=== PATIENT | male | born 1930 | race Caucasian/White ===

== ENCOUNTER 2017-06-14 08:51 | Inpatient (IN) | payer OTHER, BC ==
[2017-06-14 09:12] VITALS: BMI 18.8
[2017-06-14 09:22] LABS: BASOPHIL 0.6 % (0-2.0); EOSINOPHIL 0.7 % (0-4.5); MCH 30.9 pg (25.7-33.7); MCHC 32.8 g/dl (32.0-35.9); MEAN CELL VOLUME 94.3 fl (80-96); MEAN PLT VOLUME 9.7 fl (7.5-11.1); NEUTROPHILS 54.9 % (42.8-82.8); PLATELET COUNT 187 K/MM3 (134-434)
--- NOTE | 2017-06-14 09:32 | PDOC ---
History of Present Illness - General Chief Complaint: Shortness of Breath Stated Complaint: DIFFICULTY BREATHING Time Seen by Provider: 06/14/17 09:11 History Source: Patient, Family Exam Limitations: No Limitations - History of Present Illness Initial Comments: 06/14/17 09:36 Patient is an 87-year-old male with past medical history of CHF, atrial fibrillation, hypertension, HLD, CABG, who presents to the emergency department today for increasing shortness of breath. Patient states that he has had difficulty breathing for the past 2-3 days including increasing cough. He cannot tolerate lying down at night, and needs to sit to get any rest. Admits to lethargy, dyspnea and dyspnea on exertion. Currently unable to ambulate and speaking in short sentences. He was last seen by his grid maker approximately 2 weeks ago and had no complaints at that time. Denies fevers, chills, weakness , chest pain, palpitations,, nausea, vomiting, diarrhea, rhinorrhea, sore throat , ear pain, urinary symptoms. Sr. Payroll Processor: Dr. Fisher PCP: Dr. Clifford Healthcare proxy is the patient's daughter. Patient does want resuscitation and intubation if necessary which is different from the [facility]. 06/14/17 09:38 Triage vitals are notable for: Pulse ox: 86% Respiration rate: 26 Past History - Travel Traveled outside of the country in the last 30 days: No Close contact w/someone who was outside of country & ill: No - Past Medical History Allergies/Adverse Reactions: Allergies Allergy/AdvReac Type Severity Reaction Status Date / Time diltiazem HCl [From Cardizem] Allergy Verified 06/14/17 09:11 meperidine HCl [From Demerol] Allergy DECREASED Verified 06/14/17 09:11 BP AND LETHARGY Home Medications: Ambulatory Orders Lactobacillus Acidophilus [Acidophilus] 1 each PO BID 05/08/16 Metoprolol Succinate [Toprol XL -] 25 mg PO DAILY 05/08/16 Multivitamin with Minerals [Icaps Plus] 1 each PO DAILY 05/08/16 Acetaminophen [Tylenol .Regular Strength -] 650 mg PO Q4H PRN #0 tablet Apixaban [Eliquis -] 2.5 mg PO BID #60 tablet 06/25/16 Furosemide [Lasix -] 40 mg PO DAILY #30 tablet 06/25/16 Cancer: Yes (SKIN) Cardiac Disorders: Yes (CABG, CHF, AF) HTN: Yes Hypercholesterolemia: Yes - Surgical History Cardiac Surgery: Yes - Immunization History Immunization Up to Date: No - Suicide/Smoking/Psychosocial Hx Smoking Status: No Smoking History: Never smoked Have you smoked in the past 12 months: No Number of Cigarettes Smoked Daily: 0 Information on smoking cessation initiated: No Hx Alcohol Use: No Drug/Substance Use Hx: No Substance Use Type: None Hx Substance Use Treatment: No Review of Systems - Review of Systems Able to Perform ROS?: Yes Comments:: 06/14/17 09:39 CONSTITUTIONAL: Absent: fever, chills, diaphoresis, generalized weakness, malaise, loss of appetite HEENT: Absent: rhinorrhea, nasal congestion, throat pain, throat swelling, difficulty swallowing, mouth swelling, ear pain, eye pain, visual Changes CARDIOVASCULAR: Absent: chest pain, loss of consciousness, palpitations, irregular heart rate, peripheral edema RESPIRATORY: Absent: cough, shortness of breath, dyspnea with exertion, orthopnea, wheezing, stridor, hemoptysis GASTROINTESTINAL: Absent: abdominal pain, abdominal distension, nausea, vomiting, diarrhea, constipation, melena, hematochezia GENITOURINARY: Absent: dysuria, frequency, urgency, hesitancy, hematuria, flank pain, genital pain MUSCULOSKELETAL: Absent: myalgia, arthralgia, joint swelling SKIN: Absent: rash, itching, pallor HEMATOLOGIC/IMMUNOLOGIC: Absent: easy bleeding, easy bruising, lymphadenopathy, frequent infections ENDOCRINE: Absent: unexplained weight gain, unexplained weight loss, heat intolerance, cold intolerance NEUROLOGIC: Absent: headache, focal weakness or paresthesias, dizziness, unsteady gait, seizure, mental status changes, bladder or bowel incontinence PSYCHIATRIC: Absent: anxiety, depression, suicidal or homicidal ideation, hallucinations. Is the patient limited Setswana proficient: No *Physical Exam - Vital Signs Last Vital Signs Temp Pulse Resp BP Pulse Ox 98 F 60 26 H 136/78 97 06/14/17 09:08 06/14/17 09:20 06/14/17 09:08 06/14/17 09:08 06/14/17 09:20 - Physical Exam Comments: 06/14/17 09:39 GENERAL: Well developed, well nourished. Awake and alert. No acute distress. HEENT: Normocephalic, atraumatic. PERRLA, EOMI. No conjunctival pallor. Sclera are non- icteric. Moist mucous membranes. Oropharynx is clear. NECK: Supple. Full ROM. No JVD. Carotid pulses 2+ and symmetric, without bruits. No thyromegaly. No lymphadenopathy. CARDIOVASCULAR: Paced rhythm. Regular rate and rhythm. No murmurs, rubs, or gallops. Distal pulses are 2+ and symmetric. PULMONARY: Using accessory muscles to breathe rate of 26-30. Lungs with course rhonchi b/l worse on L than R. Fair aeration to bases. ABDOMINAL: Soft. Non-tender. Non-distended. No rebound or guarding. No organomegaly. Normoactive bowel sounds. MUSCULOSKELETAL Normal range of motion at all joints. No bony deformities or tenderness. No CVA tenderness. EXTREMITIES: No cyanosis. No clubbing. No edema. No calf tenderness. SKIN: Warm and dry. Normal capillary refill. No rashes. No jaundice. NEUROLOGICAL: Alert, awake, appropriate. Cranial nerves 2-12 intact. No deficits to light touch and temperature in face, upper extremities and lower extremities. No motor deficits in the in face, upper extremities and lower extremities. Normoreflexic in the upper and lower extremities. Normal speech. Toes are down- going bilaterally. Gait is normal without ataxia. PSYCHIATRIC: Cooperative. Good eye contact. Appropriate mood and affect. ED Treatment Course - LABORATORY CBC & Chemistry Diagram: 06/14/17 09:15 06/14/17 09:15 - ADDITIONAL ORDERS Additional order review: 06/14/17 09:15 RBC 4.63 D MCV 94.3 MCHC 32.8 RDW 16.0 H MPV 9.7 D Neutrophils % 54.9 D Lymphocytes % 36.2 D Monocytes % 7.6 Eosinophils % 0.7 Basophils % 0.6 Medical Decision Making - Medical Decision Making 06/14/17 09:41 Patient is an 87-year-old male with past medical history of CHF, HTN, HLD, CABG , A. fib with pacemaker, who presents to the emergency department today for increasing shortness of breath and cough. Differential diagnosis included to not limited to acute CHF exacerbation, pneumonia, sepsis. Given physical exam rhonchi or worse on the right than the left. Patient does have retractions. 1.CBC, CMP, lactic acid, troponin, BNP, UA, UC, blood cultures 2.nasal cannula 2 L 3.chest x-ray, EKG 4.reevaluate *DC/Admit/Observation/Transfer Diagnosis at time of Disposition: Shortness of breath CHF (congestive heart failure) Qualifiers: Congestive heart failure type: unspecified congestive heart failure type Congestive heart failure chronicity: chronic Qualified Code(s): I50.9 - Heart failure, unspecified; I50.9 - Heart failure, unspecified; I50.9 - Heart failure , unspecified; I50.9 - Heart failure, unspecified Sepsis Qualifiers: Sepsis type: sepsis due to unspecified organism Qualified Code(s): A41.9 - Sepsis, unspecified organism; A41.9 - Sepsis, unspecified organism; A41.9 - Sepsis, unspecified organism - Discharge Dispostion Condition at time of disposition: Guarded Admit: Yes
[2017-06-14 09:41] LABS: ALBUMIN 3.1 g/dl (3.4-5.0); ANION GAP 6 (8-16); CALCIUM 8.6 mg/dL (8.5-10.1); CO2 29 mmol/L (21-32); GLUCOSE,RANDOM 226 mg/dL (74-106)
[2017-06-14 09:44] LABS: ALK PHOS 169 U/L (45-117); BILIRUBIN,TOTAL 0.8 mg/dL (0.2-1.0); SGPT/ALT 38 U/L (12-78); TOT PROT 7.8 g/dl (6.4-8.2)
[2017-06-14 09:48] LABS: SGOT/AST 66 U/L (15-37)
[2017-06-14 09:56] LABS: INR 1.84 (0.82-1.09); PROTHROMBIN TIME (PATIENT) 20.5 SEC (9.98-11.88)
[2017-06-14 09:59] LABS: ACTIVATED PTT 36.8 SECONDS (26.9-34.4)
[2017-06-14 10:10] LABS: VENOUS BLOOD GAS HCO3 27.1 meq/L (19-25); VENOUS PH 7.22 (7.32-7.42)
[2017-06-14] MEDS ORDERED: PIPERACILLIN/TAZOB 3.375 GM 3.375 GM in DEXTROSE 5%-WATER - 50 ML IVPB ONE (10:43)
[2017-06-14] MEDS ORDERED: VANCOMYCIN 1,000 MG in DEXTROSE 5%-WATER - 250 ML IVPB ONE (10:43)
[2017-06-14] MEDS ORDERED: SODIUM CHLORIDE 500 ML IV STA (10:44)
[2017-06-14] MEDS ORDERED: VANCOMYCIN 1 GRAM (PRE-DOCKED) 250 ML IVPB ONE (10:51)
[2017-06-14] MEDS ORDERED: PIPERACILLIN/TAZOB 3.375 GM 50 ML IVPB ONE (10:52)
[2017-06-14 11:05] LABS: PHOSPHOROUS 4.9 mg/dL (2.5-4.9); TROPONIN I 0.08 ng/ml (0.00-0.05)
[2017-06-14 11:06] LABS: CPK 82 IU/L (39-308)
[2017-06-14] MEDS ORDERED: BACITRACIN 0.9 GM PACKET ONE (11:42)
[2017-06-14] MEDS ORDERED: BACITRACIN 15 GM TUBE TOPICAL OINTMENT ONE (11:44)
[2017-06-14] MEDS ORDERED: ACETAMINOPHEN 325 MG TABLET (FP) PO PRN (12:05)
--- NOTE | 2017-06-14 12:18 | HP ---
Admitting History and Physical - Primary Care Physician PCP: Juan Clifford - Admission Chief Complaint: I passed out History of Present Illness: Mr Covarrubias is a very pleasant 87 year old male who comes in with complaints of passing out this morning. He says that he began to have problems Wednesday. He says overnight he was having difficulty sleeping secondary to becoming short of breath. He has chronic orthopnea but it was worsening. He needed more pillows to sleep. During the day he was having episodes of shortness of breath that would come and go, and he also had coughing associated with this too. He says his cough was non-productive. Wednesday the dyspnea became worse and overnight last night he had even worsening shortness of breath. This morning he stood up and thinks he passed out. Because of that he is here. He denies fevers, chills, vertigo, chest pain or pressure, abdominal pain, nausea, vomiting, diarrhea, constipation, pain or difficulty urinating, or swelling. 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 Diff) Renal/: Yes: Renal Inusuff (mild), UTI Infectious Disease: Yes: C-Diff Musculoskeletal: Yes: Osteoarthritis (knees), Other (LE weakness) Rheumatology: Yes: Other (severe degenerative arthritis of knees necessitating walker) - Past Surgical History Past Surgical History: Yes: CABG, Permanent Pacemaker (09/07/14), Stent, Valve Replacement - Smoking History Smoking history: Never smoked Have you smoked in the past 12 months: No Aproximately how many cigarettes per day: 0 - Alcohol/Substance Use Hx Alcohol Use: No History of Substance Use: reports: None - Social History Usual Living Arrangement: Yes: With Child ADL: Support Services History of Recent Travel: No Home Medications - Allergies Allergies/Adverse Reactions: Allergies Allergy/AdvReac Type Severity Reaction Status Date / Time diltiazem HCl [From Cardizem] Allergy Verified 06/14/17 09:11 meperidine HCl [From Demerol] Allergy DECREASED Verified 06/14/17 09:11 BP AND LETHARGY - Home Medications Home Medications: Ambulatory Orders Lactobacillus Acidophilus [Acidophilus] 1 each PO BID 05/08/16 Metoprolol Succinate [Toprol XL -] 25 mg PO DAILY 05/08/16 Multivitamin with Minerals [Icaps Plus] 1 each PO DAILY 05/08/16 Acetaminophen [Tylenol .Regular Strength -] 650 mg PO Q4H PRN #0 tablet Apixaban [Eliquis -] 2.5 mg PO BID #60 tablet 06/25/16 Furosemide [Lasix -] 40 mg PO DAILY #30 tablet 06/25/16 Family Disease History - Family Disease History Family Disease History: Heart Disease: Brother ( of an DE), CA: Grandparent (colon cancer), Father (colon cancer), Other: Mother (old age) Review of Systems Findings/Remarks: Full review of systems obtained, as per HPI and otherwise negative Physical Examination Vital Signs: Vital Signs Temperature 36.6 C 06/14/17 09:08 Pulse Rate 60 06/14/17 10:07 Respiratory Rate 18 06/14/17 10:07 Blood Pressure 100/6 06/14/17 10:07 O2 Sat by Pulse Oximetry (%) 100 06/14/17 10:07 Constitutional: Yes: No Distress, Calm, Thin, Other Eyes: Yes: Conjunctiva Clear, PERRL Cardiovascular: Yes: Regular Rate and Rhythm. No: Gallop, Murmur, Rub Respiratory: Yes: Regular, On Nasal O2, Rhonchi (slight, bibasilar). No: CTA Bilaterally, Rales, Wheezes Gastrointestinal: Yes: Normal Bowel Sounds, Soft. No: Distention, Tenderness Extremities: Yes: WNL Edema: No Labs: Laboratory Results - last 24 hr 06/14/17 06/14/17 06/14/17 09:15 09:15 09:20 WBC 10.0 RBC 4.63 D Hgb 14.3 D Hct 43.7 D MCV 94.3 MCH 30.9 MCHC 32.8 RDW 16.0 H Plt Count 187 D MPV 9.7 D Neutrophils % 54.9 D Lymphocytes % 36.2 D Monocytes % 7.6 Eosinophils % 0.7 Basophils % 0.6 PT with INR 20.50 H INR 1.84 H PTT (Actin FS) 36.8 H VBG pH POC VBG pCO2 POC VBG pO2 Mixed VBG HCO3 Sodium 139 Potassium 4.6 Chloride 104 Carbon Dioxide 29 Anion Gap 6 L BUN 25 H Creatinine 1.0 D Creat Clearance w eGFR > 60 Random Glucose 226 H D Lactic Acid Calcium 8.6 Phosphorus 4.9 D Magnesium 2.0 Total Bilirubin 0.8 D AST 66 H D ALT 38 D Alkaline Phosphatase 169 H Creatine Kinase 82 Creatine Kinase Index CK-MB (CK-2) Troponin I 0.08 H B-Natriuretic Peptide 9589.19 H Total Protein 7.8 Albumin 3.1 L D Blood Type Antibody Screen Spec Expiration Date 06/14/17 06/14/17 06/14/17 09:20 09:20 09:20 WBC RBC Hgb Hct MCV MCH MCHC RDW Plt Count MPV Neutrophils % Lymphocytes % Monocytes % Eosinophils % Basophils % PT with INR INR PTT (Actin FS) VBG pH POC VBG pCO2 POC VBG pO2 Mixed VBG HCO3 Sodium Potassium Chloride Carbon Dioxide Anion Gap BUN Creatinine Creat Clearance w eGFR Random Glucose Lactic Acid 3.6 H* Calcium Phosphorus Magnesium Total Bilirubin AST ALT Alkaline Phosphatase Creatine Kinase Cancelled Creatine Kinase Index Cancelled CK-MB (CK-2) Cancelled Troponin I Cancelled B-Natriuretic Peptide Total Protein Albumin Blood Type Cancelled Antibody Screen Cancelled Spec Expiration Date Cancelled 06/14/17 06/14/17 09:50 11:50 WBC RBC Hgb Hct MCV MCH MCHC RDW Plt Count MPV Neutrophils % Lymphocytes % Monocytes % Eosinophils % Basophils % PT with INR INR PTT (Actin FS) VBG pH 7.22 L* POC VBG pCO2 68.5 H* POC VBG pO2 65.6 H Mixed VBG HCO3 27.1 H Sodium Potassium Chloride Carbon Dioxide Anion Gap BUN Creatinine Creat Clearance w eGFR Random Glucose Lactic Acid 2.2 H* Calcium Phosphorus Magnesium Total Bilirubin AST ALT Alkaline Phosphatase Creatine Kinase Creatine Kinase Index CK-MB (CK-2) Troponin I B-Natriuretic Peptide Total Protein Albumin Blood Type Antibody Screen Spec Expiration Date Imaging - Results Chest X-ray: Report Reviewed, Image Reviewed EKG: Image Reviewed Problem List - Problems (1) Acute on chronic diastolic (congestive) heart failure Assessment/Plan: -patient's symptoms most consistent with fluid overload secondary to CHF exacerbation -admit to telemetry -given IVF in the ED secondary to concern for sepsis -however does not appear septic -will stop IVF and give trial of lasix -case d/w cardiology Code(s): I50.33 - ACUTE ON CHRONIC DIASTOLIC (CONGESTIVE) HEART FAILURE (2) Lactic acid acidosis Assessment/Plan: -patient with lactic acidosis -unclear source, ? secondary to hypoxia -trending down currently -will consult ID for possibility of infectious agent Code(s): E87.2 - ACIDOSIS (3) Respiratory acidosis Assessment/Plan: -VBG showing acidosis, with elevated carbon dioxide -ABG ordered -if accurate, would be consistent with CHF exacerbation -will hold on bipap until ABG returns, plus patient is protecting his airway and not somnolent or with AMS -monitor while diuresing Code(s): E87.2 - ACIDOSIS (4) Atrial fibrillation Assessment/Plan: -paced -continue toprol xl and eliquis Code(s): I48.91 - UNSPECIFIED ATRIAL FIBRILLATION Qualifiers: Atrial fibrillation type: chronic Qualified Code(s): I48.2 - Chronic atrial fibrillation; I48.2 - Chronic atrial fibrillation; I48.2 - Chronic atrial fibrillation; I48.2 - Chronic atrial fibrillation (5) Hypertension Assessment/Plan: -continue toprol xl Code(s): I10 - ESSENTIAL (PRIMARY) HYPERTENSION (6) History of aortic valve replacement with bioprosthetic valve Assessment/Plan: -stable Code(s): Z95.4 - PRESENCE OF OTHER HEART-VALVE REPLACEMENT (7) Hypoxia Assessment/Plan: -patient wears oxygen at night -VBG shows elevated oxygen, however per ER provider patient came in with sats around the 70s -continue oxygen -diurese for CHF -consult pulmonary -ABG Code(s): R09.02 - HYPOXEMIA
--- NOTE | 2017-06-14 14:16 | CON.CARD ---
Consult Consult Specialty:: Cardiology - History of Present Illness History of Present Illness: Patient is an 87-year-old male with past medical history of CHF, atrial fibrillation, hypertension, HLD, CABG, who presents to the emergency department today for increasing shortness of breath. Patient states that he has had difficulty breathing for the past 2-3 days including increasing cough. He cannot tolerate lying down at night, and needs to sit to get any rest. Admits to lethargy, dyspnea and dyspnea on exertion. Currently unable to ambulate and speaking in short sentences. He was last seen by his wood type finisher approximately 2 weeks ago and had no complaints at that time. Denies fevers, chills, weakness , chest pain, palpitations,, nausea, vomiting, diarrhea, rhinorrhea, sore throat , ear pain, urinary symptoms. PMH Surgical history: CABG (SANCHEZ to LAD; SVG to PDA) and pericardial aortic valve 12/23 at [facility] (Dr. Yaya Green) Left upper arm surgery for "malignant melanoma" VVIR [employer] PPM (implanted 09/07/2014) Medical History: AF anxiety/depression CAD (denies hx GA) and aortic stenosis--> 2 vessel CABG and AoVR on 12/23 DM HTN severe "arthritis" of both knees skin cancer on top of (bald) head diastolic CHF ECHO 04/2016: normal LVEF; moderate LVH; mild-moderate MS; mild MR and WA; trace TR. 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 History of Recent Travel: No Home Medications - Allergies Allergies/Adverse Reactions: Allergies Allergy/AdvReac Type Severity Reaction Status Date / Time diltiazem HCl [From Cardizem] Allergy Verified 06/14/17 09:11 meperidine HCl [From Demerol] Allergy DECREASED Verified 06/14/17 09:11 BP AND LETHARGY - Home Medications Home Medications: Ambulatory Orders Lactobacillus Acidophilus [Acidophilus] 1 each PO BID 05/08/16 Metoprolol Succinate [Toprol XL -] 25 mg PO DAILY 05/08/16 Multivitamin with Minerals [Icaps Plus] 1 each PO DAILY 05/08/16 Acetaminophen [Tylenol .Regular Strength -] 650 mg PO Q4H PRN #0 tablet Apixaban [Eliquis -] 2.5 mg PO BID #60 tablet 06/25/16 Furosemide [Lasix -] 40 mg PO DAILY #30 tablet 06/25/16 Family Disease History - Family Disease History Family Disease History: Heart Disease: Brother ( of an GA), CA: Grandparent (colon cancer), Father (colon cancer), Other: Mother (old age) Review of Systems - Review of Systems Constitutional: reports: No Symptoms Eyes: reports: No Symptoms HENT: reports: No Symptoms Neck: reports: No Symptoms Cardiovascular: reports: No Symptoms Respiratory: reports: SOB, SOB on Exertion Gastrointestinal: reports: No Symptoms Genitourinary: reports: No Symptoms Breasts: reports: No Symptoms Reported Musculoskeletal: reports: No Symptoms Integumentary: reports: No Symptoms Neurological: reports: No Symptoms Endocrine: reports: No Symptoms Hematology/Lymphatic: reports: No Symptoms Psychiatric: reports: No Symptoms Vital Signs: Vital Signs Temperature 98 F 06/14/17 09:08 Pulse Rate 60 06/14/17 12:20 Respiratory Rate 18 06/14/17 12:20 Blood Pressure 108/79 06/14/17 12:20 O2 Sat by Pulse Oximetry (%) 98 06/14/17 12:20 Constitutional: Yes: Well Nourished, No Distress, Calm Eyes: Yes: WNL, Conjunctiva Clear, EOM Intact HENT: Yes: WNL, Atraumatic, Normocephalic Neck: Yes: WNL, Supple, Trachea Midline Respiratory: Yes: WNL, Regular, CTA Bilaterally Gastrointestinal: Yes: WNL, Normal Bowel Sounds Renal/: Yes: WNL Cardiovascular: Yes: WNL, Regular Rate and Rhythm Musculoskeletal: Yes: WNL Extremities: Yes: WNL Integumentary: Yes: WNL Neurological: Yes: WNL, Alert, Oriented ...Motor Strength: WNL Psychiatric: Yes: WNL, Alert, Oriented - Other Data Labs, Other Data: INR, PTT INR 1.84 (0.82-1.09) H 06/14/17 09:20 Laboratory Tests 06/14/17 06/14/17 06/14/17 09:15 09:15 09:20 WBC 10.0 RBC 4.63 D Hgb 14.3 D Hct 43.7 D MCV 94.3 MCH 30.9 MCHC 32.8 RDW 16.0 H Plt Count 187 D MPV 9.7 D Neutrophils % 54.9 D Lymphocytes % 36.2 D Monocytes % 7.6 Eosinophils % 0.7 Basophils % 0.6 PT with INR 20.50 H INR 1.84 H PTT (Actin FS) 36.8 H VBG pH POC VBG pCO2 POC VBG pO2 Mixed VBG HCO3 Sodium 139 Potassium 4.6 Chloride 104 Carbon Dioxide 29 Anion Gap 6 L BUN 25 H Creatinine 1.0 D Creat Clearance w eGFR > 60 Random Glucose 226 H D Lactic Acid Calcium 8.6 Phosphorus 4.9 D Magnesium 2.0 Total Bilirubin 0.8 D AST 66 H D ALT 38 D Alkaline Phosphatase 169 H Creatine Kinase 82 Creatine Kinase Index CK-MB (CK-2) Troponin I 0.08 H B-Natriuretic Peptide 9589.19 H Total Protein 7.8 Albumin 3.1 L D Blood Type Antibody Screen Spec Expiration Date 06/14/17 06/14/17 06/14/17 09:20 09:20 09:20 WBC RBC Hgb Hct MCV MCH MCHC RDW Plt Count MPV Neutrophils % Lymphocytes % Monocytes % Eosinophils % Basophils % PT with INR INR PTT (Actin FS) VBG pH POC VBG pCO2 POC VBG pO2 Mixed VBG HCO3 Sodium Potassium Chloride Carbon Dioxide Anion Gap BUN Creatinine Creat Clearance w eGFR Random Glucose Lactic Acid 3.6 H* Calcium Phosphorus Magnesium Total Bilirubin AST ALT Alkaline Phosphatase Creatine Kinase Cancelled Creatine Kinase Index Cancelled CK-MB (CK-2) Cancelled Troponin I Cancelled B-Natriuretic Peptide Total Protein Albumin Blood Type Cancelled Antibody Screen Cancelled Spec Expiration Date Cancelled 06/14/17 06/14/17 09:50 11:50 WBC RBC Hgb Hct MCV MCH MCHC RDW Plt Count MPV Neutrophils % Lymphocytes % Monocytes % Eosinophils % Basophils % PT with INR INR PTT (Actin FS) VBG pH 7.22 L* POC VBG pCO2 68.5 H* POC VBG pO2 65.6 H Mixed VBG HCO3 27.1 H Sodium Potassium Chloride Carbon Dioxide Anion Gap BUN Creatinine Creat Clearance w eGFR Random Glucose Lactic Acid 2.2 H* Calcium Phosphorus Magnesium Total Bilirubin AST ALT Alkaline Phosphatase Creatine Kinase Creatine Kinase Index CK-MB (CK-2) Troponin I B-Natriuretic Peptide Total Protein Albumin Blood Type Antibody Screen Spec Expiration Date Imaging - Results Chest X-ray: Image Reviewed EKG: Image Reviewed (af v paced) Problem List - Problems (1) Atrial fibrillation Code(s): I48.91 - UNSPECIFIED ATRIAL FIBRILLATION Qualifiers: Qualified Code(s): I48.2 - Chronic atrial fibrillation; I48.2 - Chronic atrial fibrillation; I48.2 - Chronic atrial fibrillation; I48.2 - Chronic atrial fibrillation (2) CHF (congestive heart failure) Code(s): I50.9 - HEART FAILURE, UNSPECIFIED Qualifiers: Qualified Code(s): I50.9 - Heart failure, unspecified; I50.9 - Heart failure, unspecified; I50.9 - Heart failure, unspecified; I50.9 - Heart failure , unspecified (3) Hypertension Code(s): I10 - ESSENTIAL (PRIMARY) HYPERTENSION (4) Sepsis Code(s): A41.9 - SEPSIS, UNSPECIFIED ORGANISM Qualifiers: Qualified Code(s): A41.9 - Sepsis, unspecified organism; A41.9 - Sepsis, unspecified organism; A41.9 - Sepsis, unspecified organism (5) Shortness of breath Code(s): R06.02 - SHORTNESS OF BREATH (6) Acute bronchitis Code(s): J20.9 - ACUTE BRONCHITIS, UNSPECIFIED Qualifiers: Qualified Code(s): J20.6 - Acute bronchitis due to rhinovirus; J20.6 - Acute bronchitis due to rhinovirus (7) Acute on chronic diastolic (congestive) heart failure Code(s): I50.33 - ACUTE ON CHRONIC DIASTOLIC (CONGESTIVE) HEART FAILURE (8) Arthritis Code(s): M19.90 - UNSPECIFIED OSTEOARTHRITIS, UNSPECIFIED SITE (9) Bradycardia Code(s): R00.1 - BRADYCARDIA, UNSPECIFIED (10) C. difficile diarrhea Code(s): A04.7 - ENTEROCOLITIS DUE TO CLOSTRIDIUM DIFFICILE * DO NOT USE * (11) Cellulitis Code(s): L03.90 - CELLULITIS, UNSPECIFIED Qualifiers: Qualified Code(s): L03.115 - Cellulitis of right lower limb; L03.115 - Cellulitis of right lower limb (12) Diarrhea Code(s): R19.7 - DIARRHEA, UNSPECIFIED Qualifiers: Qualified Code(s): R19.7 - Diarrhea, unspecified; R19.7 - Diarrhea, unspecified (13) Diastolic CHF Code(s): I50.30 - UNSPECIFIED DIASTOLIC (CONGESTIVE) HEART FAILURE (14) Elevated INR Code(s): R79.1 - ABNORMAL COAGULATION PROFILE (15) Gout Code(s): M10.9 - GOUT, UNSPECIFIED (16) H/O aortic valve replacement Code(s): Z95.2 - PRESENCE OF PROSTHETIC HEART VALVE (17) Hematuria Code(s): R31.9 - HEMATURIA, UNSPECIFIED (18) History of aortic valve replacement with bioprosthetic valve Code(s): Z95.4 - PRESENCE OF OTHER HEART-VALVE REPLACEMENT (19) Hyperkalemia Code(s): E87.5 - HYPERKALEMIA (20) Hypomagnesemia Code(s): E83.42 - HYPOMAGNESEMIA (21) Leg swelling Code(s): M79.89 - OTHER SPECIFIED SOFT TISSUE DISORDERS (22) Lower extremity ulceration Code(s): L97.909 - NON-PRS CHRONIC ULC UNSP PRT OF UNSP LOW LEG W UNSP SEVERITY (23) Melanoma of upper arm Code(s): C43.60 - MALIGNANT MELANOMA OF UNSP UPPER LIMB, INCLUDING SHOULDER (24) Nausea & vomiting Code(s): R11.2 - NAUSEA WITH VOMITING, UNSPECIFIED (25) Osteoarthritis of both knees Code(s): M17.0 - BILATERAL PRIMARY OSTEOARTHRITIS OF KNEE (26) Pacemaker Code(s): Z95.0 - PRESENCE OF CARDIAC PACEMAKER (27) Phlebitis after infusion Code(s): T80.1XXA - VASCULAR COMP FOL INFUSN, TRANFS AND THERAPUTC INJECT, INIT (28) Rectal bleeding Code(s): K62.5 - HEMORRHAGE OF ANUS AND RECTUM (29) Supratherapeutic INR Code(s): R79.1 - ABNORMAL COAGULATION PROFILE (30) Systolic CHF Code(s): I50.20 - UNSPECIFIED SYSTOLIC (CONGESTIVE) HEART FAILURE Assessment/Plan chf diastolic acute decompensated sepsis ashds/p cabg s/p AVR s/p PPM htn dm hlp plan; d/c ivf lasix po abx' echo ac will f/u
[2017-06-14] MEDS: FUROSEMIDE 40 MG/4 ML INJECTABLE VIAL IVPUSH SCH (14:37)
--- NOTE | 2017-06-14 14:58 | CONSULT ---
Consultation: PULMONARY CONSULT CONSULT REQUEST: We have been asked to medically evaluate this patient for ( HYPOXIA) HISTORY OF PRESENT ILLNESS: Mr. Covarrubias is a 87yo M with PMHx of Diastolic CHF, Afib, on chronic 2L NC at night, who presented with one episode of syncope this AM. Endorsed gradual onset SOB and worsening orthopnea for the past 3 days. This AM he was getting up from bed and doesn't remember what happened after that. Precision Grinder Santy was present in the room, states that he noticed the patient was panting, taking deep breaths, and not responding to questions as he normally would. He states that patient lost consciousness for about 5 minutes. Prior to the syncopal episode he denied CP, palpitations, aura, migraines. Precision Grinder didn't note seizure activity, and patient had no focal neurological symptoms after return to consciousness. He endorses a dry cough. Denies fevers, chills, vertigo. In the ER he was speaking in short sentences, noted to be hypoxic (86) on RA with respiratory rate of 26. He had lactic acid of 3.6, afebrile, no WBC count. Patient had elevated BNP and signs of congestion (cardiomegaly, pleural effusion , increased lung markings) on CXR. VBG in the ER was consistent with respiratory acidosis (pH 7.22, CO2 68.5), prior ABG shows CO2 50.6. Patient was given 500mL NS + Vanc/Zosyn. Since then, fluids were stopped, and patient was started on IV Lasix 40mg QD. Patient feels much better than yesterday. States he is less SOB, cough is decreasing. Denies CP, headache, further syncopal episodes. OTHER PMHX: Diastolic CHF (on Lasix 40mg QD), CAD, Aortic Stenosis (s/p AVR), Pulmonary HTN, Afib (on Eliquis) SOCIAL HX: Denies smoking history. 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 REVIEW OF SYSTEMS: CONSTITUTIONAL: Absent: fever, chills, diaphoresis, generalized weakness, malaise, loss of appetite, weight change HEENT: Absent: rhinorrhea, nasal congestion, throat pain, throat swelling, difficulty swallowing, mouth swelling, ear pain, eye pain, visual changes CARDIOVASCULAR: Absent: chest pain, syncope, palpitations, irregular heart rate, lightheadedness , peripheral edema RESPIRATORY: Absent: wheezing, stridor, hemoptysis Present: cough, shortness of breath, dyspnea with exertion, orthopnea GASTROINTESTINAL: Absent: abdominal pain, abdominal distension, nausea, vomiting, diarrhea, constipation, melena, hematochezia GENITOURINARY: Absent: dysuria, frequency, urgency, hesitancy, hematuria, flank pain, genital pain MUSCULOSKELETAL: Absent: myalgia, arthralgia, joint swelling, back pain, neck pain SKIN: Absent: rash, itching, pallor HEMATOLOGIC/IMMUNOLOGIC: Absent: easy bleeding, easy bruising, lymphadenopathy, frequent infections ENDOCRINE: Absent: unexplained weight gain, unexplained weight loss, heat intolerance, cold intolerance NEUROLOGIC: Absent: headache, focal weakness or paresthesias, dizziness, unsteady gait, seizure, mental status changes, bladder or bowel incontinence PSYCHIATRIC: Absent: anxiety, depression, suicidal or homicidal ideation, hallucinations. PHYSICAL EXAMINATION Vital Signs Temperature 97.6 F 06/14/17 14:10 Pulse Rate 61 06/14/17 14:10 Respiratory Rate 18 06/14/17 14:10 Blood Pressure 110/62 06/14/17 14:10 O2 Sat by Pulse Oximetry (%) 98 06/14/17 12:20 GEN: AAOx3, NAD, Lying in bed comfortably, not in respiratory distress HEENT: PERRLA, EOMi CV: S1, S2, irregularly irregular rhythm LUNG: Mild bibasilar crackles, R worse than L ABD: Soft, NT, ND, normoactive BS MSK: No edema, thin skin, erythema NEURO: CN 2-12 intact, no MSK or sensation deficits. Laboratory Last Values WBC 10.0 K/mm3 (4.0-10.0) 06/14/17 09:15 RBC 4.63 M/mm3 (4.00-5.60) D 06/14/17 09:15 Hgb 14.3 GM/dL (11.7-16.9) D 06/14/17 09:15 Hct 43.7 % (35.4-49) D 06/14/17 09:15 MCV 94.3 fl (80-96) 06/14/17 09:15 MCH 30.9 pg (25.7-33.7) 06/14/17 09:15 MCHC 32.8 g/dl (32.0-35.9) 06/14/17 09:15 RDW 16.0 % (11.9-15.9) H 06/14/17 09:15 Plt Count 187 K/MM3 (134-434) D 06/14/17 09:15 MPV 9.7 fl (7.5-11.1) D 06/14/17 09:15 Neutrophils % 54.9 % (42.8-82.8) D 06/14/17 09:15 Lymphocytes % 36.2 % (8-40) D 06/14/17 09:15 Monocytes % 7.6 % (3.8-10.2) 06/14/17 09:15 Eosinophils % 0.7 % (0-4.5) 06/14/17 09:15 Basophils % 0.6 % (0-2.0) 06/14/17 09:15 PT with INR 20.50 SEC (9.98-11.88) H 06/14/17 09:20 INR 1.84 (0.82-1.09) H 06/14/17 09:20 PTT (Actin FS) 36.8 SECONDS (26.9-34.4) H 06/14/17 09:20 VBG pH 7.22 (7.32-7.42) L* 06/14/17 09:50 POC VBG pCO2 68.5 mmHg (38-52) H* 06/14/17 09:50 POC VBG pO2 65.6 mmHg (28-48) H 06/14/17 09:50 Mixed VBG HCO3 27.1 meq/L (19-25) H 06/14/17 09:50 Sodium 139 mmol/L (136-145) 06/14/17 09:15 Potassium 4.6 mmol/L (3.5-5.1) 06/14/17 09:15 Chloride 104 mmol/L (98-107) 06/14/17 09:15 Carbon Dioxide 29 mmol/L (21-32) 06/14/17 09:15 Anion Gap 6 (8-16) L 06/14/17 09:15 BUN 25 mg/dL (7-18) H 06/14/17 09:15 Creatinine 1.0 mg/dL (0.7-1.3) D 06/14/17 09:15 Creat Clearance w eGFR > 60 (>60) 06/14/17 09:15 Random Glucose 226 mg/dL (74-106) H D 06/14/17 09:15 Lactic Acid 2.2 mmol/L (0.4-2.0) H* 06/14/17 11:50 Calcium 8.6 mg/dL (8.5-10.1) 06/14/17 09:15 Phosphorus 4.9 mg/dL (2.5-4.9) D 06/14/17 09:15 Magnesium 2.0 mg/dL (1.8-2.4) 06/14/17 09:15 Total Bilirubin 0.8 mg/dL (0.2-1.0) D 06/14/17 09:15 AST 66 U/L (15-37) H D 06/14/17 09:15 ALT 38 U/L (12-78) D 06/14/17 09:15 Alkaline Phosphatase 169 U/L (45-117) H 06/14/17 09:15 Creatine Kinase 82 IU/L (39-308) 06/14/17 09:15 Creatine Kinase Index Cancelled 06/14/17 09:20 CK-MB (CK-2) Cancelled 06/14/17 09:20 Troponin I 0.08 ng/ml (0.00-0.05) H 06/14/17 09:15 B-Natriuretic Peptide 9589.19 pg/ml (5-450) H 06/14/17 09:15 Total Protein 7.8 g/dl (6.4-8.2) 06/14/17 09:15 Albumin 3.1 g/dl (3.4-5.0) L D 06/14/17 09:15 Blood Type Cancelled 06/14/17 09:20 Antibody Screen Cancelled 06/14/17 09:20 Spec Expiration Date Cancelled 06/14/17 09:20 Active Medications Generic Name Dose Route Start Last Admin Trade Name Freq PRN Reason Stop Dose Admin Acetaminophen 650 mg 06/14/17 12:05 Tylenol - PO Q4H PRN FEVER OR PAIN Apixaban 2.5 mg 06/14/17 22:00 Eliquis - PO BID HOLLEY Furosemide 40 mg 06/14/17 14:30 06/14/17 14:37 Lasix Injection - IVPUSH 40 mg DAILY HOLLEY Administration Lactobacillus Acidophilus 1 tab 06/14/17 22:00 Bacid - PO BID HOLLEY Metoprolol Succinate 25 mg 06/15/17 10:00 Toprol Xl - PO DAILY HOLLEY Multivitamins/Minerals 1 each 06/15/17 10:00 Theragran-M PO DAILY HOLLEY ASSESSMENT/PLAN: Pt is a 87yo F with diastolic CHF, HTN, CAD who presented with 1 day of syncope , admitted for likely diastolic CHF exacerbation. # Acute on Chronic Hypercapnic RF - likely secondary to CHF exac - Now improved to 97 on 3L - F/u new ABG - Continue O2 as needed #Diastolic CHF Exacerbation - prior Echo in 2016 shows normal LVEF, moderate LVH - Continue diuresis with IV Lasix 40mg QD - New echocardiogram - Strict I&Os, Daily weights, Elevate HOB # Syncope - Carotid ultrasound shows multiple plaques in RCA and LCA, no hemodynamic stenosis, at least >50% narrowing - Could be 2/2 Hypercapnea vs CHF exacerbation + carotid stenoses --> cerebral hypoperfusion - Monitor on tele for arrhythmias # Lactic Acid - 3.6 --> 2.2 - Likely secondary to hypoxia - Unlikely related to infectious etiology - CT Chest to evaluate for consolidation, if + can restart abx - Continue O2 as needed Rest as per Primary. Discussed w/ Dr Molina. We will continue to follow the patient. Trevor Quiroga MD - PGY1 Visit type - Emergency Visit Emergency Visit: No - New Patient This patient is new to me today: Yes Date on this admission: 06/14/17 - Critical Care Critical Care patient: No
--- NOTE | 2017-06-14 16:10 | PN ---
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
--- NOTE | 2017-06-14 16:32 | PN ---
Teaching Attending Note Name of Resident: Trevor Quiroga ATTENDING PHYSICIAN STATEMENT I saw and evaluated the patient. I reviewed the resident's note and discussed the case with the resident. I agree with the resident's findings and plan as documented. PULMONARY IMP ACUTE ON CHRONIC HYPOXEMIC/HYPERCAPNEIC RESPIRATORY FAILURE SYNCOPE CHF ? COPD S/P AVR HTN AFIB ELEVATED LACTATE LEVEL PLAN LASIX O2 DAILY WTS ECHO STRICT I+Os TREND LACTATE CHEST CT ABG MONITOR ÁNGELA CHATMAN Problem List - Problems (1) Atrial fibrillation Code(s): I48.91 - UNSPECIFIED ATRIAL FIBRILLATION Qualifiers: Atrial fibrillation type: chronic Qualified Code(s): I48.2 - Chronic atrial fibrillation; I48.2 - Chronic atrial fibrillation; I48.2 - Chronic atrial fibrillation; I48.2 - Chronic atrial fibrillation (2) CHF (congestive heart failure) Code(s): I50.9 - HEART FAILURE, UNSPECIFIED Qualifiers: Congestive heart failure type: unspecified congestive heart failure type Congestive heart failure chronicity: chronic Qualified Code(s): I50.9 - Heart failure, unspecified; I50.9 - Heart failure, unspecified; I50.9 - Heart failure, unspecified; I50.9 - Heart failure, unspecified (3) Hypertension Code(s): I10 - ESSENTIAL (PRIMARY) HYPERTENSION (4) Hypoxia Code(s): R09.02 - HYPOXEMIA (5) Lactic acid acidosis Code(s): E87.2 - ACIDOSIS (6) Shortness of breath Code(s): R06.02 - SHORTNESS OF BREATH (7) Acute on chronic diastolic (congestive) heart failure Code(s): I50.33 - ACUTE ON CHRONIC DIASTOLIC (CONGESTIVE) HEART FAILURE (8) H/O aortic valve replacement Code(s): Z95.2 - PRESENCE OF PROSTHETIC HEART VALVE (9) History of aortic valve replacement with bioprosthetic valve Code(s): Z95.4 - PRESENCE OF OTHER HEART-VALVE REPLACEMENT (10) Pacemaker Code(s): Z95.0 - PRESENCE OF CARDIAC PACEMAKER (11) Acute on chronic respiratory failure with hypoxia and hypercapnia Code(s): J96.21 - ACUTE AND CHRONIC RESPIRATORY FAILURE WITH HYPOXIA J96.22 - ACUTE AND CHRONIC RESPIRATORY FAILURE WITH HYPERCAPNIA
[2017-06-14 17:34] LABS: TROPONIN I 0.13 ng/ml (0.00-0.05)
[2017-06-14 18:59] LABS: URINE APPEARANCE CLEAR; URINE BILIRUBIN NEGATIVE (NEGATIVE); URINE BLOOD 2+ (NEGATIVE); URINE COLOR LTYELLOW; URINE GLUCOSE (UA) NEGATIVE (NEGATIVE); URINE KETONE NEGATIVE (NEGATIVE); URINE LEUK ESTERASE NEGATIVE (NEGATIVE); URINE NITRITE NEGATIVE (NEGATIVE); URINE UROBILINOGEN NEGATIVE mg/dL (0.2-1.0)
[2017-06-14 19:21] LABS: URINE PROTEIN 1+ (NEGATIVE)
[2017-06-14 19:24] LABS: URINE MUCUS RARE; URINE RBC 93 /hpf (0-3); URINE WBC 13 /hpf (3-5)
[2017-06-14] MEDS: VANCOMYCIN 250 MG/5 ML ORAL SOLUTION PO SCH (21:21)
[2017-06-14] MEDS: LACTOBACILLUS ACIDOPHILUS 1 EACH TAB (FP) PO SCH (21:22)
[2017-06-14] MEDS: APIXABAN 2.5 MG TABLET PO SCH (21:22)
[2017-06-15 06:46] LABS: ANION GAP 5 (8-16); CALCIUM 8.8 mg/dL (8.5-10.1); CO2 33 mmol/L (21-32); GLUCOSE,RANDOM 96 mg/dL (74-106); MAGNESIUM 1.8 mg/dL (1.8-2.4); PHOSPHOROUS 2.9 mg/dL (2.5-4.9)
[2017-06-15 06:52] LABS: BASOPHIL 0.5 % (0-2.0); EOSINOPHIL 0.6 % (0-4.5); MCH 30.4 pg (25.7-33.7); MCHC 32.9 g/dl (32.0-35.9); MEAN CELL VOLUME 92.3 fl (80-96); MEAN PLT VOLUME 9.3 fl (7.5-11.1); NEUTROPHILS 72.9 % (42.8-82.8); PLATELET COUNT 133 K/MM3 (134-434); RDW 15.8 % (11.9-15.9); WHITE BLOOD COUNT 6.8 K/mm3 (4.0-10.0)
[2017-06-15 07:01] LABS: TROPONIN I 0.14 ng/ml (0.00-0.05)
--- NOTE | 2017-06-15 08:42 | CONS ---
INFECTIOUS DISEASE CONSULTATION DATE OF CONSULTATION: 06/14/2017 REQUESTING PHYSICIAN: Hans Rollins MD HISTORY OF PRESENT ILLNESS: This is an 87-year-old man I met last year after he had an admission at another hospital and developed C. difficile. He had 2 subsequent admissions for C. difficile, and family reports he has been maintained on oral vancomycin daily for his C. difficile which has never completely subsided. He has been living at home for the last year. He is nonambulatory. He has a mobile home servicer who is devoted to him, and he has been doing quite well. He saw his utility worker driver apparently 2 weeks ago and was well. He presented early this morning with an episode of syncope. He had had some progressive shortness of breath over the last 2-3 days, could not tolerate lying down at night, and had a syncopal episode that was witnessed by his aide. There was no history of any fevers or chills. He has no chest pain or abdominal pain. There has been no nausea, vomiting, or diarrhea. He has no sore throat or ear pain. He has no difficulty swallowing. He has no difficulty urinating. He does report that he has an occasional cough, and the sputum color has not changed and is liang which is what it always is. In the emergency room, he was afebrile but hypoxic with a pulse oximetry of 86%. ALLERGIES: He is allergic to DILTIAZEM and MEPERIDINE. MEDICATIONS AT HOME: Include acidophilus, Toprol-XL, multivitamins, Tylenol, Eliquis, furosemide, and daily vancomycin. The daughter does not know the mg dosage. PAST MEDICAL HISTORY: Notable for skin cancer, CABG, congestive heart failure, atrial fibrillation, hypertension, hypercholesterolemia. He has a history of recurrent C. difficile. He has a history of a bioprosthetic aortic valve as well. He has a history of pulmonary hypertension and hyperlipidemia, renal insufficiency, and a permanent pacemaker. FAMILY HISTORY: Notable for heart disease in a brother and colon cancer. SOCIAL HISTORY: He resides at home with a home health aide. There is no history of any cigarette or substance use. REVIEW OF SYSTEMS: As per HPI. He reports he is still short of breath but is feeling much improved. PHYSICAL EXAMINATION: General: He is awake and alert. His breathing is non-labored. Vital Signs: Temperature is 97.6, pulse is 61, blood pressure is 110/62, respiratory rate is 18. HEENT: He is normocephalic. His eyes are anicteric. He has no thrush. Neck: Supple. Lungs: He has crackles at both bases, right greater than left. Heart: Regular rate and rhythm. Abdomen: Soft, nontender. Extremities: Without edema. Skin: He has no skin breakdown. DIAGNOSTIC DATA: His white count is 10, hemoglobin 14.3, platelets are 187. His BUN is 25 and creatinine 1. AST of 66, alkaline phosphatase of 169. His BNP was 9589. Blood cultures are pending. Chest x-ray is unchanged and, in fact, is slightly improved from films from 1 year ago. In summary, this is an 87-year-old man with presentation of syncope in the setting, I suspect, of heart failure. Would get a chest CT. This was discussed with Pulmonary. Blood cultures have been sent. He received vancomycin and Zosyn today in the emergency room. Would observe him off antibiotics at this time and resume his oral vancomycin. Further recommendations to follow based on his clinical course. ELMER KIMBORUGH M.D. [id number]
--- NOTE | 2017-06-15 09:44 | EKG ---
Test Reason : Blood Pressure : / mmHG Vent. Rate : 060 BPM Atrial Rate : 166 BPM P-R Int : 000 ms QRS Dur : 186 ms QT Int : 490 ms P-R-T Axes : 000 -82 096 degrees QTc Int : 490 ms Ventricular-paced rhythm UNDERLYING ATRIAL FIBRILLATION ABNORMAL ECG WHEN COMPARED WITH ECG OF 20-JUN-2016 09:37, NO SIGNIFICANT CHANGE WAS FOUND Confirmed by GREYSON CARLSON MD ([id number]) on 06/15/2017 9:44:11 AM Referred By: Confirmed By:GREYSON CARLSON MD
[2017-06-15] MEDS: LACTOBACILLUS ACIDOPHILUS 1 EACH TAB (FP) PO SCH ×2 (09:46→21:44)
[2017-06-15] MEDS: VANCOMYCIN 250 MG/5 ML ORAL SOLUTION PO SCH (09:47)
[2017-06-15] MEDS: MULTIVITAMINS THER W-MINERALS COMBO TABLET (FP) PO SCH (09:47)
[2017-06-15] MEDS: METOPROLOL SUCCINATE 25 MG TAB.SR.24H (FP) PO SCH (09:47)
[2017-06-15] MEDS: APIXABAN 2.5 MG TABLET PO SCH ×2 (09:47→21:44)
--- NOTE | 2017-06-15 09:50 | PN ---
Physical Exam: PULMONARY CONSULT SUBJECTIVE: Patient seen and examined. States his SOB is still not at baseline but is stable from yesterday, has been voiding. Denies CP, fevers, chills. OBJECTIVE: Vital Signs Period Temp Pulse Resp BP Sys/Oates Pulse Ox Last 24 Hr 97.6 F-98.7 F 60-64 18-18 92-111/41-80 97-98 GEN: AAOx3, NAD, Lying in bed comfortably, not in respiratory distress HEENT: PERRLA, EOMi CV: S1, S2, irregularly irregular rhythm LUNG: Mild bibasilar crackles, R worse than L ABD: Soft, NT, ND, normoactive BS MSK: No edema, thin skin, erythema NEURO: CN 2-12 intact, no MSK or sensation deficits. Laboratory Last Values WBC 6.8 K/mm3 (4.0-10.0) D 06/15/17 06:00 RBC 4.01 M/mm3 (4.00-5.60) 06/15/17 06:00 Hgb 12.2 GM/dL (11.7-16.9) D 06/15/17 06:00 Hct 37.1 % (35.4-49) D 06/15/17 06:00 MCV 92.3 fl (80-96) 06/15/17 06:00 MCH 30.4 pg (25.7-33.7) 06/15/17 06:00 MCHC 32.9 g/dl (32.0-35.9) 06/15/17 06:00 RDW 15.8 % (11.9-15.9) 06/15/17 06:00 Plt Count 133 K/MM3 (134-434) L D 06/15/17 06:00 MPV 9.3 fl (7.5-11.1) 06/15/17 06:00 Neutrophils % 72.9 % (42.8-82.8) D 06/15/17 06:00 Lymphocytes % 19.4 % (8-40) D 06/15/17 06:00 Monocytes % 6.6 % (3.8-10.2) 06/15/17 06:00 Eosinophils % 0.6 % (0-4.5) 06/15/17 06:00 Basophils % 0.5 % (0-2.0) 06/15/17 06:00 PT with INR 20.50 SEC (9.98-11.88) H 06/14/17 09:20 INR 1.84 (0.82-1.09) H 06/14/17 09:20 PTT (Actin FS) 36.8 SECONDS (26.9-34.4) H 06/14/17 09:20 VBG pH 7.22 (7.32-7.42) L* 06/14/17 09:50 POC VBG pCO2 68.5 mmHg (38-52) H* 06/14/17 09:50 POC VBG pO2 65.6 mmHg (28-48) H 06/14/17 09:50 Mixed VBG HCO3 27.1 meq/L (19-25) H 06/14/17 09:50 Sodium 142 mmol/L (136-145) 06/15/17 06:00 Potassium 3.7 mmol/L (3.5-5.1) 06/15/17 06:00 Chloride 104 mmol/L (98-107) 06/15/17 06:00 Carbon Dioxide 33 mmol/L (21-32) H 06/15/17 06:00 Anion Gap 5 (8-16) L 06/15/17 06:00 BUN 23 mg/dL (7-18) H 06/15/17 06:00 Creatinine 1.0 mg/dL (0.7-1.3) 06/15/17 06:00 Creat Clearance w eGFR > 60 (>60) 06/14/17 09:15 Random Glucose 96 mg/dL (74-106) D 06/15/17 06:00 Lactic Acid 2.2 mmol/L (0.4-2.0) H* 06/14/17 11:50 Calcium 8.8 mg/dL (8.5-10.1) 06/15/17 06:00 Phosphorus 2.9 mg/dL (2.5-4.9) D 06/15/17 06:00 Magnesium 1.8 mg/dL (1.8-2.4) 06/15/17 06:00 Total Bilirubin 0.8 mg/dL (0.2-1.0) D 06/14/17 09:15 AST 66 U/L (15-37) H D 06/14/17 09:15 ALT 38 U/L (12-78) D 06/14/17 09:15 Alkaline Phosphatase 169 U/L (45-117) H 06/14/17 09:15 Creatine Kinase 44 IU/L (39-308) 06/15/17 06:00 Creatine Kinase Index Cancelled 06/14/17 09:20 CK-MB (CK-2) Cancelled 06/14/17 09:20 Troponin I 0.14 ng/ml (0.00-0.05) H 06/15/17 06:00 B-Natriuretic Peptide 9589.19 pg/ml (5-450) H 06/14/17 09:15 Total Protein 7.8 g/dl (6.4-8.2) 06/14/17 09:15 Albumin 3.1 g/dl (3.4-5.0) L D 06/14/17 09:15 Urine Color Ltyellow 06/14/17 18:15 Urine Appearance Clear 06/14/17 18:15 Urine pH 5.0 (5.0-8.0) 06/14/17 18:15 Ur Specific [place] 1.010 (1.005-1.025) 06/14/17 18:15 Urine Protein 1+ (NEGATIVE) H 06/14/17 18:15 Urine Glucose (UA) Negative (NEGATIVE) 06/14/17 18:15 Urine Ketones Negative (NEGATIVE) 06/14/17 18:15 Urine Blood 2+ (NEGATIVE) H 06/14/17 18:15 Urine Nitrite Negative (NEGATIVE) 06/14/17 18:15 Urine Bilirubin Negative (NEGATIVE) 06/14/17 18:15 Urine Urobilinogen Negative mg/dL (0.2-1.0) 06/14/17 18:15 Urine RBC 93 /hpf (0-3) 06/14/17 18:15 Urine WBC 13 /hpf (3-5) 06/14/17 18:15 Ur Epithelial Cells Rare /hpf (FEW) 06/14/17 18:15 Urine Mucus Rare 06/14/17 18:15 Blood Type Cancelled 06/14/17 09:20 Antibody Screen Cancelled 06/14/17 09:20 Spec Expiration Date Cancelled 06/14/17 09:20 Active Medications Generic Name Dose Route Start Last Admin Trade Name Freq PRN Reason Stop Dose Admin Acetaminophen 650 mg 06/14/17 12:05 Tylenol - PO Q4H PRN FEVER OR PAIN Apixaban 2.5 mg 06/14/17 22:00 06/14/17 21:22 Eliquis - PO 2.5 mg BID [facility] Administration Furosemide 40 mg 06/14/17 14:30 06/14/17 14:37 Lasix Injection - IVPUSH 40 mg DAILY [facility] Administration Lactobacillus Acidophilus 1 tab 06/14/17 22:00 06/14/17 21:22 Bacid - PO 1 tab BID [facility] Administration Metoprolol Succinate 25 mg 06/15/17 10:00 Toprol Xl - PO DAILY [facility] Multivitamins/Minerals 1 each 06/15/17 10:00 Theragran-M PO DAILY [facility] Vancomycin HCl 125 mg 06/14/17 16:45 06/14/17 21:21 Vancomycin Oral Solution PO 125 mg DAILY [facility] Administration CT Chest (read by me, official report pending) - No obvious new infiltrate, but increased pleural effusions, shows chronic RLL atelectasis ASSESSMENT/PLAN: Pt is a 87yo F with diastolic CHF, HTN, CAD who presented with 1 day of syncope , admitted for likely diastolic CHF exacerbation. # Diastolic CHF Exacerbation - new Echo EF 65.5%, LV normal size/function, no wall motion abn - Likely primary cause of SOB and hypoxia - Continue diuresis - Strict I&Os, Daily weights, Elevate HOB # Severe Pulmonary HTN - RVSP is 50-60mmHg - Likely contributes to SOB and hypoxia - Echo noes MV thickening + severe calcification, with significant MR and functional MS - Could be 2/2 mitral valve abnormality --> moderate left atrial enlargement (noted on Echo) --> pulm HTN - Wells score 1.5 (low risk for PE), so Hx of COPD or smoking # Acute on Chronic Hypercapnic RF - likely secondary to CHF exac - Now improved, continue O2 as needed - F/u new ABG # Lactic Acid - likely 2/2 hypoxia - New CT Chest shows CHF picture, less likely infectious, agree with holding abx for PNA - Continue O2 as needed - Continue to trend on O2 Rest as per primary. Discussed w/ Dr Molina. Continue to follow. Trevor Quiroga MD - PGY1 Visit type - Emergency Visit Emergency Visit: No - New Patient This patient is new to me today: No - Critical Care Critical Care patient: No - Discharge Referral Referred to [facility] Med P.C.: No
[2017-06-15] MEDS: FUROSEMIDE 40 MG/4 ML INJECTABLE VIAL IVPUSH SCH (09:54)
--- NOTE | 2017-06-15 10:05 | PN ---
Problem List - Problems (1) CHF (congestive heart failure) Code(s): I50.9 - HEART FAILURE, UNSPECIFIED Qualifiers: Congestive heart failure type: unspecified congestive heart failure type Congestive heart failure chronicity: chronic Qualified Code(s): I50.9 - Heart failure, unspecified; I50.9 - Heart failure, unspecified; I50.9 - Heart failure, unspecified; I50.9 - Heart failure, unspecified
--- NOTE | 2017-06-15 10:50 | PN ---
Teaching Attending Note Name of Resident: Trevor Quiroga ATTENDING PHYSICIAN STATEMENT I saw and evaluated the patient. I reviewed the resident's note and discussed the case with the resident. I agree with the resident's findings and plan as documented. PULMONARY ALERT,FEELING BETTER,LESS DYSPNEIC,-CP. IMP ACUTE ON CHRONIC HYPOXEMIC/HYPERCAPNEIC RESPIRATORY FAILURE SYNCOPE CHF ? COPD S/P AVR PULMONARY HTN SEVERE HTN AFIB ELEVATED LACTATE LEVEL PLAN LASIX O2 DAILY WTS STRICT I+Os TREND LACTATE MONITOR ÁNGELA CHATMAN Problem List - Problems (1) Atrial fibrillation Code(s): I48.91 - UNSPECIFIED ATRIAL FIBRILLATION Qualifiers: Atrial fibrillation type: chronic Qualified Code(s): I48.2 - Chronic atrial fibrillation; I48.2 - Chronic atrial fibrillation; I48.2 - Chronic atrial fibrillation; I48.2 - Chronic atrial fibrillation (2) CHF (congestive heart failure) Code(s): I50.9 - HEART FAILURE, UNSPECIFIED Qualifiers: Congestive heart failure type: unspecified congestive heart failure type Congestive heart failure chronicity: chronic Qualified Code(s): I50.9 - Heart failure, unspecified; I50.9 - Heart failure, unspecified; I50.9 - Heart failure, unspecified; I50.9 - Heart failure, unspecified (3) Hypertension Code(s): I10 - ESSENTIAL (PRIMARY) HYPERTENSION (4) Hypoxia Code(s): R09.02 - HYPOXEMIA (5) Lactic acid acidosis Code(s): E87.2 - ACIDOSIS (6) Shortness of breath Code(s): R06.02 - SHORTNESS OF BREATH (7) Acute on chronic diastolic (congestive) heart failure Code(s): I50.33 - ACUTE ON CHRONIC DIASTOLIC (CONGESTIVE) HEART FAILURE (8) H/O aortic valve replacement Code(s): Z95.2 - PRESENCE OF PROSTHETIC HEART VALVE (9) History of aortic valve replacement with bioprosthetic valve Code(s): Z95.4 - PRESENCE OF OTHER HEART-VALVE REPLACEMENT (10) Pacemaker Code(s): Z95.0 - PRESENCE OF CARDIAC PACEMAKER (11) Acute on chronic respiratory failure with hypoxia and hypercapnia Code(s): J96.21 - ACUTE AND CHRONIC RESPIRATORY FAILURE WITH HYPOXIA J96.22 - ACUTE AND CHRONIC RESPIRATORY FAILURE WITH HYPERCAPNIA Problem List - Problems (1) Atrial fibrillation Code(s): I48.91 - UNSPECIFIED ATRIAL FIBRILLATION Qualifiers: Atrial fibrillation type: chronic Qualified Code(s): I48.2 - Chronic atrial fibrillation; I48.2 - Chronic atrial fibrillation; I48.2 - Chronic atrial fibrillation; I48.2 - Chronic atrial fibrillation (2) CHF (congestive heart failure) Code(s): I50.9 - HEART FAILURE, UNSPECIFIED Qualifiers: Congestive heart failure type: unspecified congestive heart failure type Congestive heart failure chronicity: chronic Qualified Code(s): I50.9 - Heart failure, unspecified; I50.9 - Heart failure, unspecified; I50.9 - Heart failure, unspecified; I50.9 - Heart failure, unspecified (3) Hypertension Code(s): I10 - ESSENTIAL (PRIMARY) HYPERTENSION (4) Hypoxia Code(s): R09.02 - HYPOXEMIA (5) Lactic acid acidosis Code(s): E87.2 - ACIDOSIS (6) Shortness of breath Code(s): R06.02 - SHORTNESS OF BREATH (7) Acute on chronic diastolic (congestive) heart failure Code(s): I50.33 - ACUTE ON CHRONIC DIASTOLIC (CONGESTIVE) HEART FAILURE (8) H/O aortic valve replacement Code(s): Z95.2 - PRESENCE OF PROSTHETIC HEART VALVE (9) History of aortic valve replacement with bioprosthetic valve Code(s): Z95.4 - PRESENCE OF OTHER HEART-VALVE REPLACEMENT (10) Pacemaker Code(s): Z95.0 - PRESENCE OF CARDIAC PACEMAKER (11) Acute on chronic respiratory failure with hypoxia and hypercapnia Code(s): J96.21 - ACUTE AND CHRONIC RESPIRATORY FAILURE WITH HYPOXIA J96.22 - ACUTE AND CHRONIC RESPIRATORY FAILURE WITH HYPERCAPNIA
--- NOTE | 2017-06-15 11:01 | PN ---
Progress Note, Physician Chief Complaint: Pt lying in bed; alert; c/o feeling weak; no chest pain or dyspnea. History of Present Illness: Patient is an 87-year-old white male with past medical history of diastolic CHF , s/p bioprosthetic AoVR and CABG (2011), atrial fibrillation, hypertension, HLD , who presents to the emergency department today for increasing shortness of breath. Patient states that he has had difficulty breathing for the past 2-3 days including increasing cough. He cannot tolerate lying down at night, and needs to sit to get any rest. Admits to lethargy, dyspnea and dyspnea on exertion. Currently unable to ambulate and speaking in short sentences. He was last seen by his universal grinder operator approximately 4 weeks ago and had no complaints at that time. Denies fevers, chills, weakness, chest pain, palpitations,, nausea , vomiting, diarrhea, rhinorrhea, sore throat, ear pain, urinary symptoms. Vacation Planner: Dr. Fisher PCP: Dr. Clifford [facility] proxy is the patient's daughter. Patient does want resuscitation and intubation if necessary which is different from the [facility]. Surgical history: CABG (SANCHEZ to LAD; SVG to PDA) and pericardial aortic valve 12/23 at [facility] (Dr. Yaya Green) Left upper arm surgery for "malignant melanoma" VVIR [employer] PPM (implanted 09/07/2014) Medical History: AF anxiety/depression CAD (denies hx OK) and aortic stenosis--> 2 vessel CABG and AoVR on 12/23 DM HTN severe "arthritis" of both knees skin cancer on top of (bald) head diastolic CHF ECHO 04/2016: normal LVEF; moderate LVH; mild-moderate MS; mild MR and OK; trace TR. Social History: 2 beers on some nights; never was a heavy drinker reduced ability to walk due to increasingly severe pain in knees (07/2012) - Current Medication List Current Medications: Active Medications Acetaminophen (Tylenol -) 650 mg PO Q4H PRN PRN Reason: FEVER OR PAIN Apixaban (Eliquis -) 2.5 mg PO BID [facility] Last Admin: 06/15/17 09:47 Dose: 2.5 mg Furosemide (Lasix Injection -) 40 mg IVPUSH DAILY [facility] Last Admin: 06/15/17 09:54 Dose: 40 mg Lactobacillus Acidophilus (Bacid -) 1 tab PO BID [facility] Last Admin: 06/15/17 09:46 Dose: 1 tab Metoprolol Succinate (Toprol Xl -) 25 mg PO DAILY [facility] Last Admin: 06/15/17 09:47 Dose: 25 mg Multivitamins/Minerals (Theragran-M) 1 each PO DAILY [facility] Last Admin: 06/15/17 09:47 Dose: 1 each Vancomycin HCl (Vancomycin Oral Solution) 125 mg PO DAILY [facility] Last Admin: 06/15/17 09:47 Dose: 125 mg - Objective Vital Signs: Vital Signs Temperature 97.6 F 06/15/17 09:36 Pulse Rate 64 06/15/17 09:36 Respiratory Rate 18 06/15/17 09:36 Blood Pressure 100/60 06/15/17 09:36 O2 Sat by Pulse Oximetry (%) 100 06/15/17 09:00 Constitutional: Yes: Anxious Eyes: Yes: WNL HENT: Yes: WNL Neck: Yes: WNL Cardiovascular: Yes: Pulse Irregular, S1 (varies in intensity) Respiratory: Yes: Regular Gastrointestinal: Yes: Soft ...Rectal Exam: Yes: Deferred Genitourinary: Yes: Anuria Musculoskeletal: Yes: Joint Stiffness, Muscle Weakness Extremities: Yes: Cool Edema: No Peripheral Pulses WNL: Yes Integumentary: Yes: WNL Wound/Incision: Yes: Excoriated Neurological: Yes: Alert, Weakness Psychiatric: Yes: Alert, Oriented Labs: CBC, BMP 06/15/17 06:00 06/15/17 06:00 INR, PTT INR 1.84 (0.82-1.09) H 06/14/17 09:20 Abnormal Lab Results 06/15/17 06/15/17 06/15/17 06:00 06:00 06:00 Plt Count 133 L D Carbon Dioxide 33 H Anion Gap 5 L BUN 23 H Troponin I 0.14 H - ....Imaging Cat Scan: Image Reviewed (bilateral pleural effusions.) Problem List - Problems (1) Acute on chronic respiratory failure with hypoxia and hypercapnia Code(s): J96.21 - ACUTE AND CHRONIC RESPIRATORY FAILURE WITH HYPOXIA J96.22 - ACUTE AND CHRONIC RESPIRATORY FAILURE WITH HYPERCAPNIA (2) Atrial fibrillation Assessment/Plan: On metoprolol ER for HR control. On apixaban for anticoagulation. Code(s): I48.91 - UNSPECIFIED ATRIAL FIBRILLATION Qualifiers: Atrial fibrillation type: chronic Qualified Code(s): I48.2 - Chronic atrial fibrillation; I48.2 - Chronic atrial fibrillation; I48.2 - Chronic atrial fibrillation; I48.2 - Chronic atrial fibrillation (3) Hypertension Code(s): I10 - ESSENTIAL (PRIMARY) HYPERTENSION (4) Hypoxia Code(s): R09.02 - HYPOXEMIA (5) Sepsis Code(s): A41.9 - SEPSIS, UNSPECIFIED ORGANISM Qualifiers: Sepsis type: sepsis due to unspecified organism Qualified Code(s): A41.9 - Sepsis, unspecified organism; A41.9 - Sepsis, unspecified organism; A41.9 - Sepsis, unspecified organism (6) Acute on chronic diastolic (congestive) heart failure Assessment/Plan: on metoprolol and furosemide. F/u BUN/Cr, electrolytes, Is and Os, daily weight. Code(s): I50.33 - ACUTE ON CHRONIC DIASTOLIC (CONGESTIVE) HEART FAILURE (7) Gout Code(s): M10.9 - GOUT, UNSPECIFIED (8) History of aortic valve replacement with bioprosthetic valve Code(s): Z95.4 - PRESENCE OF OTHER HEART-VALVE REPLACEMENT (9) Pacemaker Code(s): Z95.0 - PRESENCE OF CARDIAC PACEMAKER (10) Liver cirrhosis Assessment/Plan: Possibility noted on CT. F/u GI w/u. Code(s): K74.60 - UNSPECIFIED CIRRHOSIS OF LIVER
--- NOTE | 2017-06-15 11:02 | PN ---
Progress Note (short form) - Note Progress Note: feels a bit better today less SOB Vital Signs Period Temp Pulse Resp BP Sys/Oates Pulse Ox Last 24 Hr 97.6 F-98.7 F 60-64 18-18 92-111/41-80 97-100 cor-rrr lungs crackles both bases right greater then left abd soft,nt ext no edema CBC, BMP 06/15/17 06:00 06/15/17 06:00 Microbiology 06/14/17 09:33 Blood - Peripheral Venous Blood Culture - Preliminary NO GROWTH OBTAINED AFTER 24 HOURS, INCUBATION TO CONTINUE FOR 4 DAYS. 06/14/17 09:33 Blood - Peripheral Venous Blood Culture - Preliminary NO GROWTH OBTAINED AFTER 24 HOURS, INCUBATION TO CONTINUE FOR 4 DAYS. Current Medications Acetaminophen (Tylenol -) 650 mg PO Q4H PRN PRN Reason: FEVER OR PAIN Apixaban (Eliquis -) 2.5 mg PO BID [facility] Last Admin: 06/15/17 09:47 Dose: 2.5 mg Furosemide (Lasix Injection -) 40 mg IVPUSH DAILY [facility] Last Admin: 06/15/17 09:54 Dose: 40 mg Lactobacillus Acidophilus (Bacid -) 1 tab PO BID [facility] Last Admin: 06/15/17 09:46 Dose: 1 tab Metoprolol Succinate (Toprol Xl -) 25 mg PO DAILY [facility] Last Admin: 06/15/17 09:47 Dose: 25 mg Multivitamins/Minerals (Theragran-M) 1 each PO DAILY [facility] Last Admin: 06/15/17 09:47 Dose: 1 each Vancomycin HCl (Vancomycin Oral Solution) 125 mg PO DAILY [facility] Last Admin: 06/15/17 09:47 Dose: [address]- prelim- reviewed with radiology chronic pleural effusion with atelectasis a/p 87 year old man with CHF/ bioprosthetic AVR /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
--- NOTE | 2017-06-15 15:28 | PN ---
Progress Note, Physician Chief Complaint: less SOB today; occ cough. History of Present Illness: Patient with AVR and CABG and A. Fib comes to hospital with increasing SOB. Appears to be improved after IV lasix but CT Chest shows CHF with possible RUL infiltrate. On IV Antibiotics and will follow. Patient is wheelchair dependent at home and was unable to have a stable INR on Coumadin; On Eliquis. Has 24Hr aide at home. - Current Medication List Current Medications: Active Medications Acetaminophen (Tylenol -) 650 mg PO Q4H PRN PRN Reason: FEVER OR PAIN Apixaban (Eliquis -) 2.5 mg PO BID [facility] Last Admin: 06/15/17 09:47 Dose: 2.5 mg Furosemide (Lasix Injection -) 40 mg IVPUSH DAILY [facility] Last Admin: 06/15/17 09:54 Dose: 40 mg Lactobacillus Acidophilus (Bacid -) 1 tab PO BID [facility] Last Admin: 06/15/17 09:46 Dose: 1 tab Metoprolol Succinate (Toprol Xl -) 25 mg PO DAILY [facility] Last Admin: 06/15/17 09:47 Dose: 25 mg Multivitamins/Minerals (Theragran-M) 1 each PO DAILY [facility] Last Admin: 06/15/17 09:47 Dose: 1 each Vancomycin HCl (Vancomycin Oral Solution) 125 mg PO DAILY [facility] Last Admin: 06/15/17 09:47 Dose: 125 mg - Objective Vital Signs: Vital Signs Temperature 97.6 F 06/15/17 09:36 Pulse Rate 64 06/15/17 09:36 Respiratory Rate 18 06/15/17 09:36 Blood Pressure 100/60 06/15/17 09:36 O2 Sat by Pulse Oximetry (%) 100 06/15/17 09:00 Constitutional: Yes: Calm Cardiovascular: Yes: Tachycardia, Pulse Irregular Respiratory: Yes: Diminished, Rales, Rhonchi (both bases) Gastrointestinal: Yes: Soft. No: Tenderness Genitourinary: Yes: Other (condom catheter in place) Edema: LLE: Trace, RLE: Trace Neurological: Yes: Alert, Oriented Labs: CBC, BMP 06/15/17 06:00 06/15/17 06:00 INR, PTT INR 1.84 (0.82-1.09) H 06/14/17 09:20 - ....Imaging Cat Scan: Report Reviewed EKG: Report Reviewed Problem List - Problems (1) Acute on chronic respiratory failure with hypoxia and hypercapnia Assessment/Plan: Feels less SOB now after Lasix IV X2. Seen by Cardiology. Code(s): J96.21 - ACUTE AND CHRONIC RESPIRATORY FAILURE WITH HYPOXIA J96.22 - ACUTE AND CHRONIC RESPIRATORY FAILURE WITH HYPERCAPNIA (2) Atrial fibrillation Assessment/Plan: On Eliquis Code(s): I48.91 - UNSPECIFIED ATRIAL FIBRILLATION Qualifiers: Atrial fibrillation type: chronic Qualified Code(s): I48.2 - Chronic atrial fibrillation; I48.2 - Chronic atrial fibrillation; I48.2 - Chronic atrial fibrillation; I48.2 - Chronic atrial fibrillation (3) CHF (congestive heart failure) Assessment/Plan: ON IV Lasix and seen by Dr. Sebastian Code(s): I50.9 - HEART FAILURE, UNSPECIFIED Qualifiers: Congestive heart failure type: unspecified congestive heart failure type Congestive heart failure chronicity: chronic Qualified Code(s): I50.9 - Heart failure, unspecified; I50.9 - Heart failure, unspecified; I50.9 - Heart failure, unspecified; I50.9 - Heart failure, unspecified (4) Arthritis Assessment/Plan: severe DJD of knees. Confined to wheelchair at home. Code(s): M19.90 - UNSPECIFIED OSTEOARTHRITIS, UNSPECIFIED SITE (5) C. difficile diarrhea Assessment/Plan: Recurrent in past; no diarrhea here Code(s): A04.7 - ENTEROCOLITIS DUE TO CLOSTRIDIUM DIFFICILE * DO NOT USE * (6) H/O aortic valve replacement Assessment/Plan: Could not be managed on Coumadin; On Eliquis Code(s): Z95.2 - PRESENCE OF PROSTHETIC HEART VALVE (7) Phlebitis after infusion Code(s): T80.1XXA - VASCULAR COMP FOL INFUSN, TRANFS AND THERAPUTC INJECT, INIT
[2017-06-16 07:48] LABS: ANION GAP 7 (8-16); CALCIUM 9.1 mg/dL (8.5-10.1); CO2 35 mmol/L (21-32); CREATININE 0.8 mg/dL (0.7-1.3); GLUCOSE,RANDOM 104 mg/dL (74-106)
--- NOTE | 2017-06-16 08:30 | PN ---
Progress Note (short form) - Note Progress Note: Patient didn't sleep well due to disturbances from roommate. Les SOB and only using 1 pillow Appetite improved Gardner in place On Exam: Vital Signs Temp 98.0 F 06/16/17 07:40 Pulse 61 06/16/17 07:40 Resp 20 06/16/17 08:11 BP 107/55 06/16/17 07:40 Pulse Ox 95 06/16/17 08:11 Intake & Output 06/15/17 06/15/17 06/16/17 11:59 23:59 11:59 Intake Total 600 Output Total 350 Balance 600 -350 Weight 129 lb 6.4 oz Intake: Oral 600 Output: Urine 350 Void 350 Other: Voiding Method External Catheter External Catheter External Catheter Bowel Movement No Weight Measurement Method Patient Lift Scale Sleepy Chest: Rhonchi at bases Cor: Irreg Abd; Soft Ext: No edema Abnormal Lab Results 06/16/17 05:10 Carbon Dioxide 35 H Anion Gap 7 L BUN 27 H IMP: Acute CHF ?RUL Pneumonia Atrial Fib DJD knees AVR CABG Plan: OOB in chair ? different antibiotic for RUL Pulmonary infiltrate F/U lab F/U ID and Pulmonary and Cardiology MD's Problem List - Problems (1) Acute on chronic respiratory failure with hypoxia and hypercapnia Code(s): J96.21 - ACUTE AND CHRONIC RESPIRATORY FAILURE WITH HYPOXIA J96.22 - ACUTE AND CHRONIC RESPIRATORY FAILURE WITH HYPERCAPNIA (2) Atrial fibrillation Code(s): I48.91 - UNSPECIFIED ATRIAL FIBRILLATION Qualifiers: Atrial fibrillation type: chronic Qualified Code(s): I48.2 - Chronic atrial fibrillation; I48.2 - Chronic atrial fibrillation; I48.2 - Chronic atrial fibrillation; I48.2 - Chronic atrial fibrillation (3) CHF (congestive heart failure) Code(s): I50.9 - HEART FAILURE, UNSPECIFIED Qualifiers: Congestive heart failure type: unspecified congestive heart failure type Congestive heart failure chronicity: chronic Qualified Code(s): I50.9 - Heart failure, unspecified; I50.9 - Heart failure, unspecified; I50.9 - Heart failure, unspecified; I50.9 - Heart failure, unspecified (4) Arthritis Code(s): M19.90 - UNSPECIFIED OSTEOARTHRITIS, UNSPECIFIED SITE (5) C. difficile diarrhea Code(s): A04.7 - ENTEROCOLITIS DUE TO CLOSTRIDIUM DIFFICILE * DO NOT USE * (6) H/O aortic valve replacement Code(s): Z95.2 - PRESENCE OF PROSTHETIC HEART VALVE (7) Phlebitis after infusion Code(s): T80.1XXA - VASCULAR COMP FOL INFUSN, TRANFS AND THERAPUTC INJECT, INIT
[2017-06-16] MEDS ORDERED: PT OWN MED DRAWER 7, Y5N ONE (09:07)
[2017-06-16] MEDS: VANCOMYCIN 250 MG/5 ML ORAL SOLUTION PO SCH (09:30)
[2017-06-16] MEDS: LACTOBACILLUS ACIDOPHILUS 1 EACH TAB (FP) PO SCH ×2 (09:31→22:41)
[2017-06-16] MEDS: APIXABAN 2.5 MG TABLET PO SCH ×2 (09:31→22:41)
[2017-06-16] MEDS: METOPROLOL SUCCINATE 25 MG TAB.SR.24H (FP) PO SCH (09:31)
[2017-06-16] MEDS: FUROSEMIDE 40 MG/4 ML INJECTABLE VIAL IVPUSH SCH (09:31)
[2017-06-16] MEDS: MULTIVITAMINS THER W-MINERALS COMBO TABLET (FP) PO SCH (09:31)
[2017-06-16 10:03] LABS: MCH 30.6 pg (25.7-33.7); MCHC 32.8 g/dl (32.0-35.9); MEAN CELL VOLUME 93.4 fl (80-96); MEAN PLT VOLUME 9.3 fl (7.5-11.1); PLATELET COUNT 144 K/MM3 (134-434); WHITE BLOOD COUNT 6.8 K/mm3 (4.0-10.0)
--- NOTE | 2017-06-16 11:09 | PN ---
Teaching Attending Note Name of Resident: Trevor Quiroga ATTENDING PHYSICIAN STATEMENT I saw and evaluated the patient. I reviewed the resident's note and discussed the case with the resident. I agree with the resident's findings and plan as documented PULMONARY ALERT,FEELING BETTER,LESS CONGESTED,+ DRY COUGH,-CP IMP ACUTE ON CHRONIC HYPOXEMIC/HYPERCAPNEIC RESPIRATORY FAILURE IMPROVING SYNCOPE CHF ? COPD S/P AVR HTN AFIB ELEVATED LACTATE LEVEL IMPROVED PULMONARY HTN PLAN LASIX O2 DAILY WTS STRICT I+Os ABG MONITOR ÁNGELA CHATMAN Problem List - Problems (1) Atrial fibrillation Code(s): I48.91 - UNSPECIFIED ATRIAL FIBRILLATION Qualifiers: Atrial fibrillation type: chronic Qualified Code(s): I48.2 - Chronic atrial fibrillation; I48.2 - Chronic atrial fibrillation; I48.2 - Chronic atrial fibrillation; I48.2 - Chronic atrial fibrillation (2) CHF (congestive heart failure) Code(s): I50.9 - HEART FAILURE, UNSPECIFIED Qualifiers: Congestive heart failure type: unspecified congestive heart failure type Congestive heart failure chronicity: chronic Qualified Code(s): I50.9 - Heart failure, unspecified; I50.9 - Heart failure, unspecified; I50.9 - Heart failure, unspecified; I50.9 - Heart failure, unspecified (3) Hypertension Code(s): I10 - ESSENTIAL (PRIMARY) HYPERTENSION (4) Hypoxia Code(s): R09.02 - HYPOXEMIA (5) Lactic acid acidosis Code(s): E87.2 - ACIDOSIS (6) Shortness of breath Code(s): R06.02 - SHORTNESS OF BREATH (7) Acute on chronic diastolic (congestive) heart failure Code(s): I50.33 - ACUTE ON CHRONIC DIASTOLIC (CONGESTIVE) HEART FAILURE (8) H/O aortic valve replacement Code(s): Z95.2 - PRESENCE OF PROSTHETIC HEART VALVE (9) History of aortic valve replacement with bioprosthetic valve Code(s): Z95.4 - PRESENCE OF OTHER HEART-VALVE REPLACEMENT (10) Pacemaker Code(s): Z95.0 - PRESENCE OF CARDIAC PACEMAKER (11) Acute on chronic respiratory failure with hypoxia and hypercapnia Code(s): J96.21 - ACUTE AND CHRONIC RESPIRATORY FAILURE WITH HYPOXIA J96.22 - ACUTE AND CHRONIC RESPIRATORY FAILURE WITH HYPERCAPNIA Problem List - Problems (1) Atrial fibrillation Code(s): I48.91 - UNSPECIFIED ATRIAL FIBRILLATION Qualifiers: Atrial fibrillation type: chronic Qualified Code(s): I48.2 - Chronic atrial fibrillation; I48.2 - Chronic atrial fibrillation; I48.2 - Chronic atrial fibrillation; I48.2 - Chronic atrial fibrillation (2) CHF (congestive heart failure) Code(s): I50.9 - HEART FAILURE, UNSPECIFIED Qualifiers: Congestive heart failure type: unspecified congestive heart failure type Congestive heart failure chronicity: chronic Qualified Code(s): I50.9 - Heart failure, unspecified; I50.9 - Heart failure, unspecified; I50.9 - Heart failure, unspecified; I50.9 - Heart failure, unspecified (3) Hypertension Code(s): I10 - ESSENTIAL (PRIMARY) HYPERTENSION (4) Hypoxia Code(s): R09.02 - HYPOXEMIA (5) Lactic acid acidosis Code(s): E87.2 - ACIDOSIS (6) Shortness of breath Code(s): R06.02 - SHORTNESS OF BREATH (7) Acute on chronic diastolic (congestive) heart failure Code(s): I50.33 - ACUTE ON CHRONIC DIASTOLIC (CONGESTIVE) HEART FAILURE (8) H/O aortic valve replacement Code(s): Z95.2 - PRESENCE OF PROSTHETIC HEART VALVE (9) History of aortic valve replacement with bioprosthetic valve Code(s): Z95.4 - PRESENCE OF OTHER HEART-VALVE REPLACEMENT (10) Pacemaker Code(s): Z95.0 - PRESENCE OF CARDIAC PACEMAKER (11) Acute on chronic respiratory failure with hypoxia and hypercapnia Code(s): J96.21 - ACUTE AND CHRONIC RESPIRATORY FAILURE WITH HYPOXIA J96.22 - ACUTE AND CHRONIC RESPIRATORY FAILURE WITH HYPERCAPNIA
--- NOTE | 2017-06-16 11:28 | PN ---
Physical Exam: PULMONARY CONSULT SUBJECTIVE: Patient seen and examined. Doing much better this AM. Decreased CP and SOB. OBJECTIVE: Vital Signs Period Temp Pulse Resp BP Sys/Oates Pulse Ox Last 24 Hr 97.5 F-98.0 F 60-66 18-20 88-111/51-63 95-95 GEN: AAOx3, NAD, Lying in bed comfortably, not in respiratory distress HEENT: PERRLA, EOMi CV: S1, S2, irregularly irregular rhythm LUNG: Mild bibasilar crackles, R worse than L ABD: Soft, NT, ND, normoactive BS MSK: No edema, thin skin, wrapped heels bilaterally NEURO: CN 2-12 intact, no MSK or sensation deficits. Laboratory Results - last 24 hr 06/15/17 06/16/17 06/16/17 11:00 05:10 10:00 WBC 6.8 RBC 4.18 Hgb 12.8 Hct 39.0 MCV 93.4 MCH 30.6 MCHC 32.8 RDW 16.0 H Plt Count 144 MPV 9.3 Sodium 143 Potassium 4.2 Chloride 101 Carbon Dioxide 35 H Anion Gap 7 L BUN 27 H Creatinine 0.8 Random Glucose 104 Lactic Acid 1.2 Calcium 9.1 Active Medications Generic Name Dose Route Start Last Admin Trade Name Freq PRN Reason Stop Dose Admin Acetaminophen 650 mg 06/14/17 12:05 Tylenol - PO Q4H PRN FEVER OR PAIN Apixaban 2.5 mg 06/14/17 22:00 06/16/17 09:31 Eliquis - PO 2.5 mg BID [facility] Administration Furosemide 40 mg 06/14/17 14:30 06/16/17 09:31 Lasix Injection - IVPUSH 40 mg DAILY [facility] Administration Lactobacillus Acidophilus 1 tab 06/14/17 22:00 06/16/17 09:31 Bacid - PO 1 tab BID [facility] Administration Metoprolol Succinate 25 mg 06/15/17 10:00 06/16/17 09:31 Toprol Xl - PO 25 mg DAILY [facility] Administration Multivitamins/Minerals 1 each 06/15/17 10:00 06/16/17 09:31 Theragran-M PO 1 each DAILY [facility] Administration Vancomycin HCl 125 mg 06/14/17 16:45 06/16/17 09:30 Vancomycin Oral Solution PO 5 ml DAILY [facility] Administration ASSESSMENT/PLAN: Pt is a 87yo F with diastolic CHF, HTN, CAD who presented with 1 day of syncope , admitted for likely diastolic CHF exacerbation. # Diastolic CHF Exacerbation - new Echo EF 65.5%, LV normal size/function, no wall motion abn - +500 fluid balance, continue diuresis - Strict I&Os - Daily weights - Elevate HOB - Can d/c plan if patient continues to improve # Severe Pulmonary HTN - likely secondary to mitral valvular disease - Continue O2 as needed Rest as per primary. Discussed w/ Dr Molina. Continue to follow. Trevor Quiroga MD - PGY1 Visit type - Emergency Visit Emergency Visit: No - New Patient This patient is new to me today: No - Critical Care Critical Care patient: No - Discharge Referral Referred to [facility] Med [facility] No
--- NOTE | 2017-06-16 11:40 | PN ---
Progress Note, Physician History of Present Illness: Patient is an 87-year-old male with past medical history of CHF, atrial fibrillation, hypertension, HLD, CABG, who presents to the emergency department today for increasing shortness of breath. Patient states that he has had difficulty breathing for the past 2-3 days including increasing cough. He cannot tolerate lying down at night, and needs to sit to get any rest. Admits to lethargy, dyspnea and dyspnea on exertion. Currently unable to ambulate and speaking in short sentences. He was last seen by his digital printer approximately 2 weeks ago and had no complaints at that time. Denies fevers, chills, weakness , chest pain, palpitations,, nausea, vomiting, diarrhea, rhinorrhea, sore throat , ear pain, urinary symptoms. PMH Surgical history: CABG (SANCHEZ to LAD; SVG to PDA) and pericardial aortic valve 12/23 at [facility] (Dr. Yaya Green) Left upper arm surgery for "malignant melanoma" VVIR Fanattac PPM (implanted 09/07/2014) Medical History: AF anxiety/depression CAD (denies hx [place]) and aortic stenosis--> 2 vessel CABG and AoVR on 12/23 DM HTN severe "arthritis" of both knees skin cancer on top of (bald) head diastolic CHF ECHO 04/2016: normal LVEF; moderate LVH; mild-moderate MS; mild MR and [place]; trace TR. Social History: 2 beers on some nights; never was a heavy drinker reduced ability to walk due to increasingly severe pain in knees (07/2012) Risk Factors: anxiety/depression cad diabetes hyperlipidemia hypertension male sedentary diastolic CHF - Current Medication List Current Medications: Active Medications Acetaminophen (Tylenol -) 650 mg PO Q4H PRN PRN Reason: FEVER OR PAIN Apixaban (Eliquis -) 2.5 mg PO BID [facility] Last Admin: 06/16/17 09:31 Dose: 2.5 mg Furosemide (Lasix Injection -) 40 mg IVPUSH DAILY [facility] Last Admin: 06/16/17 09:31 Dose: 40 mg Lactobacillus Acidophilus (Bacid -) 1 tab PO BID [facility] Last Admin: 06/16/17 09:31 Dose: 1 tab Metoprolol Succinate (Toprol Xl -) 25 mg PO DAILY [facility] Last Admin: 06/16/17 09:31 Dose: 25 mg Multivitamins/Minerals (Theragran-M) 1 each PO DAILY [facility] Last Admin: 06/16/17 09:31 Dose: 1 each Vancomycin HCl (Vancomycin Oral Solution) 125 mg PO DAILY [facility] Last Admin: 06/16/17 09:30 Dose: 5 ml - Objective Vital Signs: Vital Signs Temperature 98.0 F 06/16/17 07:40 Pulse Rate 61 06/16/17 07:40 Respiratory Rate 20 06/16/17 08:11 Blood Pressure 107/55 06/16/17 07:40 O2 Sat by Pulse Oximetry (%) 95 06/16/17 08:11 Eyes: Yes: WNL, Conjunctiva Clear, EOM Intact HENT: Yes: WNL, Atraumatic, Normocephalic Neck: Yes: WNL, Supple, Trachea Midline Cardiovascular: Yes: WNL, Regular Rate and Rhythm Respiratory: Yes: WNL, Regular, CTA Bilaterally Gastrointestinal: Yes: WNL, Normal Bowel Sounds Genitourinary: Yes: WNL Musculoskeletal: Yes: WNL Extremities: Yes: WNL Edema: No Integumentary: Yes: WNL Neurological: Yes: WNL, Alert, Oriented ...Motor Strength: WNL Psychiatric: Yes: WNL Labs: CBC, BMP 06/16/17 10:00 06/16/17 05:10 INR, PTT INR 1.84 (0.82-1.09) H 06/14/17 09:20 Problem List - Problems (1) Atrial fibrillation Code(s): I48.91 - UNSPECIFIED ATRIAL FIBRILLATION Qualifiers: Atrial fibrillation type: chronic Qualified Code(s): I48.2 - Chronic atrial fibrillation; I48.2 - Chronic atrial fibrillation; I48.2 - Chronic atrial fibrillation; I48.2 - Chronic atrial fibrillation (2) CHF (congestive heart failure) Code(s): I50.9 - HEART FAILURE, UNSPECIFIED Qualifiers: Congestive heart failure type: unspecified congestive heart failure type Congestive heart failure chronicity: chronic Qualified Code(s): I50.9 - Heart failure, unspecified; I50.9 - Heart failure, unspecified; I50.9 - Heart failure, unspecified; I50.9 - Heart failure, unspecified (3) Hypertension Code(s): I10 - ESSENTIAL (PRIMARY) HYPERTENSION (4) Sepsis Code(s): A41.9 - SEPSIS, UNSPECIFIED ORGANISM Qualifiers: Sepsis type: sepsis due to unspecified organism Qualified Code(s): A41.9 - Sepsis, unspecified organism; A41.9 - Sepsis, unspecified organism; A41.9 - Sepsis, unspecified organism (5) Shortness of breath Code(s): R06.02 - SHORTNESS OF BREATH (6) Acute bronchitis Code(s): J20.9 - ACUTE BRONCHITIS, UNSPECIFIED Qualifiers: Bronchitis organism: rhinovirus Qualified Code(s): J20.6 - Acute bronchitis due to rhinovirus; J20.6 - Acute bronchitis due to rhinovirus (7) Acute on chronic diastolic (congestive) heart failure Code(s): I50.33 - ACUTE ON CHRONIC DIASTOLIC (CONGESTIVE) HEART FAILURE (8) Arthritis Code(s): M19.90 - UNSPECIFIED OSTEOARTHRITIS, UNSPECIFIED SITE (9) Bradycardia Code(s): R00.1 - BRADYCARDIA, UNSPECIFIED (10) C. difficile diarrhea Code(s): A04.7 - ENTEROCOLITIS DUE TO CLOSTRIDIUM DIFFICILE * DO NOT USE * (11) Cellulitis Code(s): L03.90 - CELLULITIS, UNSPECIFIED Qualifiers: Site of cellulitis of extremity: lower extremity Laterality: right (12) Diarrhea Code(s): R19.7 - DIARRHEA, UNSPECIFIED Qualifiers: Diarrhea type: unspecified type Qualified Code(s): R19.7 - Diarrhea, unspecified; R19.7 - Diarrhea, unspecified (13) Diastolic CHF Code(s): I50.30 - UNSPECIFIED DIASTOLIC (CONGESTIVE) HEART FAILURE (14) Elevated INR Code(s): R79.1 - ABNORMAL COAGULATION PROFILE (15) Gout Code(s): M10.9 - GOUT, UNSPECIFIED (16) H/O aortic valve replacement Code(s): Z95.2 - PRESENCE OF PROSTHETIC HEART VALVE (17) Hematuria Code(s): R31.9 - HEMATURIA, UNSPECIFIED (18) History of aortic valve replacement with bioprosthetic valve Code(s): Z95.4 - PRESENCE OF OTHER HEART-VALVE REPLACEMENT (19) Hyperkalemia Code(s): E87.5 - HYPERKALEMIA (20) Hypomagnesemia Code(s): E83.42 - HYPOMAGNESEMIA (21) Leg swelling Code(s): M79.89 - OTHER SPECIFIED SOFT TISSUE DISORDERS (22) Lower extremity ulceration Code(s): L97.909 - NON-PRS CHRONIC ULC UNSP PRT OF UNSP LOW LEG W UNSP SEVERITY (23) Melanoma of upper arm Code(s): C43.60 - MALIGNANT MELANOMA OF UNSP UPPER LIMB, INCLUDING SHOULDER (24) Nausea & vomiting Code(s): R11.2 - NAUSEA WITH VOMITING, UNSPECIFIED (25) Osteoarthritis of both knees Code(s): M17.0 - BILATERAL PRIMARY OSTEOARTHRITIS OF KNEE (26) Pacemaker Code(s): Z95.0 - PRESENCE OF CARDIAC PACEMAKER (27) Phlebitis after infusion Code(s): T80.1XXA - VASCULAR COMP FOL INFUSN, TRANFS AND THERAPUTC INJECT, INIT (28) Rectal bleeding Code(s): K62.5 - HEMORRHAGE OF ANUS AND RECTUM (29) Supratherapeutic INR Code(s): R79.1 - ABNORMAL COAGULATION PROFILE (30) Systolic CHF Code(s): I50.20 - UNSPECIFIED SYSTOLIC (CONGESTIVE) HEART FAILURE Assessment/Plan Problems (1) Acute on chronic respiratory failure with hypoxia and hypercapnia Code(s): J96.21 - ACUTE AND CHRONIC RESPIRATORY FAILURE WITH HYPOXIA J96.22 - ACUTE AND CHRONIC RESPIRATORY FAILURE WITH HYPERCAPNIA (2) Atrial fibrillation Assessment/Plan: On metoprolol ER for HR control. On apixaban for anticoagulation. Code(s): I48.91 - UNSPECIFIED ATRIAL FIBRILLATION Qualifiers: Atrial fibrillation type: chronic Qualified Code(s): I48.2 - Chronic atrial fibrillation; I48.2 - Chronic atrial fibrillation; I48.2 - Chronic atrial fibrillation; I48.2 - Chronic atrial fibrillation (3) Hypertension Code(s): I10 - ESSENTIAL (PRIMARY) HYPERTENSION (4) Hypoxia Code(s): R09.02 - HYPOXEMIA (5) Sepsis Code(s): A41.9 - SEPSIS, UNSPECIFIED ORGANISM Qualifiers: Sepsis type: sepsis due to unspecified organism Qualified Code(s): A41.9 - Sepsis, unspecified organism; A41.9 - Sepsis, unspecified organism; A41.9 - Sepsis, unspecified organism (6) Acute on chronic diastolic (congestive) heart failure Assessment/Plan: on metoprolol and furosemide. F/u BUN/Cr, electrolytes, Is and Os, daily weight. Code(s): I50.33 - ACUTE ON CHRONIC DIASTOLIC (CONGESTIVE) HEART FAILURE (7) Gout Code(s): M10.9 - GOUT, UNSPECIFIED (8) History of aortic valve replacement with bioprosthetic valve Code(s): Z95.4 - PRESENCE OF OTHER HEART-VALVE REPLACEMENT (9) Pacemaker Code(s): Z95.0 - PRESENCE OF CARDIAC PACEMAKER (10) Liver cirrhosis Assessment/Plan: Possibility noted on CT. F/u GI w/u. Code(s): K74.60 - UNSPECIFIED CIRRHOSIS OF LIVER
[2017-06-17 08:05] LABS: ANION GAP 7 (8-16); CALCIUM 9.1 mg/dL (8.5-10.1); CO2 38 mmol/L (21-32); CREATININE 0.8 mg/dL (0.7-1.3); GLUCOSE,RANDOM 111 mg/dL (74-106)
--- NOTE | 2017-06-17 08:57 | PN ---
Progress Note (short form) - Note Progress Note: patient seen and examined. he was tolerating breakfast this morning. Occasional cough but no complaints of shortness of breath orthopnea or PND. Was agreeable to having his Gardner catheter removed. PT ordered to have bedside range of motion. He does not ambulate at home. Severe DJD of knees. Questionable right upper lung infiltrate in addition to CHF may all be heart failure Some loose bowel movement today and a history of C. difficile to recheck that test. On exam: Vital Signs Period Temp Pulse Resp BP Sys/Oates Pulse Ox Last 24 Hr 98 F-98.2 F 60-60 18-20 92-107/55-65 95-95 he is alert Comfortable lying flat. Chest rhonchi at bases. Emmanuel regular Abdomen soft with no focal tenderness. Gardner in place. Extremities no edema with several ecchymotic areas. Abnormal Lab Results 06/17/17 05:15 Chloride 97 L Carbon Dioxide 38 H Anion Gap 7 L BUN 33 H D Random Glucose 111 H Impression: CHF resolving. Right upper lobe infiltrate may be part of CHF picture. Severe DJD of knees Atrial fibrillation CABG one vessel AVR. Loose bowel movement. Rule out C. difficile Plan: Bedside PT Repeat lab C. difficile test. A repeat chest x-ray in a.m. Problem List - Problems (1) Acute on chronic respiratory failure with hypoxia and hypercapnia Code(s): J96.21 - ACUTE AND CHRONIC RESPIRATORY FAILURE WITH HYPOXIA J96.22 - ACUTE AND CHRONIC RESPIRATORY FAILURE WITH HYPERCAPNIA (2) Atrial fibrillation Code(s): I48.91 - UNSPECIFIED ATRIAL FIBRILLATION Qualifiers: Atrial fibrillation type: chronic Qualified Code(s): I48.2 - Chronic atrial fibrillation; I48.2 - Chronic atrial fibrillation; I48.2 - Chronic atrial fibrillation; I48.2 - Chronic atrial fibrillation (3) CHF (congestive heart failure) Code(s): I50.9 - HEART FAILURE, UNSPECIFIED Qualifiers: Congestive heart failure type: unspecified congestive heart failure type Congestive heart failure chronicity: chronic Qualified Code(s): I50.9 - Heart failure, unspecified; I50.9 - Heart failure, unspecified; I50.9 - Heart failure, unspecified; I50.9 - Heart failure, unspecified (4) Arthritis Code(s): M19.90 - UNSPECIFIED OSTEOARTHRITIS, UNSPECIFIED SITE (5) C. difficile diarrhea Code(s): A04.7 - ENTEROCOLITIS DUE TO CLOSTRIDIUM DIFFICILE * DO NOT USE * (6) H/O aortic valve replacement Code(s): Z95.2 - PRESENCE OF PROSTHETIC HEART VALVE (7) Phlebitis after infusion Code(s): T80.1XXA - VASCULAR COMP FOL INFUSN, TRANFS AND THERAPUTC INJECT, INIT
--- NOTE | 2017-06-17 09:07 | PN ---
Progress Note, Physician Chief Complaint: Pt lying in bed; alert; good appetite; no complaints. History of Present Illness: Patient is an 87-year-old white male with past medical history of diastolic CHF , s/p bioprosthetic AoVR and CABG (2011), atrial fibrillation, hypertension, HLD , who presents to the emergency department today for increasing shortness of breath. Patient states that he has had difficulty breathing for the past 2-3 days including increasing cough. He cannot tolerate lying down at night, and needs to sit to get any rest. Admits to lethargy, dyspnea and dyspnea on exertion. Currently unable to ambulate and speaking in short sentences. He was last seen by his field support representative approximately 4 weeks ago and had no complaints at that time. Denies fevers, chills, weakness, chest pain, palpitations,, nausea , vomiting, diarrhea, rhinorrhea, sore throat, ear pain, urinary symptoms. Law Office Manager: Dr. Fisher PCP: Dr. [facility] proxy is the patient's daughter. Patient does want resuscitation and intubation if necessary which is different from the MOLST. Surgical history: CABG (SANCHEZ to LAD; SVG to PDA) and pericardial aortic valve 12/23 at [facility] (Dr. Yaya Green) Left upper arm surgery for "malignant melanoma" VVIR [employer] PPM (implanted 09/07/2014) Medical History: AF anxiety/depression CAD (denies hx [place]) and aortic stenosis--> 2 vessel CABG and AoVR on 12/23 DM HTN severe "arthritis" of both knees skin cancer on top of (bald) head diastolic CHF ECHO 04/2016: normal LVEF; moderate LVH; mild-moderate MS; mild MR and VA; trace TR. Social History: 2 beers on some nights; never was a heavy drinker reduced ability to walk due to increasingly severe pain in knees (07/2012) - Current Medication List Current Medications: Active Medications Acetaminophen (Tylenol -) 650 mg PO Q4H PRN PRN Reason: FEVER OR PAIN Apixaban (Eliquis -) 2.5 mg PO BID [facility] Last Admin: 06/16/17 22:41 Dose: 2.5 mg Furosemide (Lasix Injection -) 40 mg IVPUSH DAILY [facility] Last Admin: 06/16/17 09:31 Dose: 40 mg Lactobacillus Acidophilus (Bacid -) 1 tab PO BID [facility] Last Admin: 06/16/17 22:41 Dose: 1 tab Metoprolol Succinate (Toprol Xl -) 25 mg PO DAILY [facility] Last Admin: 06/16/17 09:31 Dose: 25 mg Multivitamins/Minerals (Theragran-M) 1 each PO DAILY [facility] Last Admin: 06/16/17 09:31 Dose: 1 each Vancomycin HCl (Vancomycin Oral Solution) 125 mg PO DAILY [facility] Last Admin: 06/16/17 09:30 Dose: 5 ml - Objective Vital Signs: Vital Signs Temperature 98.2 F 06/17/17 07:11 Pulse Rate 60 06/17/17 07:11 Respiratory Rate 20 06/17/17 07:16 Blood Pressure 100/57 06/17/17 07:11 O2 Sat by Pulse Oximetry (%) 95 06/17/17 07:16 Constitutional: Yes: Calm, Thin Eyes: Yes: WNL HENT: Yes: WNL Neck: Yes: WNL Cardiovascular: Yes: S1 (varies in intensity), S2 (split) Respiratory: Yes: Diminished (bilaterally at bases) Gastrointestinal: Yes: Soft ...Rectal Exam: Yes: Deferred Genitourinary: No: Anuria Breast(s): Yes: WNL Musculoskeletal: Yes: Muscle Weakness Extremities: Yes: Cool Edema: No Peripheral Pulses WNL: No Peripheral Pulses: Left Doralis Pedis: 1+, Right Dorsalis Pedis: 1+ Integumentary: Yes: WNL Neurological: Yes: Alert, Oriented, Weakness Psychiatric: Yes: Alert, Oriented, Other (anxiety) Labs: CBC, BMP 06/16/17 10:00 06/17/17 05:15 INR, PTT INR 1.84 (0.82-1.09) H 06/14/17 09:20 Problem List - Problems (1) Acute on chronic respiratory failure with hypoxia and hypercapnia Code(s): J96.21 - ACUTE AND CHRONIC RESPIRATORY FAILURE WITH HYPOXIA J96.22 - ACUTE AND CHRONIC RESPIRATORY FAILURE WITH HYPERCAPNIA (2) Atrial fibrillation Assessment/Plan: On metoprolol ER for HR control. On apixaban for anticoagulation. Code(s): I48.91 - UNSPECIFIED ATRIAL FIBRILLATION Qualifiers: Atrial fibrillation type: chronic Qualified Code(s): I48.2 - Chronic atrial fibrillation; I48.2 - Chronic atrial fibrillation; I48.2 - Chronic atrial fibrillation; I48.2 - Chronic atrial fibrillation (3) Hypertension Code(s): I10 - ESSENTIAL (PRIMARY) HYPERTENSION (4) Hypoxia Code(s): R09.02 - HYPOXEMIA (5) Sepsis Code(s): A41.9 - SEPSIS, UNSPECIFIED ORGANISM Qualifiers: Sepsis type: sepsis due to unspecified organism Qualified Code(s): A41.9 - Sepsis, unspecified organism; A41.9 - Sepsis, unspecified organism; A41.9 - Sepsis, unspecified organism (6) Acute on chronic diastolic (congestive) heart failure Assessment/Plan: on metoprolol and furosemide. F/u BUN/Cr, electrolytes, Is and Os, daily weight. Code(s): I50.33 - ACUTE ON CHRONIC DIASTOLIC (CONGESTIVE) HEART FAILURE (7) Gout Code(s): M10.9 - GOUT, UNSPECIFIED (8) History of aortic valve replacement with bioprosthetic valve Code(s): Z95.4 - PRESENCE OF OTHER HEART-VALVE REPLACEMENT (9) Pacemaker Code(s): Z95.0 - PRESENCE OF CARDIAC PACEMAKER (10) Liver cirrhosis Assessment/Plan: Possibility noted on CT. F/u GI w/u. Code(s): K74.60 - UNSPECIFIED CIRRHOSIS OF LIVER
[2017-06-17] MEDS: LACTOBACILLUS ACIDOPHILUS 1 EACH TAB (FP) PO SCH ×2 (09:42→21:45)
[2017-06-17] MEDS: METOPROLOL SUCCINATE 25 MG TAB.SR.24H (FP) PO SCH (09:42)
[2017-06-17] MEDS: FUROSEMIDE 40 MG/4 ML INJECTABLE VIAL IVPUSH SCH (09:42)
[2017-06-17] MEDS: APIXABAN 2.5 MG TABLET PO SCH ×2 (09:42→21:45)
[2017-06-17] MEDS: VANCOMYCIN 250 MG/5 ML ORAL SOLUTION PO SCH (09:43)
[2017-06-17] MEDS: MULTIVITAMINS THER W-MINERALS COMBO TABLET (FP) PO SCH (09:43)
--- NOTE | 2017-06-17 10:06 | PN ---
Physical Exam: PULMONARY CONSULT SUBJECTIVE: Patient seen and examined. Doing much better today. Only complains of continued productive cough. No CP, no SOB. OBJECTIVE: Vital Signs Period Temp Pulse Resp BP Sys/Oates Pulse Ox Last 24 Hr 9.0 F-98.2 F 60-61 20-20 92-111/54-65 95-95 GEN: AAOx3, NAD CV: S1, S2, RRR LUNG: minimal R sided crackles ABD: Soft, NT, ND MSK: No edema, no erythema NEURO: CN 2-12, no sensation or MSK deficits Laboratory Results - last 24 hr 06/16/17 06/17/17 10:00 05:15 WBC 6.8 RBC 4.18 Hgb 12.8 Hct 39.0 MCV 93.4 MCH 30.6 MCHC 32.8 RDW 16.0 H Plt Count 144 MPV 9.3 Sodium 142 Potassium 4.1 Chloride 97 L Carbon Dioxide 38 H Anion Gap 7 L BUN 33 H D Creatinine 0.8 Random Glucose 111 H Calcium 9.1 Active Medications Generic Name Dose Route Start Last Admin Trade Name Freq PRN Reason Stop Dose Admin Acetaminophen 650 mg 06/14/17 12:05 Tylenol - PO Q4H PRN FEVER OR PAIN Apixaban 2.5 mg 06/14/17 22:00 06/17/17 09:42 Eliquis - PO 2.5 mg BID [facility] Administration Furosemide 40 mg 06/14/17 14:30 06/17/17 09:42 Lasix Injection - IVPUSH 40 mg DAILY [facility] Administration Lactobacillus Acidophilus 1 tab 06/14/17 22:00 06/17/17 09:42 Bacid - PO 1 tab BID [facility] Administration Metoprolol Succinate 25 mg 06/15/17 10:00 06/17/17 09:42 Toprol Xl - PO 25 mg DAILY [facility] Administration Multivitamins/Minerals 1 each 06/15/17 10:00 06/17/17 09:43 Theragran-M PO 1 each DAILY [facility] Administration Vancomycin HCl 125 mg 06/14/17 16:45 06/17/17 09:43 Vancomycin Oral Solution PO 5 ml DAILY [facility] Administration ASSESSMENT/PLAN: Pt is a 87yo F with diastolic CHF, HTN, CAD who presented with 1 day of syncope , admitted for likely diastolic CHF exacerbation. # Diastolic CHF Exacerbation - new Echo EF 65.5%, LV normal size/function, no wall motion abn - +170 fluid balance, continue diuresis - Strict I&Os - Daily weights - Elevate HOB - Can d/c plan if patient continues to improve # Severe Pulmonary HTN - likely secondary to mitral valvular disease - Continue O2 as needed Rest as per primary. Will discuss w/ Dr Jenkins. Continue to follow. Trevor Quiroga MD - PGY1 Visit type - Emergency Visit Emergency Visit: No - New Patient This patient is new to me today: No - Critical Care Critical Care patient: No - Discharge Referral Referred to [facility] Med P.C.: No
--- NOTE | 2017-06-17 13:04 | PN ---
Progress Note (short form) - Note Progress Note: PULMONARY States breathing is improving, close to baseline. No cough or wheezing. No chest pain. Last Vital Signs Temp Pulse Resp BP Pulse Ox 98.2 F 60 20 100/57 95 06/17/17 07:11 06/17/17 07:11 06/17/17 07:16 06/17/17 07:11 06/17/17 07:16 Gen: NAD at rest Heart: RRR Lung: decreased breath sounds at the bases Abd: soft, nontender Ext: no edema CBC, BMP 06/16/17 10:00 06/17/17 05:15 Active Medications Acetaminophen (Tylenol -) 650 mg PO Q4H PRN PRN Reason: FEVER OR PAIN Apixaban (Eliquis -) 2.5 mg PO BID [facility] Last Admin: 06/17/17 09:42 Dose: 2.5 mg Furosemide (Lasix Injection -) 40 mg IVPUSH DAILY [facility] Last Admin: 06/17/17 09:42 Dose: 40 mg Lactobacillus Acidophilus (Bacid -) 1 tab PO BID [facility] Last Admin: 06/17/17 09:42 Dose: 1 tab Metoprolol Succinate (Toprol Xl -) 25 mg PO DAILY [facility] Last Admin: 06/17/17 09:42 Dose: 25 mg Multivitamins/Minerals (Theragran-M) 1 each PO DAILY [facility] Last Admin: 06/17/17 09:43 Dose: 1 each Vancomycin HCl (Vancomycin Oral Solution) 125 mg PO DAILY [facility] Last Admin: 06/17/17 09:43 Dose: 5 ml A/P Acute on Chronic Diastolic Heart Failure Mitral Regurgitation Pulmonary HTN Atrial Fibrillation HTN - continue lasix - rate controlled - continue anticoagulation - O2 to keep SpO2 >90%
[2017-06-18 08:06] LABS: ANION GAP 10 (8-16); CALCIUM 9.1 mg/dL (8.5-10.1); CO2 37 mmol/L (21-32); CREATININE 0.8 mg/dL (0.7-1.3); GLUCOSE,RANDOM 107 mg/dL (74-106); MCH 30.5 pg (25.7-33.7); MCHC 32.5 g/dl (32.0-35.9); MEAN CELL VOLUME 93.9 fl (80-96); PLATELET COUNT 164 K/MM3 (134-434); RDW 15.4 % (11.9-15.9); WHITE BLOOD COUNT 6.6 K/mm3 (4.0-10.0)
--- NOTE | 2017-06-18 10:10 | PN ---
Progress Note (short form) - Note Progress Note: Patient seen and examined. he felt tired today. Slight cough Move his bowels but no diarrhea. will have PT to do range of motion On exam: Vital Signs Temp 99.0 F 06/18/17 18:10 Pulse 62 06/18/17 18:10 Resp 20 06/18/17 18:10 BP 114/59 06/18/17 18:10 Pulse Ox 96 06/18/17 09:00 Intake & Output 06/17/17 06/18/17 06/18/17 23:59 11:59 23:59 Intake Total 846 923 3256 Balance 121 873 4988 Intake: Oral [phone] Other: Voiding Method Incontinent Incontinent Incontinent # Unmeasured Voids Void 1 1 Bowel Movement No No he is alert Looks tired. Not pale. Chest Rales at bases. Emmanuel regular 2/6 murmur. Abdomen soft with no increased bowel sounds. Extremities no pedal edema. Abnormal Lab Results 06/18/17 06:20 Chloride 95 L Carbon Dioxide 37 H BUN 34 H Random Glucose 107 H impression: Acute CHF slow to resolve. Possible pulmonary infiltrate. Chronic C. difficile CABG History of aVR. 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 Plan: Range of motion at bedside. Repeat lab Depending on medical condition Wednesday planned discharge with visiting nurse and 24-hour aide at home Problem List - Problems (1) Acute on chronic respiratory failure with hypoxia and hypercapnia Code(s): J96.21 - ACUTE AND CHRONIC RESPIRATORY FAILURE WITH HYPOXIA J96.22 - ACUTE AND CHRONIC RESPIRATORY FAILURE WITH HYPERCAPNIA (2) Atrial fibrillation Code(s): I48.91 - UNSPECIFIED ATRIAL FIBRILLATION Qualifiers: Atrial fibrillation type: chronic Qualified Code(s): I48.2 - Chronic atrial fibrillation; I48.2 - Chronic atrial fibrillation; I48.2 - Chronic atrial fibrillation; I48.2 - Chronic atrial fibrillation (3) CHF (congestive heart failure) Code(s): I50.9 - HEART FAILURE, UNSPECIFIED Qualifiers: Congestive heart failure type: unspecified congestive heart failure type Congestive heart failure chronicity: chronic Qualified Code(s): I50.9 - Heart failure, unspecified; I50.9 - Heart failure, unspecified; I50.9 - Heart failure, unspecified; I50.9 - Heart failure, unspecified (4) Arthritis Code(s): M19.90 - UNSPECIFIED OSTEOARTHRITIS, UNSPECIFIED SITE (5) C. difficile diarrhea Code(s): A04.7 - ENTEROCOLITIS DUE TO CLOSTRIDIUM DIFFICILE * DO NOT USE * (6) H/O aortic valve replacement Code(s): Z95.2 - PRESENCE OF PROSTHETIC HEART VALVE (7) Phlebitis after infusion Code(s): T80.1XXA - VASCULAR COMP FOL INFUSN, TRANFS AND THERAPUTC INJECT, INIT
[2017-06-18] MEDS ORDERED: PT OWN MED DRAWER 7, Y5N ONE ×3 (11:48→21:33)
[2017-06-18] MEDS: APIXABAN 2.5 MG TABLET PO SCH ×2 (11:54→21:48)
[2017-06-18] MEDS: MULTIVITAMINS THER W-MINERALS COMBO TABLET (FP) PO SCH (11:54)
[2017-06-18] MEDS: LACTOBACILLUS ACIDOPHILUS 1 EACH TAB (FP) PO SCH ×2 (11:54→21:48)
[2017-06-18] MEDS: METOPROLOL SUCCINATE 25 MG TAB.SR.24H (FP) PO SCH (11:54)
[2017-06-18] MEDS: FUROSEMIDE 40 MG/4 ML INJECTABLE VIAL IVPUSH SCH (11:54)
[2017-06-18] MEDS: VANCOMYCIN 250 MG/5 ML ORAL SOLUTION PO SCH (11:55)
--- NOTE | 2017-06-18 12:53 | PN ---
Teaching Attending Note Name of Resident: Trevor Quiroga ATTENDING PHYSICIAN STATEMENT I saw and evaluated the patient. I reviewed the resident's note and discussed the case with the resident. I agree with the resident's findings and plan as documented. pulmonary alert,feeling better,less congested IMP ACUTE ON CHRONIC HYPOXEMIC/HYPERCAPNEIC RESPIRATORY FAILURE IMPROVING SYNCOPE CHF ? COPD S/P AVR HTN AFIB ELEVATED LACTATE LEVEL IMPROVED PULMONARY HTN PLAN IV LASIX O2 DAILY WTS STRICT I+Os MONITOR ÁNGELA CHATMAN Problem List - Problems (1) Atrial fibrillation Code(s): I48.91 - UNSPECIFIED ATRIAL FIBRILLATION Qualifiers: Atrial fibrillation type: chronic Qualified Code(s): I48.2 - Chronic atrial fibrillation; I48.2 - Chronic atrial fibrillation; I48.2 - Chronic atrial fibrillation; I48.2 - Chronic atrial fibrillation (2) CHF (congestive heart failure) Code(s): I50.9 - HEART FAILURE, UNSPECIFIED Qualifiers: Congestive heart failure type: unspecified congestive heart failure type Congestive heart failure chronicity: chronic Qualified Code(s): I50.9 - Heart failure, unspecified; I50.9 - Heart failure, unspecified; I50.9 - Heart failure, unspecified; I50.9 - Heart failure, unspecified (3) Hypertension Code(s): I10 - ESSENTIAL (PRIMARY) HYPERTENSION (4) Hypoxia Code(s): R09.02 - HYPOXEMIA (5) Lactic acid acidosis Code(s): E87.2 - ACIDOSIS (6) Shortness of breath Code(s): R06.02 - SHORTNESS OF BREATH (7) Acute on chronic diastolic (congestive) heart failure Code(s): I50.33 - ACUTE ON CHRONIC DIASTOLIC (CONGESTIVE) HEART FAILURE (8) H/O aortic valve replacement Code(s): Z95.2 - PRESENCE OF PROSTHETIC HEART VALVE (9) History of aortic valve replacement with bioprosthetic valve Code(s): Z95.4 - PRESENCE OF OTHER HEART-VALVE REPLACEMENT (10) Pacemaker Code(s): Z95.0 - PRESENCE OF CARDIAC PACEMAKER (11) Acute on chronic respiratory failure with hypoxia and hypercapnia Code(s): J96.21 - ACUTE AND CHRONIC RESPIRATORY FAILURE WITH HYPOXIA J96.22 - ACUTE AND CHRONIC RESPIRATORY FAILURE WITH HYPERCAPNIA Problem List - Problems (1) Atrial fibrillation Code(s): I48.91 - UNSPECIFIED ATRIAL FIBRILLATION Qualifiers: Qualified Code(s): I48.2 - Chronic atrial fibrillation; I48.2 - Chronic atrial fibrillation; I48.2 - Chronic atrial fibrillation; I48.2 - Chronic atrial fibrillation (2) CHF (congestive heart failure) Code(s): I50.9 - HEART FAILURE, UNSPECIFIED Qualifiers: Qualified Code(s): I50.9 - Heart failure, unspecified; I50.9 - Heart failure, unspecified; I50.9 - Heart failure, unspecified; I50.9 - Heart failure , unspecified (3) Hypertension Code(s): I10 - ESSENTIAL (PRIMARY) HYPERTENSION (4) Hypoxia Code(s): R09.02 - HYPOXEMIA (5) Lactic acid acidosis Code(s): E87.2 - ACIDOSIS (6) Shortness of breath Code(s): R06.02 - SHORTNESS OF BREATH (7) Acute on chronic diastolic (congestive) heart failure Code(s): I50.33 - ACUTE ON CHRONIC DIASTOLIC (CONGESTIVE) HEART FAILURE (8) H/O aortic valve replacement Code(s): Z95.2 - PRESENCE OF PROSTHETIC HEART VALVE (9) History of aortic valve replacement with bioprosthetic valve Code(s): Z95.4 - PRESENCE OF OTHER HEART-VALVE REPLACEMENT (10) Pacemaker Code(s): Z95.0 - PRESENCE OF CARDIAC PACEMAKER (11) Acute on chronic respiratory failure with hypoxia and hypercapnia Code(s): J96.21 - ACUTE AND CHRONIC RESPIRATORY FAILURE WITH HYPOXIA J96.22 - ACUTE AND CHRONIC RESPIRATORY FAILURE WITH HYPERCAPNIA
--- NOTE | 2017-06-18 14:12 | PN ---
Physical Exam: SUBJECTIVE: Patient seen and examined. Doing well. No CP, no SOB. Cough has improved. OBJECTIVE: Vital Signs Period Temp Pulse Resp BP Sys/Oates Pulse Ox Last 24 Hr 98.1 F 60-61 18-18 95-97/55-61 95-96 GEN: AAOx3, NAD CV: S1, S2, RRR LUNG: minimal R sided crackles ABD: Soft, NT, ND MSK: No edema, no erythema NEURO: CN 2-12, no sensation or MSK deficits Laboratory Results - last 24 hr 06/18/17 06/18/17 06:20 06:20 WBC 6.6 RBC 4.25 Hgb 13.0 Hct 39.9 MCV 93.9 MCH 30.5 MCHC 32.5 RDW 15.4 Plt Count 164 MPV 9.0 Sodium 142 Potassium 4.0 Chloride 95 L Carbon Dioxide 37 H Anion Gap 10 BUN 34 H Creatinine 0.8 Random Glucose 107 H Calcium 9.1 Active Medications Generic Name Dose Route Start Last Admin Trade Name Freq PRN Reason Stop Dose Admin Acetaminophen 650 mg 06/14/17 12:05 Tylenol - PO Q4H PRN FEVER OR PAIN Apixaban 2.5 mg 06/14/17 22:00 06/18/17 11:54 Eliquis - PO 2.5 mg BID [facility] Administration Furosemide 40 mg 06/14/17 14:30 06/18/17 11:54 Lasix Injection - IVPUSH 40 mg DAILY [facility] Administration Lactobacillus Acidophilus 1 tab 06/14/17 22:00 06/18/17 11:54 Bacid - PO 1 tab BID [facility] Administration Metoprolol Succinate 25 mg 06/15/17 10:00 06/18/17 11:54 Toprol Xl - PO 25 mg DAILY [facility] Administration Multivitamins/Minerals 1 each 06/15/17 10:00 06/18/17 11:54 Theragran-M PO 1 each DAILY [facility] Administration Vancomycin HCl 125 mg 06/14/17 16:45 06/18/17 11:55 Vancomycin Oral Solution PO 2.5 ml DAILY [facility] Administration ASSESSMENT/PLAN: Pt is a 87yo F with diastolic CHF, HTN, CAD who presented with 1 day of syncope , admitted for likely diastolic CHF exacerbation. # Diastolic CHF Exacerbation - new Echo EF 65.5%, LV normal size/function, no wall motion abn - Continue diuresis, Strict I&Os - Daily weights - Elevate HOB - Can d/c plan if patient continues to improve # Severe Pulmonary HTN - likely secondary to mitral valvular disease - Continue O2 as needed Rest as per primary. Discussed with Dr Molina. Continue to follow. Trevor Quiroga MD - PGY1 Visit type - Emergency Visit Emergency Visit: No - New Patient This patient is new to me today: No - Critical Care Critical Care patient: No - Discharge Referral Referred to [facility] Med P.C.: No
--- NOTE | 2017-06-19 04:09 | PN ---
Progress Note, Physician Chief Complaint: Pt lying in bed; alert; feels weak. History of Present Illness: Patient is an 87-year-old white male with past medical history of diastolic CHF , s/p bioprosthetic AoVR and CABG (2011), atrial fibrillation, hypertension, HLD , who presents to the emergency department today for increasing shortness of breath. Patient states that he has had difficulty breathing for the past 2-3 days including increasing cough. He cannot tolerate lying down at night, and needs to sit to get any rest. Admits to lethargy, dyspnea and dyspnea on exertion. Currently unable to ambulate and speaking in short sentences. He was last seen by his primary education professor approximately 4 weeks ago and had no complaints at that time. Denies fevers, chills, weakness, chest pain, palpitations,, nausea , vomiting, diarrhea, rhinorrhea, sore throat, ear pain, urinary symptoms. Computerized Mill Recorder: Dr. Fisher PCP: Dr. [facility] proxy is the patient's daughter. Patient does want resuscitation and intubation if necessary which is different from the MOLST. Surgical history: CABG (SANCHEZ to LAD; SVG to PDA) and pericardial aortic valve 12/23 at [facility] (Dr. Yaya Green) Left upper arm surgery for "malignant melanoma" VVIR [employer] PPM (implanted 09/07/2014) Medical History: AF anxiety/depression CAD (denies hx [place]) and aortic stenosis--> 2 vessel CABG and AoVR on 12/23 DM HTN severe "arthritis" of both knees skin cancer on top of (bald) head diastolic CHF ECHO 04/2016: normal LVEF; moderate LVH; mild-moderate MS; mild MR and PA; trace TR. Social History: 2 beers on some nights; never was a heavy drinker reduced ability to walk due to increasingly severe pain in knees (07/2012) - Current Medication List Current Medications: Active Medications Acetaminophen (Tylenol -) 650 mg PO Q4H PRN PRN Reason: FEVER OR PAIN Apixaban (Eliquis -) 2.5 mg PO BID [facility] Last Admin: 06/18/17 21:48 Dose: 2.5 mg Furosemide (Lasix Injection -) 40 mg IVPUSH DAILY [facility] Last Admin: 06/18/17 11:54 Dose: 40 mg Lactobacillus Acidophilus (Bacid -) 1 tab PO BID [facility] Last Admin: 06/18/17 21:48 Dose: 1 tab Metoprolol Succinate (Toprol Xl -) 25 mg PO DAILY [facility] Last Admin: 06/18/17 11:54 Dose: 25 mg Multivitamins/Minerals (Theragran-M) 1 each PO DAILY [facility] Last Admin: 06/18/17 11:54 Dose: 1 each Vancomycin HCl (Vancomycin Oral Solution) 125 mg PO DAILY [facility] Last Admin: 06/18/17 11:55 Dose: 2.5 ml - Objective Vital Signs: Vital Signs Temperature 98.8 F 06/18/17 22:00 Pulse Rate 61 06/18/17 22:00 Respiratory Rate 20 06/18/17 22:00 Blood Pressure 98/57 06/18/17 22:00 O2 Sat by Pulse Oximetry (%) 99 06/18/17 21:00 Constitutional: Yes: No Distress, Thin Eyes: Yes: WNL HENT: Yes: WNL Neck: Yes: WNL Cardiovascular: Yes: S1 (varies in intensity), S2 (split) Respiratory: Yes: Regular, Diminished Gastrointestinal: Yes: Soft. No: Tenderness ...Rectal Exam: Yes: Deferred Genitourinary: No: Anuria Breast(s): Yes: WNL Musculoskeletal: Yes: Joint Stiffness, Joint Swelling, Muscle Weakness Extremities: Yes: Cool Edema: No Peripheral Pulses WNL: No Peripheral Pulses: Left Doralis Pedis: 1+, Right Dorsalis Pedis: 1+ Integumentary: Yes: WNL Neurological: Yes: Alert, Oriented, Weakness Psychiatric: Yes: Alert, Oriented, Other (anxeity/depression) Labs: CBC, BMP 06/18/17 06:20 06/18/17 06:20 INR, PTT INR 1.84 (0.82-1.09) H 06/14/17 09:20 Problem List - Problems (1) Atrial fibrillation Assessment/Plan: On metoprolol ER for HR control. On apixaban for anticoagulation. Code(s): I48.91 - UNSPECIFIED ATRIAL FIBRILLATION Qualifiers: Atrial fibrillation type: chronic Qualified Code(s): I48.2 - Chronic atrial fibrillation; I48.2 - Chronic atrial fibrillation; I48.2 - Chronic atrial fibrillation; I48.2 - Chronic atrial fibrillation (2) Hypertension Code(s): I10 - ESSENTIAL (PRIMARY) HYPERTENSION (3) Sepsis Code(s): A41.9 - SEPSIS, UNSPECIFIED ORGANISM Qualifiers: Sepsis type: sepsis due to unspecified organism Qualified Code(s): A41.9 - Sepsis, unspecified organism; A41.9 - Sepsis, unspecified organism; A41.9 - Sepsis, unspecified organism (4) Acute on chronic diastolic (congestive) heart failure Assessment/Plan: on metoprolol and furosemide (change to PO). F/u BUN/Cr, electrolytes (presently WNL; avoid excessive diuretic use: BUN 23--> 34), Is and Os, daily weight. Code(s): I50.33 - ACUTE ON CHRONIC DIASTOLIC (CONGESTIVE) HEART FAILURE (5) Gout Code(s): M10.9 - GOUT, UNSPECIFIED (6) History of aortic valve replacement with bioprosthetic valve Code(s): Z95.4 - PRESENCE OF OTHER HEART-VALVE REPLACEMENT (7) Pacemaker Code(s): Z95.0 - PRESENCE OF CARDIAC PACEMAKER (8) Liver cirrhosis Assessment/Plan: Possibility noted on CT. F/u GI w/u. Code(s): K74.60 - UNSPECIFIED CIRRHOSIS OF LIVER
[2017-06-19 05:44] VITALS: TEMP 98.3
[2017-06-19 07:32] LABS: ANION GAP 4 (8-16); CALCIUM 9.3 mg/dL (8.5-10.1); CO2 39 mmol/L (21-32); CREATININE 0.7 mg/dL (0.7-1.3); GLUCOSE,RANDOM 90 mg/dL (74-106); TROPONIN I 0.08 ng/ml (0.00-0.05)
[2017-06-19 10:48] VITALS: BP 107/60
[2017-06-19] MEDS ORDERED: PT OWN MED DRAWER 7, Y5N ONE (10:52)
[2017-06-19 10:55] VITALS: PULSE 60
[2017-06-19] MEDS: FUROSEMIDE 40 MG/4 ML INJECTABLE VIAL IVPUSH SCH (10:55)
[2017-06-19] MEDS: MULTIVITAMINS THER W-MINERALS COMBO TABLET (FP) PO SCH (10:56)
[2017-06-19] MEDS: METOPROLOL SUCCINATE 25 MG TAB.SR.24H (FP) PO SCH (10:56)
[2017-06-19] MEDS: LACTOBACILLUS ACIDOPHILUS 1 EACH TAB (FP) PO SCH (10:56)
[2017-06-19] MEDS: VANCOMYCIN 250 MG/5 ML ORAL SOLUTION PO SCH (10:57)
--- NOTE | 2017-06-19 11:17 | PN ---
Progress Note, Physician History of Present Illness: seen and examined today in [facility]. no overnight events. no new complaints. - Current Medication List Current Medications: Active Medications Acetaminophen (Tylenol -) 650 mg PO Q4H PRN PRN Reason: FEVER OR PAIN Apixaban (Eliquis -) 2.5 mg PO BID [facility] Last Admin: 06/18/17 21:48 Dose: 2.5 mg Lactobacillus Acidophilus (Bacid -) 1 tab PO BID [facility] Last Admin: 06/19/17 10:56 Dose: 1 tab Metoprolol Succinate (Toprol Xl -) 25 mg PO DAILY [facility] Last Admin: 06/19/17 10:56 Dose: 25 mg Multivitamins/Minerals (Theragran-M) 1 each PO DAILY [facility] Last Admin: 06/19/17 10:56 Dose: 1 each Vancomycin HCl (Vancomycin Oral Solution) 125 mg PO DAILY [facility] Last Admin: 06/19/17 10:57 Dose: 2.5 ml - Objective Vital Signs: Vital Signs Temperature 98.3 F 06/19/17 10:46 Pulse Rate 60 06/19/17 10:46 Respiratory Rate 20 06/19/17 10:46 Blood Pressure 107/60 06/19/17 10:46 O2 Sat by Pulse Oximetry (%) 99 06/18/17 21:00 Constitutional: Yes: No Distress, Calm Eyes: Yes: Conjunctiva Clear, EOM Intact, PERRL HENT: Yes: Atraumatic, Normocephalic Neck: Yes: Supple, Trachea Midline Cardiovascular: Yes: Pulse Irregular, Murmur, S1, S2. No: Regular Rate and Rhythm, Bradycardia, Tachycardia, Bruit, JVD, Gallop, Rub, S3, S4, Varicosities Respiratory: Yes: Regular, Diminished. No: Rales, Rhonchi, SOB, Wheezes Gastrointestinal: Yes: Normal Bowel Sounds, Soft. No: Distention, Tenderness Edema: No Neurological: Yes: Alert, Oriented Psychiatric: Yes: Alert, Oriented Labs: CBC, BMP 06/18/17 06:20 06/19/17 06:00 INR, PTT INR 1.84 (0.82-1.09) H 06/14/17 09:20 - ....Imaging Chest X-ray: Report Reviewed, Image Reviewed EKG: Report Reviewed, Image Reviewed Other: Report Reviewed, Image Reviewed Assessment/Plan 87 year old man h/o chronic diastolic CHF, CAD, bio AVR and CABG, Afib, HTN, HLD , PPM, DMII, a/w sob, SOB-acute on chronic diastolic chf -overall euvolemic with some evidence of intravascular depletion based on labs showing elevated bun/creat ratio -lasix was held due to low normal bp -can likely transition to low dose po lasix Atrial fibrillation -HR is well controlled -cont toprol xl 25mg daily -cont apixaban HTN-adequately controlled -cont metoprolol CAD s/p CABG and bio AVR -stable -cont toprol -not currently on statin, caution given findings of possible cirrhosis -clarify if should be on ASA, may not be as he is on eliquis
--- NOTE | 2017-06-19 11:19 | PN ---
Progress Note, Physician History of Present Illness: PULMONARY ALERT,FEELING BETTER,DYSPNEA IMPROVING - Current Medication List Current Medications: Active Medications Acetaminophen (Tylenol -) 650 mg PO Q4H PRN PRN Reason: FEVER OR PAIN Apixaban (Eliquis -) 2.5 mg PO BID [facility] Last Admin: 06/18/17 21:48 Dose: 2.5 mg Lactobacillus Acidophilus (Bacid -) 1 tab PO BID [facility] Last Admin: 06/19/17 10:56 Dose: 1 tab Metoprolol Succinate (Toprol Xl -) 25 mg PO DAILY [facility] Last Admin: 06/19/17 10:56 Dose: 25 mg Multivitamins/Minerals (Theragran-M) 1 each PO DAILY [facility] Last Admin: 06/19/17 10:56 Dose: 1 each Vancomycin HCl (Vancomycin Oral Solution) 125 mg PO DAILY [facility] Last Admin: 06/19/17 10:57 Dose: 2.5 ml - Objective Vital Signs: Vital Signs Temperature 98.3 F 06/19/17 10:46 Pulse Rate 60 06/19/17 10:46 Respiratory Rate 20 06/19/17 10:46 Blood Pressure 107/60 06/19/17 10:46 O2 Sat by Pulse Oximetry (%) 99 06/18/17 21:00 Constitutional: Yes: Calm, Thin Eyes: Yes: WNL HENT: Yes: WNL Cardiovascular: Yes: Pulse Irregular, S1, S2 Respiratory: Yes: Rales (BIBASILAR CRACKLES) Gastrointestinal: Yes: Normal Bowel Sounds, Soft Extremities: Yes: WNL Edema: No Labs: CBC, BMP 06/18/17 06:20 06/19/17 06:00 INR, PTT INR 1.84 (0.82-1.09) H 06/14/17 09:20 Problem List - Problems (1) Atrial fibrillation Code(s): I48.91 - UNSPECIFIED ATRIAL FIBRILLATION Qualifiers: Qualified Code(s): I48.2 - Chronic atrial fibrillation; I48.2 - Chronic atrial fibrillation; I48.2 - Chronic atrial fibrillation; I48.2 - Chronic atrial fibrillation (2) CHF (congestive heart failure) Code(s): I50.9 - HEART FAILURE, UNSPECIFIED Qualifiers: Qualified Code(s): I50.9 - Heart failure, unspecified; I50.9 - Heart failure, unspecified; I50.9 - Heart failure, unspecified; I50.9 - Heart failure , unspecified (3) Hypertension Code(s): I10 - ESSENTIAL (PRIMARY) HYPERTENSION (4) Hypoxia Code(s): R09.02 - HYPOXEMIA (5) Lactic acid acidosis Code(s): E87.2 - ACIDOSIS (6) Shortness of breath Code(s): R06.02 - SHORTNESS OF BREATH (7) Acute on chronic diastolic (congestive) heart failure Code(s): I50.33 - ACUTE ON CHRONIC DIASTOLIC (CONGESTIVE) HEART FAILURE (8) H/O aortic valve replacement Code(s): Z95.2 - PRESENCE OF PROSTHETIC HEART VALVE (9) History of aortic valve replacement with bioprosthetic valve Code(s): Z95.4 - PRESENCE OF OTHER HEART-VALVE REPLACEMENT (10) Pacemaker Code(s): Z95.0 - PRESENCE OF CARDIAC PACEMAKER (11) Acute on chronic respiratory failure with hypoxia and hypercapnia Code(s): J96.21 - ACUTE AND CHRONIC RESPIRATORY FAILURE WITH HYPOXIA J96.22 - ACUTE AND CHRONIC RESPIRATORY FAILURE WITH HYPERCAPNIA Assessment/Plan IMP ACUTE ON CHRONIC HYPOXEMIC/HYPERCAPNEIC RESPIRATORY FAILURE IMPROVING SYNCOPE CHF ? COPD S/P AVR HTN AFIB ELEVATED LACTATE LEVEL IMPROVED PULMONARY HTN PLAN O2 DAILY WTS STRICT I+Os MONITOR ÁNGELA LOCKWOOD CHEST X-RAY DR CHATMAN
[2017-06-19] MEDS: APIXABAN 2.5 MG TABLET PO SCH (12:14)
--- NOTE | 2017-06-19 12:19 | DS ---
Physical Examination Vital Signs: Vital Signs Temperature 98.3 F 06/19/17 10:46 Pulse Rate 60 06/19/17 10:46 Respiratory Rate 20 06/19/17 10:46 Blood Pressure 107/60 06/19/17 10:46 O2 Sat by Pulse Oximetry (%) 99 06/18/17 21:00 Constitutional: Yes: Calm Cardiovascular: Yes: Pulse Irregular Respiratory: Yes: Diminished, Rhonchi (few at bases) Gastrointestinal: Yes: Soft Musculoskeletal: Yes: Joint Stiffness (knees) Edema: No Neurological: Yes: Alert, Oriented (Has 24 hr aide at home.) Labs: CBC, BMP 06/18/17 06:20 06/19/17 06:00 Discharge Summary Reason For Visit: SOB,CHF,SEPSIS Current Active Problems Atrial fibrillation (Acute) CHF (congestive heart failure) (Acute) Hypertension (Acute) Lactic acid acidosis (Acute) Liver cirrhosis (Acute) Respiratory acidosis (Acute) Sepsis (Acute) Shortness of breath (Acute) DJD knees(acute) Hx: C.Difficile Procedures: Principal: IV Lasix. F/U CXR and lab Other Procedures: PT. Cardiology, ID and Pulmonary MD's Hospital Course: Slow to improve but will continue 24 hr aide and VNS at home. Condition: Improved - Instructions Diet, Activity, Other Instructions: No added salt Keep your regular office appointment. Referrals: Juan Clifford MD [Primary Care Provider] - Disposition: VNS/HOME HEALTH CARE - Home Medications Comprehensive Discharge Medication List: Ambulatory Orders Lactobacillus Acidophilus [Acidophilus] 1 each PO BID 05/08/16 Metoprolol Succinate [Toprol XL -] 25 mg PO DAILY 05/08/16 Multivitamin with Minerals [Icaps Plus] 1 each PO DAILY 05/08/16 Acetaminophen [Tylenol .Regular Strength -] 650 mg PO Q4H PRN #0 tablet Apixaban [Eliquis -] 2.5 mg PO BID #60 tablet 06/25/16 Furosemide [Lasix -] 40 mg PO DAILY #30 tablet 06/25/16 Vancomycin Oral Solution 125 mg PO DAILY ml 06/19/17
== END 2017-06-19 14:34 | disposition home health service (06) | DRG 291 ==
LOC: JER 08:51 → JERBED 11:06 → J4W 13:16 → J5S 06-17 14:20
PROVIDERS: ADMIT Internal Medicine; ATTEND Internal Medicine
DX: I11.0 Hypertensive heart disease with heart failure (principal); J96.21 Acute and chronic respiratory failure with hypoxia; J96.22 Acute and chronic respiratory failure with hypercapnia; E87.2 Acidosis; T80.1XXA Vascular complications following infusion, transfusion and therapeutic injection, initial encounter; A04.71 Enterocolitis due to Clostridium difficile, recurrent; I50.33 Acute on chronic diastolic (congestive) heart failure; I48.91 Unspecified atrial fibrillation; E78.5 Hyperlipidemia, unspecified; I25.10 Atherosclerotic heart disease of native coronary artery without angina pectoris; I35.0 Nonrheumatic aortic (valve) stenosis; M17.0 Bilateral primary osteoarthritis of knee; I34.0 Nonrheumatic mitral (valve) insufficiency; I27.20 Pulmonary hypertension, unspecified; K74.60 Unspecified cirrhosis of liver; M10.9 Gout, unspecified; L89.151 Pressure ulcer of sacral region, stage 1; F41.8 Other specified anxiety disorders; I48.2 Chronic atrial fibrillation; Z95.2 Presence of prosthetic heart valve; Z95.0 Presence of cardiac pacemaker; Z95.1 Presence of aortocoronary bypass graft; Z85.828 Personal history of other malignant neoplasm of skin
CPT/HCPCS: 36415; 71010-TC; 71250-TC; 80048; 80053; 81003; 81015; 82803; 83605; 83735; 83880; 84100; 84484; 85025; 85027; 85610; 85730; 87040; 87086; 93005; 93010; 93306-TC; 93880-TC; 97161-GP; 99285-25

== ENCOUNTER 2018-01-26 14:32 | Inpatient (IN) | payer OTHER, BC ==
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
[2018-01-26 15:55] LABS: EOS % 1.4 % (0-4.5); HEMATOCRIT 41.9 % (35.4-49); HEMOGLOBIN 14.4 GM/dl (11.7-16.9); LYMPH % 28.5 % (8-40); MCH 32.9 pg (25.7-33.7); MCHC 34.3 g/dl (32.0-35.9); MEAN CELL VOLUME 95.9 fl (80-96); MONO % 9.8 % (3.8-10.2); NEUT % 59.3 % (42.8-82.8); PLATELET COUNT 120 K/MM3 (134-434); RBC 4.37 M/mm3 (4.00-5.60); WHITE BLOOD COUNT 5.5 K/mm3 (4.0-10.8)
[2018-01-26 16:24] LABS: ALBUMIN 2.9 g/dl (3.5-5.0); ALK PHOS 148 U/L (32-92); ANION GAP 5 (8-16); BILIRUBIN,TOTAL 2.6 mg/dl (0.2-1.0); BLOOD UREA NITROGEN 33 mg/dl (7-18); CHLORIDE 98 mmol/L (98-107); CO2 34 mmol/L (22-28); CREATININE 1.1 mg/dl (0.6-1.3); GLUCOSE,RANDOM 127 mg/dl (74-106); POTASSIUM 3.9 mmol/L (3.5-5.1); SGOT/AST 60 U/L (10-42); SGPT/ALT 27 U/L (10-40); SODIUM 137 mmol/L (136-145); TOT PROT 7.8 g/dl (6.4-8.3)
[2018-01-26 16:45] LABS: INR 2.23 (0.82-1.09); PROTHROMBIN TIME (PATIENT) 24.6 SEC (10.2-13.0)
[2018-01-26] MEDS ORDERED: FUROSEMIDE 40 MG/4 ML INJECTABLE VIAL ONE (17:21)
[2018-01-26] MEDS ORDERED: ceFAZolin SODIUM 1 GM VIAL ONE ×2 (17:21→23:22)
[2018-01-26] MEDS ORDERED: CEFAZOLIN 1 GM in DEXTROSE 5%-WATER - 50 ML IVPB ONE (17:23)
[2018-01-26] MEDS ORDERED: FUROSEMIDE 40 MG/4 ML INJECTABLE VIAL IVPUSH ONE (17:24)
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
[2018-01-26 18:13] LABS: PH,URINE 5.5 (4.5-8); URINE APPEARANCE Clear; URINE BILIRUBIN Negative (NEGATIVE); URINE COLOR YELLOW; URINE GLUCOSE (UA) Negative (NEGATIVE); URINE KETONE Negative (NEGATIVE); URINE LEUK ESTERASE Negative (NEGATIVE); URINE NITRITE Negative (NEGATIVE); URINE PROTEIN Negative (NEGATIVE); URINE UROBILINOGEN 0.2 (0.2-1.0)
--- NOTE | 2018-01-26 21:25 | HP ---
CHIEF COMPLAINT: Bilateral Leg Swelling and Redness, SOB PCP: Dr. Clifford HISTORY OF PRESENT ILLNESS: This is a 88 y/o man from home with a PMHx of: Skin Ca, CAD s/p Stent, CABG, Mechanical Valve, HTN, CHF, Afib (on Eliquis), HLD, Depression, Anxiety, OA. Who presents to the ED with his daughter with increased LE swelling and redness , increased SOB x 2 days. Patient's daughter reports the patient takes his Lasix as directed, but noted the increased swelling and became concerned. Patient denies fever, chills, dizziness, ROJAS, CP, AP, N/V/D, constipation, dysuria. ER course was notable for: (1) Chest Xray- CHF (2) Duplex of LE- negative DVT. tiny Left [place]'s Cyst (3) Troponin I- 0.07 Recent Travel: None PAST MEDICAL HISTORY: CAD CHF Aortic Stenosis HTN Bioprosthetic AVR HLD Pulmonary HTN Pleural Effusions C- Diff Renal Insufficiency UTI Severe Degenerative Arthritis of Knees PAST SURGICAL HISTORY: CABG (09/07/14) Permanent Pacemaker Cardiac Stent Mechanical Valve Replacement Social History: Smoking: Never Alcohol: None Drugs: None Lives with his daughter Family History: Allergies diltiazem HCl [From Cardizem] Allergy (Verified 01/26/18 14:34) meperidine HCl [From Demerol] Allergy (Verified 01/26/18 14:34) DECREASED BP AND LETHARGY lactose Adverse Reaction (Verified 01/26/18 14:34) HOME MEDICATIONS: Home Medications Medication Instructions Recorded Metoprolol Succinate [Toprol XL -] 25 mg PO DAILY 05/08/16 Multivitamin with Minerals [Icaps 1 each PO DAILY 05/08/16 Plus] Apixaban [Eliquis -] 2.5 mg PO BID #60 tablet 06/25/16 Furosemide [Lasix -] 40 mg PO DAILY #30 tablet 06/25/16 Lactobacillus Acidophilus [Bacid -] 1 each PO BID 01/26/18 Vancomycin Oral Solution 125 mg PO DAILY 01/26/18 REVIEW OF SYSTEMS CONSTITUTIONAL: Absent: fever, chills, diaphoresis, generalized weakness, malaise, loss of appetite, weight change HEENT: Absent: rhinorrhea, nasal congestion, throat pain, throat swelling, difficulty swallowing, mouth swelling, ear pain, eye pain, visual changes CARDIOVASCULAR: peripheral edema Absent: chest pain, syncope, palpitations, irregular heart rate, lightheadedness RESPIRATORY: shortness of breath Absent: cough, dyspnea with exertion, orthopnea, wheezing, stridor, hemoptysis GASTROINTESTINAL: Absent: abdominal pain, abdominal distension, nausea, vomiting, diarrhea, constipation, melena, hematochezia GENITOURINARY: Absent: dysuria, frequency, urgency, hesitancy, hematuria, flank pain, genital pain MUSCULOSKELETAL: B/L leg pain Absent: myalgia, arthralgia, joint swelling, back pain, neck pain SKIN: redness B/L LE Absent: rash, itching, pallor HEMATOLOGIC/IMMUNOLOGIC: Absent: easy bleeding, easy bruising, lymphadenopathy, frequent infections ENDOCRINE: Absent: unexplained weight gain, unexplained weight loss, heat intolerance, cold intolerance NEUROLOGIC: Absent: headache, focal weakness or paresthesias, dizziness, unsteady gait, seizure, mental status changes, bladder or bowel incontinence PSYCHIATRIC: Absent: anxiety, depression, suicidal or homicidal ideation, hallucinations. PHYSICAL EXAMINATION Vital Signs - 24 hr 01/26/18 01/26/18 01/26/18 14:34 14:55 17:18 Temperature 97.8 F Pulse Rate 66 Pulse Rate [ 60 Apical] Respiratory 24 19 Rate Blood Pressure 102/70 Blood Pressure 91/69 [Right Arm] O2 Sat by Pulse 86 L 94 L 93 L Oximetry (%) 01/26/18 01/26/18 01/26/18 17:58 18:40 19:41 Temperature Pulse Rate Pulse Rate [ 61 60 62 Apical] Respiratory 20 18 23 Rate Blood Pressure Blood Pressure 96/45 93/52 104/74 [Right Arm] O2 Sat by Pulse 93 L 100 Oximetry (%) GENERAL: Awake, alert, and fully oriented, in no acute distress. HEAD: Normal with no signs of trauma. EYES: Pupils equal, round and reactive to light, extraocular movements intact, sclera anicteric, conjunctiva clear. No lid lag. EARS, NOSE, THROAT: Ears normal, nares patent, oropharynx clear without exudates. Moist mucous membranes. NECK: Normal range of motion, supple without lymphadenopathy, JVD, or masses. LUNGS: Coarse diffuse crackles and rales bilaterally. No wheezes. No accessory muscle use. HEART: Irregular rate and rhythm, normal S1 and S2 without murmur, rub or gallop. ABDOMEN: Soft, nontender, not distended, normoactive bowel sounds, no guarding, no rebound, no masses. No hepatomegaly or splenomegaly. MUSCULOSKELETAL: Normal range of motion at all joints. No bony deformities or tenderness. No CVA tenderness. UPPER EXTREMITIES: 2+ pulses, warm, well-perfused. No cyanosis. No clubbing. No peripheral edema. LOWER EXTREMITIES: 2+ pulses, warm, well-perfused. No calf tenderness. +3 pitting B/L ankle to below knee peripheral edema. NEUROLOGICAL: Cranial nerves II-XII intact. Normal speech. Gait not observed. PSYCHIATRIC: Cooperative. Good eye contact. Appropriate mood and affect. SKIN: Warm, dry, normal turgor, no rashes, normal capillary refill. +erythema from ankle to mid-calf B/L Laboratory Results - last 24 hr 01/26/18 01/26/18 01/26/18 15:32 15:32 15:32 WBC 5.5 RBC 4.37 Hgb 14.4 Hct 41.9 MCV 95.9 MCH 32.9 MCHC 34.3 RDW 18.0 H Plt Count 120 L MPV 9.0 Neutrophils % 59.3 Lymphocytes % 28.5 Monocytes % 9.8 Eosinophils % 1.4 Basophils % 1.0 PT with INR 24.6 H INR 2.23 H Sodium 137 Potassium 3.9 Chloride 98 Carbon Dioxide 34 H Anion Gap 5 L BUN 33 H Creatinine 1.1 Creat Clearance w eGFR > 60 Random Glucose 127 H Calcium 9.0 Total Bilirubin 2.6 H AST 60 H ALT 27 Alkaline Phosphatase 148 H Creatine Kinase 55 Troponin I Total Protein 7.8 Albumin 2.9 L Urine Color Urine Appearance Urine pH Ur Specific [place] Urine Protein Urine Glucose (UA) Urine Ketones Urine Blood Urine Nitrite Urine Bilirubin Urine Urobilinogen Ur Leukocyte Esterase 01/26/18 01/26/18 15:32 18:06 WBC RBC Hgb Hct MCV MCH MCHC RDW Plt Count MPV Neutrophils % Lymphocytes % Monocytes % Eosinophils % Basophils % PT with INR INR Sodium Potassium Chloride Carbon Dioxide Anion Gap BUN Creatinine Creat Clearance w eGFR Random Glucose Calcium Total Bilirubin AST ALT Alkaline Phosphatase Creatine Kinase Troponin I 0.07 H Total Protein Albumin Urine Color Yellow Urine Appearance Clear Urine pH 5.5 Ur Specific [place] 1.010 Urine Protein Negative Urine Glucose (UA) Negative Urine Ketones Negative Urine Blood Negative Urine Nitrite Negative Urine Bilirubin Negative Urine Urobilinogen 0.2 Ur Leukocyte Esterase Negative ASSESSMENT/PLAN: 88 y/o man PMH: Afib (on Eliquis), CAD s/p CABG, PM, Mechanical valve, CHF (O2 dependent), HTN, HLD, Depression, Anxiety, Skin Ca. Admitted to ICU Acute on Chronic Systolic HF, Cellulitis. Plan: FEN - Fluid Restriction 1L - Replete lytes prn - Low Na Diet Code Status: Full Code Dispo: Requires Inpatient Care Problem List - Problem (1) Acute on chronic diastolic (congestive) heart failure Assessment/Plan: - Continue cardiac monitoring - Chest Xray- CHF - Lasix given in ED, will continue - BNP tonight - Cardiology Following - Serial Enzymes, first set elevated likely demand ischemia, pt. denies CP - Strict INOs - Daily weights - Echo in am Code(s): I50.33 - ACUTE ON CHRONIC DIASTOLIC (CONGESTIVE) HEART FAILURE (2) Cellulitis Assessment/Plan: - Pt. reports increased swelling ad redness to LE - r/o DVT - Duplex LE- neg DVT - Ancef given in ED, will continue - Appreciate ID Consult - Elevate extremities - Monitor CBC - Blood Cultures-tonight - Monitor vitals Code(s): L03.90 - CELLULITIS, UNSPECIFIED Qualifiers: Site of cellulitis: extremity Site of cellulitis of extremity: lower extremity Laterality: right Qualified Code(s): L03.115 - Cellulitis of right lower limb (3) Leg swelling Assessment/Plan: - Likely secondary to HF vs DVT vs Cellulitis - Continue Lasix - Wells Score 1 - Duplex LE- neg DVT - Elevate extremity - Strict INOs - Daily weights Code(s): M79.89 - OTHER SPECIFIED SOFT TISSUE DISORDERS (4) Atrial fibrillation Assessment/Plan: - [id number] - Continue Eliquis - EKG - ventricular pacing - Cardiology following - Continue cardiac monitoring Code(s): I48.91 - UNSPECIFIED ATRIAL FIBRILLATION Qualifiers: Atrial fibrillation type: chronic Qualified Code(s): I48.2 - Chronic atrial fibrillation (5) History of aortic valve replacement with bioprosthetic valve Code(s): Z95.4 - PRESENCE OF OTHER HEART-VALVE REPLACEMENT (6) Hypertension Assessment/Plan: - stable - Monitor BP - Continue Metoprolol with parameters - Monitor renal function Code(s): I10 - ESSENTIAL (PRIMARY) HYPERTENSION (7) Pacemaker Assessment/Plan: - EKG- ventricular pacing Code(s): Z95.0 - PRESENCE OF CARDIAC PACEMAKER (8) Osteoarthritis of both knees Assessment/Plan: - stable - Tylenol prn Code(s): M17.0 - BILATERAL PRIMARY OSTEOARTHRITIS OF KNEE (9) DVT prophylaxis Assessment/Plan: - OOB - Continue Eliquis Code(s): [id number] - Visit type - Emergency Visit Emergency Visit: Yes ED Registration Date: 01/26/18 Care time: The patient presented to the Emergency Department on the above date and was hospitalized for further evaluation of their emergent condition. - New Patient This patient is new to me today: Yes Date on this admission: 01/26/18 - Critical Care Critical Care patient: Yes Total Critical Care Time (in minutes): 32 Critical Care Statement: The care of this patient involved high complexity decision making to prevent further life threatening deterioration of the patient 's condition and/or to evaluate & treat vital organ system(s) failure or risk of failure. Hospitalist Screening - Colonoscopy Questionnaire Colonoscopy Questionnaire: Colonoscopy Questionnaire - Patient: 50 - 75 years old and never had a screening colonoscopy: No History of colon or rectal polyps, or CA: No History of IBD, Crohn's disease or UC: No History of abdominal radiation therapy as a child: No - Relative: 1 with colon or rectal CA, or polyps at age 60 or younger: No Colon or rectal CA diagnosed at age 45 or younger: No Multiple relatives with colon or rectal CA: No - Outcome: Screening Result: Negative Screen
[2018-01-26] MEDS ORDERED: CHLORHEXIDINE GLUCONATE 4% CLEANSER FOR DECOLONIZATION TP SCH (22:00)
--- NOTE | 2018-01-26 22:19 | CONSULT ---
Consultation: ICU CONSULT HPI: 88yo M with PMHx of CAD (s/p CABG, PPM), bioprosthetic AV, Afib, and dCHF (on 2L home O2) who presented to the ER with BLLE swelling noted by direct support specialist 5 days ago. Has also noticed increasing orthopnea and SCOTT. Daughter called PMD who told him to take an extra half tab lasix every day, w/o much improvement. No CP. He has also noticed redness in his R leg. Denies fevers, chills, sick contacts. In [place] ER, pt was afebrile but hypoxic to 86. EKG unchanged from prior. CXR shows cardiomegaly and congestion c/w CHF exac. Dopplers show no DVT. There were no telemetry beds available in [facility] or [facility], so pt was transferred to ICU. ROS: CONSTITUTIONAL: Absent: fever, chills, diaphoresis, generalized weakness, malaise HEENT: Absent: rhinorrhea, nasal congestion, throat pain, throat swelling, difficulty swallowing, mouth swelling, ear pain CARDIOVASCULAR: +peripheral edema Absent: chest pain, syncope, palpitations, irregular heart rate, lightheadedness, RESPIRATORY: +dyspnea on exertion, orthopnea. Absent: cough, shortness of breath ,wheezing, stridor, hemoptysis GASTROINTESTINAL:Absent: abdominal pain, abdominal distension, nausea, vomiting , constipation, melena, hematochezia GENITOURINARY: Absent: dysuria, frequency, urgency, hesitancy, hematuria, flank pain, genital pain MUSCULOSKELETAL: Absent: myalgia, arthralgia, joint swelling, back pain, neck pain SKIN: Absent: rash, itching, pallor HEMATOLOGIC/IMMUNOLOGIC: Absent: easy bleeding, easy bruising, lymphadenopathy, frequent infections ENDOCRINE:Absent: unexplained weight gain, unexplained weight loss, heat intolerance, cold intolerance NEUROLOGIC: Absent: headache, focal weakness or paresthesias, dizziness, unsteady gait, seizure, mental status changes, PSYCHIATRIC: Absent: anxiety, depression, suicidal or homicidal ideation, hallucinations. PE: Vital Signs Period Temp Pulse Resp BP Sys/Oates Pulse Ox Last 24 Hr 97.8 F 60-66 18-24 91-104/45-74 86-100 GEN: AAOx3, NAD, Lying comfortably sitting in 90 degree incline, speaking full sentences HEENT: PERRLA, EOMi, actinic keratotic lesions on nose, +prominent JVD on R CV: S1, S2, RRR w/ extra beats, no murmur LUNG: Diffuse crackles throughout ABD: Soft, NT, ND MSK: +3 bilateral pitting edema R leg well-demarcated erythema from foot to jain, slightly warm, nontender, + 2 pulses L leg minimal erythema around ankle ?chronic, nontender, +2 pulses NEURO: CN 2-12 grossly intact, no sens deficits, BLLE weakness (chronic) Active Medications Apixaban (Eliquis -) 2.5 mg PO BID [facility] Chlorhexidine Gluconate (Hibiclens For Decolonization -) 1 applic TP HS [facility] Furosemide (Lasix Injection -) 40 mg IVPUSH BID@0600,1400 [facility] Lactobacillus Acidophilus (Bacid -) 1 tab PO BID [facility] Metoprolol Succinate (Toprol Xl -) 25 mg PO DAILY [facility] Multivitamins/Minerals (Theragran-M) 1 each PO DAILY [facility] Mupirocin (Bactroban Ointment (For Decolonization) -) 1 applic NS BID [facility] Stop: 01/31/18 21:59 Vancomycin HCl (Vancomycin Oral Solution) 125 mg PO DAILY [facility] ASSESSMENT/PLAN: 88yo M with PMHx of CAD (s/p CABG, PPM), bioprosthetic AV, Afib, and dCHF (on 2L home O2) who presented to the ER with BLLE swelling and AHRF likely from CHF exacerbation # Acute Hypoxic RF 2/2 dCHF exac -- Presented hypoxic to [facility]. Now maintaining sats on 4L nc. Unclear why pt is in exacerbation? 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 Will start IV Lasix 40 BID for now. Kendra for I&O. Daily weights. Echo. Tele monitoring. Cardio. # RLE Cellulitis -- Not septic. S/p Cefazolin 1g in ER. Will continue Cefazolin Q8H. Lactic acid. Dr Campuzano on board # Elevated Troponins -- Likely from strain on heart from CHF. EKG unchanged. Trend. # Afib -- Paced rhythm. Continue Toprol XL 25 for rate control. Eliquis BID # Chronic Cdiff -- Continue Vanc 125 daily and bacid. Pt also having new bouts of diarrhea. Morning team to repeat Cdiff studies if warranted. Iso. # Aortic Stenosis s/p BioP AVR -- Stable # FEN/PPx -- No IVF. Elec wnl. Sodium controlled diet. On Eliquis # Dispo -- Can transfer to tele when bed is available. Trevor Qiuroga MD PGY1 ICU Evening Resident Visit type - Emergency Visit Emergency Visit: No - New Patient This patient is new to me today: No - Critical Care Critical Care patient: Yes Total Critical Care Time (in minutes): 45 Critical Care Statement: The care of this patient involved high complexity decision making to prevent further life threatening deterioration of the patient 's condition and/or to evaluate & treat vital organ system(s) failure or risk of failure.
[2018-01-26] MEDS ORDERED: DEXTROSE 5%-WATER - 50 ML IVPB ONE (23:22)
[2018-01-26] MEDS: LACTOBACILLUS ACIDOPHILUS 1 TABLET PO SCH (23:29)
[2018-01-26] MEDS: CEFAZOLIN 1 GM in DEXTROSE 5%-WATER - 50 ML IVPB SCH (23:29)
[2018-01-26] MEDS: MUPIROCIN 2% TOPICAL OINTMENT FOR DECOLONIZATION NS SCH (23:30)
[2018-01-26] MEDS: APIXABAN 2.5 MG TABLET PO SCH (23:30)
[2018-01-27] MEDS: FUROSEMIDE 40 MG/4 ML INJECTABLE VIAL IVPUSH SCH ×2 (05:46→14:55)
[2018-01-27] MEDS ORDERED: ceFAZolin SODIUM 1 GM VIAL ONE ×3 (05:48→21:41)
[2018-01-27] MEDS ORDERED: DEXTROSE 5%-WATER - 50 ML IVPB ONE ×3 (05:48→21:41)
[2018-01-27] MEDS: CEFAZOLIN 1 GM in DEXTROSE 5%-WATER - 50 ML IVPB SCH ×3 (05:49→21:55)
[2018-01-27 06:49] LABS: BASO % 0.7 % (0-2.0); EOS % 0.7 % (0-4.5); HEMATOCRIT 41.5 % (35.4-49); LYMPH % 23.5 % (8-40); MCH 32.7 pg (25.7-33.7); MCHC 33.7 g/dl (32.0-35.9); MEAN CELL VOLUME 96.9 fl (80-96); MEAN PLT VOLUME 8.9 fl (7.5-11.1); MONO % 9.1 % (3.8-10.2); PLATELET COUNT 95 K/MM3 (134-434); RBC 4.28 M/mm3 (4.00-5.60); RDW 18.9 % (11.9-15.9); WHITE BLOOD COUNT 5.9 K/mm3 (4.0-10.0)
[2018-01-27 07:26] LABS: ALBUMIN 2.7 g/dl (3.4-5.0); ANION GAP 6 (8-16); BLOOD UREA NITROGEN 34 mg/dL (7-18); CALCIUM 8.9 mg/dL (8.5-10.1); CHLORIDE 99 mmol/L (98-107); CO2 36 mmol/L (21-32); GLUCOSE,RANDOM 101 mg/dL (74-106); MAGNESIUM 2.1 mg/dL (1.8-2.4); POTASSIUM 3.9 mmol/L (3.5-5.1); SODIUM 141 mmol/L (136-145)
[2018-01-27 07:30] LABS: ALK PHOS 169 U/L (45-117); BILIRUBIN,TOTAL 3.1 mg/dL (0.2-1.0); CREATININE 1.2 mg/dL (0.7-1.3); PHOSPHOROUS 3.7 mg/dL (2.5-4.9); SGOT/AST 51 U/L (15-37); SGPT/ALT 27 U/L (12-78); TOT PROT 7.8 g/dl (6.4-8.2)
--- NOTE | 2018-01-27 09:04 | PN ---
Progress Note (short form) - Note Progress Note: Ria to document today. CHF and Cellulitis and ? Bilirubin 3.1 Gilbert's vs other cause.
[2018-01-27] MEDS ORDERED: MULTIVITAMINS THER W-MINERALS COMBO TABLET (FP) PO SCH (10:00)
[2018-01-27] MEDS ORDERED: CEFAZOLIN 1 GM/D5W 1 GM/50 ML BAG IVPB SCH (10:00)
[2018-01-27] MEDS ORDERED: VANCOMYCIN 250 MG/5 ML ORAL SOLUTION PO SCH (10:00)
[2018-01-27] MEDS ORDERED: metoPROLOL SUCCINATE 25 MG TAB.SR.24H (FP) PO SCH (10:00)
[2018-01-27] MEDS: APIXABAN 2.5 MG TABLET PO SCH ×2 (10:10→21:55)
[2018-01-27] MEDS: LACTOBACILLUS ACIDOPHILUS 1 TABLET PO SCH ×2 (10:10→21:55)
[2018-01-27] MEDS: MUPIROCIN 2% TOPICAL OINTMENT FOR DECOLONIZATION NS SCH (10:11)
--- NOTE | 2018-01-27 10:36 | PN ---
Progress Note, Physician History of Present Illness: Pt A&O3; feels "a little better", but still short of breath and uncomfortable - Current Medication List Current Medications: Active Medications Apixaban (Eliquis -) 2.5 mg PO BID [facility] Last Admin: 01/27/18 10:10 Dose: 2.5 mg Chlorhexidine Gluconate (Hibiclens For Decolonization -) 1 applic TP HS [facility] Last Admin: 01/26/18 23:30 Dose: 1 applic Furosemide (Lasix Injection -) 40 mg IVPUSH BID@0600,1400 [facility] Last Admin: 01/27/18 05:46 Dose: 40 mg Cefazolin Sodium 1 gm/ (Dextrose) 50 mls @ 100 mls/hr IVPB Q8H [facility] Last Admin: 01/27/18 05:49 Dose: 100 mls/hr Lactobacillus Acidophilus (Bacid -) 1 tab PO BID [facility] Last Admin: 01/27/18 10:10 Dose: 1 tab Metoprolol Succinate (Toprol Xl -) 25 mg PO DAILY [facility] Last Admin: 01/27/18 10:10 Dose: 25 mg Multivitamins/Minerals (Theragran-M) 1 each PO DAILY [facility] Last Admin: 01/27/18 10:10 Dose: 1 each Mupirocin (Bactroban Ointment (For Decolonization) -) 1 applic NS BID [facility] Stop: 01/31/18 21:59 Last Admin: 01/27/18 10:11 Dose: 1 applic Vancomycin HCl (Vancomycin Oral Solution) 125 mg PO DAILY [facility] - Objective Vital Signs: Vital Signs Temperature 97.1 F L 01/27/18 10:00 Pulse Rate 60 01/27/18 10:00 Respiratory Rate 24 01/27/18 10:00 Blood Pressure 95/56 01/27/18 10:00 O2 Sat by Pulse Oximetry (%) 100 01/26/18 21:35 Labs: CBC, BMP 01/27/18 05:28 01/27/18 05:28 INR, PTT INR 2.23 (0.82-1.09) H 01/26/18 15:32
--- NOTE | 2018-01-27 11:03 | PN ---
Progress Note, Physician Chief Complaint: Mr Coavrrubias says he is feeling better today but is still very short of breath. Non- productive cough present. Feels his legs remain swollen but is improved. No cp or sob. - Current Medication List Current Medications: Active Medications Apixaban (Eliquis -) 2.5 mg PO BID [facility] Last Admin: 01/27/18 10:10 Dose: 2.5 mg Chlorhexidine Gluconate (Hibiclens For Decolonization -) 1 applic TP HS [facility] Last Admin: 01/26/18 23:30 Dose: 1 applic Furosemide (Lasix Injection -) 40 mg IVPUSH BID@0600,1400 [facility] Last Admin: 01/27/18 05:46 Dose: 40 mg Cefazolin Sodium 1 gm/ (Dextrose) 50 mls @ 100 mls/hr IVPB Q8H [facility] Last Admin: 01/27/18 05:49 Dose: 100 mls/hr Lactobacillus Acidophilus (Bacid -) 1 tab PO BID [facility] Last Admin: 01/27/18 10:10 Dose: 1 tab Metoprolol Succinate (Toprol Xl -) 25 mg PO DAILY [facility] Last Admin: 01/27/18 10:10 Dose: 25 mg Multivitamins/Minerals (Theragran-M) 1 each PO DAILY [facility] Last Admin: 01/27/18 10:10 Dose: 1 each Mupirocin (Bactroban Ointment (For Decolonization) -) 1 applic NS BID [facility] Stop: 01/31/18 21:59 Last Admin: 01/27/18 10:11 Dose: 1 applic Vancomycin HCl (Vancomycin Oral Solution) 125 mg PO DAILY [facility] - Objective Vital Signs: Vital Signs Temperature 36.2 C L 01/27/18 10:00 Pulse Rate 60 01/27/18 10:00 Respiratory Rate 24 01/27/18 10:00 Blood Pressure 95/56 01/27/18 10:00 O2 Sat by Pulse Oximetry (%) 100 01/26/18 21:35 Constitutional: Yes: Well Nourished, No Distress, Calm Cardiovascular: Yes: Regular Rate and Rhythm. No: Gallop, Murmur, Rub Respiratory: Yes: Regular, On Nasal O2, Rhonchi. No: CTA Bilaterally, Rales, Wheezes Gastrointestinal: Yes: Normal Bowel Sounds, Soft. No: Distention, Tenderness Extremities: Yes: Erythema Edema: Yes Edema: LLE: 2+, RLE: 2+ Labs: CBC, BMP 01/27/18 05:28 01/27/18 05:28 INR, PTT INR 2.23 (0.82-1.09) H 01/26/18 15:32 Problem List - Problems (1) Acute respiratory failure with hypoxia Assessment/Plan: -secondary to CHF exacerbation -appreciate cardiology assistance -diuresing with IV lasix -improving but still present -continue oxygen support Code(s): J96.01 - ACUTE RESPIRATORY FAILURE WITH HYPOXIA (2) Acute on chronic diastolic (congestive) heart failure Assessment/Plan: -cardiology following -continue lasix 40mg IV bid as blood pressure can tolerate Code(s): I50.33 - ACUTE ON CHRONIC DIASTOLIC (CONGESTIVE) HEART FAILURE (3) Cellulitis Assessment/Plan: -bilateral -appreciate ID assistance -continue cefazolin Code(s): L03.90 - CELLULITIS, UNSPECIFIED Qualifiers: Site of cellulitis: extremity Site of cellulitis of extremity: lower extremity Laterality: right Qualified Code(s): L03.115 - Cellulitis of right lower limb (4) Atrial fibrillation Assessment/Plan: -controlled -continue eliquis -continue toprol xl Code(s): I48.91 - UNSPECIFIED ATRIAL FIBRILLATION Qualifiers: Atrial fibrillation type: chronic Qualified Code(s): I48.2 - Chronic atrial fibrillation (5) History of aortic valve replacement with bioprosthetic valve Assessment/Plan: -present Code(s): Z95.4 - PRESENCE OF OTHER HEART-VALVE REPLACEMENT (6) Hypertension Assessment/Plan: -slightly hypotensive -monitor Code(s): I10 - ESSENTIAL (PRIMARY) HYPERTENSION (7) Elevated troponin Assessment/Plan: -stress induced -cardiology following Code(s): R74.8 - ABNORMAL LEVELS OF OTHER SERUM ENZYMES (8) Sepsis Assessment/Plan: -with hypotension, elevated lactic acid, and troponin leak -continue antibiotics Code(s): A41.9 - SEPSIS, UNSPECIFIED ORGANISM Qualifiers: Sepsis type: sepsis due to unspecified organism Qualified Code(s): A41.9 - Sepsis, unspecified organism (9) Clostridium difficile colitis Assessment/Plan: -continue oral vancomycin Code(s): A04.72 - ENTEROCOLITIS D/T CLOSTRIDIUM DIFFICILE, NOT SPCF RECUR
--- NOTE | 2018-01-27 11:19 | PN ---
Teaching Attending Note Name of Resident: Fausto Flowers ATTENDING PHYSICIAN STATEMENT I saw and evaluated the patient. I reviewed the resident's note and discussed the case with the resident. I agree with the resident's findings and plan as documented. SUBJECTIVE: Pt seen and examined in the ICU. States breathing is improving. No chest pain. Some hematuria overnight. Wt this AM 4kg less. OBJECTIVE: Last Vital Signs Temp Pulse Resp BP Pulse Ox 97.1 F L 60 24 95/56 100 01/27/18 10:00 01/27/18 10:00 01/27/18 10:00 01/27/18 10:00 01/26/18 21:35 Intake & Output 01/24/18 01/25/18 01/26/18 01/27/18 23:59 23:59 23:59 23:59 Intake Total 100 50 Output Total 100 500 Balance 0 -450 Weight 72.575 kg 68.039 kg Gen: mildly tachypneic at rest Heart: RRR, +systolic murmur Lung: scattered rhonchi Abd: soft, nontender Ext: + edema, +erythema CBC, BMP 01/27/18 05:28 01/27/18 05:28 Active Medications Apixaban (Eliquis -) 2.5 mg PO BID [facility] Last Admin: 01/27/18 10:10 Dose: 2.5 mg Chlorhexidine Gluconate (Hibiclens For Decolonization -) 1 applic TP HS [facility] Last Admin: 01/26/18 23:30 Dose: 1 applic Furosemide (Lasix Injection -) 40 mg IVPUSH BID@0600,1400 [facility] Last Admin: 01/27/18 05:46 Dose: 40 mg Cefazolin Sodium 1 gm/ (Dextrose) 50 mls @ 100 mls/hr IVPB Q8H [facility] Last Admin: 01/27/18 05:49 Dose: 100 mls/hr Lactobacillus Acidophilus (Bacid -) 1 tab PO BID [facility] Last Admin: 01/27/18 10:10 Dose: 1 tab Metoprolol Succinate (Toprol Xl -) 25 mg PO DAILY [facility] Last Admin: 01/27/18 10:10 Dose: 25 mg Multivitamins/Minerals (Theragran-M) 1 each PO DAILY [facility] Last Admin: 01/27/18 10:10 Dose: 1 each Mupirocin (Bactroban Ointment (For Decolonization) -) 1 applic NS BID [facility] Stop: 01/31/18 21:59 Last Admin: 01/27/18 10:11 Dose: 1 applic Vancomycin HCl (Vancomycin Oral Solution) 125 mg PO DAILY [facility] ASSESSMENT AND PLAN: Acute on Chronic Diastolic Heart Failure Cellulitis Mitral Regurgitation h/o AVR CAD s/p CABG Atrial Fibrillation +Troponins likely Demand Ischemia Lactic Acidosis likely from respiratory effort Chronic Hypoxic Respiratory Failure Hematuria h/o C Diff - IV lasix - monitor urine output, creatinine - daily weights - rate controlled with metoprolol - continue anticoagulation - monitor hematuria, H/H - continue antibiotics - monitor leg exam - can transfer to telemetry
--- NOTE | 2018-01-27 11:20 | PN ---
Physical Exam: SUBJECTIVE: Patient seen and examined. Offers no new complaints except for pain at the site of the rush. Says his breathing is much better than yesterday. Denies chest pain, dizziness, nausea, vomiting, diarrhea. OBJECTIVE: Vital Signs Period Temp Pulse Resp BP Sys/Oates Pulse Ox Last 24 Hr 97.1 F-98 F 60-66 14-24 91-107/45-74 86-100 GENERAL: A/o x 3, NAD EYES: sclera anicteric, conjunctiva clear. ENT: oropharynx clear without exudates, moist mucous membranes. NECK: R JVD LUNGS: Diffuse crackles throughout HEART: Regular rate and rhythm ABDOMEN: Soft, nontender, nondistended, normoactive bowel sounds EXTREMITIES: 3+ pitting edema b/l LE. erthyema b/l LE > R NEUROLOGICAL: Cranial nerves II through XII grossly intact. Normal speech, gait not observed. Hematuria in rush bag. Laboratory Results - last 24 hr 01/26/18 01/26/18 01/26/18 15:32 15:32 15:32 WBC 5.5 RBC 4.37 Hgb 14.4 Hct 41.9 MCV 95.9 MCH 32.9 MCHC 34.3 RDW 18.0 H Plt Count 120 L MPV 9.0 Neutrophils % 59.3 Lymphocytes % 28.5 Monocytes % 9.8 Eosinophils % 1.4 Basophils % 1.0 PT with INR 24.6 H INR 2.23 H Sodium 137 Potassium 3.9 Chloride 98 Carbon Dioxide 34 H Anion Gap 5 L BUN 33 H Creatinine 1.1 Creat Clearance w eGFR > 60 Random Glucose 127 H Hemoglobin A1c % Lactic Acid Calcium 9.0 Phosphorus Magnesium Total Bilirubin 2.6 H AST 60 H ALT 27 Alkaline Phosphatase 148 H Creatine Kinase 55 Troponin I B-Natriuretic Peptide Total Protein 7.8 Albumin 2.9 L Urine Color Urine Appearance Urine pH Ur Specific [place] Urine Protein Urine Glucose (UA) Urine Ketones Urine Blood Urine Nitrite Urine Bilirubin Urine Urobilinogen Ur Leukocyte Esterase 01/26/18 01/26/18 01/26/18 15:32 18:06 22:45 WBC RBC Hgb Hct MCV MCH MCHC RDW Plt Count MPV Neutrophils % Lymphocytes % Monocytes % Eosinophils % Basophils % PT with INR INR Sodium Potassium Chloride Carbon Dioxide Anion Gap BUN Creatinine Creat Clearance w eGFR Random Glucose Hemoglobin A1c % Lactic Acid 2.3 H* Calcium Phosphorus Magnesium Total Bilirubin AST ALT Alkaline Phosphatase Creatine Kinase Troponin I 0.07 H B-Natriuretic Peptide Total Protein Albumin Urine Color Yellow Urine Appearance Clear Urine pH 5.5 Ur Specific [place] 1.010 Urine Protein Negative Urine Glucose (UA) Negative Urine Ketones Negative Urine Blood Negative Urine Nitrite Negative Urine Bilirubin Negative Urine Urobilinogen 0.2 Ur Leukocyte Esterase Negative 01/27/18 01/27/18 01/27/18 03:10 03:10 05:28 WBC RBC Hgb Hct MCV MCH MCHC RDW Plt Count MPV Neutrophils % Lymphocytes % Monocytes % Eosinophils % Basophils % PT with INR INR Sodium Potassium Chloride Carbon Dioxide Anion Gap BUN Creatinine Creat Clearance w eGFR Random Glucose Hemoglobin A1c % Lactic Acid Calcium Phosphorus Magnesium Total Bilirubin AST ALT Alkaline Phosphatase Creatine Kinase 51 51 Troponin I 0.07 H 0.06 H B-Natriuretic Peptide 4858.79 H Total Protein Albumin Urine Color Urine Appearance Urine pH Ur Specific [place] Urine Protein Urine Glucose (UA) Urine Ketones Urine Blood Urine Nitrite Urine Bilirubin Urine Urobilinogen Ur Leukocyte Esterase 01/27/18 01/27/18 01/27/18 05:28 05:28 05:28 WBC 5.9 RBC 4.28 Hgb 14.0 Hct 41.5 MCV 96.9 H MCH 32.7 MCHC 33.7 RDW 18.9 H D Plt Count 95 L D MPV 8.9 Neutrophils % 66.0 Lymphocytes % 23.5 D Monocytes % 9.1 Eosinophils % 0.7 Basophils % 0.7 PT with INR INR Sodium 141 Potassium 3.9 Chloride 99 Carbon Dioxide 36 H Anion Gap 6 L BUN 34 H Creatinine 1.2 D Creat Clearance w eGFR 57.01 Random Glucose 101 Hemoglobin A1c % 6.1 H D Lactic Acid Calcium 8.9 Phosphorus 3.7 D Magnesium 2.1 Total Bilirubin 3.1 H D AST 51 H D ALT 27 D Alkaline Phosphatase 169 H Creatine Kinase Troponin I B-Natriuretic Peptide Total Protein 7.8 Albumin 2.7 L Urine Color Urine Appearance Urine pH Ur Specific [place] Urine Protein Urine Glucose (UA) Urine Ketones Urine Blood Urine Nitrite Urine Bilirubin Urine Urobilinogen Ur Leukocyte Esterase 01/27/18 09:45 WBC RBC Hgb Hct MCV MCH MCHC RDW Plt Count MPV Neutrophils % Lymphocytes % Monocytes % Eosinophils % Basophils % PT with INR INR Sodium Potassium Chloride Carbon Dioxide Anion Gap BUN Creatinine Creat Clearance w eGFR Random Glucose Hemoglobin A1c % Lactic Acid 2.8 H* Calcium Phosphorus Magnesium Total Bilirubin AST ALT Alkaline Phosphatase Creatine Kinase Troponin I B-Natriuretic Peptide Total Protein Albumin Urine Color Urine Appearance Urine pH Ur Specific [place] Urine Protein Urine Glucose (UA) Urine Ketones Urine Blood Urine Nitrite Urine Bilirubin Urine Urobilinogen Ur Leukocyte Esterase Active Medications Generic Name Dose Route Start Last Admin Trade Name Freq PRN Reason Stop Dose Admin Apixaban 2.5 mg 01/26/18 22:00 01/27/18 10:10 Eliquis - PO 2.5 mg BID [facility] Administration Chlorhexidine Gluconate 1 applic 01/26/18 22:00 01/26/18 23:30 Hibiclens For Decolonization - TP 1 applic HS [facility] Administration Furosemide 40 mg 01/27/18 06:00 01/27/18 05:46 Lasix Injection - IVPUSH 40 mg BID@0600,1400 [facility] Administration Cefazolin Sodium 1 gm/ 50 mls @ 100 mls/hr 01/26/18 22:45 01/27/18 05:49 Dextrose IVPB 100 mls/hr Q8H [facility] Administration Lactobacillus Acidophilus 1 tab 01/26/18 22:00 01/27/18 10:10 Bacid - PO 1 tab BID [facility] Administration Metoprolol Succinate 25 mg 01/27/18 10:00 01/27/18 10:10 Toprol Xl - PO 25 mg DAILY [facility] Administration Multivitamins/Minerals 1 each 01/27/18 10:00 01/27/18 10:10 Theragran-M PO 1 each DAILY [facility] Administration Mupirocin 1 applic 01/26/18 22:00 01/27/18 10:11 Bactroban Ointment (For Decolonization) - NS 01/31/18 21:59 1 applic BID [facility] Administration Vancomycin HCl 125 mg 01/27/18 10:00 Vancomycin Oral Solution PO DAILY [facility] ASSESSMENT/PLAN: 88yo M with PMHx of CAD (s/p CABG, PPM), bioprosthetic AV, Afib, and dCHF (on 2L home O2) who presented to the ER with SOB and B/L LE edema and was admitted for acute CHF exacerbation. #CV -Afib -Toprol 25mg Rate control -Eliquis 2.5mg BID -Echo #Pulm -Lasix 40mg IV BID -02 supplement -Maintain O2 sat >90% #Skin -B/L LE cellulitis -ID on board -Cont Day 2 IV abx: Cefazolin Q8h # -hematuria in rush bag -likely traumatic from rush -H&H stable -will monitor #GI -chronic C. diff -Oral vanco 125mg Daily Transfer Tele Visit type - Emergency Visit Emergency Visit: Yes ED Registration Date: 01/26/18 Care time: The patient presented to the Emergency Department on the above date and was hospitalized for further evaluation of their emergent condition. - New Patient This patient is new to me today: Yes Date on this admission: 01/27/18 - Critical Care Critical Care patient: Yes Total Critical Care Time (in minutes): 40 Critical Care Statement: The care of this patient involved high complexity decision making to prevent further life threatening deterioration of the patient 's condition and/or to evaluate & treat vital organ system(s) failure or risk of failure.
--- NOTE | 2018-01-27 11:59 | EKG ---
Test Reason : Blood Pressure : / mmHG Vent. Rate : 062 BPM Atrial Rate : 062 BPM P-R Int : 000 ms QRS Dur : 158 ms QT Int : 476 ms P-R-T Axes : 000 -86 104 degrees QTc Int : 483 ms Ventricular-paced rhythm WITH OCCASIONAL PREMATURE VENTRICULAR COMPLEXES ABNORMAL ECG WHEN COMPARED WITH ECG OF 14-JUN-2017 09:09, PREMATURE VENTRICULAR COMPLEXES ARE NOW PRESENT VENT. RATE HAS INCREASED BY 2 BPM Confirmed by ADONIS FLORES, MINAL ([id number]) on 01/27/2018 11:59:14 AM Referred By: BRUCE NUNEZ Confirmed By:MINAL LAMB MD
--- NOTE | 2018-01-27 16:25 | CON.ID ---
Consult Consult Specialty:: infetious diseases Reason for Consultation:: cellulitis of both legs - History of Present Illness Chief Complaint: swelling and erythema of the legs rt more than left History of Present Illness: 88 y/o man from home with a PMHx of: Skin Ca, CAD s/p Stent, CABG, Mechanical Valve, HTN, CHF, Afib , HLD, Depression, Anxiety, OA. Who is admitted with increased LE swelling and redness, increased SOB x 2 days. Patient's daughter reports the patient takes his Lasix as directed, but noted the increased swelling and became concerned. Patient denies fever, chills, dizziness, ROJAS, CP, AP, N/V/D, constipation, dysuria. patient currently comfortable patient mentions that he never had this bad pain in his legs and also says he had swelling simultaneously he also is incontinent now he does have a foleys catheter - Past Medical History ACQUISITION SPECIALIST: Yes: Other (weakness) Cardio/Vascular: Yes: Aortic Stenosis, CAD, CHF, HTN, Hyperlipdemia, Pulmonary Hypertension, Other (bioprosthetic AVR) Pulmonary: Yes: Other (pleural effusions) Gastrointestinal: Yes: Other (C. 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 History of Recent Travel: No Home Medications - Allergies Allergies/Adverse Reactions: Allergies Allergy/AdvReac Type Severity Reaction Status Date / Time diltiazem HCl [From Cardizem] Allergy Verified 01/26/18 14:34 meperidine HCl [From Demerol] Allergy DECREASED Verified 01/26/18 14:34 BP AND LETHARGY lactose AdvReac Verified 01/26/18 14:34 - Home Medications Home Medications: Ambulatory Orders Metoprolol Succinate [Toprol XL -] 25 mg PO DAILY 08/26/16 Multivitamin with Minerals [Icaps Plus] 1 each PO DAILY 05/08/16 Apixaban [Eliquis -] 2.5 mg PO BID #60 tablet 06/25/16 Furosemide [Lasix -] 40 mg PO DAILY #30 tablet 06/25/16 Lactobacillus Acidophilus [Bacid -] 1 each PO BID 01/26/18 Vancomycin Oral Solution 125 mg PO DAILY 01/26/18 Family Disease History - Family Disease History Family Disease History: Heart Disease: Brother ( of an [place]), CA: Grandparent (colon cancer), Father (colon cancer), Other: Mother (old age) Review of Systems - Review of Systems Constitutional: reports: Other Eyes: reports: No Symptoms HENT: reports: No Symptoms Neck: reports: No Symptoms Cardiovascular: reports: No Symptoms Respiratory: reports: No Symptoms Gastrointestinal: reports: No Symptoms Physical Exam Vital Signs: Vital Signs Temperature 97.5 F L 01/27/18 14:00 Pulse Rate 64 01/27/18 14:00 Respiratory Rate 23 01/27/18 14:00 Blood Pressure 88/64 01/27/18 14:00 O2 Sat by Pulse Oximetry (%) 92 L 01/27/18 12:48 Constitutional: Yes: Calm, Mild Distress HENT: Yes: Atraumatic Neck: Yes: Supple, Trachea Midline Cardiovascular: Yes: Regular Rate and Rhythm Respiratory: Yes: Regular, CTA Bilaterally Gastrointestinal: Yes: Normal Bowel Sounds, Soft Musculoskeletal: Yes: Other Extremities: Yes: Erythema (rt more than left scab on left side) Edema: LLE: Trace, RLE: Trace Integumentary: Yes: Erythema Neurological: Yes: Alert, Oriented Psychiatric: Yes: Alert, Oriented Labs: CBC, BMP 01/27/18 05:28 01/27/18 05:28 Imaging - Results Chest X-ray: Report Reviewed, Image Reviewed Assessment/Plan Problem List - Problems (1) Acute respiratory failure with hypoxia Code(s): J96.01 - ACUTE RESPIRATORY FAILURE WITH HYPOXIA (2) Acute on chronic diastolic (congestive) heart failure Code(s): I50.33 - ACUTE ON CHRONIC DIASTOLIC (CONGESTIVE) HEART FAILURE (3) Cellulitis Code(s): L03.90 - CELLULITIS, UNSPECIFIED Qualifiers: Site of cellulitis: extremity Site of cellulitis of extremity: lower extremity Laterality: right Qualified Code(s): L03.115 - Cellulitis of right lower limb (4) Atrial fibrillation Code(s): I48.91 - UNSPECIFIED ATRIAL FIBRILLATION Qualifiers: Atrial fibrillation type: chronic Qualified Code(s): I48.2 - Chronic atrial fibrillation (5) History of aortic valve replacement with bioprosthetic valve Code(s): Z95.4 - PRESENCE OF OTHER HEART-VALVE REPLACEMENT (6) Hypertension Code(s): I10 - ESSENTIAL (PRIMARY) HYPERTENSION (7) Elevated troponin Code(s): R74.8 - ABNORMAL LEVELS OF OTHER SERUM ENZYMES (8) Sepsis Code(s): A41.9 - SEPSIS, UNSPECIFIED ORGANISM Qualifiers: Sepsis type: sepsis due to unspecified organism Qualified Code(s): A41.9 - Sepsis, unspecified organism (9) Clostridium difficile colitis Code(s): A04.72 - ENTEROCOLITIS D/T CLOSTRIDIUM DIFFICILE, NOT SPCF RECUR patient stable still with lot of leg pain continue abx rest continue current mgmt elevation of legs
[2018-01-27] MEDS ORDERED: MUPIROCIN 2% TOPICAL OINTMENT FOR DECOLONIZATION NS SCH (22:00)
[2018-01-27] MEDS ORDERED: CHLORHEXIDINE GLUCONATE 4% CLEANSER FOR DECOLONIZATION TP SCH (22:00)
[2018-01-28] MEDS ORDERED: ALBUTEROL SO4 2.5/IPRATROPIUM 0.5 INH SOL 3 ML VIAL.NEB. NEB ONE ×2 (01:59→17:00)
[2018-01-28 06:11] LABS: HEMATOCRIT 40.2 % (35.4-49); HEMOGLOBIN 13.5 GM/dL (11.7-16.9); MCH 32.6 pg (25.7-33.7); MCHC 33.6 g/dl (32.0-35.9); MEAN PLT VOLUME 9.6 fl (7.5-11.1); PLATELET COUNT 97 K/MM3 (134-434); RBC 4.15 M/mm3 (4.00-5.60); RDW 18.7 % (11.9-15.9); WHITE BLOOD COUNT 7.4 K/mm3 (4.0-10.0)
[2018-01-28] MEDS: FUROSEMIDE 40 MG/4 ML INJECTABLE VIAL IVPUSH SCH ×2 (06:22→14:00)
[2018-01-28 07:10] LABS: ALBUMIN 2.5 g/dl (3.4-5.0); ANION GAP 6 (8-16); BLOOD UREA NITROGEN 32 mg/dL (7-18); CALCIUM 8.8 mg/dL (8.5-10.1); CHLORIDE 98 mmol/L (98-107); CO2 36 mmol/L (21-32); CREATININE 1.2 mg/dL (0.7-1.3); GLUCOSE,RANDOM 93 mg/dL (74-106); POTASSIUM 3.7 mmol/L (3.5-5.1); SGOT/AST 45 U/L (15-37); SODIUM 140 mmol/L (136-145)
[2018-01-28 07:11] LABS: ALK PHOS 149 U/L (45-117); BILIRUBIN,TOTAL 2.2 mg/dL (0.2-1.0); PHOSPHOROUS 3.2 mg/dL (2.5-4.9); SGPT/ALT 18 U/L (12-78); TOT PROT 7.4 g/dl (6.4-8.2)
--- NOTE | 2018-01-28 09:48 | PN ---
Progress Note (short form) - Note Progress Note: Dr. Rollins to document today. Painful scab left lateral ankle; legs much improved.
[2018-01-28] MEDS ORDERED: ceFAZolin SODIUM 1 GM VIAL ONE ×2 (09:49→18:50)
[2018-01-28] MEDS ORDERED: DEXTROSE 5%-WATER - 50 ML IVPB ONE ×2 (09:49→18:50)
[2018-01-28] MEDS ORDERED: PT OWN MED DRAWER 7, Y5N ONE (09:49)
[2018-01-28] MEDS: VANCOMYCIN 250 MG/5 ML ORAL SOLUTION PO SCH (10:00)
[2018-01-28] MEDS: CEFAZOLIN 1 GM in DEXTROSE 5%-WATER - 50 ML IVPB SCH ×2 (10:21→19:00)
[2018-01-28] MEDS: metoPROLOL SUCCINATE 25 MG TAB.SR.24H (FP) PO SCH (10:21)
[2018-01-28] MEDS: MULTIVITAMINS THER W-MINERALS COMBO TABLET (FP) PO SCH (10:21)
[2018-01-28] MEDS: APIXABAN 2.5 MG TABLET PO SCH ×2 (10:21→22:07)
[2018-01-28] MEDS: LACTOBACILLUS ACIDOPHILUS 1 TABLET PO SCH ×2 (10:21→22:07)
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
--- NOTE | 2018-01-28 11:19 | PN ---
Progress Note, Physician Chief Complaint: Mr Covarrubias says he is feeling bad today. Says his breathing has not improved from yesterday. Also says his legs are painful. No cp or n/v. - Current Medication List Current Medications: Active Medications Apixaban (Eliquis -) 2.5 mg PO BID [facility] Last Admin: 01/28/18 10:21 Dose: 2.5 mg Furosemide (Lasix Injection -) 40 mg IVPUSH BID@0600,1400 [facility] Last Admin: 01/28/18 06:22 Dose: 40 mg Cefazolin Sodium 1 gm/ (Dextrose) 50 mls @ 100 mls/hr IVPB Q8H-IV [facility] Last Admin: 01/28/18 10:21 Dose: 100 mls/hr Lactobacillus Acidophilus (Bacid -) 1 tab PO BID [facility] Last Admin: 01/28/18 10:21 Dose: 1 tab Metoprolol Succinate (Toprol Xl -) 25 mg PO DAILY [facility] Last Admin: 01/28/18 10:21 Dose: 25 mg Multivitamins/Minerals (Theragran-M) 1 each PO DAILY [facility] Last Admin: 01/28/18 10:21 Dose: 1 each Vancomycin HCl (Vancomycin Oral Solution) 125 mg PO DAILY [facility] - Objective Vital Signs: Vital Signs Temperature 36.5 C 01/28/18 05:50 Pulse Rate 60 01/28/18 05:50 Respiratory Rate 20 01/28/18 05:50 Blood Pressure 92/58 01/28/18 05:50 O2 Sat by Pulse Oximetry (%) 95 01/28/18 07:59 Constitutional: Yes: Well Nourished, No Distress, Calm Cardiovascular: Yes: Pulse Irregular. No: Tachycardia, Gallop, Murmur, Rub Respiratory: Yes: Regular, On Nasal O2, Rhonchi (bilateral). No: CTA Bilaterally, Rales, Wheezes Gastrointestinal: Yes: Normal Bowel Sounds, Soft. No: Distention, Tenderness Extremities: Yes: Erythema Edema: Yes Edema: LLE: Trace, RLE: Trace Labs: CBC, BMP 01/28/18 06:00 01/28/18 06:00 INR, PTT INR 2.23 (0.82-1.09) H 01/26/18 15:32 Problem List - Problems (1) Acute respiratory failure with hypoxia Code(s): J96.01 - ACUTE RESPIRATORY FAILURE WITH HYPOXIA (2) Acute on chronic diastolic (congestive) heart failure Code(s): I50.33 - ACUTE ON CHRONIC DIASTOLIC (CONGESTIVE) HEART FAILURE (3) Cellulitis Code(s): L03.90 - CELLULITIS, UNSPECIFIED Qualifiers: Site of cellulitis: extremity Site of cellulitis of extremity: lower extremity Laterality: right Qualified Code(s): L03.115 - Cellulitis of right lower limb (4) Atrial fibrillation Code(s): I48.91 - UNSPECIFIED ATRIAL FIBRILLATION Qualifiers: Atrial fibrillation type: chronic Qualified Code(s): I48.2 - Chronic atrial fibrillation (5) History of aortic valve replacement with bioprosthetic valve Code(s): Z95.4 - PRESENCE OF OTHER HEART-VALVE REPLACEMENT (6) Hypertension Code(s): I10 - ESSENTIAL (PRIMARY) HYPERTENSION (7) Elevated troponin Code(s): R74.8 - ABNORMAL LEVELS OF OTHER SERUM ENZYMES (8) Sepsis Code(s): A41.9 - SEPSIS, UNSPECIFIED ORGANISM Qualifiers: Sepsis type: sepsis due to unspecified organism Qualified Code(s): A41.9 - Sepsis, unspecified organism (9) Clostridium difficile colitis Code(s): A04.72 - ENTEROCOLITIS D/T CLOSTRIDIUM DIFFICILE, NOT SPCF RECUR Assessment/Plan (1) Acute respiratory failure with hypoxia Assessment/Plan: -secondary to CHF exacerbation -appreciate cardiology assistance -continue diuresis with IV lasix -patient says not feeling better -continue to monitor Code(s): J96.01 - ACUTE RESPIRATORY FAILURE WITH HYPOXIA (2) Acute on chronic diastolic (congestive) heart failure Assessment/Plan: -cardiology following -continue lasix 40mg IV bid as blood pressure can tolerate Code(s): I50.33 - ACUTE ON CHRONIC DIASTOLIC (CONGESTIVE) HEART FAILURE (3) Cellulitis Assessment/Plan: -bilateral -appreciate ID assistance -continue cefazolin -does not look improved today Code(s): L03.90 - CELLULITIS, UNSPECIFIED Qualifiers: Site of cellulitis: extremity Site of cellulitis of extremity: lower extremity Laterality: right Qualified Code(s): L03.115 - Cellulitis of right lower limb (4) Atrial fibrillation Assessment/Plan: -controlled -continue eliquis -continue toprol xl Code(s): I48.91 - UNSPECIFIED ATRIAL FIBRILLATION Qualifiers: Atrial fibrillation type: chronic Qualified Code(s): I48.2 - Chronic atrial fibrillation (5) History of aortic valve replacement with bioprosthetic valve Assessment/Plan: -present Code(s): Z95.4 - PRESENCE OF OTHER HEART-VALVE REPLACEMENT (6) Hypertension Assessment/Plan: -still with some episodes of hypotension -continue current regimen Code(s): I10 - ESSENTIAL (PRIMARY) HYPERTENSION (7) Elevated troponin Assessment/Plan: -stress induced -cardiology following Code(s): R74.8 - ABNORMAL LEVELS OF OTHER SERUM ENZYMES (8) Sepsis Assessment/Plan: -with hypotension, elevated lactic acid, and troponin leak -continue antibiotics Code(s): A41.9 - SEPSIS, UNSPECIFIED ORGANISM Qualifiers: Sepsis type: sepsis due to unspecified organism Qualified Code(s): A41.9 - Sepsis, unspecified organism (9) Clostridium difficile colitis Assessment/Plan: -continue oral vancomycin Code(s): A04.72 - ENTEROCOLITIS D/T CLOSTRIDIUM DIFFICILE, NOT SPCF RECUR
--- NOTE | 2018-01-28 14:19 | PN ---
Progress Note (short form) - Note Progress Note: PULMONARY BREATHING NOT IMPROVED VSS/AFEBRILE PALE/ANICTERIC SCATTERED RHONCHI S1S2 IRREG BS+ SOFT TRACE EDEMA LABS/MEDS/NOTES/IMAGES REVIEWED Acute on Chronic Diastolic Heart Failure Cellulitis Mitral Regurgitation h/o AVR CAD s/p CABG Atrial Fibrillation +Troponins likely Demand Ischemia Lactic Acidosis likely from respiratory effort Chronic Hypoxic Respiratory Failure Hematuria h/o C Diff - IV lasix - monitor urine output, creatinine - daily weights - rate controlled with metoprolol - continue anticoagulation - monitor hematuria, H/H - continue antibiotics Rayshawn RAMSEY MD
--- NOTE | 2018-01-28 15:03 | PN ---
Progress Note, Physician History of Present Illness: stable no complaints pain still present erythema improving - Current Medication List Current Medications: Active Medications Apixaban (Eliquis -) 2.5 mg PO BID [facility] Last Admin: 01/28/18 10:21 Dose: 2.5 mg Furosemide (Lasix Injection -) 40 mg IVPUSH BID@0600,1400 [facility] Last Admin: 01/28/18 06:22 Dose: 40 mg Cefazolin Sodium 1 gm/ (Dextrose) 50 mls @ 100 mls/hr IVPB Q8H-IV [facility] Last Admin: 01/28/18 10:21 Dose: 100 mls/hr Lactobacillus Acidophilus (Bacid -) 1 tab PO BID [facility] Last Admin: 01/28/18 10:21 Dose: 1 tab Metoprolol Succinate (Toprol Xl -) 25 mg PO DAILY [facility] Last Admin: 01/28/18 10:21 Dose: 25 mg Multivitamins/Minerals (Theragran-M) 1 each PO DAILY [facility] Last Admin: 01/28/18 10:21 Dose: 1 each Vancomycin HCl (Vancomycin Oral Solution) 125 mg PO DAILY [facility] - Objective Vital Signs: Vital Signs Temperature 97.7 F 01/28/18 05:50 Pulse Rate 60 01/28/18 05:50 Respiratory Rate 20 01/28/18 05:50 Blood Pressure 92/58 01/28/18 05:50 O2 Sat by Pulse Oximetry (%) 95 01/28/18 07:59 Constitutional: Yes: Calm, Mild Distress Neck: Yes: Supple Cardiovascular: Yes: Regular Rate and Rhythm Respiratory: Yes: Regular, CTA Bilaterally Gastrointestinal: Yes: Normal Bowel Sounds, Soft Genitourinary: Yes: Gardner Present Musculoskeletal: Yes: WNL Extremities: Yes: Erythema (rt improving) Neurological: Yes: Alert, Oriented Psychiatric: Yes: Alert, Oriented Labs: CBC, BMP 01/28/18 06:00 01/28/18 06:00 INR, PTT INR 2.23 (0.82-1.09) H 01/26/18 15:32 Assessment/Plan Problem List - Problems (1) Acute respiratory failure with hypoxia Code(s): J96.01 - ACUTE RESPIRATORY FAILURE WITH HYPOXIA (2) Acute on chronic diastolic (congestive) heart failure Code(s): I50.33 - ACUTE ON CHRONIC DIASTOLIC (CONGESTIVE) HEART FAILURE (3) Cellulitis Code(s): L03.90 - CELLULITIS, UNSPECIFIED Qualifiers: Site of cellulitis: extremity Site of cellulitis of extremity: lower extremity Laterality: right Qualified Code(s): L03.115 - Cellulitis of right lower limb (4) Atrial fibrillation Code(s): I48.91 - UNSPECIFIED ATRIAL FIBRILLATION Qualifiers: Atrial fibrillation type: chronic Qualified Code(s): I48.2 - Chronic atrial fibrillation (5) History of aortic valve replacement with bioprosthetic valve Code(s): Z95.4 - PRESENCE OF OTHER HEART-VALVE REPLACEMENT (6) Hypertension Code(s): I10 - ESSENTIAL (PRIMARY) HYPERTENSION (7) Elevated troponin Code(s): R74.8 - ABNORMAL LEVELS OF OTHER SERUM ENZYMES (8) Sepsis Code(s): A41.9 - SEPSIS, UNSPECIFIED ORGANISM Qualifiers: Sepsis type: sepsis due to unspecified organism Qualified Code(s): A41.9 - Sepsis, unspecified organism (9) Clostridium difficile colitis Code(s): A04.72 - ENTEROCOLITIS D/T CLOSTRIDIUM DIFFICILE, NOT SPCF RECUR continue abx elevation of the leg patient still wiht lot of pain rest as per th team
[2018-01-28 15:12] VITALS: BMI 23.5
[2018-01-29] MEDS: CEFAZOLIN 1 GM in DEXTROSE 5%-WATER - 50 ML IVPB SCH ×3 (02:00→17:35)
[2018-01-29] MEDS ORDERED: ceFAZolin SODIUM 1 GM VIAL ONE ×3 (03:38→17:23)
[2018-01-29] MEDS ORDERED: DEXTROSE 5%-WATER - 50 ML IVPB ONE ×3 (03:39→17:24)
[2018-01-29] MEDS: FUROSEMIDE 40 MG/4 ML INJECTABLE VIAL IVPUSH SCH ×2 (05:58→13:37)
[2018-01-29 07:05] LABS: BASO % 0.4 % (0-2.0); EOS % 0.7 % (0-4.5); HEMATOCRIT 38.4 % (35.4-49); LYMPH % 17.4 % (8-40); MCH 32.8 pg (25.7-33.7); MCHC 33.9 g/dl (32.0-35.9); MEAN CELL VOLUME 96.6 fl (80-96); MEAN PLT VOLUME 8.9 fl (7.5-11.1); MONO % 9.5 % (3.8-10.2); PLATELET COUNT 98 K/MM3 (134-434); RBC 3.97 M/mm3 (4.00-5.60); RDW 18.4 % (11.9-15.9); WHITE BLOOD COUNT 7.6 K/mm3 (4.0-10.0)
[2018-01-29 07:42] LABS: ANION GAP 4 (8-16); BLOOD UREA NITROGEN 38 mg/dL (7-18); CALCIUM 8.7 mg/dL (8.5-10.1); CHLORIDE 99 mmol/L (98-107); CO2 37 mmol/L (21-32); CREATININE 1.1 mg/dL (0.7-1.3); GLUCOSE,RANDOM 116 mg/dL (74-106); PHOSPHOROUS 2.7 mg/dL (2.5-4.9); POTASSIUM 3.7 mmol/L (3.5-5.1); SODIUM 140 mmol/L (136-145)
[2018-01-29] MEDS: metoPROLOL SUCCINATE 25 MG TAB.SR.24H (FP) PO SCH (09:54)
[2018-01-29] MEDS: APIXABAN 2.5 MG TABLET PO SCH ×2 (09:54→21:09)
[2018-01-29] MEDS: MULTIVITAMINS THER W-MINERALS COMBO TABLET (FP) PO SCH (09:54)
[2018-01-29] MEDS: LACTOBACILLUS ACIDOPHILUS 1 TABLET PO SCH ×2 (09:54→21:09)
[2018-01-29] MEDS: VANCOMYCIN 250 MG/5 ML ORAL SOLUTION PO SCH (10:07)
--- NOTE | 2018-01-29 11:57 | PN ---
Progress Note, Physician History of Present Illness: Patient notes he feels about the same, still with some shortness of breath. Feels phlegm in chest but cannot seem to expel it. - Current Medication List Current Medications: Active Medications Apixaban (Eliquis -) 2.5 mg PO BID [facility] Last Admin: 01/29/18 09:54 Dose: 2.5 mg Furosemide (Lasix Injection -) 40 mg IVPUSH BID@0600,1400 [facility] Last Admin: 01/29/18 05:58 Dose: 40 mg Cefazolin Sodium 1 gm/ (Dextrose) 50 mls @ 100 mls/hr IVPB Q8H-IV [facility] Last Admin: 01/29/18 09:52 Dose: 100 mls/hr Lactobacillus Acidophilus (Bacid -) 1 tab PO BID [facility] Last Admin: 01/29/18 09:54 Dose: 1 tab Metoprolol Succinate (Toprol Xl -) 25 mg PO DAILY [facility] Last Admin: 01/29/18 09:54 Dose: 25 mg Multivitamins/Minerals (Theragran-M) 1 each PO DAILY [facility] Last Admin: 01/29/18 09:54 Dose: 1 each Vancomycin HCl (Vancomycin Oral Solution) 125 mg PO DAILY [facility] Last Admin: 01/29/18 10:07 Dose: Not Given - Objective Vital Signs: Vital Signs Temperature 98.0 F 01/29/18 10:00 Pulse Rate 60 01/29/18 10:00 Respiratory Rate 20 01/29/18 10:00 Blood Pressure 108/52 01/29/18 10:00 O2 Sat by Pulse Oximetry (%) 95 01/28/18 07:59 Constitutional: Yes: No Distress, Calm HENT: Yes: Atraumatic, Normocephalic Neck: Yes: Supple, Trachea Midline Cardiovascular: Yes: Regular Rate and Rhythm, S1, S2. No: Murmur Respiratory: Yes: Regular, Rhonchi (bilateral lungs) Gastrointestinal: Yes: Normal Bowel Sounds, Soft. No: Distention, Tenderness Edema: Yes Edema: LLE: Trace, RLE: Trace Neurological: Yes: Alert, Oriented Labs: CBC, BMP 01/29/18 06:00 01/29/18 06:00 INR, PTT INR 2.23 (0.82-1.09) H 01/26/18 15:32 Assessment/Plan Current Active Problems Acute respiratory failure with hypoxia (Acute) CHF (congestive heart failure) (Acute) Cellulitis (Acute) Sepsis Afib Bioprosthetic AVR HTN C. Diff Elevated troponin -cont abx, lasix, O2 -on oral vanco for C diff -cont Eliquis for afib
--- NOTE | 2018-01-29 12:29 | PN ---
Progress Note (short form) - Note Progress Note: PULMONARY VSS/AFEBRILE PALE/ANICTERIC SCATTERED RHONCHI S1S2 IRREG BS+ SOFT TRACE EDEMA LABS/MEDS/NOTES/IMAGES REVIEWED Acute on Chronic Diastolic Heart Failure Cellulitis Mitral Regurgitation h/o AVR CAD s/p CABG Atrial Fibrillation +Troponins likely Demand Ischemia Lactic Acidosis likely from respiratory effort Chronic Hypoxic Respiratory Failure Hematuria h/o C Diff - IV lasix - monitor urine output, creatinine - daily weights - rate controlled with metoprolol - continue anticoagulation - monitor hematuria, H/H - continue antibiotics Rayshawn RAMSEY MD
--- NOTE | 2018-01-29 14:35 | PN ---
Progress Note, Physician History of Present Illness: cellulittis continues to improve redness has improved still with pain otherwise no complaints - Current Medication List Current Medications: Active Medications Apixaban (Eliquis -) 2.5 mg PO BID [facility] Last Admin: 01/29/18 09:54 Dose: 2.5 mg Furosemide (Lasix Injection -) 40 mg IVPUSH BID@0600,1400 [facility] Last Admin: 01/29/18 13:37 Dose: 40 mg Cefazolin Sodium 1 gm/ (Dextrose) 50 mls @ 100 mls/hr IVPB Q8H-IV [facility] Last Admin: 01/29/18 09:52 Dose: 100 mls/hr Lactobacillus Acidophilus (Bacid -) 1 tab PO BID [facility] Last Admin: 01/29/18 09:54 Dose: 1 tab Metoprolol Succinate (Toprol Xl -) 25 mg PO DAILY [facility] Last Admin: 01/29/18 09:54 Dose: 25 mg Multivitamins/Minerals (Theragran-M) 1 each PO DAILY [facility] Last Admin: 01/29/18 09:54 Dose: 1 each Vancomycin HCl (Vancomycin Oral Solution) 125 mg PO DAILY [facility] Last Admin: 01/29/18 10:07 Dose: Not Given - Objective Vital Signs: Vital Signs Temperature 98.0 F 01/29/18 10:00 Pulse Rate 60 01/29/18 10:00 Respiratory Rate 20 01/29/18 10:00 Blood Pressure 108/52 01/29/18 10:00 O2 Sat by Pulse Oximetry (%) 95 01/28/18 07:59 Constitutional: Yes: Calm, Mild Distress Cardiovascular: Yes: Regular Rate and Rhythm Respiratory: Yes: Regular, CTA Bilaterally Gastrointestinal: Yes: Normal Bowel Sounds, Soft Genitourinary: Yes: Gardner Present Musculoskeletal: Yes: Other Extremities: Yes: Erythema (rt leg improved) Edema: LLE: Trace, RLE: Trace Neurological: Yes: Alert, Oriented Psychiatric: Yes: Alert, Oriented Labs: CBC, BMP 01/29/18 06:00 01/29/18 06:00 INR, PTT INR 2.23 (0.82-1.09) H 01/26/18 15:32 Assessment/Plan Problem List - Problems (1) Acute respiratory failure with hypoxia Code(s): J96.01 - ACUTE RESPIRATORY FAILURE WITH HYPOXIA (2) Acute on chronic diastolic (congestive) heart failure Code(s): I50.33 - ACUTE ON CHRONIC DIASTOLIC (CONGESTIVE) HEART FAILURE (3) Cellulitis Code(s): L03.90 - CELLULITIS, UNSPECIFIED Qualifiers: Site of cellulitis: extremity Site of cellulitis of extremity: lower extremity Laterality: right Qualified Code(s): L03.115 - Cellulitis of right lower limb (4) Atrial fibrillation Code(s): I48.91 - UNSPECIFIED ATRIAL FIBRILLATION Qualifiers: Atrial fibrillation type: chronic Qualified Code(s): I48.2 - Chronic atrial fibrillation (5) History of aortic valve replacement with bioprosthetic valve Code(s): Z95.4 - PRESENCE OF OTHER HEART-VALVE REPLACEMENT (6) Hypertension Code(s): I10 - ESSENTIAL (PRIMARY) HYPERTENSION (7) Elevated troponin Code(s): R74.8 - ABNORMAL LEVELS OF OTHER SERUM ENZYMES (8) Sepsis Code(s): A41.9 - SEPSIS, UNSPECIFIED ORGANISM Qualifiers: Sepsis type: sepsis due to unspecified organism Qualified Code(s): A41.9 - Sepsis, unspecified organism (9) Clostridium difficile colitis Code(s): A04.72 - ENTEROCOLITIS D/T CLOSTRIDIUM DIFFICILE, NOT SPCF RECUR continue abx elevation of the leg patient still wiht lot of pain will probably deescalte abx by wednesday
--- NOTE | 2018-01-29 15:50 | PN ---
Progress Note, Physician Chief Complaint: Pt alert; still weak and easily dyspneic, but feels "a little better"; family at bediside. History of Present Illness: Pt A&O3; feels "a little better", but still short of breath and uncomfortable - Current Medication List Current Medications: Active Medications Apixaban (Eliquis -) 2.5 mg PO BID [facility] Last Admin: 01/29/18 09:54 Dose: 2.5 mg Furosemide (Lasix Injection -) 40 mg IVPUSH BID@0600,1400 [facility] Last Admin: 01/29/18 13:37 Dose: 40 mg Cefazolin Sodium 1 gm/ (Dextrose) 50 mls @ 100 mls/hr IVPB Q8H-IV [facility] Last Admin: 01/29/18 09:52 Dose: 100 mls/hr Lactobacillus Acidophilus (Bacid -) 1 tab PO BID [facility] Last Admin: 01/29/18 09:54 Dose: 1 tab Metoprolol Succinate (Toprol Xl -) 25 mg PO DAILY [facility] Last Admin: 01/29/18 09:54 Dose: 25 mg Multivitamins/Minerals (Theragran-M) 1 each PO DAILY [facility] Last Admin: 01/29/18 09:54 Dose: 1 each Vancomycin HCl (Vancomycin Oral Solution) 125 mg PO DAILY [facility] Last Admin: 01/29/18 10:07 Dose: Not Given - Objective Vital Signs: Vital Signs Temperature 97.9 F 01/29/18 14:00 Pulse Rate 59 L 01/29/18 14:00 Respiratory Rate 20 01/29/18 14:00 Blood Pressure 92/62 01/29/18 14:00 O2 Sat by Pulse Oximetry (%) 95 01/28/18 07:59 Constitutional: Yes: Anxious, Thin Eyes: Yes: WNL HENT: Yes: WNL Neck: Yes: WNL Cardiovascular: Yes: Murmur (2/6 systolic murmur, RSB-->apex), S1, S2 (split) Respiratory: Yes: Diminished Gastrointestinal: Yes: Soft ...Rectal Exam: Yes: Deferred Genitourinary: No: Anuria Musculoskeletal: Yes: Joint Stiffness, Muscle Weakness Extremities: Yes: Cool Edema: No Peripheral Pulses WNL: No Peripheral Pulses: Left Doralis Pedis: 1+, Right Dorsalis Pedis: 1+ Integumentary: Yes: Venous Stasis Changes Neurological: Yes: Alert, Oriented, Weakness Psychiatric: Yes: Other (anxiety) Labs: CBC, BMP 01/29/18 06:00 01/29/18 06:00 INR, PTT INR 2.23 (0.82-1.09) H 01/26/18 15:32
[2018-01-30] MEDS: CEFAZOLIN 1 GM in DEXTROSE 5%-WATER - 50 ML IVPB SCH ×3 (03:30→17:21)
[2018-01-30] MEDS ORDERED: DEXTROSE 5%-WATER - 50 ML IVPB ONE ×3 (03:52→17:08)
[2018-01-30] MEDS ORDERED: ceFAZolin SODIUM 1 GM VIAL ONE ×3 (03:52→17:08)
[2018-01-30] MEDS: FUROSEMIDE 40 MG/4 ML INJECTABLE VIAL IVPUSH SCH ×2 (05:52→13:41)
[2018-01-30 06:51] LABS: BASO % 0.3 % (0-2.0); HEMATOCRIT 38.5 % (35.4-49); HEMOGLOBIN 12.9 GM/dL (11.7-16.9); LYMPH % 19.1 % (8-40); MCH 32.8 pg (25.7-33.7); MCHC 33.6 g/dl (32.0-35.9); MEAN CELL VOLUME 97.5 fl (80-96); MEAN PLT VOLUME 9.2 fl (7.5-11.1); MONO % 8.7 % (3.8-10.2); NEUT % 68.9 % (42.8-82.8); PLATELET COUNT 101 K/MM3 (134-434); RBC 3.95 M/mm3 (4.00-5.60); RDW 18.9 % (11.9-15.9); WHITE BLOOD COUNT 6.5 K/mm3 (4.0-10.0)
[2018-01-30 07:13] LABS: CHLORIDE 97 mmol/L (98-107); SODIUM 141 mmol/L (136-145)
[2018-01-30 07:37] LABS: ALBUMIN 2.5 g/dl (3.4-5.0); ALK PHOS 143 U/L (45-117); ANION GAP 6 (8-16); BLOOD UREA NITROGEN 39 mg/dL (7-18); CALCIUM 8.8 mg/dL (8.5-10.1); CO2 38 mmol/L (21-32); CREATININE 1.2 mg/dL (0.7-1.3); GLUCOSE,RANDOM 90 mg/dL (74-106); SGOT/AST 48 U/L (15-37); SGPT/ALT 9 U/L (12-78); TOT PROT 7.5 g/dl (6.4-8.2)
[2018-01-30] MEDS: LACTOBACILLUS ACIDOPHILUS 1 TABLET PO SCH ×2 (09:26→21:15)
[2018-01-30] MEDS: MULTIVITAMINS THER W-MINERALS COMBO TABLET (FP) PO SCH (09:26)
[2018-01-30] MEDS: metoPROLOL SUCCINATE 25 MG TAB.SR.24H (FP) PO SCH (09:26)
[2018-01-30] MEDS: APIXABAN 2.5 MG TABLET PO SCH ×2 (09:26→21:15)
[2018-01-30] MEDS: VANCOMYCIN 250 MG/5 ML ORAL SOLUTION PO SCH (09:27)
--- NOTE | 2018-01-30 11:37 | PN ---
Progress Note, Physician History of Present Illness: Notes breathing feeling better today. Was switched to a dysphagia diet and seems less congested now. - Current Medication List Current Medications: Active Medications Apixaban (Eliquis -) 2.5 mg PO BID [facility] Last Admin: 01/30/18 09:26 Dose: 2.5 mg Furosemide (Lasix Injection -) 40 mg IVPUSH BID@0600,1400 [facility] Last Admin: 01/30/18 05:52 Dose: Not Given Cefazolin Sodium 1 gm/ (Dextrose) 50 mls @ 100 mls/hr IVPB Q8H-IV [facility] Last Admin: 01/30/18 09:25 Dose: 100 mls/hr Lactobacillus Acidophilus (Bacid -) 1 tab PO BID [facility] Last Admin: 01/30/18 09:26 Dose: 1 tab Metoprolol Succinate (Toprol Xl -) 25 mg PO DAILY [facility] Last Admin: 01/30/18 09:26 Dose: 25 mg Multivitamins/Minerals (Theragran-M) 1 each PO DAILY [facility] Last Admin: 01/30/18 09:26 Dose: 1 each Vancomycin HCl (Vancomycin Oral Solution) 125 mg PO DAILY [facility] Last Admin: 01/30/18 09:27 Dose: Not Given - Objective Vital Signs: Vital Signs Temperature 98.1 F 01/30/18 01:00 Pulse Rate 62 01/30/18 05:00 Respiratory Rate 20 01/30/18 05:00 Blood Pressure 95/50 01/30/18 05:00 O2 Sat by Pulse Oximetry (%) 95 01/29/18 21:00 Constitutional: Yes: No Distress Eyes: Yes: Conjunctiva Clear, EOM Intact HENT: Yes: Atraumatic, Normocephalic Neck: Yes: Supple, Trachea Midline Cardiovascular: Yes: Regular Rate and Rhythm, S1, S2. No: Murmur Respiratory: Yes: Regular, Rhonchi (bilaterally) Gastrointestinal: Yes: Normal Bowel Sounds, Soft. No: Distention, Tenderness Edema: Yes Edema: LLE: Trace, RLE: Trace Neurological: Yes: Alert, Oriented Labs: CBC, BMP 01/30/18 06:00 01/30/18 06:00 INR, PTT INR 2.23 (0.82-1.09) H 01/26/18 15:32 Assessment/Plan Current Active Problems Acute respiratory failure with hypoxia (Acute) CHF (congestive heart failure) (Acute) Cellulitis (Acute) Sepsis Afib Bioprosthetic AVR HTN C. Diff Elevated troponin -cont abx, lasix, O2 -on oral vanco for C diff -cont Eliquis for afib -speech and swallow specialist eval for dysphagia
--- NOTE | 2018-01-30 12:15 | PN ---
Progress Note, Physician History of Present Illness: leg continues to improve pain improving - Current Medication List Current Medications: Active Medications Apixaban (Eliquis -) 2.5 mg PO BID [facility] Last Admin: 01/30/18 09:26 Dose: 2.5 mg Furosemide (Lasix Injection -) 40 mg IVPUSH BID@0600,1400 [facility] Last Admin: 01/30/18 05:52 Dose: Not Given Cefazolin Sodium 1 gm/ (Dextrose) 50 mls @ 100 mls/hr IVPB Q8H-IV [facility] Last Admin: 01/30/18 09:25 Dose: 100 mls/hr Lactobacillus Acidophilus (Bacid -) 1 tab PO BID [facility] Last Admin: 01/30/18 09:26 Dose: 1 tab Metoprolol Succinate (Toprol Xl -) 25 mg PO DAILY [facility] Last Admin: 01/30/18 09:26 Dose: 25 mg Multivitamins/Minerals (Theragran-M) 1 each PO DAILY [facility] Last Admin: 01/30/18 09:26 Dose: 1 each Vancomycin HCl (Vancomycin Oral Solution) 125 mg PO DAILY [facility] Last Admin: 01/30/18 09:27 Dose: Not Given - Objective Vital Signs: Vital Signs Temperature 98.1 F 01/30/18 09:00 Pulse Rate 60 01/30/18 09:00 Respiratory Rate 18 01/30/18 09:00 Blood Pressure 100/63 01/30/18 09:00 O2 Sat by Pulse Oximetry (%) 95 01/30/18 09:00 Constitutional: Yes: No Distress, Calm Cardiovascular: Yes: Regular Rate and Rhythm Respiratory: Yes: Regular, CTA Bilaterally Gastrointestinal: Yes: Normal Bowel Sounds, Soft Extremities: Yes: Erythema (improving), Other Neurological: Yes: Alert, Oriented Psychiatric: Yes: Alert, Oriented Labs: CBC, BMP 01/30/18 06:00 01/30/18 06:00 INR, PTT INR 2.23 (0.82-1.09) H 01/26/18 15:32 Assessment/Plan Problem List - Problems (1) Acute respiratory failure with hypoxia Code(s): J96.01 - ACUTE RESPIRATORY FAILURE WITH HYPOXIA (2) Acute on chronic diastolic (congestive) heart failure Code(s): I50.33 - ACUTE ON CHRONIC DIASTOLIC (CONGESTIVE) HEART FAILURE (3) Cellulitis Code(s): L03.90 - CELLULITIS, UNSPECIFIED Qualifiers: Site of cellulitis: extremity Site of cellulitis of extremity: lower extremity Laterality: right Qualified Code(s): L03.115 - Cellulitis of right lower limb (4) Atrial fibrillation Code(s): I48.91 - UNSPECIFIED ATRIAL FIBRILLATION Qualifiers: Atrial fibrillation type: chronic Qualified Code(s): I48.2 - Chronic atrial fibrillation (5) History of aortic valve replacement with bioprosthetic valve Code(s): Z95.4 - PRESENCE OF OTHER HEART-VALVE REPLACEMENT (6) Hypertension Code(s): I10 - ESSENTIAL (PRIMARY) HYPERTENSION (7) Elevated troponin Code(s): R74.8 - ABNORMAL LEVELS OF OTHER SERUM ENZYMES (8) Sepsis Code(s): A41.9 - SEPSIS, UNSPECIFIED ORGANISM Qualifiers: Sepsis type: sepsis due to unspecified organism Qualified Code(s): A41.9 - Sepsis, unspecified organism (9) Clostridium difficile colitis Code(s): A04.72 - ENTEROCOLITIS D/T CLOSTRIDIUM DIFFICILE, NOT SPCF RECUR continue abx elevation of the leg elevation of leg will see how leg looks tomorrow rest as per the team
[2018-01-30] MEDS ORDERED: ALBUTEROL SO4 0.083% IH SOL 2.5 MG/3 ML VIAL.NEB. NEB PRN (13:25)
[2018-01-30] MEDS: ALBUTEROL SO4 0.083% IH SOL 2.5 MG/3 ML VIAL.NEB. NEB SCH ×2 (13:56→21:17)
[2018-01-31] MEDS ORDERED: DEXTROSE 5%-WATER - 50 ML IVPB ONE ×3 (01:18→17:52)
[2018-01-31] MEDS ORDERED: ceFAZolin SODIUM 1 GM VIAL ONE ×3 (01:18→17:51)
[2018-01-31] MEDS: CEFAZOLIN 1 GM in DEXTROSE 5%-WATER - 50 ML IVPB SCH ×3 (01:20→17:58)
[2018-01-31] MEDS: FUROSEMIDE 40 MG/4 ML INJECTABLE VIAL IVPUSH SCH ×2 (05:34→10:44)
[2018-01-31] MEDS: ALBUTEROL SO4 0.083% IH SOL 2.5 MG/3 ML VIAL.NEB. NEB SCH ×3 (06:23→21:37)
[2018-01-31 07:15] LABS: CHLORIDE 97 mmol/L (98-107); POTASSIUM 4.1 mmol/L (3.5-5.1); SODIUM 140 mmol/L (136-145)
[2018-01-31 07:28] LABS: BASO % 0.7 % (0-2.0); EOS % 1.9 % (0-4.5); HEMATOCRIT 40.2 % (35.4-49); HEMOGLOBIN 13.2 GM/dL (11.7-16.9); LYMPH % 21.1 % (8-40); MCH 32.2 pg (25.7-33.7); MCHC 32.9 g/dl (32.0-35.9); MEAN CELL VOLUME 97.9 fl (80-96); MEAN PLT VOLUME 9.8 fl (7.5-11.1); MONO % 9.5 % (3.8-10.2); NEUT % 66.8 % (42.8-82.8); PLATELET COUNT 119 K/MM3 (134-434); WHITE BLOOD COUNT 6.1 K/mm3 (4.0-10.0)
[2018-01-31 07:29] LABS: ALBUMIN 2.5 g/dl (3.4-5.0); ALK PHOS 147 U/L (45-117); ANION GAP 7 (8-16); BILIRUBIN,TOTAL 2.1 mg/dL (0.2-1.0); BLOOD UREA NITROGEN 38 mg/dL (7-18); CO2 36 mmol/L (21-32); CREATININE 1.2 mg/dL (0.7-1.3); GLUCOSE,RANDOM 91 mg/dL (74-106); SGOT/AST 62 U/L (15-37); SGPT/ALT 8 U/L (12-78); TOT PROT 7.5 g/dl (6.4-8.2)
[2018-01-31] MEDS: APIXABAN 2.5 MG TABLET PO SCH ×2 (09:20→21:32)
[2018-01-31] MEDS: MULTIVITAMINS THER W-MINERALS COMBO TABLET (FP) PO SCH (09:20)
[2018-01-31] MEDS: metoPROLOL SUCCINATE 25 MG TAB.SR.24H (FP) PO SCH (09:20)
[2018-01-31] MEDS: VANCOMYCIN 250 MG/5 ML ORAL SOLUTION PO SCH (09:20)
[2018-01-31] MEDS: LACTOBACILLUS ACIDOPHILUS 1 TABLET PO SCH ×2 (09:20→21:32)
--- NOTE | 2018-01-31 09:36 | CONSULT ---
Admitting History and Physical - Primary Care Physician PCP: Juan Clifford - Admission History of Present Illness: 88 y/o man PMH: Afib (on Eliquis), CAD s/p CABG, PM, Mechanical valve, CHF (O2 dependent), HTN, HLD, Depression, Anxiety, Skin Ca. Admitted to ICU Acute on Chronic Systolic HF, Cellulitis. Pt admitted from home, reportedly tolerates regular diet . 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 Downgraded diet to puree/thick liquid, with sp/sw evaluation order placed. Pt is coughing less. This is my first consult with this Pt. 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 Diff) Renal/: Yes: Renal Inusuff (mild), UTI Infectious Disease: Yes: C-Diff Musculoskeletal: Yes: Osteoarthritis (knees), Other (LE weakness) Rheumatology: Yes: Other (severe degenerative arthritis of knees necessitating walker) - Past Surgical History Past Surgical History: Yes: CABG, Permanent Pacemaker (09/07/14), Stent, Valve Replacement - Smoking History Smoking history: Never smoked Have you smoked in the past 12 months: No Aproximately how many cigarettes per day: 0 - Alcohol/Substance Use Hx Alcohol Use: No History of Substance Use: reports: None - Social History ADL: Support Services 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 History of Recent Travel: No History - Admission Reason For Visit: CHF,CELLULITIS HX CD[facility] - Diagnostics X-ray: Report Reviewed - General Mental Status: Alert and Oriented, Awake and Alert, Able to Follow Commands Attention: Intact Ability to Follow Directions: Excellent Head/Neck Control: WFL - Hearing Hearing: Normal Hearing Aide: No Speech Evaluation - Communication Primary Language: ETHIOPIAN Communication: Yes: Within Normal Limits Oral Expression Ability: Yes: No Impairment - Speech Production Intelligibility: Yes: WNL - Speech Characteristics Voice Loudness: Mildly Soft/Quiet Voice Pitch: Yes: Normal Voice Phonatory-based Quality: Yes: Dysphonia (mild) Speech Pattern: Normal Articulation: Yes: Precise - Language/Verbal Expression Able to Respond to Simple Queries: Yes: WNL Able to Communicate Wants and Needs: Yes: WNL Functional Communication Status: Yes: WNL - Swallow Evaluation/Bedside Assessment Current Nutritional Intake: Dysphagia Pureed, [place] Textured Liquids Oral Secretions: Yes: WFL Dentition: Yes: Missing Teeth Facial Symmetry at Rest: Symmetrical Facial Symmetry on Retraction: Symmetrical Facial Movement: Controlled Against Resistance Opening: Normal Against Resistance Closing: Normal Pucker Lips: Normal Smile: Normal Lingual Movement: Normal, Symmetric Lingual Speed of Movement: Normal Lingual Movement Strgth Against Opposition: Normal Lingual Movement Characteristics: Normal Rate of Intake: WFL Labial Seal: WFL Oral Prep Time: WFL A-P Transit: WFL Pocketing: None Coughing/Throat Clear: Yes (trial of thin water, small sips, from a cup) Recommendations - Speech Evaluation, Impression/Plan Impression: Responsive cough on sips of thin water. - Dysphagia Impressions/Plan Swallowing Skills: Impaired Dysphagia Impressions: Ongoing Evaluation, Suspect Aspiration *Silent aspiration: cannot be R/O at bedside Recommendations: Modified Barium Swallow - Recommendations Diet Consistency: Dysphagia Pureed Medication Administration: Crushed with applesauce Liquids: [place] Thick Supplement: Magic Cup, Other (Ensure compact)
--- NOTE | 2018-01-31 09:58 | PN ---
Progress Note (short form) - Note Progress Note: Dr. Rollins to document today.
--- NOTE | 2018-01-31 10:25 | PN ---
Progress Note, Physician - Current Medication List Current Medications: Active Medications Albuterol Sulfate (Ventolin 0.083% Nebulizer Soln -) 1 amp NEB TIDR [facility] Last Admin: 01/31/18 06:23 Dose: 1 amp Apixaban (Eliquis -) 2.5 mg PO BID [facility] Last Admin: 01/31/18 09:20 Dose: 2.5 mg Furosemide (Lasix Injection -) 40 mg IVPUSH DAILY [facility] Cefazolin Sodium 1 gm/ (Dextrose) 50 mls @ 100 mls/hr IVPB Q8H-IV [facility] Last Admin: 01/31/18 09:20 Dose: 100 mls/hr Lactobacillus Acidophilus (Bacid -) 1 tab PO BID [facility] Last Admin: 01/31/18 09:20 Dose: 1 tab Metoprolol Succinate (Toprol Xl -) 25 mg PO DAILY [facility] Last Admin: 01/31/18 09:20 Dose: 25 mg Multivitamins/Minerals (Theragran-M) 1 each PO DAILY [facility] Last Admin: 01/31/18 09:20 Dose: 1 each Vancomycin HCl (Vancomycin Oral Solution) 125 mg PO DAILY [facility] Last Admin: 01/31/18 09:20 Dose: Not Given - Objective Vital Signs: Vital Signs Temperature 97.9 F 01/31/18 05:00 Pulse Rate 62 01/31/18 05:00 Respiratory Rate 20 01/31/18 05:00 Blood Pressure 115/64 01/31/18 05:00 O2 Sat by Pulse Oximetry (%) 96 01/31/18 06:00 Eyes: Yes: WNL, Conjunctiva Clear, EOM Intact HENT: Yes: WNL, Atraumatic, Normocephalic Neck: Yes: WNL, Supple, Trachea Midline Cardiovascular: Yes: WNL, Regular Rate and Rhythm Respiratory: Yes: WNL, Regular, CTA Bilaterally Gastrointestinal: Yes: WNL, Normal Bowel Sounds Genitourinary: Yes: WNL Musculoskeletal: Yes: WNL Extremities: Yes: WNL Edema: No Integumentary: Yes: WNL Neurological: Yes: WNL, Alert, Oriented ...Motor Strength: WNL Psychiatric: Yes: WNL Labs: CBC, BMP 01/31/18 06:25 01/31/18 06:25 INR, PTT INR 2.23 (0.82-1.09) H 01/26/18 15:32 Problem List - Problems (1) CHF (congestive heart failure) Code(s): I50.9 - HEART FAILURE, UNSPECIFIED Qualifiers: Heart failure type: combined systolic and diastolic Heart failure chronicity: acute on chronic Qualified Code(s): I50.43 - Acute on chronic combined systolic (congestive) and diastolic (congestive) heart failure (2) Cellulitis Code(s): L03.90 - CELLULITIS, UNSPECIFIED Qualifiers: Site of cellulitis: extremity Site of cellulitis of extremity: lower extremity Laterality: right Qualified Code(s): L03.115 - Cellulitis of right lower limb (3) DVT prophylaxis Code(s): [id number] - (4) Acute bronchitis Code(s): J20.9 - ACUTE BRONCHITIS, UNSPECIFIED Qualifiers: Bronchitis organism: rhinovirus Qualified Code(s): J20.6 - Acute bronchitis due to rhinovirus (5) Acute on chronic diastolic (congestive) heart failure Code(s): I50.33 - ACUTE ON CHRONIC DIASTOLIC (CONGESTIVE) HEART FAILURE (6) Arthritis Code(s): M19.90 - UNSPECIFIED OSTEOARTHRITIS, UNSPECIFIED SITE (7) Atrial fibrillation Code(s): I48.91 - UNSPECIFIED ATRIAL FIBRILLATION Qualifiers: Atrial fibrillation type: chronic Qualified Code(s): I48.2 - Chronic atrial fibrillation (8) Bradycardia Code(s): R00.1 - BRADYCARDIA, UNSPECIFIED (9) C. difficile diarrhea Code(s): A04.7 - ENTEROCOLITIS DUE TO CLOSTRIDIUM DIFFICILE * DO NOT USE * (10) Diarrhea Code(s): R19.7 - DIARRHEA, UNSPECIFIED Qualifiers: Diarrhea type: unspecified type Qualified Code(s): R19.7 - Diarrhea, unspecified (11) Diastolic CHF Code(s): I50.30 - UNSPECIFIED DIASTOLIC (CONGESTIVE) HEART FAILURE (12) Elevated INR Code(s): R79.1 - ABNORMAL COAGULATION PROFILE (13) Gout Code(s): M10.9 - GOUT, UNSPECIFIED (14) H/O aortic valve replacement Code(s): Z95.2 - PRESENCE OF PROSTHETIC HEART VALVE (15) Hematuria Code(s): R31.9 - HEMATURIA, UNSPECIFIED (16) History of aortic valve replacement with bioprosthetic valve Code(s): Z95.4 - PRESENCE OF OTHER HEART-VALVE REPLACEMENT (17) Hyperkalemia Code(s): E87.5 - HYPERKALEMIA (18) Hypertension Code(s): I10 - ESSENTIAL (PRIMARY) HYPERTENSION (19) Hypomagnesemia Code(s): E83.42 - HYPOMAGNESEMIA (20) Lactic acid acidosis Code(s): E87.2 - ACIDOSIS (21) Leg swelling Code(s): M79.89 - OTHER SPECIFIED SOFT TISSUE DISORDERS (22) Liver cirrhosis Code(s): K74.60 - UNSPECIFIED CIRRHOSIS OF LIVER (23) Lower extremity ulceration Code(s): L97.909 - NON-PRS CHRONIC ULC UNSP PRT OF UNSP LOW LEG W UNSP SEVERITY (24) Melanoma of upper arm Code(s): C43.60 - MALIGNANT MELANOMA OF UNSP UPPER LIMB, INCLUDING SHOULDER (25) Nausea & vomiting Code(s): R11.2 - NAUSEA WITH VOMITING, UNSPECIFIED (26) Osteoarthritis of both knees Code(s): M17.0 - BILATERAL PRIMARY OSTEOARTHRITIS OF KNEE (27) Pacemaker Code(s): Z95.0 - PRESENCE OF CARDIAC PACEMAKER (28) Phlebitis after infusion Code(s): T80.1XXA - VASCULAR COMP FOL INFUSN, TRANFS AND THERAPUTC INJECT, INIT (29) Rectal bleeding Code(s): K62.5 - HEMORRHAGE OF ANUS AND RECTUM (30) Respiratory acidosis Code(s): E87.2 - ACIDOSIS (31) Sepsis Code(s): A41.9 - SEPSIS, UNSPECIFIED ORGANISM Qualifiers: Sepsis type: sepsis due to unspecified organism Qualified Code(s): A41.9 - Sepsis, unspecified organism (32) Shortness of breath Code(s): R06.02 - SHORTNESS OF BREATH (33) Supratherapeutic INR Code(s): R79.1 - ABNORMAL COAGULATION PROFILE (34) Systolic CHF Code(s): I50.20 - UNSPECIFIED SYSTOLIC (CONGESTIVE) HEART FAILURE Assessment/Plan s/p Decompensated CHF s/p lactic acidosis ? sepsis, hypoperfussion CABG (SANCHEZ to LAD; SVG to PDA) and pericardial aortic valve 12/23 at [facility] (Dr. Yaya Green) Left upper arm surgery for "malignant melanoma" VVIR [employer] PPM (implanted 09/07/2014) AF anxiety/depression CAD (denies hx TX) and aortic stenosis--> 2 vessel CABG and AoVR on 12/23 DM HTN severe "arthritis" of both knees skin cancer on top of (bald) head diastolic CHF ECHO 04/2016: normal LVEF; moderate LVH; mild-moderate MS; mild MR and DC; trace TR. Plan cont medical rx d/c telemetry
--- NOTE | 2018-01-31 11:00 | PN ---
Progress Note, Physician History of Present Illness: PULMONARY ALERT,LESS DYSPNEIC BUT STILL CONGESTED , - Current Medication List Current Medications: Active Medications Albuterol Sulfate (Ventolin 0.083% Nebulizer Soln -) 1 amp NEB TIDR [facility] Last Admin: 01/31/18 06:23 Dose: 1 amp Apixaban (Eliquis -) 2.5 mg PO BID [facility] Last Admin: 01/31/18 09:20 Dose: 2.5 mg Furosemide (Lasix Injection -) 40 mg IVPUSH DAILY [facility] Last Admin: 01/31/18 10:44 Dose: Not Given Cefazolin Sodium 1 gm/ (Dextrose) 50 mls @ 100 mls/hr IVPB Q8H-IV [facility] Last Admin: 01/31/18 09:20 Dose: 100 mls/hr Lactobacillus Acidophilus (Bacid -) 1 tab PO BID [facility] Last Admin: 01/31/18 09:20 Dose: 1 tab Metoprolol Succinate (Toprol Xl -) 25 mg PO DAILY [facility] Last Admin: 01/31/18 09:20 Dose: 25 mg Multivitamins/Minerals (Theragran-M) 1 each PO DAILY [facility] Last Admin: 01/31/18 09:20 Dose: 1 each Vancomycin HCl (Vancomycin Oral Solution) 125 mg PO DAILY [facility] Last Admin: 01/31/18 09:20 Dose: Not Given - Objective Vital Signs: Vital Signs Temperature 97.9 F 01/31/18 05:00 Pulse Rate 62 01/31/18 05:00 Respiratory Rate 20 01/31/18 05:00 Blood Pressure 115/64 01/31/18 05:00 O2 Sat by Pulse Oximetry (%) 96 01/31/18 06:00 Constitutional: Yes: Well Nourished, Calm Eyes: Yes: WNL HENT: Yes: WNL Neck: Yes: WNL Cardiovascular: Yes: Pulse Irregular, S1, S2 Respiratory: Yes: Rales, Rhonchi (BILATERAL RALES AND RHONCHI) Gastrointestinal: Yes: Normal Bowel Sounds, Soft Extremities: Yes: WNL Edema: Yes Labs: CBC, BMP 01/31/18 06:25 01/31/18 06:25 INR, PTT INR 2.23 (0.82-1.09) H 01/26/18 15:32 Problem List - Problems (1) CHF (congestive heart failure) Code(s): I50.9 - HEART FAILURE, UNSPECIFIED Qualifiers: Heart failure type: combined systolic and diastolic Heart failure chronicity: acute on chronic Qualified Code(s): I50.43 - Acute on chronic combined systolic (congestive) and diastolic (congestive) heart failure (2) Elevated troponin Code(s): R74.8 - ABNORMAL LEVELS OF OTHER SERUM ENZYMES (3) Acute on chronic diastolic (congestive) heart failure Code(s): I50.33 - ACUTE ON CHRONIC DIASTOLIC (CONGESTIVE) HEART FAILURE (4) Atrial fibrillation Code(s): I48.91 - UNSPECIFIED ATRIAL FIBRILLATION Qualifiers: Atrial fibrillation type: chronic Qualified Code(s): I48.2 - Chronic atrial fibrillation (5) H/O aortic valve replacement Code(s): Z95.2 - PRESENCE OF PROSTHETIC HEART VALVE (6) Hematuria Code(s): R31.9 - HEMATURIA, UNSPECIFIED (7) History of aortic valve replacement with bioprosthetic valve Code(s): Z95.4 - PRESENCE OF OTHER HEART-VALVE REPLACEMENT (8) Leg swelling Code(s): M79.89 - OTHER SPECIFIED SOFT TISSUE DISORDERS (9) Shortness of breath Code(s): R06.02 - SHORTNESS OF BREATH Assessment/Plan Acute on Chronic Diastolic Heart Failure Cellulitis Mitral Regurgitation h/o AVR CAD s/p CABG Atrial Fibrillation +Troponins likely Demand Ischemia Lactic Acidosis likely from respiratory effort Chronic Hypoxic Respiratory Failure Hematuria h/o C Diff Pulmonary HTN - IV lasix - monitor urine output, creatinine - daily weights - rate controlled - continue anticoagulation - monitor hematuria, H/H - continue antibiotics - FABIÁN CHATMAN
--- NOTE | 2018-01-31 15:55 | PN ---
Progress Note, Physician History of Present Illness: stable still very uncomfortable legs looking good still with some pain in the rt leg - Current Medication List Current Medications: Active Medications Albuterol Sulfate (Ventolin 0.083% Nebulizer Soln -) 1 amp NEB TIDR [facility] Last Admin: 01/31/18 13:23 Dose: 1 amp Apixaban (Eliquis -) 2.5 mg PO BID [facility] Last Admin: 01/31/18 09:20 Dose: 2.5 mg Furosemide (Lasix Injection -) 40 mg IVPUSH DAILY [facility] Last Admin: 01/31/18 10:44 Dose: Not Given Cefazolin Sodium 1 gm/ (Dextrose) 50 mls @ 100 mls/hr IVPB Q8H-IV [facility] Last Admin: 01/31/18 09:20 Dose: 100 mls/hr Lactobacillus Acidophilus (Bacid -) 1 tab PO BID [facility] Last Admin: 01/31/18 09:20 Dose: 1 tab Metoprolol Succinate (Toprol Xl -) 25 mg PO DAILY [facility] Last Admin: 01/31/18 09:20 Dose: 25 mg Multivitamins/Minerals (Theragran-M) 1 each PO DAILY [facility] Last Admin: 01/31/18 09:20 Dose: 1 each Vancomycin HCl (Vancomycin Oral Solution) 125 mg PO DAILY [facility] Last Admin: 01/31/18 09:20 Dose: Not Given - Objective Vital Signs: Vital Signs Temperature 98 F 01/31/18 15:00 Pulse Rate 62 01/31/18 15:00 Respiratory Rate 20 01/31/18 15:00 Blood Pressure 91/43 01/31/18 15:00 O2 Sat by Pulse Oximetry (%) 96 01/31/18 09:00 Constitutional: Yes: Calm, Mild Distress Cardiovascular: Yes: S1, S2 Respiratory: Yes: Regular, On Nasal O2, Poor Air Entry Gastrointestinal: Yes: Normal Bowel Sounds, Soft Musculoskeletal: Yes: WNL Extremities: Yes: Erythema (rt lower ext with tenderness) Integumentary: Yes: Erythema (improved) Neurological: Yes: Alert, Oriented Psychiatric: Yes: Alert, Oriented Labs: CBC, BMP 01/31/18 06:25 01/31/18 06:25 INR, PTT INR 2.23 (0.82-1.09) H 01/26/18 15:32 Assessment/Plan Problem List - Problems (1) Acute respiratory failure with hypoxia Code(s): J96.01 - ACUTE RESPIRATORY FAILURE WITH HYPOXIA (2) Acute on chronic diastolic (congestive) heart failure Code(s): I50.33 - ACUTE ON CHRONIC DIASTOLIC (CONGESTIVE) HEART FAILURE (3) Cellulitis Code(s): L03.90 - CELLULITIS, UNSPECIFIED Qualifiers: Site of cellulitis: extremity Site of cellulitis of extremity: lower extremity Laterality: right Qualified Code(s): L03.115 - Cellulitis of right lower limb (4) Atrial fibrillation Code(s): I48.91 - UNSPECIFIED ATRIAL FIBRILLATION Qualifiers: Atrial fibrillation type: chronic Qualified Code(s): I48.2 - Chronic atrial fibrillation (5) History of aortic valve replacement with bioprosthetic valve Code(s): Z95.4 - PRESENCE OF OTHER HEART-VALVE REPLACEMENT (6) Hypertension Code(s): I10 - ESSENTIAL (PRIMARY) HYPERTENSION (7) Elevated troponin Code(s): R74.8 - ABNORMAL LEVELS OF OTHER SERUM ENZYMES (8) Sepsis Code(s): A41.9 - SEPSIS, UNSPECIFIED ORGANISM Qualifiers: Sepsis type: sepsis due to unspecified organism Qualified Code(s): A41.9 - Sepsis, unspecified organism (9) Clostridium difficile colitis Code(s): A04.72 - ENTEROCOLITIS D/T CLOSTRIDIUM DIFFICILE, NOT SPCF RECUR 10 hematuria plan continue abx elevation of the leg monitor progress of cellulittis nutrition rest as per cardio and primary care
--- NOTE | 2018-01-31 16:49 | PN ---
Progress Note, Physician Chief Complaint: Mr Covarrubias says he is doing well today. Says his breathing is much better and his legs are not hurting. No cp or n/v. - Current Medication List Current Medications: Active Medications Albuterol Sulfate (Ventolin 0.083% Nebulizer Soln -) 1 amp NEB TIDR [facility] Last Admin: 01/31/18 13:23 Dose: 1 amp Apixaban (Eliquis -) 2.5 mg PO BID [facility] Last Admin: 01/31/18 09:20 Dose: 2.5 mg Furosemide (Lasix Injection -) 40 mg IVPUSH DAILY [facility] Last Admin: 01/31/18 10:44 Dose: Not Given Cefazolin Sodium 1 gm/ (Dextrose) 50 mls @ 100 mls/hr IVPB Q8H-IV [facility] Last Admin: 01/31/18 09:20 Dose: 100 mls/hr Lactobacillus Acidophilus (Bacid -) 1 tab PO BID [facility] Last Admin: 01/31/18 09:20 Dose: 1 tab Metoprolol Succinate (Toprol Xl -) 25 mg PO DAILY [facility] Last Admin: 01/31/18 09:20 Dose: 25 mg Multivitamins/Minerals (Theragran-M) 1 each PO DAILY [facility] Last Admin: 01/31/18 09:20 Dose: 1 each Vancomycin HCl (Vancomycin Oral Solution) 125 mg PO DAILY [facility] Last Admin: 01/31/18 09:20 Dose: Not Given - Objective Vital Signs: Vital Signs Temperature 36.6 C 01/31/18 15:00 Pulse Rate 62 01/31/18 15:00 Respiratory Rate 20 01/31/18 15:00 Blood Pressure 91/43 01/31/18 15:00 O2 Sat by Pulse Oximetry (%) 96 01/31/18 09:00 Constitutional: Yes: Well Nourished, No Distress, Calm Cardiovascular: Yes: Pulse Irregular. No: Tachycardia, Gallop, Murmur, Rub Respiratory: Yes: Regular, CTA Bilaterally, On Nasal O2. No: Rales, Rhonchi, Wheezes Gastrointestinal: Yes: Normal Bowel Sounds, Soft. No: Distention, Tenderness Extremities: Yes: Erythema (much improved) Edema: Yes Edema: LLE: 1+, RLE: 1+ Labs: CBC, BMP 01/31/18 06:25 01/31/18 06:25 INR, PTT INR 2.23 (0.82-1.09) H 01/26/18 15:32 Problem List - Problems (1) Acute respiratory failure with hypoxia Code(s): J96.01 - ACUTE RESPIRATORY FAILURE WITH HYPOXIA (2) Acute on chronic diastolic (congestive) heart failure Code(s): I50.33 - ACUTE ON CHRONIC DIASTOLIC (CONGESTIVE) HEART FAILURE (3) Cellulitis Code(s): L03.90 - CELLULITIS, UNSPECIFIED Qualifiers: Site of cellulitis: extremity Site of cellulitis of extremity: lower extremity Laterality: right Qualified Code(s): L03.115 - Cellulitis of right lower limb (4) Atrial fibrillation Code(s): I48.91 - UNSPECIFIED ATRIAL FIBRILLATION Qualifiers: Atrial fibrillation type: chronic Qualified Code(s): I48.2 - Chronic atrial fibrillation (5) History of aortic valve replacement with bioprosthetic valve Code(s): Z95.4 - PRESENCE OF OTHER HEART-VALVE REPLACEMENT (6) Hypertension Code(s): I10 - ESSENTIAL (PRIMARY) HYPERTENSION (7) Elevated troponin Code(s): R74.8 - ABNORMAL LEVELS OF OTHER SERUM ENZYMES (8) Sepsis Code(s): A41.9 - SEPSIS, UNSPECIFIED ORGANISM Qualifiers: Sepsis type: sepsis due to unspecified organism Qualified Code(s): A41.9 - Sepsis, unspecified organism (9) Clostridium difficile colitis Code(s): A04.72 - ENTEROCOLITIS D/T CLOSTRIDIUM DIFFICILE, NOT SPCF RECUR Assessment/Plan (1) Acute respiratory failure with hypoxia Assessment/Plan: -patient says feeling much better -? if aspect of aspiration -await modified barium swallow results -continue IV lasix -continue oxygen support Code(s): J96.01 - ACUTE RESPIRATORY FAILURE WITH HYPOXIA (2) Acute on chronic diastolic (congestive) heart failure Assessment/Plan: -cardiology following -lasix 40mg IV daily (3) Cellulitis -continue cefazolin -ID following -much improved Code(s): L03.90 - CELLULITIS, UNSPECIFIED Qualifiers: Site of cellulitis: extremity Site of cellulitis of extremity: lower extremity Laterality: right Qualified Code(s): L03.115 - Cellulitis of right lower limb (4) Atrial fibrillation Assessment/Plan: -controlled -continue eliquis -continue toprol xl Code(s): I48.91 - UNSPECIFIED ATRIAL FIBRILLATION Qualifiers: Atrial fibrillation type: chronic Qualified Code(s): I48.2 - Chronic atrial fibrillation (5) History of aortic valve replacement with bioprosthetic valve Assessment/Plan: -present Code(s): Z95.4 - PRESENCE OF OTHER HEART-VALVE REPLACEMENT (6) Hypertension Assessment/Plan: -continue current regimen Code(s): I10 - ESSENTIAL (PRIMARY) HYPERTENSION (7) Elevated troponin Assessment/Plan: -cardiology following -continue current regimen Code(s): R74.8 - ABNORMAL LEVELS OF OTHER SERUM ENZYMES (8) Sepsis Assessment/Plan: -resolved Code(s): A41.9 - SEPSIS, UNSPECIFIED ORGANISM Qualifiers: Sepsis type: sepsis due to unspecified organism Qualified Code(s): A41.9 - Sepsis, unspecified organism (9) Clostridium difficile colitis Assessment/Plan: -continue oral vancomycin Code(s): A04.72 - ENTEROCOLITIS D/T CLOSTRIDIUM DIFFICILE, NOT SPCF RECUR
--- NOTE | 2018-02-01 00:05 | EKG ---
Test Reason : Blood Pressure : / mmHG Vent. Rate : 063 BPM Atrial Rate : 072 BPM P-R Int : 000 ms QRS Dur : 158 ms QT Int : 470 ms P-R-T Axes : 000 268 105 degrees QTc Int : 480 ms Ventricular-paced rhythm WITH OCCASIONAL PREMATURE VENTRICULAR COMPLEXES ABNORMAL ECG WHEN COMPARED WITH ECG OF 26-JAN-2018 14:52, NO SIGNIFICANT CHANGE WAS FOUND Confirmed by GREYSON CARLSON MD ([id number]) on 02/01/2018 12:05:03 AM Referred By: Rolanda CUELLAR Confirmed By:GREYSON CARLSON MD
[2018-02-01] MEDS ORDERED: ceFAZolin SODIUM 1 GM VIAL ONE ×2 (01:16→10:27)
[2018-02-01] MEDS ORDERED: DEXTROSE 5%-WATER - 50 ML IVPB ONE ×2 (01:16→10:27)
[2018-02-01] MEDS: CEFAZOLIN 1 GM in DEXTROSE 5%-WATER - 50 ML IVPB SCH ×2 (01:19→13:01)
[2018-02-01] MEDS: ALBUTEROL SO4 0.083% IH SOL 2.5 MG/3 ML VIAL.NEB. NEB SCH ×3 (06:16→21:43)
[2018-02-01 07:58] LABS: BASO % 0.7 % (0-2.0); EOS % 2.4 % (0-4.5); HEMATOCRIT 38.7 % (35.4-49); HEMOGLOBIN 12.7 GM/dL (11.7-16.9); LYMPH % 21.5 % (8-40); MCH 32.1 pg (25.7-33.7); MCHC 32.9 g/dl (32.0-35.9); MEAN CELL VOLUME 97.4 fl (80-96); MEAN PLT VOLUME 9.6 fl (7.5-11.1); MONO % 10.1 % (3.8-10.2); NEUT % 65.3 % (42.8-82.8); PLATELET COUNT 115 K/MM3 (134-434); RBC 3.97 M/mm3 (4.00-5.60); WHITE BLOOD COUNT 5.6 K/mm3 (4.0-10.0)
[2018-02-01 08:20] LABS: CHLORIDE 94 mmol/L (98-107); POTASSIUM 4.3 mmol/L (3.5-5.1); SODIUM 138 mmol/L (136-145)
[2018-02-01 09:07] LABS: ANION GAP 9 (8-16); BLOOD UREA NITROGEN 39 mg/dL (7-18); CALCIUM 8.8 mg/dL (8.5-10.1); CO2 35 mmol/L (21-32); CREATININE 1.3 mg/dL (0.7-1.3); GLUCOSE,RANDOM 87 mg/dL (74-106); MAGNESIUM 2.3 mg/dL (1.8-2.4); PHOSPHOROUS 2.9 mg/dL (2.5-4.9)
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
--- NOTE | 2018-02-01 10:36 | PN ---
Progress Note, Physician History of Present Illness: PULMONARY ALERT,STILL CONGESTED,MILDLY DYSPNEIC - Current Medication List Current Medications: Active Medications Albuterol Sulfate (Ventolin 0.083% Nebulizer Soln -) 1 amp NEB TIDR [facility] Last Admin: 02/01/18 06:16 Dose: 1 amp Apixaban (Eliquis -) 2.5 mg PO BID [facility] Last Admin: 01/31/18 21:32 Dose: 2.5 mg Furosemide (Lasix Injection -) 40 mg IVPUSH DAILY [facility] Last Admin: 01/31/18 10:44 Dose: Not Given Cefazolin Sodium 1 gm/ (Dextrose) 50 mls @ 100 mls/hr IVPB Q8H-IV [facility] Last Admin: 02/01/18 01:19 Dose: 100 mls/hr Lactobacillus Acidophilus (Bacid -) 1 tab PO BID [facility] Last Admin: 01/31/18 21:32 Dose: 1 tab Metoprolol Succinate (Toprol Xl -) 25 mg PO DAILY [facility] Last Admin: 01/31/18 09:20 Dose: 25 mg Multivitamins/Minerals (Theragran-M) 1 each PO DAILY [facility] Last Admin: 01/31/18 09:20 Dose: 1 each Vancomycin HCl (Vancomycin Oral Solution) 125 mg PO DAILY [facility] Last Admin: 01/31/18 09:20 Dose: Not Given - Objective Vital Signs: Vital Signs Temperature 97.7 F 02/01/18 06:00 Pulse Rate 59 L 02/01/18 06:00 Respiratory Rate 18 02/01/18 06:00 Blood Pressure 94/61 02/01/18 06:00 O2 Sat by Pulse Oximetry (%) 98 01/31/18 21:00 Constitutional: Yes: Calm, Thin Eyes: Yes: WNL HENT: Yes: WNL Neck: Yes: WNL Cardiovascular: Yes: Pulse Irregular, S1, S2 Respiratory: Yes: Rales, Wheezes (SCATTERED FELICITA WHEEZES AND CRACKLES) Gastrointestinal: Yes: Normal Bowel Sounds, Soft Extremities: Yes: WNL Edema: No Labs: CBC, BMP 02/01/18 06:36 02/01/18 06:36 INR, PTT INR 2.23 (0.82-1.09) H 01/26/18 15:32 Problem List - Problems (1) CHF (congestive heart failure) Code(s): I50.9 - HEART FAILURE, UNSPECIFIED Qualifiers: Qualified Code(s): I50.43 - Acute on chronic combined systolic (congestive) and diastolic (congestive) heart failure (2) Elevated troponin Code(s): R74.8 - ABNORMAL LEVELS OF OTHER SERUM ENZYMES (3) Acute on chronic diastolic (congestive) heart failure Code(s): I50.33 - ACUTE ON CHRONIC DIASTOLIC (CONGESTIVE) HEART FAILURE (4) Atrial fibrillation Code(s): I48.91 - UNSPECIFIED ATRIAL FIBRILLATION Qualifiers: Qualified Code(s): I48.2 - Chronic atrial fibrillation (5) H/O aortic valve replacement Code(s): Z95.2 - PRESENCE OF PROSTHETIC HEART VALVE (6) Hematuria Code(s): R31.9 - HEMATURIA, UNSPECIFIED (7) History of aortic valve replacement with bioprosthetic valve Code(s): Z95.4 - PRESENCE OF OTHER HEART-VALVE REPLACEMENT (8) Leg swelling Code(s): M79.89 - OTHER SPECIFIED SOFT TISSUE DISORDERS (9) Shortness of breath Code(s): R06.02 - SHORTNESS OF BREATH Assessment/Plan Acute on Chronic Diastolic Heart Failure Cellulitis Mitral Regurgitation h/o AVR CAD s/p CABG Atrial Fibrillation +Troponins likely Demand Ischemia Lactic Acidosis likely from respiratory effort Chronic Hypoxic Respiratory Failure Hematuria h/o C Diff Pulmonary HTN - IV lasix - monitor urine output, creatinine - daily weights - rate controlled - continue anticoagulation - monitor hematuria, H/H - continue antibiotics - FABIÁN CHATMAN
--- NOTE | 2018-02-01 10:56 | PN ---
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 REC: double, hard swalloows, alternate solid with liquid, fully upright to 90 degrees while eating, finish meals with liquid. Written swallowing strategies provided to pt and AUTO MECHANIC.
--- NOTE | 2018-02-01 10:58 | PN ---
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
--- NOTE | 2018-02-01 11:17 | PN ---
Progress Note, Physician Chief Complaint: Mr Covarrubias says he is doing well today. Says his breathing is improved but not at baseline. Leg pain resolved. No cp or n/v. - Current Medication List Current Medications: Active Medications Albuterol Sulfate (Ventolin 0.083% Nebulizer Soln -) 1 amp NEB TIDR [facility] Last Admin: 02/01/18 06:16 Dose: 1 amp Apixaban (Eliquis -) 2.5 mg PO BID [facility] Last Admin: 01/31/18 21:32 Dose: 2.5 mg Furosemide (Lasix Injection -) 40 mg IVPUSH DAILY [facility] Last Admin: 01/31/18 10:44 Dose: Not Given Cefazolin Sodium 1 gm/ (Dextrose) 50 mls @ 100 mls/hr IVPB Q8H-IV [facility] Last Admin: 02/01/18 01:19 Dose: 100 mls/hr Lactobacillus Acidophilus (Bacid -) 1 tab PO BID [facility] Last Admin: 01/31/18 21:32 Dose: 1 tab Metoprolol Succinate (Toprol Xl -) 25 mg PO DAILY [facility] Last Admin: 01/31/18 09:20 Dose: 25 mg Multivitamins/Minerals (Theragran-M) 1 each PO DAILY [facility] Last Admin: 01/31/18 09:20 Dose: 1 each Vancomycin HCl (Vancomycin Oral Solution) 125 mg PO DAILY [facility] Last Admin: 01/31/18 09:20 Dose: Not Given - Objective Vital Signs: Vital Signs Temperature 36.5 C 02/01/18 06:00 Pulse Rate 59 L 02/01/18 06:00 Respiratory Rate 18 02/01/18 06:00 Blood Pressure 94/61 02/01/18 06:00 O2 Sat by Pulse Oximetry (%) 98 01/31/18 21:00 Constitutional: Yes: Well Nourished, No Distress, Calm Cardiovascular: Yes: Regular Rate and Rhythm. No: Gallop, Murmur, Rub Respiratory: Yes: Regular, On Nasal O2, Rhonchi. No: CTA Bilaterally, Rales, Wheezes Gastrointestinal: Yes: Normal Bowel Sounds, Soft. No: Distention, Tenderness Extremities: Yes: Erythema Edema: Yes Edema: LLE: Trace, RLE: Trace Labs: CBC, BMP 02/01/18 06:36 02/01/18 06:36 INR, PTT INR 2.23 (0.82-1.09) H 01/26/18 15:32 Problem List - Problems (1) Acute respiratory failure with hypoxia Code(s): J96.01 - ACUTE RESPIRATORY FAILURE WITH HYPOXIA (2) Acute on chronic diastolic (congestive) heart failure Code(s): I50.33 - ACUTE ON CHRONIC DIASTOLIC (CONGESTIVE) HEART FAILURE (3) Cellulitis Code(s): L03.90 - CELLULITIS, UNSPECIFIED Qualifiers: Site of cellulitis: extremity Site of cellulitis of extremity: lower extremity Laterality: right Qualified Code(s): L03.115 - Cellulitis of right lower limb (4) Atrial fibrillation Code(s): I48.91 - UNSPECIFIED ATRIAL FIBRILLATION Qualifiers: Atrial fibrillation type: chronic Qualified Code(s): I48.2 - Chronic atrial fibrillation (5) History of aortic valve replacement with bioprosthetic valve Code(s): Z95.4 - PRESENCE OF OTHER HEART-VALVE REPLACEMENT (6) Hypertension Code(s): I10 - ESSENTIAL (PRIMARY) HYPERTENSION (7) Elevated troponin Code(s): R74.8 - ABNORMAL LEVELS OF OTHER SERUM ENZYMES (8) Sepsis Code(s): A41.9 - SEPSIS, UNSPECIFIED ORGANISM Qualifiers: Sepsis type: sepsis due to unspecified organism Qualified Code(s): A41.9 - Sepsis, unspecified organism (9) Clostridium difficile colitis Code(s): A04.72 - ENTEROCOLITIS D/T CLOSTRIDIUM DIFFICILE, NOT SPCF RECUR Assessment/Plan (1) Acute respiratory failure with hypoxia Assessment/Plan: -continue oxygen support -continue IV lasix -improved -d/w speech therapy, no renny to change diet Code(s): J96.01 - ACUTE RESPIRATORY FAILURE WITH HYPOXIA (2) Acute on chronic diastolic (congestive) heart failure Assessment/Plan: -cardiology following -lasix 40mg IV daily (3) Cellulitis -continue cefazolin -ID following -much improved Code(s): L03.90 - CELLULITIS, UNSPECIFIED Qualifiers: Site of cellulitis: extremity Site of cellulitis of extremity: lower extremity Laterality: right Qualified Code(s): L03.115 - Cellulitis of right lower limb (4) Atrial fibrillation Assessment/Plan: -controlled -continue eliquis -continue toprol xl Code(s): I48.91 - UNSPECIFIED ATRIAL FIBRILLATION Qualifiers: Atrial fibrillation type: chronic Qualified Code(s): I48.2 - Chronic atrial fibrillation (5) History of aortic valve replacement with bioprosthetic valve Assessment/Plan: -present Code(s): Z95.4 - PRESENCE OF OTHER HEART-VALVE REPLACEMENT (6) Hypertension Assessment/Plan: -continue current regimen Code(s): I10 - ESSENTIAL (PRIMARY) HYPERTENSION (7) Elevated troponin Assessment/Plan: -cardiology following -continue current regimen Code(s): R74.8 - ABNORMAL LEVELS OF OTHER SERUM ENZYMES (8) Sepsis Assessment/Plan: -resolved Code(s): A41.9 - SEPSIS, UNSPECIFIED ORGANISM Qualifiers: Sepsis type: sepsis due to unspecified organism Qualified Code(s): A41.9 - Sepsis, unspecified organism (9) Clostridium difficile colitis Assessment/Plan: -continue oral vancomycin Code(s): A04.72 - ENTEROCOLITIS D/T CLOSTRIDIUM DIFFICILE, NOT SPCF RECUR
[2018-02-01] MEDS: LACTOBACILLUS ACIDOPHILUS 1 TABLET PO SCH ×2 (12:49→21:51)
[2018-02-01] MEDS: MULTIVITAMINS THER W-MINERALS COMBO TABLET (FP) PO SCH (12:49)
[2018-02-01] MEDS: APIXABAN 2.5 MG TABLET PO SCH ×2 (12:49→21:51)
[2018-02-01] MEDS: FUROSEMIDE 40 MG/4 ML INJECTABLE VIAL IVPUSH SCH (12:50)
[2018-02-01] MEDS: metoPROLOL SUCCINATE 25 MG TAB.SR.24H (FP) PO SCH (13:01)
[2018-02-01] MEDS: VANCOMYCIN 250 MG/5 ML ORAL SOLUTION PO SCH (13:01)
--- NOTE | 2018-02-01 15:12 | PN ---
Progress Note, Physician History of Present Illness: patient uncomfortable having hematuria leg looks good - Current Medication List Current Medications: Active Medications Albuterol Sulfate (Ventolin 0.083% Nebulizer Soln -) 1 amp NEB TIDR [facility] Last Admin: 02/01/18 13:00 Dose: 1 amp Apixaban (Eliquis -) 2.5 mg PO BID [facility] Last Admin: 02/01/18 12:49 Dose: Not Given Furosemide (Lasix Injection -) 40 mg IVPUSH DAILY [facility] Last Admin: 02/01/18 12:50 Dose: 40 mg Cefazolin Sodium 1 gm/ (Dextrose) 50 mls @ 100 mls/hr IVPB Q8H-IV [facility] Last Admin: 02/01/18 13:01 Dose: 100 mls/hr Lactobacillus Acidophilus (Bacid -) 1 tab PO BID [facility] Last Admin: 02/01/18 12:49 Dose: 1 tab Metoprolol Succinate (Toprol Xl -) 25 mg PO DAILY [facility] Last Admin: 02/01/18 13:01 Dose: Not Given Multivitamins/Minerals (Theragran-M) 1 each PO DAILY [facility] Last Admin: 02/01/18 12:49 Dose: 1 each Vancomycin HCl (Vancomycin Oral Solution) 125 mg PO DAILY [facility] Last Admin: 02/01/18 13:01 Dose: 125 mg - Objective Vital Signs: Vital Signs Temperature 97.7 F 02/01/18 06:00 Pulse Rate 59 L 02/01/18 06:00 Respiratory Rate 18 02/01/18 06:00 Blood Pressure 94/61 02/01/18 06:00 O2 Sat by Pulse Oximetry (%) 98 01/31/18 21:00 Constitutional: Yes: Calm, Mild Distress Cardiovascular: Yes: S1, S2 Respiratory: Yes: Regular, CTA Bilaterally Gastrointestinal: Yes: Normal Bowel Sounds, Soft Genitourinary: Yes: Gardner Present, Hematuria Musculoskeletal: Yes: Other Extremities: Yes: Erythema (nearly resolved) Neurological: Yes: Alert Psychiatric: Yes: Alert Labs: CBC, BMP 02/01/18 06:36 02/01/18 06:36 INR, PTT INR 2.23 (0.82-1.09) H 01/26/18 15:32 Assessment/Plan Problem List - Problems (1) Acute respiratory failure with hypoxia Code(s): J96.01 - ACUTE RESPIRATORY FAILURE WITH HYPOXIA (2) Acute on chronic diastolic (congestive) heart failure Code(s): I50.33 - ACUTE ON CHRONIC DIASTOLIC (CONGESTIVE) HEART FAILURE (3) Cellulitis Code(s): L03.90 - CELLULITIS, UNSPECIFIED Qualifiers: Site of cellulitis: extremity Site of cellulitis of extremity: lower extremity Laterality: right Qualified Code(s): L03.115 - Cellulitis of right lower limb (4) Atrial fibrillation Code(s): I48.91 - UNSPECIFIED ATRIAL FIBRILLATION Qualifiers: Atrial fibrillation type: chronic Qualified Code(s): I48.2 - Chronic atrial fibrillation (5) History of aortic valve replacement with bioprosthetic valve Code(s): Z95.4 - PRESENCE OF OTHER HEART-VALVE REPLACEMENT (6) Hypertension Code(s): I10 - ESSENTIAL (PRIMARY) HYPERTENSION (7) Elevated troponin Code(s): R74.8 - ABNORMAL LEVELS OF OTHER SERUM ENZYMES (8) Sepsis Code(s): A41.9 - SEPSIS, UNSPECIFIED ORGANISM Qualifiers: Sepsis type: sepsis due to unspecified organism Qualified Code(s): A41.9 - Sepsis, unspecified organism (9) Clostridium difficile colitis Code(s): A04.72 - ENTEROCOLITIS D/T CLOSTRIDIUM DIFFICILE, NOT SPCF RECUR 10 hematuria plan will stop abx hematuria now elevation of the legs rest as per the team
[2018-02-01] MEDS: IPRATROPIUM BR 0.02% 0.5 MG/2.5 ML VIAL.NEB. NEB PRN (18:13)
--- NOTE | 2018-02-01 18:35 | CON.GU ---
Consult Consult Specialty:: Referred by:: alissa Reason for Consultation:: gross hematuria - History of Present Illness Chief Complaint: gross hematuria History of Present Illness: 88 year old male with CHF who was placed on diuretics. A ruhs cath was placed to monitor I+O and was reported hard to pass. He had gross hematuria. Currently the urine is yellow but not bloody. Patient and daughter deny history. Only symptom was urinary frequency when he takes diuretics. - History Source History Provided By: Patient, Family Member, Medical Record Limitations to Obtaining History: No Limitations - Past Medical History SIDING APPLICATOR: Yes: Other (weakness) Cardio/Vascular: Yes: Aortic Stenosis, CAD, CHF, HTN, Hyperlipdemia, Pulmonary Hypertension, Other (bioprosthetic AVR) Pulmonary: Yes: Other (pleural effusions) Gastrointestinal: Yes: Other (C. 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 History of Recent Travel: No Home Medications - Allergies Allergies/Adverse Reactions: Allergies Allergy/AdvReac Type Severity Reaction Status Date / Time diltiazem HCl [From Cardizem] Allergy Verified 01/26/18 14:34 meperidine HCl [From Demerol] Allergy DECREASED Verified 01/26/18 14:34 BP AND LETHARGY lactose AdvReac Verified 01/26/18 14:34 - Home Medications Home Medications: Ambulatory Orders Metoprolol Succinate [Toprol XL -] 25 mg PO DAILY 05/08/16 Multivitamin with Minerals [Icaps Plus] 1 each PO DAILY 05/08/16 Apixaban [Eliquis -] 2.5 mg PO BID #60 tablet 06/25/16 Furosemide [Lasix -] 40 mg PO DAILY #30 tablet 06/25/16 Lactobacillus Acidophilus [Bacid -] 1 each PO BID 01/26/18 Vancomycin Oral Solution 125 mg PO DAILY 01/26/18 Family Disease History - Family Disease History Family Disease History: Heart Disease: Brother ( of an IL), CA: Grandparent (colon cancer), Father (colon cancer), Other: Mother (old age) Review of Systems - Review of Systems Genitourinary: reports: Burning, Hematuria Physical Exam- Vital Signs: Vital Signs Temperature 97.6 F 02/01/18 14:00 Pulse Rate 61 02/01/18 14:00 Respiratory Rate 18 02/01/18 14:00 Blood Pressure 86/55 02/01/18 14:00 O2 Sat by Pulse Oximetry (%) 98 01/31/18 21:00 Constitutional: Yes: Well Nourished, No Distress, Calm Gastrointestinal: Yes: WNL, Normal Bowel Sounds, Soft Renal/: Yes: Rush Present, Hematuria, Scrotal Edema. No: Bladder Distention , CVA Tenderness - Left, CVA Tenderness - Right Labs: CBC, BMP 02/01/18 06:36 02/01/18 06:36 Problem List - Problems (1) Hematuria Assessment/Plan: associated with difficult rush cath placement. Rush cath removed. Code(s): R31.9 - HEMATURIA, UNSPECIFIED
[2018-02-02] MEDS: ALBUTEROL SO4 0.083% IH SOL 2.5 MG/3 ML VIAL.NEB. NEB SCH ×3 (06:20→21:42)
[2018-02-02 06:40] LABS: BASO % 0.5 % (0-2.0); EOS % 1.3 % (0-4.5); HEMOGLOBIN 12.8 GM/dL (11.7-16.9); LYMPH % 20.4 % (8-40); MCH 32.6 pg (25.7-33.7); MCHC 33.6 g/dl (32.0-35.9); MEAN CELL VOLUME 97.1 fl (80-96); MEAN PLT VOLUME 9.5 fl (7.5-11.1); MONO % 10.5 % (3.8-10.2); NEUT % 67.3 % (42.8-82.8); PLATELET COUNT 128 K/MM3 (134-434); RBC 3.92 M/mm3 (4.00-5.60); RDW 18.3 % (11.9-15.9); WHITE BLOOD COUNT 5.1 K/mm3 (4.0-10.0)
[2018-02-02 08:11] LABS: ANION GAP 6 (8-16); BLOOD UREA NITROGEN 38 mg/dL (7-18); CALCIUM 8.8 mg/dL (8.5-10.1); CHLORIDE 97 mmol/L (98-107); CO2 37 mmol/L (21-32); CREATININE 1.2 mg/dL (0.7-1.3); GLUCOSE,RANDOM 88 mg/dL (74-106); MAGNESIUM 2.4 mg/dL (1.8-2.4); PHOSPHOROUS 2.7 mg/dL (2.5-4.9); POTASSIUM 4.3 mmol/L (3.5-5.1); SODIUM 140 mmol/L (136-145)
--- NOTE | 2018-02-02 08:49 | PN ---
Progress Note (short form) - Note Progress Note: Dr. Rollins to document today. Pain in rectum but large BM there and allevyn pad over a stage 3 sacral ulcer.
[2018-02-02] MEDS: MULTIVITAMINS THER W-MINERALS COMBO TABLET (FP) PO SCH (09:36)
[2018-02-02] MEDS: FUROSEMIDE 40 MG/4 ML INJECTABLE VIAL IVPUSH SCH (09:36)
[2018-02-02] MEDS: metoPROLOL SUCCINATE 25 MG TAB.SR.24H (FP) PO SCH (09:36)
[2018-02-02] MEDS: APIXABAN 2.5 MG TABLET PO SCH ×2 (09:36→21:29)
[2018-02-02] MEDS: LACTOBACILLUS ACIDOPHILUS 1 TABLET PO SCH ×2 (09:36→21:29)
[2018-02-02] MEDS: VANCOMYCIN 250 MG/5 ML ORAL SOLUTION PO SCH (09:46)
--- NOTE | 2018-02-02 10:28 | PN ---
Progress Note, Physician History of Present Illness: pulmonary dyspneic,congested on nasal o2 - Current Medication List Current Medications: Active Medications Albuterol Sulfate (Ventolin 0.083% Nebulizer Soln -) 1 amp NEB TIDR [facility] Last Admin: 02/02/18 06:20 Dose: 1 amp Apixaban (Eliquis -) 2.5 mg PO BID [facility] Last Admin: 02/02/18 09:36 Dose: 2.5 mg Furosemide (Lasix Injection -) 40 mg IVPUSH DAILY [facility] Last Admin: 02/02/18 09:36 Dose: 40 mg Ipratropium [place] (Atrovent 0.02% Nebulizer -) 1 amp NEB Q6H PRN PRN Reason: SHORTNESS OF BREATH Last Admin: 02/01/18 18:13 Dose: 1 amp Lactobacillus Acidophilus (Bacid -) 1 tab PO BID [facility] Last Admin: 02/02/18 09:36 Dose: 1 tab Metoprolol Succinate (Toprol Xl -) 25 mg PO DAILY [facility] Last Admin: 02/02/18 09:36 Dose: 25 mg Multivitamins/Minerals (Theragran-M) 1 each PO DAILY [facility] Last Admin: 02/02/18 09:36 Dose: 1 each Vancomycin HCl (Vancomycin Oral Solution) 125 mg PO DAILY [facility] Last Admin: 02/02/18 09:46 Dose: 125 mg - Objective Vital Signs: Vital Signs Temperature 97.8 F 02/02/18 05:00 Pulse Rate 60 02/02/18 05:00 Respiratory Rate 20 02/02/18 05:00 Blood Pressure 89/43 02/02/18 05:00 O2 Sat by Pulse Oximetry (%) 98 02/02/18 08:00 Constitutional: Yes: Mild Distress, Thin Eyes: Yes: WNL HENT: Yes: WNL Neck: Yes: WNL Cardiovascular: Yes: Pulse Irregular, S1, S2 Respiratory: Yes: Rales (obi wheezes and rhonchi), Wheezes Gastrointestinal: Yes: Normal Bowel Sounds, Soft Extremities: Yes: WNL Edema: Yes Labs: CBC, BMP 02/02/18 05:00 02/02/18 06:00 INR, PTT INR 2.23 (0.82-1.09) H 01/26/18 15:32 - ....Imaging Chest X-ray: Report Reviewed, Image Reviewed Problem List - Problems (1) CHF (congestive heart failure) Code(s): I50.9 - HEART FAILURE, UNSPECIFIED Qualifiers: Heart failure type: combined systolic and diastolic Heart failure chronicity: acute on chronic Qualified Code(s): I50.43 - Acute on chronic combined systolic (congestive) and diastolic (congestive) heart failure (2) Elevated troponin Code(s): R74.8 - ABNORMAL LEVELS OF OTHER SERUM ENZYMES (3) Acute on chronic diastolic (congestive) heart failure Code(s): I50.33 - ACUTE ON CHRONIC DIASTOLIC (CONGESTIVE) HEART FAILURE (4) Atrial fibrillation Code(s): I48.91 - UNSPECIFIED ATRIAL FIBRILLATION Qualifiers: Atrial fibrillation type: chronic Qualified Code(s): I48.2 - Chronic atrial fibrillation (5) H/O aortic valve replacement Code(s): Z95.2 - PRESENCE OF PROSTHETIC HEART VALVE (6) Hematuria Code(s): R31.9 - HEMATURIA, UNSPECIFIED (7) History of aortic valve replacement with bioprosthetic valve Code(s): Z95.4 - PRESENCE OF OTHER HEART-VALVE REPLACEMENT (8) Leg swelling Code(s): M79.89 - OTHER SPECIFIED SOFT TISSUE DISORDERS (9) Shortness of breath Code(s): R06.02 - SHORTNESS OF BREATH Assessment/Plan Acute on Chronic Diastolic Heart Failure Cellulitis Mitral Regurgitation h/o AVR CAD s/p CABG Atrial Fibrillation +Troponins likely Demand Ischemia Lactic Acidosis likely from respiratory effort Chronic Hypoxic Respiratory Failure Hematuria h/o C Diff Pulmonary HTN - IV lasix - Inhaled bronchodilators - steroids - monitor urine output, creatinine - daily weights - rate controlled - continue anticoagulation - monitor hematuria, H/H - continue antibiotics - DR CHATMAN
--- NOTE | 2018-02-02 11:09 | PN ---
Progress Note, GUM ROLLING MACHINE OPERATOR - Note Progress Note: Pt education/reviewed again with SHRINKER and handout provided for carry over at home. fully upright to 90 degrees while eating double, hard swallows to clear residue of food in your throat alternate solid with sip of liquid finish meals with liquid. Selected Entries 02/02/18 02/02/18 02/02/18 05:00 07:41 10:45 Breakfast 25% Supper 25% Temperature 97.8 F Laboratory Tests 02/02/18 05:00 WBC 5.1 CXR noted. Sitting bedside independently with NC. Looks comfortable.
--- NOTE | 2018-02-02 11:12 | PN ---
Progress Note, SENIOR ACCOUNT DIRECTOR - Note Progress Note: fully upright to 90 degrees while eating double, hard swallows to clear residue of food in your throat alternate solid with sip of liquid finish meals with liquid.
--- NOTE | 2018-02-02 11:18 | PN ---
Progress Note, Physician - Current Medication List Current Medications: Active Medications Albuterol Sulfate (Ventolin 0.083% Nebulizer Soln -) 1 amp NEB TIDR [facility] Last Admin: 02/02/18 06:20 Dose: 1 amp Apixaban (Eliquis -) 2.5 mg PO BID [facility] Last Admin: 02/02/18 09:36 Dose: 2.5 mg Furosemide (Lasix Injection -) 40 mg IVPUSH DAILY [facility] Last Admin: 02/02/18 09:36 Dose: 40 mg Ipratropium [place] (Atrovent 0.02% Nebulizer -) 1 amp NEB Q6H PRN PRN Reason: SHORTNESS OF BREATH Last Admin: 02/01/18 18:13 Dose: 1 amp Lactobacillus Acidophilus (Bacid -) 1 tab PO BID [facility] Last Admin: 02/02/18 09:36 Dose: 1 tab Methylprednisolone Sodium Succinate (Solu-Medrol -) 40 mg IVPUSH Q6H-IV [facility] Metoprolol Succinate (Toprol Xl -) 25 mg PO DAILY [facility] Last Admin: 02/02/18 09:36 Dose: 25 mg Multivitamins/Minerals (Theragran-M) 1 each PO DAILY [facility] Last Admin: 02/02/18 09:36 Dose: 1 each Vancomycin HCl (Vancomycin Oral Solution) 125 mg PO DAILY [facility] Last Admin: 02/02/18 09:46 Dose: 125 mg - Objective Vital Signs: Vital Signs Temperature 97.8 F 02/02/18 05:00 Pulse Rate 60 02/02/18 05:00 Respiratory Rate 20 02/02/18 05:00 Blood Pressure 89/43 02/02/18 05:00 O2 Sat by Pulse Oximetry (%) 98 02/02/18 08:00 Eyes: Yes: WNL, Conjunctiva Clear, EOM Intact HENT: Yes: WNL, Atraumatic, Normocephalic Neck: Yes: WNL, Supple, Trachea Midline Cardiovascular: Yes: Pulse Irregular, S1, S2 Respiratory: Yes: WNL, Regular, CTA Bilaterally Gastrointestinal: Yes: WNL, Normal Bowel Sounds Genitourinary: Yes: WNL Musculoskeletal: Yes: WNL Extremities: Yes: WNL Edema: No Integumentary: Yes: WNL Neurological: Yes: WNL, Alert, Oriented ...Motor Strength: WNL Psychiatric: Yes: WNL Labs: CBC, BMP 05/23/18 05:00 02/02/18 06:00 INR, PTT INR 2.23 (0.82-1.09) H 01/26/18 15:32 Problem List - Problems (1) CHF (congestive heart failure) Code(s): I50.9 - HEART FAILURE, UNSPECIFIED Qualifiers: Heart failure type: combined systolic and diastolic Heart failure chronicity: acute on chronic Qualified Code(s): I50.43 - Acute on chronic combined systolic (congestive) and diastolic (congestive) heart failure (2) Cellulitis Code(s): L03.90 - CELLULITIS, UNSPECIFIED Qualifiers: Site of cellulitis: extremity Site of cellulitis of extremity: lower extremity Laterality: right Qualified Code(s): L03.115 - Cellulitis of right lower limb (3) DVT prophylaxis Code(s): [id number] - (4) Acute bronchitis Code(s): J20.9 - ACUTE BRONCHITIS, UNSPECIFIED Qualifiers: Bronchitis organism: rhinovirus Qualified Code(s): J20.6 - Acute bronchitis due to rhinovirus (5) Acute on chronic diastolic (congestive) heart failure Code(s): I50.33 - ACUTE ON CHRONIC DIASTOLIC (CONGESTIVE) HEART FAILURE (6) Arthritis Code(s): M19.90 - UNSPECIFIED OSTEOARTHRITIS, UNSPECIFIED SITE (7) Atrial fibrillation Code(s): I48.91 - UNSPECIFIED ATRIAL FIBRILLATION Qualifiers: Atrial fibrillation type: chronic Qualified Code(s): I48.2 - Chronic atrial fibrillation (8) Bradycardia Code(s): R00.1 - BRADYCARDIA, UNSPECIFIED (9) C. difficile diarrhea Code(s): A04.7 - ENTEROCOLITIS DUE TO CLOSTRIDIUM DIFFICILE * DO NOT USE * (10) Diarrhea Code(s): R19.7 - DIARRHEA, UNSPECIFIED Qualifiers: Diarrhea type: unspecified type Qualified Code(s): R19.7 - Diarrhea, unspecified (11) Diastolic CHF Code(s): I50.30 - UNSPECIFIED DIASTOLIC (CONGESTIVE) HEART FAILURE (12) Elevated INR Code(s): R79.1 - ABNORMAL COAGULATION PROFILE (13) Gout Code(s): M10.9 - GOUT, UNSPECIFIED (14) H/O aortic valve replacement Code(s): Z95.2 - PRESENCE OF PROSTHETIC HEART VALVE (15) Hematuria Code(s): R31.9 - HEMATURIA, UNSPECIFIED (16) History of aortic valve replacement with bioprosthetic valve Code(s): Z95.4 - PRESENCE OF OTHER HEART-VALVE REPLACEMENT (17) Hyperkalemia Code(s): E87.5 - HYPERKALEMIA (18) Hypertension Code(s): I10 - ESSENTIAL (PRIMARY) HYPERTENSION (19) Hypomagnesemia Code(s): E83.42 - HYPOMAGNESEMIA (20) Lactic acid acidosis Code(s): E87.2 - ACIDOSIS (21) Leg swelling Code(s): M79.89 - OTHER SPECIFIED SOFT TISSUE DISORDERS (22) Liver cirrhosis Code(s): K74.60 - UNSPECIFIED CIRRHOSIS OF LIVER (23) Lower extremity ulceration Code(s): L97.909 - NON-PRS CHRONIC ULC UNSP PRT OF UNSP LOW LEG W UNSP SEVERITY (24) Melanoma of upper arm Code(s): C43.60 - MALIGNANT MELANOMA OF UNSP UPPER LIMB, INCLUDING SHOULDER (25) Nausea & vomiting Code(s): R11.2 - NAUSEA WITH VOMITING, UNSPECIFIED (26) Osteoarthritis of both knees Code(s): M17.0 - BILATERAL PRIMARY OSTEOARTHRITIS OF KNEE (27) Pacemaker Code(s): Z95.0 - PRESENCE OF CARDIAC PACEMAKER (28) Phlebitis after infusion Code(s): T80.1XXA - VASCULAR COMP FOL INFUSN, TRANFS AND THERAPUTC INJECT, INIT (29) Rectal bleeding Code(s): K62.5 - HEMORRHAGE OF ANUS AND RECTUM (30) Respiratory acidosis Code(s): E87.2 - ACIDOSIS (31) Sepsis Code(s): A41.9 - SEPSIS, UNSPECIFIED ORGANISM Qualifiers: Sepsis type: sepsis due to unspecified organism Qualified Code(s): A41.9 - Sepsis, unspecified organism (32) Shortness of breath Code(s): R06.02 - SHORTNESS OF BREATH (33) Supratherapeutic INR Code(s): R79.1 - ABNORMAL COAGULATION PROFILE (34) Systolic CHF Code(s): I50.20 - UNSPECIFIED SYSTOLIC (CONGESTIVE) HEART FAILURE Assessment/Plan s/p Decompensated CHF s/p lactic acidosis ? sepsis, hypoperfussion CABG (SANCHEZ to LAD; SVG to PDA) and pericardial aortic valve 12/23 at [facility] (Dr. Yaya Green) Left upper arm surgery for "malignant melanoma" VVIR [employer] PPM (implanted 09/07/2014) AF anxiety/depression CAD (denies hx CT) and aortic stenosis--> 2 vessel CABG and AoVR on 12/23 DM HTN severe "arthritis" of both knees skin cancer on top of (bald) head diastolic CHF ECHO 04/2016: normal LVEF; moderate LVH; mild-moderate MS; mild MR and OH; trace TR. Plan cont medical rx
--- NOTE | 2018-02-02 12:26 | PN ---
Progress Note, Physician Chief Complaint: Mr Covarrubias says he is doing bad today. Says his breathing is worse. Also with nonproductive cough. No cp or n/v. - Current Medication List Current Medications: Active Medications Albuterol Sulfate (Ventolin 0.083% Nebulizer Soln -) 1 amp NEB TIDR [facility] Last Admin: 02/02/18 06:20 Dose: 1 amp Apixaban (Eliquis -) 2.5 mg PO BID [facility] Last Admin: 02/02/18 09:36 Dose: 2.5 mg Furosemide (Lasix Injection -) 40 mg IVPUSH DAILY [facility] Last Admin: 02/02/18 09:36 Dose: 40 mg Ipratropium [place] (Atrovent 0.02% Nebulizer -) 1 amp NEB Q6H PRN PRN Reason: SHORTNESS OF BREATH Last Admin: 02/01/18 18:13 Dose: 1 amp Lactobacillus Acidophilus (Bacid -) 1 tab PO BID [facility] Last Admin: 02/02/18 09:36 Dose: 1 tab Methylprednisolone Sodium Succinate (Solu-Medrol -) 40 mg IVPUSH Q6H-IV [facility] Metoprolol Succinate (Toprol Xl -) 25 mg PO DAILY [facility] Last Admin: 02/02/18 09:36 Dose: 25 mg Multivitamins/Minerals (Theragran-M) 1 each PO DAILY [facility] Last Admin: 02/02/18 09:36 Dose: 1 each Vancomycin HCl (Vancomycin Oral Solution) 125 mg PO DAILY [facility] Last Admin: 02/02/18 09:46 Dose: 125 mg - Objective Vital Signs: Vital Signs Temperature 36.6 C 02/02/18 05:00 Pulse Rate 60 02/02/18 05:00 Respiratory Rate 20 02/02/18 05:00 Blood Pressure 89/43 02/02/18 05:00 O2 Sat by Pulse Oximetry (%) 98 02/02/18 08:00 Constitutional: Yes: Well Nourished, No Distress, Calm Cardiovascular: Yes: Pulse Irregular. No: Tachycardia, Gallop, Murmur, Rub Respiratory: Yes: Regular, Cough, On Nasal O2, Rhonchi (bilateral). No: CTA Bilaterally, Rales, Wheezes Gastrointestinal: Yes: Normal Bowel Sounds, Soft. No: Distention, Tenderness Extremities: Yes: WNL Edema: No Labs: CBC, BMP 02/02/18 05:00 02/02/18 06:00 INR, PTT INR 2.23 (0.82-1.09) H 01/26/18 15:32 Problem List - Problems (1) Acute respiratory failure with hypoxia Code(s): J96.01 - ACUTE RESPIRATORY FAILURE WITH HYPOXIA (2) Acute on chronic diastolic (congestive) heart failure Code(s): I50.33 - ACUTE ON CHRONIC DIASTOLIC (CONGESTIVE) HEART FAILURE (3) Cellulitis Code(s): L03.90 - CELLULITIS, UNSPECIFIED Qualifiers: Site of cellulitis: extremity Site of cellulitis of extremity: lower extremity Laterality: right Qualified Code(s): L03.115 - Cellulitis of right lower limb (4) Atrial fibrillation Code(s): I48.91 - UNSPECIFIED ATRIAL FIBRILLATION Qualifiers: Atrial fibrillation type: chronic Qualified Code(s): I48.2 - Chronic atrial fibrillation (5) History of aortic valve replacement with bioprosthetic valve Code(s): Z95.4 - PRESENCE OF OTHER HEART-VALVE REPLACEMENT (6) Hypertension Code(s): I10 - ESSENTIAL (PRIMARY) HYPERTENSION (7) Elevated troponin Code(s): R74.8 - ABNORMAL LEVELS OF OTHER SERUM ENZYMES (8) Sepsis Code(s): A41.9 - SEPSIS, UNSPECIFIED ORGANISM Qualifiers: Sepsis type: sepsis due to unspecified organism Qualified Code(s): A41.9 - Sepsis, unspecified organism (9) Clostridium difficile colitis Code(s): A04.72 - ENTEROCOLITIS D/T CLOSTRIDIUM DIFFICILE, NOT SPCF RECUR Assessment/Plan (1) Acute respiratory failure with hypoxia Assessment/Plan: -patient appears and feels worse today -case d/w Dr Molina -continue lasix -add solumedrol -continue oxygen support Code(s): J96.01 - ACUTE RESPIRATORY FAILURE WITH HYPOXIA (2) Acute on chronic diastolic (congestive) heart failure Assessment/Plan: -cardiology following -lasix 40mg IV daily (3) Cellulitis -s/p full course of cefazolin Code(s): L03.90 - CELLULITIS, UNSPECIFIED Qualifiers: Site of cellulitis: extremity Site of cellulitis of extremity: lower extremity Laterality: right Qualified Code(s): L03.115 - Cellulitis of right lower limb (4) Atrial fibrillation Assessment/Plan: -controlled -continue eliquis -continue toprol xl Code(s): I48.91 - UNSPECIFIED ATRIAL FIBRILLATION Qualifiers: Atrial fibrillation type: chronic Qualified Code(s): I48.2 - Chronic atrial fibrillation (5) History of aortic valve replacement with bioprosthetic valve Assessment/Plan: -present Code(s): Z95.4 - PRESENCE OF OTHER HEART-VALVE REPLACEMENT (6) Hypertension Assessment/Plan: -continue current regimen Code(s): I10 - ESSENTIAL (PRIMARY) HYPERTENSION (7) Elevated troponin Assessment/Plan: -cardiology following -continue current regimen Code(s): R74.8 - ABNORMAL LEVELS OF OTHER SERUM ENZYMES (8) Sepsis Assessment/Plan: -resolved Code(s): A41.9 - SEPSIS, UNSPECIFIED ORGANISM Qualifiers: Sepsis type: sepsis due to unspecified organism Qualified Code(s): A41.9 - Sepsis, unspecified organism (9) Clostridium difficile colitis Assessment/Plan: -continue oral vancomycin Code(s): A04.72 - ENTEROCOLITIS D/T CLOSTRIDIUM DIFFICILE, NOT SPCF RECUR
[2018-02-02] MEDS: methylPREDNISolone NA SUCC 40 MG/1 ML VIAL IVPUSH SCH ×2 (12:27→21:29)
--- NOTE | 2018-02-02 13:03 | PN ---
Progress Note, MIRROR FINISHING MACHINE OPERATOR - Note Progress Note: Call received from primary nurse that pt coughed/choked on firt bite of pasta and diet downgrade was recommended. I concur.Will reassess. Pt seen again at bedside. He reported that the pasta was too hard to chew and he spit it out. Nursing saw pt once he was coughing, expectorated phlegm. Lunch plate had bow tie pasta, grilled chicken and string beans. Pt had tolerated a cracker during the MBS and soft reg diet was recommended. Trial of Dys chopped, including egg salad, tuna salad, chicken salad, soft moist solids such as quiche,pancakes with syrup, etc.MaGIC CUP. Supervision during meals.
--- NOTE | 2018-02-02 15:15 | PN ---
Progress Note, Physician History of Present Illness: feeling better than the morning still feels breathing is not that good foleys catheter removed clear urine - Current Medication List Current Medications: Active Medications Albuterol Sulfate (Ventolin 0.083% Nebulizer Soln -) 1 amp NEB TIDR [facility] Last Admin: 02/02/18 13:39 Dose: 1 amp Apixaban (Eliquis -) 2.5 mg PO BID [facility] Last Admin: 02/02/18 09:36 Dose: 2.5 mg Furosemide (Lasix Injection -) 40 mg IVPUSH DAILY [facility] Last Admin: 02/02/18 09:36 Dose: 40 mg Ipratropium [place] (Atrovent 0.02% Nebulizer -) 1 amp NEB Q6H PRN PRN Reason: SHORTNESS OF BREATH Last Admin: 02/01/18 18:13 Dose: 1 amp Lactobacillus Acidophilus (Bacid -) 1 tab PO BID [facility] Last Admin: 02/02/18 09:36 Dose: 1 tab Methylprednisolone Sodium Succinate (Solu-Medrol -) 40 mg IVPUSH Q6H-IV [facility] Last Admin: 02/02/18 12:27 Dose: 40 mg Metoprolol Succinate (Toprol Xl -) 25 mg PO DAILY [facility] Last Admin: 02/02/18 09:36 Dose: 25 mg Multivitamins/Minerals (Theragran-M) 1 each PO DAILY [facility] Last Admin: 02/02/18 09:36 Dose: 1 each Vancomycin HCl (Vancomycin Oral Solution) 125 mg PO DAILY [facility] Last Admin: 02/02/18 09:46 Dose: 125 mg - Objective Vital Signs: Vital Signs Temperature 97.8 F 02/02/18 05:00 Pulse Rate 60 02/02/18 05:00 Respiratory Rate 20 02/02/18 05:00 Blood Pressure 89/43 02/02/18 05:00 O2 Sat by Pulse Oximetry (%) 98 02/02/18 08:00 Constitutional: Yes: Calm, Mild Distress Cardiovascular: Yes: S1, S2 Respiratory: Yes: On Nasal O2, Poor Air Entry, Rhonchi, Other (congection) Gastrointestinal: Yes: Normal Bowel Sounds, Soft Musculoskeletal: Yes: WNL Extremities: Yes: Erythema (resolved) Edema: LLE: Trace, RLE: Trace Neurological: Yes: Alert, Oriented Psychiatric: Yes: Alert, Oriented Labs: CBC, BMP 02/02/18 05:00 02/02/18 06:00 INR, PTT INR 2.23 (0.82-1.09) H 01/26/18 15:32 Assessment/Plan Problem List - Problems (1) Acute respiratory failure with hypoxia Code(s): J96.01 - ACUTE RESPIRATORY FAILURE WITH HYPOXIA (2) Acute on chronic diastolic (congestive) heart failure Code(s): I50.33 - ACUTE ON CHRONIC DIASTOLIC (CONGESTIVE) HEART FAILURE (3) Cellulitis Code(s): L03.90 - CELLULITIS, UNSPECIFIED Qualifiers: Site of cellulitis: extremity Site of cellulitis of extremity: lower extremity Laterality: right Qualified Code(s): L03.115 - Cellulitis of right lower limb (4) Atrial fibrillation Code(s): I48.91 - UNSPECIFIED ATRIAL FIBRILLATION Qualifiers: Atrial fibrillation type: chronic Qualified Code(s): I48.2 - Chronic atrial fibrillation (5) History of aortic valve replacement with bioprosthetic valve Code(s): Z95.4 - PRESENCE OF OTHER HEART-VALVE REPLACEMENT (6) Hypertension Code(s): I10 - ESSENTIAL (PRIMARY) HYPERTENSION (7) Elevated troponin Code(s): R74.8 - ABNORMAL LEVELS OF OTHER SERUM ENZYMES (8) Sepsis Code(s): A41.9 - SEPSIS, UNSPECIFIED ORGANISM Qualifiers: Sepsis type: sepsis due to unspecified organism Qualified Code(s): A41.9 - Sepsis, unspecified organism (9) Clostridium difficile colitis Code(s): A04.72 - ENTEROCOLITIS D/T CLOSTRIDIUM DIFFICILE, NOT SPCF RECUR 10 hematuria plan continue to monitor off of abx for now incentive adilson neb rest continue as per the team
[2018-02-03] MEDS: IPRATROPIUM BR 0.02% 0.5 MG/2.5 ML VIAL.NEB. NEB PRN (00:07)
[2018-02-03] MEDS: methylPREDNISolone NA SUCC 40 MG/1 ML VIAL IVPUSH SCH ×4 (03:19→21:38)
[2018-02-03] MEDS: ALBUTEROL SO4 0.083% IH SOL 2.5 MG/3 ML VIAL.NEB. NEB SCH ×3 (06:18→21:08)
[2018-02-03 06:28] LABS: BASO % 0.1 % (0-2.0); EOS % 0.1 % (0-4.5); HEMATOCRIT 39.5 % (35.4-49); LYMPH % 10.4 % (8-40); MCH 32.4 pg (25.7-33.7); MCHC 32.9 g/dl (32.0-35.9); MEAN CELL VOLUME 98.5 fl (80-96); MEAN PLT VOLUME 8.7 fl (7.5-11.1); MONO % 1.4 % (3.8-10.2); PLATELET COUNT 106 K/MM3 (134-434); RBC 4.01 M/mm3 (4.00-5.60); RDW 18.6 % (11.9-15.9); WHITE BLOOD COUNT 4.5 K/mm3 (4.0-10.0)
[2018-02-03 07:03] LABS: CHLORIDE 96 mmol/L (98-107); POTASSIUM 4.7 mmol/L (3.5-5.1); SODIUM 139 mmol/L (136-145)
[2018-02-03 07:07] LABS: ANION GAP 4 (8-16); BLOOD UREA NITROGEN 42 mg/dL (7-18); CO2 39 mmol/L (21-32); CREATININE 1.3 mg/dL (0.7-1.3); GLUCOSE,RANDOM 195 mg/dL (74-106); MAGNESIUM 2.5 mg/dL (1.8-2.4); PHOSPHOROUS 3.2 mg/dL (2.5-4.9)
--- NOTE | 2018-02-03 08:41 | PN ---
Progress Note (short form) - Note Progress Note: Dr. Rollins to document today. Stage 3 ulcer sacral area.
[2018-02-03] MEDS: MULTIVITAMINS THER W-MINERALS COMBO TABLET (FP) PO SCH (09:07)
[2018-02-03] MEDS: FUROSEMIDE 40 MG/4 ML INJECTABLE VIAL IVPUSH SCH (09:07)
[2018-02-03] MEDS: LACTOBACILLUS ACIDOPHILUS 1 TABLET PO SCH ×2 (09:07→21:38)
[2018-02-03] MEDS: metoPROLOL SUCCINATE 25 MG TAB.SR.24H (FP) PO SCH (09:07)
[2018-02-03] MEDS: APIXABAN 2.5 MG TABLET PO SCH ×2 (09:07→21:38)
[2018-02-03] MEDS: VANCOMYCIN 250 MG/5 ML ORAL SOLUTION PO SCH (10:00)
--- NOTE | 2018-02-03 10:42 | PN ---
Progress Note, Physician Chief Complaint: Mr Covarrubias says he is doing better today but still quite short of breath. No cp or n/v. - Current Medication List Current Medications: Active Medications Albuterol Sulfate (Ventolin 0.083% Nebulizer Soln -) 1 amp NEB TIDR [facility] Last Admin: 02/03/18 06:18 Dose: 1 amp Apixaban (Eliquis -) 2.5 mg PO BID [facility] Last Admin: 02/03/18 09:07 Dose: 2.5 mg Furosemide (Lasix Injection -) 40 mg IVPUSH DAILY [facility] Last Admin: 02/03/18 09:07 Dose: 40 mg Ipratropium [place] (Atrovent 0.02% Nebulizer -) 1 amp NEB Q6H PRN PRN Reason: SHORTNESS OF BREATH Last Admin: 02/03/18 00:07 Dose: 1 amp Lactobacillus Acidophilus (Bacid -) 1 tab PO BID [facility] Last Admin: 02/03/18 09:07 Dose: 1 tab Methylprednisolone Sodium Succinate (Solu-Medrol -) 40 mg IVPUSH Q6H-IV [facility] Last Admin: 02/03/18 09:07 Dose: 40 mg Metoprolol Succinate (Toprol Xl -) 25 mg PO DAILY [facility] Last Admin: 02/03/18 09:07 Dose: 25 mg Multivitamins/Minerals (Theragran-M) 1 each PO DAILY [facility] Last Admin: 02/03/18 09:07 Dose: 1 each Vancomycin HCl (Vancomycin Oral Solution) 125 mg PO DAILY [facility] Last Admin: 02/02/18 09:46 Dose: 125 mg - Objective Vital Signs: Vital Signs Temperature 36.4 C L 02/03/18 09:00 Pulse Rate 60 02/03/18 09:00 Respiratory Rate 20 02/03/18 09:00 Blood Pressure 121/71 02/03/18 09:00 O2 Sat by Pulse Oximetry (%) 95 02/03/18 09:00 Constitutional: Yes: Well Nourished, Calm, Other (very ill appearing) Cardiovascular: Yes: Pulse Irregular. No: Tachycardia, Gallop, Murmur, Rub Respiratory: Yes: Regular, On Nasal O2, Rhonchi, Wheezes. No: CTA Bilaterally Gastrointestinal: Yes: Normal Bowel Sounds, Soft. No: Distention, Tenderness Extremities: Yes: Erythema (chronic) Edema: No Labs: CBC, BMP 02/03/18 06:10 02/03/18 06:10 INR, PTT INR 2.23 (0.82-1.09) H 01/26/18 15:32 Problem List - Problems (1) Acute respiratory failure with hypoxia Code(s): J96.01 - ACUTE RESPIRATORY FAILURE WITH HYPOXIA (2) Acute on chronic diastolic (congestive) heart failure Code(s): I50.33 - ACUTE ON CHRONIC DIASTOLIC (CONGESTIVE) HEART FAILURE (3) Cellulitis Code(s): L03.90 - CELLULITIS, UNSPECIFIED Qualifiers: Site of cellulitis: extremity Site of cellulitis of extremity: lower extremity Laterality: right Qualified Code(s): L03.115 - Cellulitis of right lower limb (4) Atrial fibrillation Code(s): I48.91 - UNSPECIFIED ATRIAL FIBRILLATION Qualifiers: Atrial fibrillation type: chronic Qualified Code(s): I48.2 - Chronic atrial fibrillation (5) History of aortic valve replacement with bioprosthetic valve Code(s): Z95.4 - PRESENCE OF OTHER HEART-VALVE REPLACEMENT (6) Hypertension Code(s): I10 - ESSENTIAL (PRIMARY) HYPERTENSION (7) Elevated troponin Code(s): R74.8 - ABNORMAL LEVELS OF OTHER SERUM ENZYMES (8) Sepsis Code(s): A41.9 - SEPSIS, UNSPECIFIED ORGANISM Qualifiers: Sepsis type: sepsis due to unspecified organism Qualified Code(s): A41.9 - Sepsis, unspecified organism (9) Clostridium difficile colitis Code(s): A04.72 - ENTEROCOLITIS D/T CLOSTRIDIUM DIFFICILE, NOT SPCF RECUR Assessment/Plan (1) Acute respiratory failure with hypoxia Assessment/Plan: -slightly improved -continue solumedrol -continue bronchodilators -continue oxygen support Code(s): J96.01 - ACUTE RESPIRATORY FAILURE WITH HYPOXIA (2) Acute on chronic diastolic (congestive) heart failure Assessment/Plan: -cardiology following -lasix 40mg IV daily (3) Cellulitis -s/p full course of cefazolin Code(s): L03.90 - CELLULITIS, UNSPECIFIED Qualifiers: Site of cellulitis: extremity Site of cellulitis of extremity: lower extremity Laterality: right Qualified Code(s): L03.115 - Cellulitis of right lower limb (4) Atrial fibrillation Assessment/Plan: -controlled -continue eliquis -continue toprol xl Code(s): I48.91 - UNSPECIFIED ATRIAL FIBRILLATION Qualifiers: Atrial fibrillation type: chronic Qualified Code(s): I48.2 - Chronic atrial fibrillation (5) History of aortic valve replacement with bioprosthetic valve Assessment/Plan: -present Code(s): Z95.4 - PRESENCE OF OTHER HEART-VALVE REPLACEMENT (6) Hypertension Assessment/Plan: -continue current regimen Code(s): I10 - ESSENTIAL (PRIMARY) HYPERTENSION (7) Elevated troponin Assessment/Plan: -cardiology following -continue current regimen Code(s): R74.8 - ABNORMAL LEVELS OF OTHER SERUM ENZYMES (8) Sepsis Assessment/Plan: -resolved Code(s): A41.9 - SEPSIS, UNSPECIFIED ORGANISM Qualifiers: Sepsis type: sepsis due to unspecified organism Qualified Code(s): A41.9 - Sepsis, unspecified organism (9) Clostridium difficile colitis Assessment/Plan: -continue oral vancomycin Code(s): A04.72 - ENTEROCOLITIS D/T CLOSTRIDIUM DIFFICILE, NOT SPCF RECUR (10) Stage 3 decubitus ulcer -consult wound care Dispo -continue current management -palliative care consulted, may benefit from hospice
--- NOTE | 2018-02-03 11:57 | PN ---
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 Extensive coughing resulted. I suspect stasis of the pasta, with spillage of water over the pasta into the airway. Diet downgraded for now. Dys chopped/extra gravy/ Reviewed with SHOT POLISHER - Pt needs to be fully upright mealtime, mouth care before meals, 1/2 tsp at a time, 2 effortful swallows per bite, followed by a sip of water, chin flexed. Pt bedbound. Decubiti/wound care consult placed. Pt has special mattress and positioning is being changed frequently. Dys chopped/extra gravy/thin liquid Magic cup/ensure plus consider Prosource if not medically contraindicated.
--- NOTE | 2018-02-03 11:58 | PN ---
Progress Note, TECHNICAL ACCOUNT EXECUTIVE - Note Progress Note: Education: fully upright mealtime mouth care before meals 1/2 tsp at a time 2 effortful swallows per bite followed by a sip of water chin flexed always while swallowing
--- NOTE | 2018-02-03 12:23 | PN ---
Progress Note (short form) - Note Progress Note: PULMONARY Still some shortness of breath but reports slightly improved from yesterday, bedside aide agrees. Last Vital Signs Temp Pulse Resp BP Pulse Ox 97.5 F L 60 20 121/71 95 02/03/18 09:00 02/03/18 09:00 02/03/18 09:00 02/03/18 09:00 02/03/18 09:00 Intake & Output 01/31/18 02/01/18 02/02/18 02/03/18 23:59 23:59 23:59 23:59 Intake Total 920 560 290 180 Output Total 800 100 Balance 120 460 290 180 Gen: mildly tachypneic at rest Heart: RRR Lung: bilateral rhonchi Abd: soft, nontender Ext: no edema CBC, BMP 02/03/18 06:10 02/03/18 06:10 Active Medications Albuterol Sulfate (Ventolin 0.083% Nebulizer Soln -) 1 amp NEB TIDR [facility] Last Admin: 02/03/18 06:18 Dose: 1 amp Apixaban (Eliquis -) 2.5 mg PO BID [facility] Last Admin: 02/03/18 09:07 Dose: 2.5 mg Furosemide (Lasix Injection -) 40 mg IVPUSH DAILY [facility] Last Admin: 02/03/18 09:07 Dose: 40 mg Ipratropium [place] (Atrovent 0.02% Nebulizer -) 1 amp NEB Q6H PRN PRN Reason: SHORTNESS OF BREATH Last Admin: 02/03/18 00:07 Dose: 1 amp Lactobacillus Acidophilus (Bacid -) 1 tab PO BID [facility] Last Admin: 02/03/18 09:07 Dose: 1 tab Methylprednisolone Sodium Succinate (Solu-Medrol -) 40 mg IVPUSH Q6H-IV [facility] Last Admin: 02/03/18 09:07 Dose: 40 mg Metoprolol Succinate (Toprol Xl -) 25 mg PO DAILY [facility] Last Admin: 02/03/18 09:07 Dose: 25 mg Multivitamins/Minerals (Theragran-M) 1 each PO DAILY [facility] Last Admin: 02/03/18 09:07 Dose: 1 each Vancomycin HCl (Vancomycin Oral Solution) 125 mg PO DAILY [facility] Last Admin: 02/03/18 10:00 Dose: 125 mg A/P Acute on Chronic Diastolic Heart Failure Cellulitis Mitral Regurgitation h/o AVR CAD s/p CABG Atrial Fibrillation +Troponins likely Demand Ischemia Lactic Acidosis likely from respiratory effort Chronic Hypoxic Respiratory Failure Hematuria h/o C Diff - IV lasix - monitor urine output, creatinine - daily weights - rate controlled with metoprolol - continue anticoagulation - continue medrol for now - can taper in AM if continues to improve - completed antibiotics
--- NOTE | 2018-02-03 12:51 | PN ---
Progress Note, Physician History of Present Illness: feels a little better says he feels better than yesterday looks slightly better legs look better - Current Medication List Current Medications: Active Medications Albuterol Sulfate (Ventolin 0.083% Nebulizer Soln -) 1 amp NEB TIDR [facility] Last Admin: 02/03/18 06:18 Dose: 1 amp Apixaban (Eliquis -) 2.5 mg PO BID [facility] Last Admin: 02/03/18 09:07 Dose: 2.5 mg Furosemide (Lasix Injection -) 40 mg IVPUSH DAILY [facility] Last Admin: 02/03/18 09:07 Dose: 40 mg Ipratropium [place] (Atrovent 0.02% Nebulizer -) 1 amp NEB Q6H PRN PRN Reason: SHORTNESS OF BREATH Last Admin: 02/03/18 00:07 Dose: 1 amp Lactobacillus Acidophilus (Bacid -) 1 tab PO BID [facility] Last Admin: 02/03/18 09:07 Dose: 1 tab Methylprednisolone Sodium Succinate (Solu-Medrol -) 40 mg IVPUSH Q6H-IV [facility] Last Admin: 02/03/18 09:07 Dose: 40 mg Metoprolol Succinate (Toprol Xl -) 25 mg PO DAILY [facility] Last Admin: 02/03/18 09:07 Dose: 25 mg Multivitamins/Minerals (Theragran-M) 1 each PO DAILY [facility] Last Admin: 02/03/18 09:07 Dose: 1 each Vancomycin HCl (Vancomycin Oral Solution) 125 mg PO DAILY [facility] Last Admin: 02/03/18 10:00 Dose: 125 mg - Objective Vital Signs: Vital Signs Temperature 97.5 F L 02/03/18 09:00 Pulse Rate 60 02/03/18 09:00 Respiratory Rate 20 02/03/18 09:00 Blood Pressure 121/71 02/03/18 09:00 O2 Sat by Pulse Oximetry (%) 95 02/03/18 09:00 Constitutional: Yes: Calm, Mild Distress Cardiovascular: Yes: S1, S2 Respiratory: Yes: On Nasal O2, Poor Air Entry, Rhonchi Gastrointestinal: Yes: Normal Bowel Sounds, Soft Musculoskeletal: Yes: Other Extremities: Yes: Erythema (resolved) Neurological: Yes: Alert, Oriented Psychiatric: Yes: Alert, Oriented Labs: CBC, BMP 02/03/18 06:10 02/03/18 06:10 INR, PTT INR 2.23 (0.82-1.09) H 01/26/18 15:32 Assessment/Plan Problem List - Problems (1) Acute respiratory failure with hypoxia Code(s): J96.01 - ACUTE RESPIRATORY FAILURE WITH HYPOXIA (2) Acute on chronic diastolic (congestive) heart failure Code(s): I50.33 - ACUTE ON CHRONIC DIASTOLIC (CONGESTIVE) HEART FAILURE (3) Cellulitis Code(s): L03.90 - CELLULITIS, UNSPECIFIED Qualifiers: Site of cellulitis: extremity Site of cellulitis of extremity: lower extremity Laterality: right Qualified Code(s): L03.115 - Cellulitis of right lower limb (4) Atrial fibrillation Code(s): I48.91 - UNSPECIFIED ATRIAL FIBRILLATION Qualifiers: Atrial fibrillation type: chronic Qualified Code(s): I48.2 - Chronic atrial fibrillation (5) History of aortic valve replacement with bioprosthetic valve Code(s): Z95.4 - PRESENCE OF OTHER HEART-VALVE REPLACEMENT (6) Hypertension Code(s): I10 - ESSENTIAL (PRIMARY) HYPERTENSION (7) Elevated troponin Code(s): R74.8 - ABNORMAL LEVELS OF OTHER SERUM ENZYMES (8) Sepsis Code(s): A41.9 - SEPSIS, UNSPECIFIED ORGANISM Qualifiers: Sepsis type: sepsis due to unspecified organism Qualified Code(s): A41.9 - Sepsis, unspecified organism (9) Clostridium difficile colitis Code(s): A04.72 - ENTEROCOLITIS D/T CLOSTRIDIUM DIFFICILE, NOT SPCF RECUR 10 hematuria plan continue to monitor off of abx for now incentive adilson neb rest continue as per the team consider physio
[2018-02-04] MEDS: methylPREDNISolone NA SUCC 40 MG/1 ML VIAL IVPUSH SCH ×4 (03:04→21:45)
[2018-02-04] MEDS: IPRATROPIUM BR 0.02% 0.5 MG/2.5 ML VIAL.NEB. NEB PRN (03:30)
[2018-02-04] MEDS: ALBUTEROL SO4 0.083% IH SOL 2.5 MG/3 ML VIAL.NEB. NEB SCH ×3 (05:52→21:15)
[2018-02-04 07:55] LABS: HEMATOCRIT 40.8 % (35.4-49); HEMOGLOBIN 13.2 GM/dL (11.7-16.9); MCH 32.1 pg (25.7-33.7); MCHC 32.4 g/dl (32.0-35.9); MEAN CELL VOLUME 99.1 fl (80-96); MEAN PLT VOLUME 10.1 fl (7.5-11.1); PLATELET COUNT 178 K/MM3 (134-434); RBC 4.12 M/mm3 (4.00-5.60); RDW 18.5 % (11.9-15.9); WHITE BLOOD COUNT 11.6 K/mm3 (4.0-10.0)
[2018-02-04 08:15] LABS: CHLORIDE 94 mmol/L (98-107); POTASSIUM 4.8 mmol/L (3.5-5.1); SODIUM 137 mmol/L (136-145)
[2018-02-04 08:45] LABS: ANION GAP 7 (8-16); BLOOD UREA NITROGEN 51 mg/dL (7-18); CALCIUM 9.4 mg/dL (8.5-10.1); CO2 36 mmol/L (21-32); CREATININE 1.4 mg/dL (0.7-1.3); GLUCOSE,RANDOM 149 mg/dL (74-106); MAGNESIUM 2.7 mg/dL (1.8-2.4); PHOSPHOROUS 3.2 mg/dL (2.5-4.9)
[2018-02-04 09:04] LABS: ANISOCYTOSIS 1+; PLATELET ESTIMATE NORMAL; TARGET CELLS 2+
[2018-02-04] MEDS: LACTOBACILLUS ACIDOPHILUS 1 TABLET PO SCH ×2 (09:47→21:45)
[2018-02-04] MEDS: MULTIVITAMINS THER W-MINERALS COMBO TABLET (FP) PO SCH (09:47)
[2018-02-04] MEDS: metoPROLOL SUCCINATE 25 MG TAB.SR.24H (FP) PO SCH (09:47)
[2018-02-04] MEDS: APIXABAN 2.5 MG TABLET PO SCH ×2 (09:47→21:45)
[2018-02-04] MEDS: FUROSEMIDE 40 MG/4 ML INJECTABLE VIAL IVPUSH SCH (09:47)
[2018-02-04] MEDS: VANCOMYCIN 250 MG/5 ML ORAL SOLUTION PO SCH (09:48)
--- NOTE | 2018-02-04 09:55 | PN ---
Progress Note (short form) - Note Progress Note: Patient seen and examined today. Christine Maranda note reviewed and discussed with patient. He has told me this AM he does not want to be on Comfort Care and wants all treatments to continue. he is still having times where he is coughing and congested not even related to postprandial times. Less pain in his buttock where he has a stage III ulcer. Tolerating his diet and putting and reminded regarding the instructions from the speech therapist. No chest pain but more short of breath today with some cough. Seen by wound care physician today in addition to his pulmonary, M.D. and speech therapist on exam: Vital Signs Temp 97.5 F L 02/04/18 14:03 Pulse 60 02/04/18 14:03 Resp 20 02/04/18 14:03 BP 115/58 02/04/18 14:03 Pulse Ox 99 02/04/18 09:00 Intake & Output 02/03/18 02/04/18 02/04/18 23:59 11:59 23:59 Intake Total 20 120 670 Balance 20 120 670 Intake: IV 20 Saline Lock 20 Oral 120 670 Other: Voiding Method Incontinent Incontinent Diaper # Unmeasured Voids Void 2 2 Bowel Movement Yes Body Mass Index (BMI) 23.5 he is alert; lips purple but O2 sat nearly 99. Chest rhonchi and a few rales right greater than left. Abdomen slightly distended but nontender. Extremities no pedal edema. Cellulitis resolved Abnormal Lab Results 02/04/18 02/04/18 06:26 06:26 WBC 11.6 H D MCV 99.1 H RDW 18.5 H Neutrophils % (Manual) 86.9 H Lymphocytes % (Manual) 6.1 L Monocytes % (Manual) 2 L Chloride 94 L Carbon Dioxide 36 H Anion Gap 7 L BUN 51 H D Creatinine 1.4 H Random Glucose 149 H D Magnesium 2.7 H impression: Chronic respiratory failure with recent exacerbation. CHF. Renal failure Aspiration. Aortic valve replacement. Atrial fibrillation. Severe DJD of the knees. Stage III wound sacrum. History of recent hematuria. Plan: Followup repeat urine culture Renal physician consult Continue to follow speech therapist's advice regarding feeding and sitting upright. Repeat lab a.m. Chest x-ray a.m.
--- NOTE | 2018-02-04 11:01 | PN ---
Progress Note, Physician History of Present Illness: PULMONARY ALERT,DYSPNEIC,MORE CONGESTED TODAY - Current Medication List Current Medications: Active Medications Albuterol Sulfate (Ventolin 0.083% Nebulizer Soln -) 1 amp NEB TIDR [facility] Last Admin: 02/04/18 05:52 Dose: 1 amp Apixaban (Eliquis -) 2.5 mg PO BID [facility] Last Admin: 02/04/18 09:47 Dose: 2.5 mg Furosemide (Lasix Injection -) 40 mg IVPUSH DAILY [facility] Last Admin: 02/04/18 09:47 Dose: 40 mg Ipratropium [place] (Atrovent 0.02% Nebulizer -) 1 amp NEB Q6H PRN PRN Reason: SHORTNESS OF BREATH Last Admin: 02/04/18 03:30 Dose: 1 amp Lactobacillus Acidophilus (Bacid -) 1 tab PO BID [facility] Last Admin: 02/04/18 09:47 Dose: 1 tab Methylprednisolone Sodium Succinate (Solu-Medrol -) 40 mg IVPUSH Q6H-IV [facility] Last Admin: 02/04/18 09:47 Dose: 40 mg Metoprolol Succinate (Toprol Xl -) 25 mg PO DAILY [facility] Last Admin: 02/04/18 09:47 Dose: 25 mg Multivitamins/Minerals (Theragran-M) 1 each PO DAILY [facility] Last Admin: 02/04/18 09:47 Dose: 1 each Vancomycin HCl (Vancomycin Oral Solution) 125 mg PO DAILY [facility] Last Admin: 02/04/18 09:48 Dose: 125 mg - Objective Vital Signs: Vital Signs Temperature 97.5 F L 02/04/18 10:00 Pulse Rate 64 02/04/18 10:00 Respiratory Rate 20 02/04/18 10:00 Blood Pressure 104/63 02/04/18 10:00 O2 Sat by Pulse Oximetry (%) 99 02/04/18 09:00 Constitutional: Yes: Mild Distress, Thin Eyes: Yes: WNL HENT: Yes: WNL Neck: Yes: WNL Cardiovascular: Yes: Pulse Irregular, S1, S2 Respiratory: Yes: Rhonchi, Wheezes (FELICITA WHEEZES AND RHONCHI) Gastrointestinal: Yes: Normal Bowel Sounds, Soft Extremities: Yes: WNL Edema: No Labs: CBC, BMP 02/04/18 06:26 02/04/18 06:26 INR, PTT INR 2.23 (0.82-1.09) H 01/26/18 15:32 Problem List - Problems (1) CHF (congestive heart failure) Code(s): I50.9 - HEART FAILURE, UNSPECIFIED Qualifiers: Heart failure type: combined systolic and diastolic Heart failure chronicity: acute on chronic Qualified Code(s): I50.43 - Acute on chronic combined systolic (congestive) and diastolic (congestive) heart failure (2) Elevated troponin Code(s): R74.8 - ABNORMAL LEVELS OF OTHER SERUM ENZYMES (3) Acute on chronic diastolic (congestive) heart failure Code(s): I50.33 - ACUTE ON CHRONIC DIASTOLIC (CONGESTIVE) HEART FAILURE (4) Atrial fibrillation Code(s): I48.91 - UNSPECIFIED ATRIAL FIBRILLATION Qualifiers: Atrial fibrillation type: chronic Qualified Code(s): I48.2 - Chronic atrial fibrillation (5) H/O aortic valve replacement Code(s): Z95.2 - PRESENCE OF PROSTHETIC HEART VALVE (6) Hematuria Code(s): R31.9 - HEMATURIA, UNSPECIFIED (7) History of aortic valve replacement with bioprosthetic valve Code(s): Z95.4 - PRESENCE OF OTHER HEART-VALVE REPLACEMENT (8) Leg swelling Code(s): M79.89 - OTHER SPECIFIED SOFT TISSUE DISORDERS (9) Shortness of breath Code(s): R06.02 - SHORTNESS OF BREATH Assessment/Plan Acute on Chronic Diastolic Heart Failure Cellulitis Mitral Regurgitation h/o AVR CAD s/p CABG Atrial Fibrillation +Troponins likely Demand Ischemia Lactic Acidosis likely from respiratory effort Chronic Hypoxic Respiratory Failure Hematuria h/o C Diff Pulmonary HTN - IV lasix - Inhaled bronchodilators - steroids - monitor urine output, creatinine - daily weights - rate controlled - continue anticoagulation - monitor hematuria, H/H - continue antibiotics - FABIÁN CHTAMAN
--- NOTE | 2018-02-04 13:01 | PN ---
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 Medical notes reviewed. More congested. Cheeks flushed. Verbal. Tolerating pudding/ice cream/thin liquids. Selected Entries 02/04/18 02/04/18 02/04/18 02:00 06:00 10:00 Breakfast Temperature 97.5 F L 97.6 F 97.5 F L 02/04/18 12:06 Breakfast 25% Temperature
--- NOTE | 2018-02-04 13:35 | PN ---
Progress Note, Physician History of Present Illness: patient looking much better feels much better sitting in the chair - Current Medication List Current Medications: Active Medications Albuterol Sulfate (Ventolin 0.083% Nebulizer Soln -) 1 amp NEB TIDR [facility] Last Admin: 02/04/18 05:52 Dose: 1 amp Apixaban (Eliquis -) 2.5 mg PO BID [facility] Last Admin: 02/04/18 09:47 Dose: 2.5 mg Furosemide (Lasix Injection -) 40 mg IVPUSH DAILY [facility] Last Admin: 02/04/18 09:47 Dose: 40 mg Ipratropium [place] (Atrovent 0.02% Nebulizer -) 1 amp NEB Q6H PRN PRN Reason: SHORTNESS OF BREATH Last Admin: 02/04/18 03:30 Dose: 1 amp Lactobacillus Acidophilus (Bacid -) 1 tab PO BID [facility] Last Admin: 02/04/18 09:47 Dose: 1 tab Methylprednisolone Sodium Succinate (Solu-Medrol -) 40 mg IVPUSH Q6H-IV [facility] Last Admin: 02/04/18 09:47 Dose: 40 mg Metoprolol Succinate (Toprol Xl -) 25 mg PO DAILY [facility] Last Admin: 02/04/18 09:47 Dose: 25 mg Multivitamins/Minerals (Theragran-M) 1 each PO DAILY [facility] Last Admin: 02/04/18 09:47 Dose: 1 each Vancomycin HCl (Vancomycin Oral Solution) 125 mg PO DAILY [facility] Last Admin: 02/04/18 09:48 Dose: 125 mg - Objective Vital Signs: Vital Signs Temperature 97.5 F L 02/04/18 10:00 Pulse Rate 64 02/04/18 10:00 Respiratory Rate 20 02/04/18 10:00 Blood Pressure 104/63 02/04/18 10:00 O2 Sat by Pulse Oximetry (%) 99 02/04/18 09:00 Constitutional: Yes: No Distress, Calm Cardiovascular: Yes: S1, S2 Respiratory: Yes: On Nasal O2, Poor Air Entry Gastrointestinal: Yes: Normal Bowel Sounds, Soft Musculoskeletal: Yes: WNL Extremities: Yes: WNL Integumentary: Yes: Erythema (has resolved), Other (swelling has resolved) Neurological: Yes: Alert, Oriented Psychiatric: Yes: Alert, Oriented Labs: CBC, BMP 02/04/18 06:26 02/04/18 06:26 INR, PTT INR 2.23 (0.82-1.09) H 01/26/18 15:32 Assessment/Plan Problem List - Problems (1) Acute respiratory failure with hypoxia Code(s): J96.01 - ACUTE RESPIRATORY FAILURE WITH HYPOXIA (2) Acute on chronic diastolic (congestive) heart failure Code(s): I50.33 - ACUTE ON CHRONIC DIASTOLIC (CONGESTIVE) HEART FAILURE (3) Cellulitis Code(s): L03.90 - CELLULITIS, UNSPECIFIED Qualifiers: Site of cellulitis: extremity Site of cellulitis of extremity: lower extremity Laterality: right Qualified Code(s): L03.115 - Cellulitis of right lower limb (4) Atrial fibrillation Code(s): I48.91 - UNSPECIFIED ATRIAL FIBRILLATION Qualifiers: Atrial fibrillation type: chronic Qualified Code(s): I48.2 - Chronic atrial fibrillation (5) History of aortic valve replacement with bioprosthetic valve Code(s): Z95.4 - PRESENCE OF OTHER HEART-VALVE REPLACEMENT (6) Hypertension Code(s): I10 - ESSENTIAL (PRIMARY) HYPERTENSION (7) Elevated troponin Code(s): R74.8 - ABNORMAL LEVELS OF OTHER SERUM ENZYMES (8) Sepsis Code(s): A41.9 - SEPSIS, UNSPECIFIED ORGANISM Qualifiers: Sepsis type: sepsis due to unspecified organism Qualified Code(s): A41.9 - Sepsis, unspecified organism (9) Clostridium difficile colitis Code(s): A04.72 - ENTEROCOLITIS D/T CLOSTRIDIUM DIFFICILE, NOT SPCF RECUR 10 hematuria plan continue abx elevation of the leg nutrition rest as per cardio and primary care
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
--- NOTE | 2018-02-04 17:00 | PN ---
Progress Note (short form) - Note Progress Note: Vascular surgery Pt seen and examined. Stage 3 sacral wounds. all clean with good granulation. bacitracin and allevyn dressing daily. Randall Gomez DO
[2018-02-04] MEDS: BACITRACIN 15 GM TUBE TOPICAL OINTMENT TP SCH (17:04)
[2018-02-05] MEDS: methylPREDNISolone NA SUCC 40 MG/1 ML VIAL IVPUSH SCH ×3 (03:55→21:36)
[2018-02-05] MEDS: ALBUTEROL SO4 0.083% IH SOL 2.5 MG/3 ML VIAL.NEB. NEB SCH ×3 (06:36→21:30)
[2018-02-05 07:29] LABS: BASO % 0.1 % (0-2.0); HEMATOCRIT 39.8 % (35.4-49); HEMOGLOBIN 13.1 GM/dL (11.7-16.9); LYMPH % 2.5 % (8-40); MCH 32.5 pg (25.7-33.7); MCHC 32.8 g/dl (32.0-35.9); MEAN CELL VOLUME 98.9 fl (80-96); MEAN PLT VOLUME 9.3 fl (7.5-11.1); MONO % 2.2 % (3.8-10.2); NEUT % 95.2 % (42.8-82.8); PLATELET COUNT 142 K/MM3 (134-434); RBC 4.03 M/mm3 (4.00-5.60); WHITE BLOOD COUNT 10.2 K/mm3 (4.0-10.0)
[2018-02-05 07:49] LABS: CHLORIDE 94 mmol/L (98-107); SODIUM 140 mmol/L (136-145)
[2018-02-05 07:56] LABS: ANION GAP 6 (8-16); BLOOD UREA NITROGEN 60 mg/dL (7-18); CALCIUM 9.4 mg/dL (8.5-10.1); CO2 40 mmol/L (21-32); CREATININE 1.4 mg/dL (0.7-1.3); GLUCOSE,RANDOM 171 mg/dL (74-106)
--- NOTE | 2018-02-05 08:13 | PN ---
Progress Note, Physician - Current Medication List Current Medications: Active Medications Albuterol Sulfate (Ventolin 0.083% Nebulizer Soln -) 1 amp NEB TIDR [facility] Last Admin: 02/05/18 06:36 Dose: 1 amp Apixaban (Eliquis -) 2.5 mg PO BID [facility] Last Admin: 02/04/18 21:45 Dose: 2.5 mg Bacitracin (Bacitracin -) 1 applic TP DAILY [facility] Last Admin: 02/04/18 17:04 Dose: Not Given Furosemide (Lasix Injection -) 40 mg IVPUSH DAILY [facility] Last Admin: 02/04/18 09:47 Dose: 40 mg Ipratropium [place] (Atrovent 0.02% Nebulizer -) 1 amp NEB Q6H PRN PRN Reason: SHORTNESS OF BREATH Last Admin: 02/04/18 03:30 Dose: 1 amp Lactobacillus Acidophilus (Bacid -) 1 tab PO BID [facility] Last Admin: 02/04/18 21:45 Dose: 1 tab Methylprednisolone Sodium Succinate (Solu-Medrol -) 40 mg IVPUSH Q6H-IV [facility] Last Admin: 02/05/18 03:55 Dose: 40 mg Metoprolol Succinate (Toprol Xl -) 25 mg PO DAILY [facility] Last Admin: 02/04/18 09:47 Dose: 25 mg Multivitamins/Minerals (Theragran-M) 1 each PO DAILY [facility] Last Admin: 02/04/18 09:47 Dose: 1 each Vancomycin HCl (Vancomycin Oral Solution) 125 mg PO DAILY [facility] Last Admin: 02/04/18 09:48 Dose: 125 mg - Objective Vital Signs: Vital Signs Temperature 97.6 F 02/05/18 06:00 Pulse Rate 60 02/05/18 06:00 Respiratory Rate 20 02/05/18 06:00 Blood Pressure 103/65 02/05/18 06:00 O2 Sat by Pulse Oximetry (%) 99 02/04/18 20:25 Eyes: Yes: WNL, Conjunctiva Clear, EOM Intact HENT: Yes: WNL, Atraumatic, Normocephalic Neck: Yes: WNL, Supple, Trachea Midline Cardiovascular: Yes: WNL, Regular Rate and Rhythm Respiratory: Yes: WNL, Regular, CTA Bilaterally Gastrointestinal: Yes: WNL, Normal Bowel Sounds Genitourinary: Yes: WNL Musculoskeletal: Yes: WNL Extremities: Yes: WNL Edema: No Integumentary: Yes: WNL ...Motor Strength: WNL Psychiatric: Yes: WNL Labs: CBC, BMP 02/05/18 06:10 INR, PTT INR 2.23 (0.82-1.09) H 01/26/18 15:32 Problem List - Problems (1) CHF (congestive heart failure) Code(s): I50.9 - HEART FAILURE, UNSPECIFIED Qualifiers: Heart failure type: combined systolic and diastolic Heart failure chronicity: acute on chronic Qualified Code(s): I50.43 - Acute on chronic combined systolic (congestive) and diastolic (congestive) heart failure (2) Cellulitis Code(s): L03.90 - CELLULITIS, UNSPECIFIED Qualifiers: Site of cellulitis: extremity Site of cellulitis of extremity: lower extremity Laterality: right Qualified Code(s): L03.115 - Cellulitis of right lower limb (3) DVT prophylaxis Code(s): [id number] - (4) Acute bronchitis Code(s): J20.9 - ACUTE BRONCHITIS, UNSPECIFIED Qualifiers: Bronchitis organism: rhinovirus Qualified Code(s): J20.6 - Acute bronchitis due to rhinovirus (5) Acute on chronic diastolic (congestive) heart failure Code(s): I50.33 - ACUTE ON CHRONIC DIASTOLIC (CONGESTIVE) HEART FAILURE (6) Arthritis Code(s): M19.90 - UNSPECIFIED OSTEOARTHRITIS, UNSPECIFIED SITE (7) Atrial fibrillation Code(s): I48.91 - UNSPECIFIED ATRIAL FIBRILLATION Qualifiers: Atrial fibrillation type: chronic Qualified Code(s): I48.2 - Chronic atrial fibrillation (8) Bradycardia Code(s): R00.1 - BRADYCARDIA, UNSPECIFIED (9) C. difficile diarrhea Code(s): A04.7 - ENTEROCOLITIS DUE TO CLOSTRIDIUM DIFFICILE * DO NOT USE * (10) Diarrhea Code(s): R19.7 - DIARRHEA, UNSPECIFIED Qualifiers: Diarrhea type: unspecified type Qualified Code(s): R19.7 - Diarrhea, unspecified (11) Diastolic CHF Code(s): I50.30 - UNSPECIFIED DIASTOLIC (CONGESTIVE) HEART FAILURE (12) Elevated INR Code(s): R79.1 - ABNORMAL COAGULATION PROFILE (13) Gout Code(s): M10.9 - GOUT, UNSPECIFIED (14) H/O aortic valve replacement Code(s): Z95.2 - PRESENCE OF PROSTHETIC HEART VALVE (15) Hematuria Code(s): R31.9 - HEMATURIA, UNSPECIFIED (16) History of aortic valve replacement with bioprosthetic valve Code(s): Z95.4 - PRESENCE OF OTHER HEART-VALVE REPLACEMENT (17) Hyperkalemia Code(s): E87.5 - HYPERKALEMIA (18) Hypertension Code(s): I10 - ESSENTIAL (PRIMARY) HYPERTENSION (19) Hypomagnesemia Code(s): E83.42 - HYPOMAGNESEMIA (20) Lactic acid acidosis Code(s): E87.2 - ACIDOSIS (21) Leg swelling Code(s): M79.89 - OTHER SPECIFIED SOFT TISSUE DISORDERS (22) Liver cirrhosis Code(s): K74.60 - UNSPECIFIED CIRRHOSIS OF LIVER (23) Lower extremity ulceration Code(s): L97.909 - NON-PRS CHRONIC ULC UNSP PRT OF UNSP LOW LEG W UNSP SEVERITY (24) Melanoma of upper arm Code(s): C43.60 - MALIGNANT MELANOMA OF UNSP UPPER LIMB, INCLUDING SHOULDER (25) Nausea & vomiting Code(s): R11.2 - NAUSEA WITH VOMITING, UNSPECIFIED (26) Osteoarthritis of both knees Code(s): M17.0 - BILATERAL PRIMARY OSTEOARTHRITIS OF KNEE (27) Pacemaker Code(s): Z95.0 - PRESENCE OF CARDIAC PACEMAKER (28) Phlebitis after infusion Code(s): T80.1XXA - VASCULAR COMP FOL INFUSN, TRANFS AND THERAPUTC INJECT, INIT (29) Rectal bleeding Code(s): K62.5 - HEMORRHAGE OF ANUS AND RECTUM (30) Respiratory acidosis Code(s): E87.2 - ACIDOSIS (31) Sepsis Code(s): A41.9 - SEPSIS, UNSPECIFIED ORGANISM Qualifiers: Sepsis type: sepsis due to unspecified organism Qualified Code(s): A41.9 - Sepsis, unspecified organism (32) Shortness of breath Code(s): R06.02 - SHORTNESS OF BREATH (33) Supratherapeutic INR Code(s): R79.1 - ABNORMAL COAGULATION PROFILE (34) Systolic CHF Code(s): I50.20 - UNSPECIFIED SYSTOLIC (CONGESTIVE) HEART FAILURE Assessment/Plan - Problems (1) Acute respiratory failure with hypoxia Code(s): J96.01 - ACUTE RESPIRATORY FAILURE WITH HYPOXIA (2) Cellulitis Assessment/Plan: largely resolved; On Vancomycin and Solumedrol. Code(s): L03.90 - CELLULITIS, UNSPECIFIED Qualifiers: Site of cellulitis: extremity Site of cellulitis of extremity: lower extremity Laterality: right Qualified Code(s): L03.115 - Cellulitis of right lower limb (3) Elevated troponin Code(s): R74.8 - ABNORMAL LEVELS OF OTHER SERUM ENZYMES (4) Acute on chronic diastolic (congestive) heart failure Assessment/Plan: More comfortable, though still has episodes of dyspnea with mild exertion. F/u Is and Os, daily wt, electrolytes, BUN/Cr. On metoprolol and furosemide. CXR: no significant change; however, clinically improved. Code(s): I50.33 - ACUTE ON CHRONIC DIASTOLIC (CONGESTIVE) HEART FAILURE (5) Atrial fibrillation Assessment/Plan: On metoprolol for HR control. On apixaban for anticoagulation. Code(s): I48.91 - UNSPECIFIED ATRIAL FIBRILLATION Qualifiers: Atrial fibrillation type: chronic Qualified Code(s): I48.2 - Chronic atrial fibrillation (6) History of aortic valve replacement with bioprosthetic valve Code(s): Z95.4 - PRESENCE OF OTHER HEART-VALVE REPLACEMENT (7) Hypertension Code(s): I10 - ESSENTIAL (PRIMARY) HYPERTENSION (8) Phlebitis after infusion Code(s): T80.1XXA - VASCULAR COMP FOL INFUSN, TRANFS AND THERAPUTC INJECT, INIT (9) Sepsis Assessment/Plan: Remains on PO antibiotics (Vancomycin) Code(s): A41.9 - SEPSIS, UNSPECIFIED ORGANISM Qualifiers: Sepsis type: sepsis due to unspecified organism Qualified Code(s): A41.9 - Sepsis, unspecified organism
--- NOTE | 2018-02-05 09:11 | PN ---
Progress Note (short form) - Note Progress Note: PULMONARY Breathing continues to slowly improve. No cough or wheezing. Last Vital Signs Temp Pulse Resp BP Pulse Ox 97.6 F 60 20 103/65 99 02/05/18 06:00 02/05/18 06:00 02/05/18 06:00 02/05/18 06:00 02/04/18 20:25 Intake & Output 02/02/18 02/03/18 02/04/18 02/05/18 23:59 23:59 23:59 23:59 Intake Total 290 200 880 Output Total 150 Balance 290 200 880 -150 Gen: less tachypneic at rest Heart: RRR Lung: bilateral rhonchi Abd: soft, nontender Ext: no edema CBC, BMP 02/05/18 06:10 02/05/18 06:10 Active Medications Albuterol Sulfate (Ventolin 0.083% Nebulizer Soln -) 1 amp NEB TIDR [facility] Last Admin: 02/05/18 06:36 Dose: 1 amp Apixaban (Eliquis -) 2.5 mg PO BID [facility] Last Admin: 02/04/18 21:45 Dose: 2.5 mg Bacitracin (Bacitracin -) 1 applic TP DAILY [facility] Last Admin: 02/04/18 17:04 Dose: Not Given Furosemide (Lasix Injection -) 40 mg IVPUSH DAILY [facility] Last Admin: 02/04/18 09:47 Dose: 40 mg Ipratropium [place] (Atrovent 0.02% Nebulizer -) 1 amp NEB Q6H PRN PRN Reason: SHORTNESS OF BREATH Last Admin: 02/04/18 03:30 Dose: 1 amp Lactobacillus Acidophilus (Bacid -) 1 tab PO BID [facility] Last Admin: 02/04/18 21:45 Dose: 1 tab Methylprednisolone Sodium Succinate (Solu-Medrol -) 40 mg IVPUSH Q6H-IV [facility] Last Admin: 02/05/18 03:55 Dose: 40 mg Metoprolol Succinate (Toprol Xl -) 25 mg PO DAILY [facility] Last Admin: 02/04/18 09:47 Dose: 25 mg Multivitamins/Minerals (Theragran-M) 1 each PO DAILY [facility] Last Admin: 02/04/18 09:47 Dose: 1 each Vancomycin HCl (Vancomycin Oral Solution) 125 mg PO DAILY [facility] Last Admin: 02/04/18 09:48 Dose: 125 mg A/P Acute on Chronic Diastolic Heart Failure Cellulitis Mitral Regurgitation h/o AVR CAD s/p CABG Atrial Fibrillation +Troponins likely Demand Ischemia Lactic Acidosis likely from respiratory effort Chronic Hypoxic Respiratory Failure Hematuria h/o C Diff - continue lasix - monitor urine output, creatinine - daily weights - rate controlled with metoprolol - continue anticoagulation - will decrease medrol to q12h - completed antibiotics
[2018-02-05] MEDS: BACITRACIN 15 GM TUBE TOPICAL OINTMENT TP SCH (10:30)
[2018-02-05] MEDS: LACTOBACILLUS ACIDOPHILUS 1 TABLET PO SCH ×2 (10:30→21:36)
[2018-02-05] MEDS: APIXABAN 2.5 MG TABLET PO SCH ×2 (10:30→21:36)
[2018-02-05] MEDS: FUROSEMIDE 40 MG/4 ML INJECTABLE VIAL IVPUSH SCH (10:31)
[2018-02-05] MEDS: MULTIVITAMINS THER W-MINERALS COMBO TABLET (FP) PO SCH (10:31)
[2018-02-05] MEDS: metoPROLOL SUCCINATE 25 MG TAB.SR.24H (FP) PO SCH (10:31)
[2018-02-05] MEDS: VANCOMYCIN 250 MG/5 ML ORAL SOLUTION PO SCH (10:31)
--- NOTE | 2018-02-05 13:00 | PN ---
Progress Note, Physician Chief Complaint: Still c/o SOB History of Present Illness: 88 year old white male, DNR, with a significant PMH of skin ca, CABG, diastolic CHF, afib, hyperlipidemia, hypertension, anxiety, depression, CAD, severe arthritis , mechanical heart valve (bioprosthetic aortic valve) and a pacemaker who presents to the emergency department with 3 days of bilateral leg swelling and redness. - Current Medication List Current Medications: Active Medications Albuterol Sulfate (Ventolin 0.083% Nebulizer Soln -) 1 amp NEB TIDR [facility] Last Admin: 02/05/18 06:36 Dose: 1 amp Apixaban (Eliquis -) 2.5 mg PO BID [facility] Last Admin: 02/05/18 10:30 Dose: 2.5 mg Bacitracin (Bacitracin -) 1 applic TP DAILY [facility] Last Admin: 02/05/18 10:30 Dose: 1 applic Furosemide (Lasix Injection -) 40 mg IVPUSH DAILY [facility] Last Admin: 02/05/18 10:31 Dose: 40 mg Ipratropium [place] (Atrovent 0.02% Nebulizer -) 1 amp NEB Q6H PRN PRN Reason: SHORTNESS OF BREATH Last Admin: 02/04/18 03:30 Dose: 1 amp Lactobacillus Acidophilus (Bacid -) 1 tab PO BID [facility] Last Admin: 02/05/18 10:30 Dose: 1 tab Methylprednisolone Sodium Succinate (Solu-Medrol -) 40 mg IVPUSH Q12H [facility] Last Admin: 02/05/18 10:35 Dose: 40 mg Metoprolol Succinate (Toprol Xl -) 25 mg PO DAILY [facility] Last Admin: 02/05/18 10:31 Dose: 25 mg Multivitamins/Minerals (Theragran-M) 1 each PO DAILY [facility] Last Admin: 02/05/18 10:31 Dose: 1 each Vancomycin HCl (Vancomycin Oral Solution) 125 mg PO DAILY [facility] Last Admin: 02/05/18 10:31 Dose: 125 mg - Objective Vital Signs: Vital Signs Temperature 97.7 F 02/05/18 10:00 Pulse Rate 60 02/05/18 10:00 Respiratory Rate 20 02/05/18 10:00 Blood Pressure 108/64 02/05/18 10:00 O2 Sat by Pulse Oximetry (%) 95 02/05/18 09:00 Elderly sick looking man , confused and disoriented HEENT: Mm dry, anemia NECK: JVD +, no Bruit CHEST: Congested B/L minimal wheezes ABD: Non tender BS + EXT: resolving Cellulitis, Pulses + ACETYLENE TORCH BURNER: Confused no interval changes Labs: CBC, BMP 02/05/18 06:10 02/05/18 06:10 INR, PTT INR 2.23 (0.82-1.09) H 01/26/18 15:32 Problem List - Problems (1) Acute on chronic diastolic (congestive) heart failure Assessment/Plan: Improving F/U Cardiology recommendation Code(s): I50.33 - ACUTE ON CHRONIC DIASTOLIC (CONGESTIVE) HEART FAILURE (2) Atrial fibrillation Assessment/Plan: Cont AC rate controlled Code(s): I48.91 - UNSPECIFIED ATRIAL FIBRILLATION Qualifiers: Atrial fibrillation type: chronic Qualified Code(s): I48.2 - Chronic atrial fibrillation (3) Cellulitis Assessment/Plan: Resolved now off abx Code(s): L03.90 - CELLULITIS, UNSPECIFIED Qualifiers: Site of cellulitis: extremity Site of cellulitis of extremity: lower extremity Laterality: right Qualified Code(s): L03.115 - Cellulitis of right lower limb (4) History of aortic valve replacement with bioprosthetic valve Assessment/Plan: No active issue at present asymptomatic on AC Code(s): Z95.4 - PRESENCE OF OTHER HEART-VALVE REPLACEMENT (5) Clostridium difficile colitis Assessment/Plan: On PO Vancomycin F/U Stool C diff Code(s): A04.72 - ENTEROCOLITIS D/T CLOSTRIDIUM DIFFICILE, NOT SPCF RECUR (6) Hypertension Assessment/Plan: Well Controlled cont all home meds Code(s): I10 - ESSENTIAL (PRIMARY) HYPERTENSION
--- NOTE | 2018-02-05 13:01 | PN ---
Progress Note, Physician History of Present Illness: still lethargic patient not ding well - Current Medication List Current Medications: Active Medications Albuterol Sulfate (Ventolin 0.083% Nebulizer Soln -) 1 amp NEB TIDR [facility] Last Admin: 02/05/18 06:36 Dose: 1 amp Apixaban (Eliquis -) 2.5 mg PO BID [facility] Last Admin: 02/05/18 10:30 Dose: 2.5 mg Bacitracin (Bacitracin -) 1 applic TP DAILY [facility] Last Admin: 02/05/18 10:30 Dose: 1 applic Furosemide (Lasix Injection -) 40 mg IVPUSH DAILY [facility] Last Admin: 02/05/18 10:31 Dose: 40 mg Ipratropium [place] (Atrovent 0.02% Nebulizer -) 1 amp NEB Q6H PRN PRN Reason: SHORTNESS OF BREATH Last Admin: 02/04/18 03:30 Dose: 1 amp Lactobacillus Acidophilus (Bacid -) 1 tab PO BID [facility] Last Admin: 02/05/18 10:30 Dose: 1 tab Methylprednisolone Sodium Succinate (Solu-Medrol -) 40 mg IVPUSH Q12H [facility] Last Admin: 02/05/18 10:35 Dose: 40 mg Metoprolol Succinate (Toprol Xl -) 25 mg PO DAILY [facility] Last Admin: 02/05/18 10:31 Dose: 25 mg Multivitamins/Minerals (Theragran-M) 1 each PO DAILY [facility] Last Admin: 02/05/18 10:31 Dose: 1 each Vancomycin HCl (Vancomycin Oral Solution) 125 mg PO DAILY [facility] Last Admin: 02/05/18 10:31 Dose: 125 mg - Objective Vital Signs: Vital Signs Temperature 97.7 F 02/05/18 10:00 Pulse Rate 60 02/05/18 10:00 Respiratory Rate 20 02/05/18 10:00 Blood Pressure 108/64 02/05/18 10:00 O2 Sat by Pulse Oximetry (%) 95 02/05/18 09:00 Constitutional: Yes: Mild Distress, Other Cardiovascular: Yes: Regular Rate and Rhythm Respiratory: Yes: Regular, Rhonchi, Other Gastrointestinal: Yes: Normal Bowel Sounds, Soft Musculoskeletal: Yes: Other Extremities: Yes: Other Neurological: Yes: Lethargy Psychiatric: Yes: Other Labs: CBC, BMP 02/05/18 06:10 02/05/18 06:10 INR, PTT INR 2.23 (0.82-1.09) H 01/26/18 15:32 Assessment/Plan Problem List - Problems (1) Acute respiratory failure with hypoxia Code(s): J96.01 - ACUTE RESPIRATORY FAILURE WITH HYPOXIA (2) Acute on chronic diastolic (congestive) heart failure Code(s): I50.33 - ACUTE ON CHRONIC DIASTOLIC (CONGESTIVE) HEART FAILURE (3) Cellulitis Code(s): L03.90 - CELLULITIS, UNSPECIFIED Qualifiers: Site of cellulitis: extremity Site of cellulitis of extremity: lower extremity Laterality: right Qualified Code(s): L03.115 - Cellulitis of right lower limb (4) Atrial fibrillation Code(s): I48.91 - UNSPECIFIED ATRIAL FIBRILLATION Qualifiers: Atrial fibrillation type: chronic Qualified Code(s): I48.2 - Chronic atrial fibrillation (5) History of aortic valve replacement with bioprosthetic valve Code(s): Z95.4 - PRESENCE OF OTHER HEART-VALVE REPLACEMENT (6) Hypertension Code(s): I10 - ESSENTIAL (PRIMARY) HYPERTENSION (7) Elevated troponin Code(s): R74.8 - ABNORMAL LEVELS OF OTHER SERUM ENZYMES (8) Sepsis Code(s): A41.9 - SEPSIS, UNSPECIFIED ORGANISM Qualifiers: Sepsis type: sepsis due to unspecified organism Qualified Code(s): A41.9 - Sepsis, unspecified organism (9) Clostridium difficile colitis Code(s): A04.72 - ENTEROCOLITIS D/T CLOSTRIDIUM DIFFICILE, NOT SPCF RECUR 10 hematuria 11 uti plan continue zosyn monitor nutrition close watch on the patient
--- NOTE | 2018-02-05 19:15 | CON.NEP ---
Consult - History of Present Illness History of Present Illness: admitted with leg edema treated with lasix he has weight loss documented on chart going from 160 to 150 - Past Medical History [employer]: Yes: Other (weakness) Cardio/Vascular: Yes: Aortic Stenosis, CAD, CHF, HTN, Hyperlipdemia, Pulmonary Hypertension, Other (bioprosthetic AVR) Pulmonary: Yes: Other (pleural effusions) Gastrointestinal: Yes: Other (C. 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 Occupation: [employer] History of Recent Travel: No Home Medications - Allergies Allergies/Adverse Reactions: Allergies Allergy/AdvReac Type Severity Reaction Status Date / Time diltiazem HCl [From Cardizem] Allergy Verified 01/26/18 14:34 meperidine HCl [From Demerol] Allergy DECREASED Verified 01/26/18 14:34 BP AND LETHARGY lactose AdvReac Verified 01/26/18 14:34 - Home Medications Home Medications: Ambulatory Orders Metoprolol Succinate [Toprol XL -] 25 mg PO DAILY 05/08/16 Multivitamin with Minerals [Icaps Plus] 1 each PO DAILY 05/08/16 Apixaban [Eliquis -] 2.5 mg PO BID #60 tablet 06/25/16 Furosemide [Lasix -] 40 mg PO DAILY #30 tablet 06/25/16 Lactobacillus Acidophilus [Bacid -] 1 each PO BID 01/26/18 Vancomycin Oral Solution 125 mg PO DAILY 01/26/18 Family Disease History - Family Disease History Family Disease History: Heart Disease: Brother ( of an MS), CA: Grandparent (colon cancer), Father (colon cancer), Other: Mother (old age) Nephrology Consult - Height Height: 5 ft 7 in - Weight Weight: 150 lb - BMI Body Mass Index (BMI): 23.5 - Lab Results CBC,BMP: CBC, BMP 02/05/18 06:10 02/05/18 06:10 Anion Gap: Anion Gap Anion Gap 6 (8-16) L 02/05/18 06:10 - Physical Examination Vital Signs: Vital Signs Temperature 97.9 F 02/05/18 14:05 Pulse Rate 61 02/05/18 14:05 Respiratory Rate 20 02/05/18 10:00 Blood Pressure 111/53 02/05/18 14:05 O2 Sat by Pulse Oximetry (%) 95 02/05/18 09:00 Assessment/Plan Prerenal azotemia resolved leg edema heart failure well compensated recommend hold lasix follow renal function allow ad fab fluids
[2018-02-06] MEDS: ALBUTEROL SO4 0.083% IH SOL 2.5 MG/3 ML VIAL.NEB. NEB SCH ×3 (05:40→21:21)
[2018-02-06 07:34] LABS: BASO % 0.1 % (0-2.0); LYMPH % 3.3 % (8-40); MCH 32.2 pg (25.7-33.7); MCHC 32.6 g/dl (32.0-35.9); MEAN CELL VOLUME 98.8 fl (80-96); MEAN PLT VOLUME 9.3 fl (7.5-11.1); MONO % 5.8 % (3.8-10.2); NEUT % 90.8 % (42.8-82.8); PLATELET COUNT 140 K/MM3 (134-434); RBC 4.05 M/mm3 (4.00-5.60); RDW 18.7 % (11.9-15.9); WHITE BLOOD COUNT 12.3 K/mm3 (4.0-10.0)
[2018-02-06 08:22] LABS: BLOOD UREA NITROGEN 67 mg/dL (7-18); CALCIUM 9.3 mg/dL (8.5-10.1); CHLORIDE 94 mmol/L (98-107); GLUCOSE,RANDOM 190 mg/dL (74-106); POTASSIUM 5.3 mmol/L (3.5-5.1); SODIUM 138 mmol/L (136-145)
[2018-02-06 08:25] LABS: ANION GAP 4 (8-16); CO2 40 mmol/L (21-32); CREATININE 1.4 mg/dL (0.7-1.3)
[2018-02-06] MEDS: FUROSEMIDE 40 MG/4 ML INJECTABLE VIAL IVPUSH SCH (09:15)
[2018-02-06] MEDS: BACITRACIN 15 GM TUBE TOPICAL OINTMENT TP SCH (09:15)
[2018-02-06] MEDS: methylPREDNISolone NA SUCC 40 MG/1 ML VIAL IVPUSH SCH (09:15)
[2018-02-06] MEDS: LACTOBACILLUS ACIDOPHILUS 1 TABLET PO SCH ×2 (09:16→21:26)
[2018-02-06] MEDS: VANCOMYCIN 250 MG/5 ML ORAL SOLUTION PO SCH (09:16)
[2018-02-06] MEDS: APIXABAN 2.5 MG TABLET PO SCH ×2 (09:16→21:26)
[2018-02-06] MEDS: MULTIVITAMINS THER W-MINERALS COMBO TABLET (FP) PO SCH (09:16)
[2018-02-06] MEDS: metoPROLOL SUCCINATE 25 MG TAB.SR.24H (FP) PO SCH (09:16)
--- NOTE | 2018-02-06 09:53 | PN ---
Progress Note, Physician - Current Medication List Current Medications: Active Medications Albuterol Sulfate (Ventolin 0.083% Nebulizer Soln -) 1 amp NEB TIDR [facility] Last Admin: 02/06/18 05:40 Dose: 1 amp Apixaban (Eliquis -) 2.5 mg PO BID [facility] Last Admin: 02/06/18 09:16 Dose: 2.5 mg Bacitracin (Bacitracin -) 1 applic TP DAILY [facility] Last Admin: 02/06/18 09:15 Dose: 1 applic Furosemide (Lasix Injection -) 40 mg IVPUSH DAILY [facility] Last Admin: 02/06/18 09:15 Dose: 40 mg Ipratropium [place] (Atrovent 0.02% Nebulizer -) 1 amp NEB Q6H PRN PRN Reason: SHORTNESS OF BREATH Last Admin: 02/04/18 03:30 Dose: 1 amp Lactobacillus Acidophilus (Bacid -) 1 tab PO BID [facility] Last Admin: 02/06/18 09:16 Dose: 1 tab Methylprednisolone Sodium Succinate (Solu-Medrol -) 40 mg IVPUSH Q12H [facility] Last Admin: 02/06/18 09:15 Dose: 40 mg Metoprolol Succinate (Toprol Xl -) 25 mg PO DAILY [facility] Last Admin: 02/06/18 09:16 Dose: 25 mg Multivitamins/Minerals (Theragran-M) 1 each PO DAILY [facility] Last Admin: 02/06/18 09:16 Dose: 1 each Vancomycin HCl (Vancomycin Oral Solution) 125 mg PO DAILY [facility] Last Admin: 02/06/18 09:16 Dose: 125 mg - Objective Vital Signs: Vital Signs Temperature 97.5 F L 02/06/18 05:00 Pulse Rate 60 02/06/18 05:00 Respiratory Rate 19 02/06/18 05:00 Blood Pressure 117/77 02/06/18 05:00 O2 Sat by Pulse Oximetry (%) 96 02/06/18 05:01 Eyes: Yes: WNL, Conjunctiva Clear, EOM Intact HENT: Yes: WNL, Atraumatic, Normocephalic Neck: Yes: WNL, Supple, Trachea Midline Cardiovascular: Yes: WNL, Regular Rate and Rhythm Respiratory: Yes: Diminished Gastrointestinal: Yes: WNL, Normal Bowel Sounds Genitourinary: Yes: WNL Musculoskeletal: Yes: WNL Extremities: Yes: WNL Edema: No Integumentary: Yes: WNL Neurological: Yes: WNL, Alert, Oriented ...Motor Strength: WNL Psychiatric: Yes: WNL Labs: CBC, BMP 02/06/18 06:30 02/06/18 06:30 INR, PTT INR 2.23 (0.82-1.09) H 01/26/18 15:32 Problem List - Problems (1) CHF (congestive heart failure) Code(s): I50.9 - HEART FAILURE, UNSPECIFIED Qualifiers: Heart failure type: combined systolic and diastolic Heart failure chronicity: acute on chronic Qualified Code(s): I50.43 - Acute on chronic combined systolic (congestive) and diastolic (congestive) heart failure (2) Cellulitis Code(s): L03.90 - CELLULITIS, UNSPECIFIED Qualifiers: Site of cellulitis: extremity Site of cellulitis of extremity: lower extremity Laterality: right Qualified Code(s): L03.115 - Cellulitis of right lower limb (3) DVT prophylaxis Code(s): [id number] - (4) Acute bronchitis Code(s): J20.9 - ACUTE BRONCHITIS, UNSPECIFIED Qualifiers: Bronchitis organism: rhinovirus Qualified Code(s): J20.6 - Acute bronchitis due to rhinovirus (5) Acute on chronic diastolic (congestive) heart failure Code(s): I50.33 - ACUTE ON CHRONIC DIASTOLIC (CONGESTIVE) HEART FAILURE (6) Arthritis Code(s): M19.90 - UNSPECIFIED OSTEOARTHRITIS, UNSPECIFIED SITE (7) Atrial fibrillation Code(s): I48.91 - UNSPECIFIED ATRIAL FIBRILLATION Qualifiers: Atrial fibrillation type: chronic Qualified Code(s): I48.2 - Chronic atrial fibrillation (8) Bradycardia Code(s): R00.1 - BRADYCARDIA, UNSPECIFIED (9) C. difficile diarrhea Code(s): A04.7 - ENTEROCOLITIS DUE TO CLOSTRIDIUM DIFFICILE * DO NOT USE * (10) Diarrhea Code(s): R19.7 - DIARRHEA, UNSPECIFIED Qualifiers: Diarrhea type: unspecified type Qualified Code(s): R19.7 - Diarrhea, unspecified (11) Diastolic CHF Code(s): I50.30 - UNSPECIFIED DIASTOLIC (CONGESTIVE) HEART FAILURE (12) Elevated INR Code(s): R79.1 - ABNORMAL COAGULATION PROFILE (13) Gout Code(s): M10.9 - GOUT, UNSPECIFIED (14) H/O aortic valve replacement Code(s): Z95.2 - PRESENCE OF PROSTHETIC HEART VALVE (15) Hematuria Code(s): R31.9 - HEMATURIA, UNSPECIFIED (16) History of aortic valve replacement with bioprosthetic valve Code(s): Z95.4 - PRESENCE OF OTHER HEART-VALVE REPLACEMENT (17) Hyperkalemia Code(s): E87.5 - HYPERKALEMIA (18) Hypertension Code(s): I10 - ESSENTIAL (PRIMARY) HYPERTENSION (19) Hypomagnesemia Code(s): E83.42 - HYPOMAGNESEMIA (20) Lactic acid acidosis Code(s): E87.2 - ACIDOSIS (21) Leg swelling Code(s): M79.89 - OTHER SPECIFIED SOFT TISSUE DISORDERS (22) Liver cirrhosis Code(s): K74.60 - UNSPECIFIED CIRRHOSIS OF LIVER (23) Lower extremity ulceration Code(s): L97.909 - NON-PRS CHRONIC ULC UNSP PRT OF UNSP LOW LEG W UNSP SEVERITY (24) Melanoma of upper arm Code(s): C43.60 - MALIGNANT MELANOMA OF UNSP UPPER LIMB, INCLUDING SHOULDER (25) Nausea & vomiting Code(s): R11.2 - NAUSEA WITH VOMITING, UNSPECIFIED (26) Osteoarthritis of both knees Code(s): M17.0 - BILATERAL PRIMARY OSTEOARTHRITIS OF KNEE (27) Pacemaker Code(s): Z95.0 - PRESENCE OF CARDIAC PACEMAKER (28) Phlebitis after infusion Code(s): T80.1XXA - VASCULAR COMP FOL INFUSN, TRANFS AND THERAPUTC INJECT, INIT (29) Rectal bleeding Code(s): K62.5 - HEMORRHAGE OF ANUS AND RECTUM (30) Respiratory acidosis Code(s): E87.2 - ACIDOSIS (31) Sepsis Code(s): A41.9 - SEPSIS, UNSPECIFIED ORGANISM Qualifiers: Sepsis type: sepsis due to unspecified organism Qualified Code(s): A41.9 - Sepsis, unspecified organism (32) Shortness of breath Code(s): R06.02 - SHORTNESS OF BREATH (33) Supratherapeutic INR Code(s): R79.1 - ABNORMAL COAGULATION PROFILE (34) Systolic CHF Code(s): I50.20 - UNSPECIFIED SYSTOLIC (CONGESTIVE) HEART FAILURE Assessment/Plan - Problems (1) Acute respiratory failure with hypoxia Code(s): J96.01 - ACUTE RESPIRATORY FAILURE WITH HYPOXIA (2) Cellulitis Assessment/Plan: largely resolved; On Vancomycin and Solumedrol. Code(s): L03.90 - CELLULITIS, UNSPECIFIED Qualifiers: Site of cellulitis: extremity Site of cellulitis of extremity: lower extremity Laterality: right Qualified Code(s): L03.115 - Cellulitis of right lower limb (3) Elevated troponin Code(s): R74.8 - ABNORMAL LEVELS OF OTHER SERUM ENZYMES (4) Acute on chronic diastolic (congestive) heart failure Assessment/Plan: More comfortable, though still has episodes of dyspnea with mild exertion. F/u Is and Os, daily wt, electrolytes, BUN/Cr. On metoprolol and furosemide. CXR: no significant change; however, clinically improved. Code(s): I50.33 - ACUTE ON CHRONIC DIASTOLIC (CONGESTIVE) HEART FAILURE (5) Atrial fibrillation Assessment/Plan: On metoprolol for HR control. On apixaban for anticoagulation. Code(s): I48.91 - UNSPECIFIED ATRIAL FIBRILLATION Qualifiers: Atrial fibrillation type: chronic Qualified Code(s): I48.2 - Chronic atrial fibrillation (6) History of aortic valve replacement with bioprosthetic valve Code(s): Z95.4 - PRESENCE OF OTHER HEART-VALVE REPLACEMENT (7) Hypertension Code(s): I10 - ESSENTIAL (PRIMARY) HYPERTENSION (8) Phlebitis after infusion Code(s): T80.1XXA - VASCULAR COMP FOL INFUSN, TRANFS AND THERAPUTC INJECT, INIT (9) Sepsis Assessment/Plan: Remains on PO antibiotics (Vancomycin) Code(s): A41.9 - SEPSIS, UNSPECIFIED ORGANISM Qualifiers: Sepsis type: sepsis due to unspecified organism Qualified Code(s): A41.9 - Sepsis, unspecified organism
--- NOTE | 2018-02-06 11:31 | PN ---
Progress Note (short form) - Note Progress Note: PULMONARY Denies shortness of breath or chest pain. No cough or wheezing. Last Vital Signs Temp Pulse Resp BP Pulse Ox 97.4 F L 60 18 119/69 97 02/06/18 09:00 02/06/18 05:00 02/06/18 09:00 02/06/18 09:00 02/06/18 09:00 Gen: less tachypneic at rest Heart: RRR Lung: bilateral rhonchi Abd: soft, nontender Ext: no edema CBC, BMP 02/06/18 06:30 02/06/18 06:30 Active Medications Albuterol Sulfate (Ventolin 0.083% Nebulizer Soln -) 1 amp NEB TIDR [facility] Last Admin: 02/06/18 05:40 Dose: 1 amp Apixaban (Eliquis -) 2.5 mg PO BID [facility] Last Admin: 02/06/18 09:16 Dose: 2.5 mg Bacitracin (Bacitracin -) 1 applic TP DAILY [facility] Last Admin: 02/06/18 09:15 Dose: 1 applic Furosemide (Lasix Injection -) 40 mg IVPUSH DAILY [facility] Last Admin: 02/06/18 09:15 Dose: 40 mg Ipratropium [place] (Atrovent 0.02% Nebulizer -) 1 amp NEB Q6H PRN PRN Reason: SHORTNESS OF BREATH Last Admin: 02/04/18 03:30 Dose: 1 amp Lactobacillus Acidophilus (Bacid -) 1 tab PO BID [facility] Last Admin: 02/06/18 09:16 Dose: 1 tab Methylprednisolone Sodium Succinate (Solu-Medrol -) 40 mg IVPUSH Q12H [facility] Last Admin: 02/06/18 09:15 Dose: 40 mg Metoprolol Succinate (Toprol Xl -) 25 mg PO DAILY [facility] Last Admin: 02/06/18 09:16 Dose: 25 mg Multivitamins/Minerals (Theragran-M) 1 each PO DAILY [facility] Last Admin: 02/06/18 09:16 Dose: 1 each Vancomycin HCl (Vancomycin Oral Solution) 125 mg PO DAILY [facility] Last Admin: 02/06/18 09:16 Dose: 125 mg A/P Acute on Chronic Diastolic Heart Failure Cellulitis Mitral Regurgitation h/o AVR CAD s/p CABG Atrial Fibrillation +Troponins likely [place] Ischemia Acute Bronchospasm Lactic Acidosis likely from respiratory effort Chronic Hypoxic Respiratory Failure Hematuria h/o C Diff - continue lasix - monitor urine output, creatinine - daily weights - rate controlled with metoprolol - continue anticoagulation - will change steroids to daily dosing - completed antibiotics
--- NOTE | 2018-02-06 11:59 | PN ---
Progress Note, Physician History of Present Illness: slightly better family in room still uncomfortable breathing main issue - Current Medication List Current Medications: Active Medications Albuterol Sulfate (Ventolin 0.083% Nebulizer Soln -) 1 amp NEB TIDR [facility] Last Admin: 02/06/18 05:40 Dose: 1 amp Apixaban (Eliquis -) 2.5 mg PO BID [facility] Last Admin: 02/06/18 09:16 Dose: 2.5 mg Bacitracin (Bacitracin -) 1 applic TP DAILY [facility] Last Admin: 02/06/18 09:15 Dose: 1 applic Furosemide (Lasix Injection -) 40 mg IVPUSH DAILY [facility] Last Admin: 02/06/18 09:15 Dose: 40 mg Ipratropium [place] (Atrovent 0.02% Nebulizer -) 1 amp NEB Q6H PRN PRN Reason: SHORTNESS OF BREATH Last Admin: 02/04/18 03:30 Dose: 1 amp Lactobacillus Acidophilus (Bacid -) 1 tab PO BID [facility] Last Admin: 02/06/18 09:16 Dose: 1 tab Methylprednisolone Sodium Succinate (Solu-Medrol -) 40 mg IVPUSH DAILY [facility] Metoprolol Succinate (Toprol Xl -) 25 mg PO DAILY [facility] Last Admin: 02/06/18 09:16 Dose: 25 mg Multivitamins/Minerals (Theragran-M) 1 each PO DAILY [facility] Last Admin: 02/06/18 09:16 Dose: 1 each Vancomycin HCl (Vancomycin Oral Solution) 125 mg PO DAILY [facility] Last Admin: 02/06/18 09:16 Dose: 125 mg - Objective Vital Signs: Vital Signs Temperature 97.4 F L 02/06/18 09:00 Pulse Rate 60 02/06/18 05:00 Respiratory Rate 18 02/06/18 09:00 Blood Pressure 119/69 02/06/18 09:00 O2 Sat by Pulse Oximetry (%) 97 02/06/18 09:00 Constitutional: Yes: Mild Distress Cardiovascular: Yes: Regular Rate and Rhythm Respiratory: Yes: Poor Air Entry, Rhonchi Gastrointestinal: Yes: Normal Bowel Sounds, Soft Neurological: Yes: Alert Labs: CBC, BMP 02/06/18 06:30 02/06/18 06:30 INR, PTT INR 2.23 (0.82-1.09) H 01/26/18 15:32 Assessment/Plan Problem List - Problems (1) Acute respiratory failure with hypoxia Code(s): J96.01 - ACUTE RESPIRATORY FAILURE WITH HYPOXIA (2) Acute on chronic diastolic (congestive) heart failure Code(s): I50.33 - ACUTE ON CHRONIC DIASTOLIC (CONGESTIVE) HEART FAILURE (3) Cellulitis Code(s): L03.90 - CELLULITIS, UNSPECIFIED Qualifiers: Site of cellulitis: extremity Site of cellulitis of extremity: lower extremity Laterality: right Qualified Code(s): L03.115 - Cellulitis of right lower limb (4) Atrial fibrillation Code(s): I48.91 - UNSPECIFIED ATRIAL FIBRILLATION Qualifiers: Atrial fibrillation type: chronic Qualified Code(s): I48.2 - Chronic atrial fibrillation (5) History of aortic valve replacement with bioprosthetic valve Code(s): Z95.4 - PRESENCE OF OTHER HEART-VALVE REPLACEMENT (6) Hypertension Code(s): I10 - ESSENTIAL (PRIMARY) HYPERTENSION (7) Elevated troponin Code(s): R74.8 - ABNORMAL LEVELS OF OTHER SERUM ENZYMES (8) Sepsis Code(s): A41.9 - SEPSIS, UNSPECIFIED ORGANISM Qualifiers: Sepsis type: sepsis due to unspecified organism Qualified Code(s): A41.9 - Sepsis, unspecified organism (9) Clostridium difficile colitis Code(s): A04.72 - ENTEROCOLITIS D/T CLOSTRIDIUM DIFFICILE, NOT SPCF RECUR 10 hematuria 11 uti plan continue abx monitor nutrition close watch on the patient
--- NOTE | 2018-02-06 16:00 | PN ---
Progress Note, Physician Chief Complaint: Still c/o SOB History of Present Illness: 88 year old white male, DNR, with a significant PMH of skin ca, CABG, diastolic CHF, afib, hyperlipidemia, hypertension, anxiety, depression, CAD, severe arthritis , mechanical heart valve (bioprosthetic aortic valve) and a pacemaker who presents to the emergency department with 3 days of bilateral leg swelling and redness. - Current Medication List Current Medications: Active Medications Albuterol Sulfate (Ventolin 0.083% Nebulizer Soln -) 1 amp NEB TIDR [facility] [place] Last Admin: 02/06/18 13:20 Dose: 1 amp Apixaban (Eliquis -) 2.5 mg PO BID [facility] [place] Last Admin: 02/06/18 09:16 Dose: 2.5 mg Bacitracin (Bacitracin -) 1 applic TP DAILY [facility] [place] Last Admin: 02/06/18 09:15 Dose: 1 applic Furosemide (Lasix Injection -) 40 mg IVPUSH DAILY [facility] [place] Last Admin: 02/06/18 09:15 Dose: 40 mg Ipratropium [place] (Atrovent 0.02% Nebulizer -) 1 amp NEB Q6H PRN PRN Reason: SHORTNESS OF BREATH Last Admin: 02/04/18 03:30 Dose: 1 amp Lactobacillus Acidophilus (Bacid -) 1 tab PO BID [facility] [place] Last Admin: 02/06/18 09:16 Dose: 1 tab Methylprednisolone Sodium Succinate (Solu-Medrol -) 40 mg IVPUSH DAILY [facility] [place] Metoprolol Succinate (Toprol Xl -) 25 mg PO DAILY [facility] [place] Last Admin: 02/06/18 09:16 Dose: 25 mg Multivitamins/Minerals (Theragran-M) 1 each PO DAILY [facility] [place] Last Admin: 02/06/18 09:16 Dose: 1 each Vancomycin HCl (Vancomycin Oral Solution) 125 mg PO DAILY [facility] [place] Last Admin: 02/06/18 09:16 Dose: 125 mg - Objective Vital Signs: Vital Signs Temperature 97.9 F 02/06/18 14:00 Pulse Rate 60 02/06/18 14:00 Respiratory Rate 18 02/06/18 09:00 Blood Pressure 111/60 02/06/18 14:00 O2 Sat by Pulse Oximetry (%) 97 02/06/18 09:00 Labs: CBC, BMP 02/06/18 06:30 02/06/18 06:30 INR, PTT INR 2.23 (0.82-1.09) H 01/26/18 15:32 Problem List - Problems (1) Acute on chronic diastolic (congestive) heart failure Assessment/Plan: Improving F/U Cardiology recommendation Code(s): I50.33 - ACUTE ON CHRONIC DIASTOLIC (CONGESTIVE) HEART FAILURE (2) Atrial fibrillation Assessment/Plan: Cont AC rate controlled Code(s): I48.91 - UNSPECIFIED ATRIAL FIBRILLATION Qualifiers: Atrial fibrillation type: chronic Qualified Code(s): I48.2 - Chronic atrial fibrillation
--- NOTE | 2018-02-06 21:08 | PN ---
Progress Note (short form) - Note Progress Note: Prerenal azotemia resolved leg edema heart failure well compensated recommend hold lasix follow renal function allow ad fab fluids Current Medications Albuterol Sulfate (Ventolin 0.083% Nebulizer Soln -) 1 amp NEB [facility]IDR [facility] Last Admin: 02/06/18 13:20 Dose: 1 amp Apixaban (Eliquis -) 2.5 mg PO BID [facility] Last Admin: 02/06/18 09:16 Dose: 2.5 mg Bacitracin (Bacitracin -) 1 applic TP DAILY [facility] Last Admin: 02/06/18 09:15 Dose: 1 applic Furosemide (Lasix Injection -) 40 mg IVPUSH [facility]ILY [facility] Last Admin: 02/06/18 09:15 Dose: 40 mg Lactobacillus Acidophilus (Bacid -) 1 tab PO BID [facility] Last Admin: 02/06/18 09:16 Dose: 1 tab Methylprednisolone Sodium Succinate (Solu-Medrol -) 40 mg IVPUSH DAILY [facility] Metoprolol Succinate (Toprol Xl -) 25 mg PO DAILY [facility] Last Admin: 02/06/18 09:16 Dose: 25 mg Multivitamins/Minerals (Theragran-M) 1 each PO DAILY [facility] Last Admin: 02/06/18 09:16 Dose: 1 each Vancomycin HCl (Vancomycin Oral Solution) 125 mg PO DAILY [facility] Last Admin: 02/06/18 09:16 Dose: 125 mg Last Vital Signs Temp Pulse Resp BP Pulse Ox 98.8 F 70 18 104/66 97 02/06/18 17:00 02/06/18 17:00 02/06/18 17:00 02/06/18 17:00 02/06/18 09:00 CBC, BMP 02/06/18 06:30 02/06/18 06:30 IMP svitlana prerenal azotemia underlying ckd contraction alkalosis Plan- hold diuretics for a day or two allow hydration orally
[2018-02-07] MEDS: ALBUTEROL SO4 0.083% IH SOL 2.5 MG/3 ML VIAL.NEB. NEB SCH ×3 (05:16→22:00)
[2018-02-07 07:14] LABS: HEMATOCRIT 41.5 % (35.4-49); HEMOGLOBIN 13.5 GM/dL (11.7-16.9); LYMPH % 1.7 % (8-40); MCH 32.1 pg (25.7-33.7); MCHC 32.4 g/dl (32.0-35.9); MEAN CELL VOLUME 98.8 fl (80-96); MEAN PLT VOLUME 9.5 fl (7.5-11.1); MONO % 8.1 % (3.8-10.2); NEUT % 90.2 % (42.8-82.8); PLATELET COUNT 148 K/MM3 (134-434); RDW 18.9 % (11.9-15.9); WHITE BLOOD COUNT 21.1 K/mm3 (4.0-10.0)
[2018-02-07 07:46] LABS: CHLORIDE 95 mmol/L (98-107); POTASSIUM 4.5 mmol/L (3.5-5.1); SODIUM 140 mmol/L (136-145)
[2018-02-07 07:51] LABS: ANION GAP 5 (8-16); BLOOD UREA NITROGEN 67 mg/dL (7-18); CALCIUM 9.4 mg/dL (8.5-10.1); CO2 40 mmol/L (21-32); CREATININE 1.4 mg/dL (0.7-1.3); GLUCOSE,RANDOM 184 mg/dL (74-106)
--- NOTE | 2018-02-07 08:52 | PN ---
Progress Note, Physician - Current Medication List Current Medications: Active Medications Albuterol Sulfate (Ventolin 0.083% Nebulizer Soln -) 1 amp NEB TIDR [facility] Last Admin: 02/07/18 05:16 Dose: 1 amp Apixaban (Eliquis -) 2.5 mg PO BID [facility] Last Admin: 02/06/18 21:26 Dose: 2.5 mg Bacitracin (Bacitracin -) 1 applic TP DAILY [facility] Last Admin: 02/06/18 09:15 Dose: 1 applic Furosemide (Lasix Injection -) 40 mg IVPUSH DAILY [facility] Last Admin: 02/06/18 09:15 Dose: 40 mg Lactobacillus Acidophilus (Bacid -) 1 tab PO BID [facility] Last Admin: 02/06/18 21:26 Dose: 1 tab Methylprednisolone Sodium Succinate (Solu-Medrol -) 40 mg IVPUSH DAILY [facility] Metoprolol Succinate (Toprol Xl -) 25 mg PO DAILY [facility] Last Admin: 02/06/18 09:16 Dose: 25 mg Multivitamins/Minerals (Theragran-M) 1 each PO DAILY [facility] Last Admin: 02/06/18 09:16 Dose: 1 each Vancomycin HCl (Vancomycin Oral Solution) 125 mg PO DAILY [facility] Last Admin: 02/06/18 09:16 Dose: 125 mg - Objective Vital Signs: Vital Signs Temperature 97.9 F 02/07/18 05:27 Pulse Rate 59 L 02/07/18 05:27 Respiratory Rate 18 02/07/18 05:27 Blood Pressure 113/56 02/07/18 05:27 O2 Sat by Pulse Oximetry (%) 96 02/06/18 21:00 Eyes: Yes: WNL, Conjunctiva Clear, EOM Intact HENT: Yes: WNL, Atraumatic, Normocephalic Neck: Yes: WNL, Supple, Trachea Midline Cardiovascular: Yes: Pulse Irregular, S1, S2 Respiratory: Yes: Diminished Gastrointestinal: Yes: WNL, Normal Bowel Sounds Genitourinary: Yes: WNL Musculoskeletal: Yes: WNL Extremities: Yes: WNL Edema: No Integumentary: Yes: WNL Neurological: Yes: WNL, Alert, Oriented ...Motor Strength: WNL Psychiatric: Yes: WNL Labs: CBC, BMP 02/07/18 06:30 02/07/18 06:30 INR, PTT INR 2.23 (0.82-1.09) H 01/26/18 15:32 Problem List - Problems (1) CHF (congestive heart failure) Code(s): I50.9 - HEART FAILURE, UNSPECIFIED Qualifiers: Heart failure type: combined systolic and diastolic Heart failure chronicity: acute on chronic Qualified Code(s): I50.43 - Acute on chronic combined systolic (congestive) and diastolic (congestive) heart failure (2) Cellulitis Code(s): L03.90 - CELLULITIS, UNSPECIFIED Qualifiers: Site of cellulitis: extremity Site of cellulitis of extremity: lower extremity Laterality: right Qualified Code(s): L03.115 - Cellulitis of right lower limb (3) DVT prophylaxis Code(s): [id number] - (4) Acute bronchitis Code(s): J20.9 - ACUTE BRONCHITIS, UNSPECIFIED Qualifiers: Bronchitis organism: rhinovirus Qualified Code(s): J20.6 - Acute bronchitis due to rhinovirus (5) Acute on chronic diastolic (congestive) heart failure Code(s): I50.33 - ACUTE ON CHRONIC DIASTOLIC (CONGESTIVE) HEART FAILURE (6) Arthritis Code(s): M19.90 - UNSPECIFIED OSTEOARTHRITIS, UNSPECIFIED SITE (7) Atrial fibrillation Code(s): I48.91 - UNSPECIFIED ATRIAL FIBRILLATION Qualifiers: Atrial fibrillation type: chronic Qualified Code(s): I48.2 - Chronic atrial fibrillation (8) Bradycardia Code(s): R00.1 - BRADYCARDIA, UNSPECIFIED (9) C. difficile diarrhea Code(s): A04.7 - ENTEROCOLITIS DUE TO CLOSTRIDIUM DIFFICILE * DO NOT USE * (10) Diarrhea Code(s): R19.7 - DIARRHEA, UNSPECIFIED Qualifiers: Diarrhea type: unspecified type Qualified Code(s): R19.7 - Diarrhea, unspecified (11) Diastolic CHF Code(s): I50.30 - UNSPECIFIED DIASTOLIC (CONGESTIVE) HEART FAILURE (12) Elevated INR Code(s): R79.1 - ABNORMAL COAGULATION PROFILE (13) Gout Code(s): M10.9 - GOUT, UNSPECIFIED (14) H/O aortic valve replacement Code(s): Z95.2 - PRESENCE OF PROSTHETIC HEART VALVE (15) Hematuria Code(s): R31.9 - HEMATURIA, UNSPECIFIED (16) History of aortic valve replacement with bioprosthetic valve Code(s): Z95.4 - PRESENCE OF OTHER HEART-VALVE REPLACEMENT (17) Hyperkalemia Code(s): E87.5 - HYPERKALEMIA (18) Hypertension Code(s): I10 - ESSENTIAL (PRIMARY) HYPERTENSION (19) Hypomagnesemia Code(s): E83.42 - HYPOMAGNESEMIA (20) Lactic acid acidosis Code(s): E87.2 - ACIDOSIS (21) Leg swelling Code(s): M79.89 - OTHER SPECIFIED SOFT TISSUE DISORDERS (22) Liver cirrhosis Code(s): K74.60 - UNSPECIFIED CIRRHOSIS OF LIVER (23) Lower extremity ulceration Code(s): L97.909 - NON-PRS CHRONIC ULC UNSP PRT OF UNSP LOW LEG W UNSP SEVERITY (24) Melanoma of upper arm Code(s): C43.60 - MALIGNANT MELANOMA OF UNSP UPPER LIMB, INCLUDING SHOULDER (25) Nausea & vomiting Code(s): R11.2 - NAUSEA WITH VOMITING, UNSPECIFIED (26) Osteoarthritis of both knees Code(s): M17.0 - BILATERAL PRIMARY OSTEOARTHRITIS OF KNEE (27) Pacemaker Code(s): Z95.0 - PRESENCE OF CARDIAC PACEMAKER (28) Phlebitis after infusion Code(s): T80.1XXA - VASCULAR COMP FOL INFUSN, TRANFS AND THERAPUTC INJECT, INIT (29) Rectal bleeding Code(s): K62.5 - HEMORRHAGE OF ANUS AND RECTUM (30) Respiratory acidosis Code(s): E87.2 - ACIDOSIS (31) Sepsis Code(s): A41.9 - SEPSIS, UNSPECIFIED ORGANISM Qualifiers: Sepsis type: sepsis due to unspecified organism Qualified Code(s): A41.9 - Sepsis, unspecified organism (32) Shortness of breath Code(s): R06.02 - SHORTNESS OF BREATH (33) Supratherapeutic INR Code(s): R79.1 - ABNORMAL COAGULATION PROFILE (34) Systolic CHF Code(s): I50.20 - UNSPECIFIED SYSTOLIC (CONGESTIVE) HEART FAILURE Assessment/Plan - Problems (1) Acute respiratory failure with hypoxia Code(s): J96.01 - ACUTE RESPIRATORY FAILURE WITH HYPOXIA (2) Cellulitis Assessment/Plan: largely resolved; On Vancomycin and Solumedrol. Code(s): L03.90 - CELLULITIS, UNSPECIFIED Qualifiers: Site of cellulitis: extremity Site of cellulitis of extremity: lower extremity Laterality: right Qualified Code(s): L03.115 - Cellulitis of right lower limb (3) Elevated troponin Code(s): R74.8 - ABNORMAL LEVELS OF OTHER SERUM ENZYMES (4) Acute on chronic diastolic (congestive) heart failure Assessment/Plan: More comfortable, though still has episodes of dyspnea with mild exertion. F/u Is and Os, daily wt, electrolytes, BUN/Cr. On metoprolol and furosemide. CXR: no significant change; however, clinically improved. Code(s): I50.33 - ACUTE ON CHRONIC DIASTOLIC (CONGESTIVE) HEART FAILURE (5) Atrial fibrillation Assessment/Plan: On metoprolol for HR control. On apixaban for anticoagulation. Code(s): I48.91 - UNSPECIFIED ATRIAL FIBRILLATION Qualifiers: Atrial fibrillation type: chronic Qualified Code(s): I48.2 - Chronic atrial fibrillation (6) History of aortic valve replacement with bioprosthetic valve Code(s): Z95.4 - PRESENCE OF OTHER HEART-VALVE REPLACEMENT (7) Hypertension Code(s): I10 - ESSENTIAL (PRIMARY) HYPERTENSION (8) Phlebitis after infusion Code(s): T80.1XXA - VASCULAR COMP FOL INFUSN, TRANFS AND THERAPUTC INJECT, INIT (9) Sepsis Assessment/Plan: Remains on PO antibiotics (Vancomycin) Code(s): A41.9 - SEPSIS, UNSPECIFIED ORGANISM Qualifiers: Sepsis type: sepsis due to unspecified organism Qualified Code(s): A41.9 - Sepsis, unspecified organism
[2018-02-07] MEDS: methylPREDNISolone NA SUCC 40 MG/1 ML VIAL IVPUSH SCH (09:25)
[2018-02-07] MEDS: BACITRACIN 15 GM TUBE TOPICAL OINTMENT TP SCH (09:26)
[2018-02-07] MEDS: metoPROLOL SUCCINATE 25 MG TAB.SR.24H (FP) PO SCH (09:26)
[2018-02-07] MEDS: MULTIVITAMINS THER W-MINERALS COMBO TABLET (FP) PO SCH (09:26)
[2018-02-07] MEDS: APIXABAN 2.5 MG TABLET PO SCH ×2 (09:26→22:04)
[2018-02-07] MEDS: VANCOMYCIN 250 MG/5 ML ORAL SOLUTION PO SCH (09:26)
[2018-02-07] MEDS: LACTOBACILLUS ACIDOPHILUS 1 TABLET PO SCH ×2 (09:26→22:04)
[2018-02-07] MEDS: FUROSEMIDE 40 MG/4 ML INJECTABLE VIAL IVPUSH SCH (09:38)
--- NOTE | 2018-02-07 10:03 | PN ---
Progress Note (short form) - Note Progress Note: PULMONARY More short of breath today. +nonproductive cough. Last Vital Signs Temp Pulse Resp BP Pulse Ox 97.9 F 59 L 18 113/56 96 02/07/18 05:27 02/07/18 05:27 02/07/18 05:27 02/07/18 05:27 02/06/18 21:00 Gen: mildly tachypneic at rest Heart: RRR Lung: scattered rhonchi Abd: soft, nontender Ext: no edema CBC, BMP 02/07/18 06:30 02/07/18 06:30 Active Medications Albuterol Sulfate (Ventolin 0.083% Nebulizer Soln -) 1 amp NEB TIDR [facility] Last Admin: 02/07/18 05:16 Dose: 1 amp Apixaban (Eliquis -) 2.5 mg PO BID [facility] Last Admin: 02/07/18 09:26 Dose: 2.5 mg Bacitracin (Bacitracin -) 1 applic TP DAILY [facility] Last Admin: 02/07/18 09:26 Dose: 1 applic Furosemide (Lasix Injection -) 40 mg IVPUSH DAILY [facility] Last Admin: 02/07/18 09:38 Dose: Not Given Lactobacillus Acidophilus (Bacid -) 1 tab PO BID [facility] Last Admin: 02/07/18 09:26 Dose: 1 tab Methylprednisolone Sodium Succinate (Solu-Medrol -) 40 mg IVPUSH DAILY [facility] Last Admin: 02/07/18 09:25 Dose: 40 mg Metoprolol Succinate (Toprol Xl -) 25 mg PO DAILY [facility] Last Admin: 02/07/18 09:26 Dose: 25 mg Multivitamins/Minerals (Theragran-M) 1 each PO DAILY [facility] Last Admin: 02/07/18 09:26 Dose: 1 each Vancomycin HCl (Vancomycin Oral Solution) 125 mg PO DAILY [facility] Last Admin: 02/07/18 09:26 Dose: 125 mg A/P Acute on Chronic Diastolic Heart Failure Cellulitis Mitral Regurgitation h/o AVR CAD s/p CABG Atrial Fibrillation +Troponins likely Demand Ischemia Acute Bronchospasm Lactic Acidosis likely from respiratory effort Chronic Hypoxic Respiratory Failure Hematuria h/o C Diff - repeat CXR - continue lasix - monitor urine output, creatinine - daily weights - rate controlled with metoprolol - continue anticoagulation - medrol taper - inhaled bronchodilators
--- NOTE | 2018-02-07 11:23 | PN ---
Progress Note (short form) - Note Progress Note: Patient seen and examined today. He is delirious today thinking he is not in the hospital and unless prompted didn't know my name. Also continues SOB of and on; no chest pain. Nurses and aide aware of speech therapist's recommendations. On Exam: Vital Signs Temp 97.9 F 02/07/18 05:27 Pulse 59 L 02/07/18 05:27 Resp 18 02/07/18 05:27 BP 113/56 02/07/18 05:27 Pulse Ox 96 02/06/18 21:00 Intake & Output 02/06/18 02/06/18 02/07/18 11:59 23:59 11:59 Intake Total 20 800 50 Output Total 300 Balance 20 500 50 Intake: IV 10 40 Saline Lock 10 40 Oral 10 760 50 Output: Urine 300 Void 300 Other: Voiding Method Diaper Diaper Indwelling Catheter # Unmeasured Voids Gardner 2 Void 1 1 Bowel Movement No # Bowel Movements 0 Slightly lethargic Confused Chest: Bilateral rhonchi at bases Cor: Irreg Ext: No edema Abnormal Lab Results 02/07/18 02/07/18 06:30 06:30 WBC 21.1 H D MCV 98.8 H RDW 18.9 H Neutrophils % 90.2 H Lymphocytes % 1.7 L D Chloride 95 L Carbon Dioxide 40 H Anion Gap 5 L BUN 67 H Creatinine 1.4 H Random Glucose 184 H IMP: Acute on Chronic CHF AVR CABG Acute on Chronic Renal Failure Atrial Fibrillation Delirium Leukocytosis DNR/DNI PLAN: I asked daughter Re: Comfort Care; She will discuss with sister D/C Jacob as per Renal MD suggestion CXR AM F/U CBC and basic profile
[2018-02-07 11:55] LABS: ACANTHOCYTES 0; ANISOCYTOSIS 0; HELMET CELLS 0; HOWELL-JOLLY BODIES 0; MACROCYTOSIS 0; OVALOCYTE 0; ROULEAU 0; SICKELED CELLS 0; TARGET CELLS 0; TEAR DROP CELLS 0; TOXIC GRANULATION 0
[2018-02-07 12:30] LABS: PLATELET ESTIMATE NORMAL
--- NOTE | 2018-02-07 12:43 | PN ---
Progress Note, Physician History of Present Illness: patient more confused today more sob wbc has increased - Current Medication List Current Medications: Active Medications Albuterol Sulfate (Ventolin 0.083% Nebulizer Soln -) 1 amp NEB TIDR [facility] Last Admin: 02/07/18 05:16 Dose: 1 amp Apixaban (Eliquis -) 2.5 mg PO BID [facility] Last Admin: 02/07/18 09:26 Dose: 2.5 mg Bacitracin (Bacitracin -) 1 applic TP DAILY [facility] Last Admin: 02/07/18 09:26 Dose: 1 applic Lactobacillus Acidophilus (Bacid -) 1 tab PO BID [facility] Last Admin: 02/07/18 09:26 Dose: 1 tab Methylprednisolone Sodium Succinate (Solu-Medrol -) 40 mg IVPUSH DAILY [facility] Last Admin: 02/07/18 09:25 Dose: 40 mg Metoprolol Succinate (Toprol Xl -) 25 mg PO DAILY [facility] Last Admin: 02/07/18 09:26 Dose: 25 mg Multivitamins/Minerals (Theragran-M) 1 each PO DAILY [facility] Last Admin: 02/07/18 09:26 Dose: 1 each - Objective Vital Signs: Vital Signs Temperature 97.7 F 02/07/18 10:00 Pulse Rate 61 02/07/18 10:00 Respiratory Rate 20 02/07/18 10:00 Blood Pressure 118/53 02/07/18 10:00 O2 Sat by Pulse Oximetry (%) 96 02/07/18 09:00 Constitutional: Yes: Other Cardiovascular: Yes: S1, S2 Respiratory: Yes: On Nasal O2, Poor Air Entry, Other Gastrointestinal: Yes: Normal Bowel Sounds, Soft Musculoskeletal: Yes: WNL Extremities: Yes: Other Neurological: Yes: Other (confused) Psychiatric: Yes: Other Labs: CBC, BMP 02/07/18 06:30 02/07/18 06:30 INR, PTT INR 2.23 (0.82-1.09) H 01/26/18 15:32 Assessment/Plan Problem List - Problems (1) Acute respiratory failure with hypoxia Code(s): J96.01 - ACUTE RESPIRATORY FAILURE WITH HYPOXIA (2) Acute on chronic diastolic (congestive) heart failure Code(s): I50.33 - ACUTE ON CHRONIC DIASTOLIC (CONGESTIVE) HEART FAILURE (3) Cellulitis Code(s): L03.90 - CELLULITIS, UNSPECIFIED Qualifiers: Site of cellulitis: extremity Site of cellulitis of extremity: lower extremity Laterality: right Qualified Code(s): L03.115 - Cellulitis of right lower limb (4) Atrial fibrillation Code(s): I48.91 - UNSPECIFIED ATRIAL FIBRILLATION Qualifiers: Atrial fibrillation type: chronic Qualified Code(s): I48.2 - Chronic atrial fibrillation (5) History of aortic valve replacement with bioprosthetic valve Code(s): Z95.4 - PRESENCE OF OTHER HEART-VALVE REPLACEMENT (6) Hypertension Code(s): I10 - ESSENTIAL (PRIMARY) HYPERTENSION (7) Elevated troponin Code(s): R74.8 - ABNORMAL LEVELS OF OTHER SERUM ENZYMES (8) Sepsis Code(s): A41.9 - SEPSIS, UNSPECIFIED ORGANISM Qualifiers: Sepsis type: sepsis due to unspecified organism Qualified Code(s): A41.9 - Sepsis, unspecified organism (9) Clostridium difficile colitis Code(s): A04.72 - ENTEROCOLITIS D/T CLOSTRIDIUM DIFFICILE, NOT SPCF RECUR 10 hematuria 11 uti plan will restart patient on zosyn monitor await for sensitivities close watch on the patient
[2018-02-07] MEDS ORDERED: PIPERACILLIN/TAZOBACTAM 2.25 GM VIAL IVPB ONE ×2 (13:48→21:50)
[2018-02-07] MEDS ORDERED: DEXTROSE 5%-WATER - 50 ML IVPB ONE ×2 (13:49→21:51)
[2018-02-07] MEDS: PIPERACILLIN/TAZOB 2.25 GM 2.25 GM in DEXTROSE 5%-WATER - 50 ML IVPB SCH ×3 (14:02→22:05)
--- NOTE | 2018-02-07 20:53 | PN ---
Progress Note (short form) - Note Progress Note: Prerenal azotemia resolved leg edema heart failure well compensated recommend hold lasix follow renal function allow ad fab fluids Current Medications Albuterol Sulfate (Ventolin 0.083% Nebulizer Soln -) 1 amp NEB TIDR [facility] Last Admin: 02/07/18 13:44 Dose: 1 amp Apixaban (Eliquis -) 2.5 mg PO BID [facility] Last Admin: 02/07/18 09:26 Dose: 2.5 mg Bacitracin (Bacitracin -) 1 applic TP DAILY [facility] Last Admin: 02/07/18 09:26 Dose: 1 applic Piperacillin Sod/Tazobactam (Sod 2.25 gm/ Dextrose) 50 mls @ 100 mls/hr IVPB Q6H-IV [facility]; Protocol Last Admin: 02/07/18 14:03 Dose: Not Given Lactobacillus Acidophilus (Bacid -) 1 tab PO BID [facility] Last Admin: 02/07/18 09:26 Dose: 1 tab Methylprednisolone Sodium Succinate (Solu-Medrol -) 40 mg IVPUSH DAILY [facility] Last Admin: 02/07/18 09:25 Dose: 40 mg Metoprolol Succinate (Toprol Xl -) 25 mg PO DAILY [facility] Last Admin: 02/07/18 09:26 Dose: 25 mg Multivitamins/Minerals (Theragran-M) 1 each PO DAILY [facility] Last Admin: 02/07/18 09:26 Dose: 1 each Last Vital Signs Temp Pulse Resp BP Pulse Ox 97.7 F 60 18 96/51 96 02/07/18 18:00 02/07/18 18:00 02/07/18 18:00 02/07/18 18:00 02/07/18 09:00 Lungs clear Heart reg Abd soft Ext no cyanosis CBC, BMP 02/07/18 06:30 02/07/18 06:30 IMP svitlana prerenal azotemia underlying ckd contraction alkalosis Plan- diuretics on hold allow hydration orally
[2018-02-08] MEDS: PIPERACILLIN/TAZOB 2.25 GM 2.25 GM in DEXTROSE 5%-WATER - 50 ML IVPB SCH ×4 (03:37→21:02)
[2018-02-08] MEDS: ALBUTEROL SO4 0.083% IH SOL 2.5 MG/3 ML VIAL.NEB. NEB SCH ×3 (06:25→21:34)
[2018-02-08 07:01] LABS: BASO % 0.3 % (0-2.0); HEMATOCRIT 40.2 % (35.4-49); LYMPH % 1.5 % (8-40); MCH 32.1 pg (25.7-33.7); MCHC 32.4 g/dl (32.0-35.9); MEAN CELL VOLUME 99.2 fl (80-96); MEAN PLT VOLUME 9.8 fl (7.5-11.1); NEUT % 94.2 % (42.8-82.8); PLATELET COUNT 132 K/MM3 (134-434); RBC 4.05 M/mm3 (4.00-5.60); RDW 18.6 % (11.9-15.9)
[2018-02-08 07:17] LABS: ANION GAP 2 (8-16); BLOOD UREA NITROGEN 79 mg/dL (7-18); CALCIUM 9.6 mg/dL (8.5-10.1); CHLORIDE 96 mmol/L (98-107); CO2 41 mmol/L (21-32); CREATININE 1.5 mg/dL (0.7-1.3); GLUCOSE,RANDOM 192 mg/dL (74-106); SODIUM 139 mmol/L (136-145)
[2018-02-08] MEDS ORDERED: PIPERACILLIN/TAZOBACTAM 2.25 GM VIAL IVPB ONE ×3 (08:46→20:46)
[2018-02-08] MEDS ORDERED: DEXTROSE 5%-WATER - 50 ML IVPB ONE ×3 (08:46→20:46)
[2018-02-08] MEDS: MULTIVITAMINS THER W-MINERALS COMBO TABLET (FP) PO SCH (09:18)
[2018-02-08] MEDS: LACTOBACILLUS ACIDOPHILUS 1 TABLET PO SCH ×2 (09:18→21:02)
[2018-02-08] MEDS: metoPROLOL SUCCINATE 25 MG TAB.SR.24H (FP) PO SCH (09:18)
[2018-02-08] MEDS: APIXABAN 2.5 MG TABLET PO SCH ×2 (09:18→21:02)
[2018-02-08] MEDS: methylPREDNISolone NA SUCC 40 MG/1 ML VIAL IVPUSH SCH (09:19)
[2018-02-08] MEDS: BACITRACIN 15 GM TUBE TOPICAL OINTMENT TP SCH (09:20)
--- NOTE | 2018-02-08 10:27 | PN ---
Progress Note, Physician History of Present Illness: pulmonary awake,weak,congested - Current Medication List Current Medications: Active Medications Albuterol Sulfate (Ventolin 0.083% Nebulizer Soln -) 1 amp NEB TIDR [facility] Last Admin: 02/08/18 06:25 Dose: 1 amp Apixaban (Eliquis -) 2.5 mg PO BID [facility] Last Admin: 02/08/18 09:18 Dose: 2.5 mg Bacitracin (Bacitracin -) 1 applic TP DAILY [facility] Last Admin: 02/08/18 09:20 Dose: 1 applic Piperacillin Sod/Tazobactam (Sod 2.25 gm/ Dextrose) 50 mls @ 100 mls/hr IVPB Q6H-IV [facility]; Protocol Last Admin: 02/08/18 09:16 Dose: 100 mls/hr Lactobacillus Acidophilus (Bacid -) 1 tab PO BID [facility] Last Admin: 02/08/18 09:18 Dose: 1 tab Methylprednisolone Sodium Succinate (Solu-Medrol -) 40 mg IVPUSH DAILY [facility] Last Admin: 02/08/18 09:19 Dose: 40 mg Metoprolol Succinate (Toprol Xl -) 25 mg PO DAILY [facility] Last Admin: 02/08/18 09:18 Dose: 25 mg Multivitamins/Minerals (Theragran-M) 1 each PO DAILY [facility] Last Admin: 02/08/18 09:18 Dose: 1 each - Objective Vital Signs: Vital Signs Temperature 98 F 02/08/18 08:05 Pulse Rate 61 02/08/18 08:05 Respiratory Rate 18 02/08/18 08:05 Blood Pressure 150/52 02/08/18 08:05 O2 Sat by Pulse Oximetry (%) 91 L 02/07/18 20:56 Constitutional: Yes: Mild Distress, Thin Eyes: Yes: WNL HENT: Yes: WNL Neck: Yes: WNL Cardiovascular: Yes: Pulse Irregular, S1, S2 Respiratory: Yes: Rhonchi (bilateral rhonchi) Gastrointestinal: Yes: Normal Bowel Sounds, Soft Extremities: Yes: WNL Edema: Yes Labs: CBC, BMP 02/08/18 06:00 02/08/18 06:00 INR, PTT INR 2.23 (0.82-1.09) H 01/26/18 15:32 Problem List - Problems (1) CHF (congestive heart failure) Code(s): I50.9 - HEART FAILURE, UNSPECIFIED Qualifiers: Heart failure type: combined systolic and diastolic Heart failure chronicity: acute on chronic Qualified Code(s): I50.43 - Acute on chronic combined systolic (congestive) and diastolic (congestive) heart failure (2) Elevated troponin Code(s): R74.8 - ABNORMAL LEVELS OF OTHER SERUM ENZYMES (3) Acute on chronic diastolic (congestive) heart failure Code(s): I50.33 - ACUTE ON CHRONIC DIASTOLIC (CONGESTIVE) HEART FAILURE (4) Atrial fibrillation Code(s): I48.91 - UNSPECIFIED ATRIAL FIBRILLATION Qualifiers: Atrial fibrillation type: chronic Qualified Code(s): I48.2 - Chronic atrial fibrillation (5) H/O aortic valve replacement Code(s): Z95.2 - PRESENCE OF PROSTHETIC HEART VALVE (6) Hematuria Code(s): R31.9 - HEMATURIA, UNSPECIFIED (7) History of aortic valve replacement with bioprosthetic valve Code(s): Z95.4 - PRESENCE OF OTHER HEART-VALVE REPLACEMENT (8) Leg swelling Code(s): M79.89 - OTHER SPECIFIED SOFT TISSUE DISORDERS (9) Shortness of breath Code(s): R06.02 - SHORTNESS OF BREATH Assessment/Plan Acute on Chronic Diastolic Heart Failure Cellulitis Mitral Regurgitation h/o AVR CAD s/p CABG Atrial Fibrillation +Troponins likely Demand Ischemia Lactic Acidosis likely from respiratory effort Chronic Hypoxic Respiratory Failure Hematuria h/o C Diff Pulmonary HTN - Inhaled bronchodilators - steroids - monitor urine output, creatinine - daily weights - rate controlled - continue anticoagulation - monitor hematuria, H/H - continue antibiotics - AC - prognosis poor DR CHATMAN
--- NOTE | 2018-02-08 11:03 | PN ---
Progress Note (short form) - Note Progress Note: Dr. Rollins to document. Clinically weaker with more congestion. I spoke to him Re; his condition and my recommendation for hospice. He agrees and knows the significance on that decision. I spoke to his daughter Kacie also.
--- NOTE | 2018-02-08 11:45 | PN ---
Progress Note, [employer]AMINER - Note Progress Note: Selected Entries 02/07/18 02/07/18 02/07/18 02:11 05:27 10:00 Breakfast 100% Lunch Supper Temperature 97.8 F 97.9 F 97.7 F 02/07/18 02/07/18 02/07/18 14:00 18:00 19:31 Breakfast Lunch 50% Supper 50% Temperature 98 F 97.7 F 02/07/18 02/08/18 02/08/18 21:00 02:00 06:00 Breakfast Lunch Supper Temperature 98.8 F 98.5 F 98.1 F 02/08/18 02/08/18 08:05 11:11 Breakfast 75% Lunch Supper Temperature 98 F Laboratory Tests 02/06/18 02/07/18 02/08/18 06:30 06:30 06:00 WBC 12.3 H 21.1 H D 21.0 H CXR unchanged. Case reviewed with staff/PMD. More SOB. Congested. Swallow reassessed with responsive cough with water with increased SOB. Suggest [place] thick liquid. Pt and daughter in agreement. Pending consideration for Hospice/[place].
--- NOTE | 2018-02-08 13:29 | PN ---
Progress Note, Physician History of Present Illness: patient continues to be uncomfortable discussion about hospice - Current Medication List Current Medications: Active Medications Albuterol Sulfate (Ventolin 0.083% Nebulizer Soln -) 1 amp NEB TIDR [facility] Last Admin: 02/08/18 06:25 Dose: 1 amp Apixaban (Eliquis -) 2.5 mg PO BID [facility] Last Admin: 02/08/18 09:18 Dose: 2.5 mg Bacitracin (Bacitracin -) 1 applic TP DAILY [facility] Last Admin: 02/08/18 09:20 Dose: 1 applic Piperacillin Sod/Tazobactam (Sod 2.25 gm/ Dextrose) 50 mls @ 100 mls/hr IVPB Q6H-IV [facility]; Protocol Last Admin: 02/08/18 09:16 Dose: 100 mls/hr Lactobacillus Acidophilus (Bacid -) 1 tab PO BID [facility] Last Admin: 02/08/18 09:18 Dose: 1 tab Methylprednisolone Sodium Succinate (Solu-Medrol -) 40 mg IVPUSH DAILY [facility] Last Admin: 02/08/18 09:19 Dose: 40 mg Metoprolol Succinate (Toprol Xl -) 25 mg PO DAILY [facility] Last Admin: 02/08/18 09:18 Dose: 25 mg Multivitamins/Minerals (Theragran-M) 1 each PO DAILY [facility] Last Admin: 02/08/18 09:18 Dose: 1 each - Objective Vital Signs: Vital Signs Temperature 98 F 02/08/18 08:05 Pulse Rate 61 02/08/18 08:05 Respiratory Rate 18 02/08/18 08:05 Blood Pressure 150/52 02/08/18 08:05 O2 Sat by Pulse Oximetry (%) 92 L 02/08/18 08:00 Constitutional: Yes: Mild Distress Cardiovascular: Yes: S1, S2 Respiratory: Yes: Poor Air Entry, Rhonchi Gastrointestinal: Yes: Normal Bowel Sounds, Soft Neurological: Yes: Alert, Oriented Psychiatric: Yes: Alert Labs: CBC, BMP 02/08/18 06:00 02/08/18 06:00 INR, PTT INR 2.23 (0.82-1.09) H 01/26/18 15:32 Assessment/Plan Problem List - Problems (1) Acute respiratory failure with hypoxia Code(s): J96.01 - ACUTE RESPIRATORY FAILURE WITH HYPOXIA (2) Acute on chronic diastolic (congestive) heart failure Code(s): I50.33 - ACUTE ON CHRONIC DIASTOLIC (CONGESTIVE) HEART FAILURE (3) Cellulitis Code(s): L03.90 - CELLULITIS, UNSPECIFIED Qualifiers: Site of cellulitis: extremity Site of cellulitis of extremity: lower extremity Laterality: right Qualified Code(s): L03.115 - Cellulitis of right lower limb (4) Atrial fibrillation Code(s): I48.91 - UNSPECIFIED ATRIAL FIBRILLATION Qualifiers: Atrial fibrillation type: chronic Qualified Code(s): I48.2 - Chronic atrial fibrillation (5) History of aortic valve replacement with bioprosthetic valve Code(s): Z95.4 - PRESENCE OF OTHER HEART-VALVE REPLACEMENT (6) Hypertension Code(s): I10 - ESSENTIAL (PRIMARY) HYPERTENSION (7) Elevated troponin Code(s): R74.8 - ABNORMAL LEVELS OF OTHER SERUM ENZYMES (8) Sepsis Code(s): A41.9 - SEPSIS, UNSPECIFIED ORGANISM Qualifiers: Sepsis type: sepsis due to unspecified organism Qualified Code(s): A41.9 - Sepsis, unspecified organism (9) Clostridium difficile colitis Code(s): A04.72 - ENTEROCOLITIS D/T CLOSTRIDIUM DIFFICILE, NOT SPCF RECUR 10 hematuria 11 uti plan continue abx monitor nutrition close watch on the patient neb resp support
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
--- NOTE | 2018-02-08 14:07 | PN ---
Progress Note, Physician Chief Complaint: Mr Covarrubias says he is not feeling well, unable to obtain other subjective - Current Medication List Current Medications: Active Medications Albuterol Sulfate (Ventolin 0.083% Nebulizer Soln -) 1 amp NEB TIDR [facility] Last Admin: 02/08/18 13:52 Dose: 1 amp Apixaban (Eliquis -) 2.5 mg PO BID [facility] Last Admin: 02/08/18 09:18 Dose: 2.5 mg Bacitracin (Bacitracin -) 1 applic TP DAILY [facility] Last Admin: 02/08/18 09:20 Dose: 1 applic Piperacillin Sod/Tazobactam (Sod 2.25 gm/ Dextrose) 50 mls @ 100 mls/hr IVPB Q6H-IV [facility]; Protocol Last Admin: 02/08/18 09:16 Dose: 100 mls/hr Lactobacillus Acidophilus (Bacid -) 1 tab PO BID [facility] Last Admin: 02/08/18 09:18 Dose: 1 tab Methylprednisolone Sodium Succinate (Solu-Medrol -) 40 mg IVPUSH DAILY [facility] Last Admin: 02/08/18 09:19 Dose: 40 mg Metoprolol Succinate (Toprol Xl -) 25 mg PO DAILY [facility] Last Admin: 02/08/18 09:18 Dose: 25 mg Multivitamins/Minerals (Theragran-M) 1 each PO DAILY [facility] Last Admin: 02/08/18 09:18 Dose: 1 each - Objective Vital Signs: Vital Signs Temperature 36.6 C 02/08/18 08:05 Pulse Rate 61 02/08/18 08:05 Respiratory Rate 18 02/08/18 08:05 Blood Pressure 150/52 02/08/18 08:05 O2 Sat by Pulse Oximetry (%) 92 L 02/08/18 08:00 Constitutional: Yes: Moderate Distress Cardiovascular: Yes: Pulse Irregular. No: Tachycardia, Gallop, Murmur, Rub Respiratory: Yes: On Nasal O2, Rhonchi, Tachypnea, Wheezes. No: Regular, CTA Bilaterally, Rales Gastrointestinal: Yes: Normal Bowel Sounds, Soft. No: Distention, Tenderness Extremities: Yes: WNL Edema: Yes Edema: LLE: 2+, RLE: 2+ Labs: CBC, BMP 02/08/18 06:00 02/08/18 06:00 INR, PTT INR 2.23 (0.82-1.09) H 01/26/18 15:32 Problem List - Problems (1) Acute respiratory failure with hypoxia Code(s): J96.01 - ACUTE RESPIRATORY FAILURE WITH HYPOXIA (2) Acute on chronic diastolic (congestive) heart failure Code(s): I50.33 - ACUTE ON CHRONIC DIASTOLIC (CONGESTIVE) HEART FAILURE (3) Cellulitis Code(s): L03.90 - CELLULITIS, UNSPECIFIED Qualifiers: Site of cellulitis: extremity Site of cellulitis of extremity: lower extremity Laterality: right Qualified Code(s): L03.115 - Cellulitis of right lower limb (4) Atrial fibrillation Code(s): I48.91 - UNSPECIFIED ATRIAL FIBRILLATION Qualifiers: Atrial fibrillation type: chronic Qualified Code(s): I48.2 - Chronic atrial fibrillation (5) History of aortic valve replacement with bioprosthetic valve Code(s): Z95.4 - PRESENCE OF OTHER HEART-VALVE REPLACEMENT (6) Hypertension Code(s): I10 - ESSENTIAL (PRIMARY) HYPERTENSION (7) Elevated troponin Code(s): R74.8 - ABNORMAL LEVELS OF OTHER SERUM ENZYMES (8) Sepsis Code(s): A41.9 - SEPSIS, UNSPECIFIED ORGANISM Qualifiers: Sepsis type: sepsis due to unspecified organism Qualified Code(s): A41.9 - Sepsis, unspecified organism (9) Clostridium difficile colitis Code(s): A04.72 - ENTEROCOLITIS D/T CLOSTRIDIUM DIFFICILE, NOT SPCF RECUR Assessment/Plan (1) Acute respiratory failure with hypoxia Code(s): J96.01 - ACUTE RESPIRATORY FAILURE WITH HYPOXIA (2) Acute on chronic diastolic (congestive) heart failure (3) Cellulitis Code(s): L03.90 - CELLULITIS, UNSPECIFIED Qualifiers: Site of cellulitis: extremity Site of cellulitis of extremity: lower extremity Laterality: right Qualified Code(s): L03.115 - Cellulitis of right lower limb (4) Atrial fibrillation Code(s): I48.91 - UNSPECIFIED ATRIAL FIBRILLATION Qualifiers: Atrial fibrillation type: chronic Qualified Code(s): I48.2 - Chronic atrial fibrillation (5) History of aortic valve replacement with bioprosthetic valve Code(s): Z95.4 - PRESENCE OF OTHER HEART-VALVE REPLACEMENT (6) Hypertension Code(s): I10 - ESSENTIAL (PRIMARY) HYPERTENSION (7) Elevated troponin Code(s): R74.8 - ABNORMAL LEVELS OF OTHER SERUM ENZYMES (8) Sepsis Code(s): A41.9 - SEPSIS, UNSPECIFIED ORGANISM Qualifiers: Sepsis type: sepsis due to unspecified organism Qualified Code(s): A41.9 - Sepsis, unspecified organism (9) Clostridium difficile colitis Code(s): A04.72 - ENTEROCOLITIS D/T CLOSTRIDIUM DIFFICILE, NOT SPCF RECUR (10) Stage 3 decubitus ulcer Plan -plan discussed with family, transitioning to hospice -hospice consulted to discuss options -family prefer to take patient home with hospice -to discuss with hospice if this is feasible -if decide [place] or inpatient hospice, will minimize medications and start on morphine gtt -if decide on home hospice, will transition as an outpatient
[2018-02-08] MEDS ORDERED: FUROSEMIDE 40 MG/4 ML INJECTABLE VIAL IVPUSH ONE (14:22)
[2018-02-08] MEDS ORDERED: FUROSEMIDE 40 MG/4 ML INJECTABLE VIAL ONE (14:26)
--- NOTE | 2018-02-08 16:25 | PN ---
Progress Note (short form) - Note Progress Note: Renal follow up for SHANICE/CKD Pt seen and examined at the bedside awake and alert no acute complaints has sob, no fever, chills, CP making urine Vital Signs Temperature 98.1 F 02/08/18 14:00 Pulse Rate 60 02/08/18 14:00 Respiratory Rate 18 02/08/18 08:05 Blood Pressure 106/60 02/08/18 14:00 O2 Sat by Pulse Oximetry (%) 92 L 02/08/18 08:00 Intake & Output 02/05/18 02/06/18 02/07/18 02/08/18 23:59 23:59 23:59 23:59 Intake Total 650 820 490 460 Output Total 150 300 Balance 500 520 490 460 Weight 68.039 kg NAD + rales on b/l lower lungs no LE edema CBC, BMP 02/08/18 06:00 02/08/18 06:00 Current Medications Albuterol Sulfate (Ventolin 0.083% Nebulizer Soln -) 1 amp NEB TIDR [facility] Last Admin: 02/08/18 13:52 Dose: 1 amp Apixaban (Eliquis -) 2.5 mg PO BID [facility] Last Admin: 02/08/18 09:18 Dose: 2.5 mg Bacitracin (Bacitracin -) 1 applic TP DAILY [facility] Last Admin: 02/08/18 09:20 Dose: 1 applic Piperacillin Sod/Tazobactam (Sod 2.25 gm/ Dextrose) 50 mls @ 100 mls/hr IVPB Q6H-IV [facility]; Protocol Last Admin: 02/08/18 14:17 Dose: 100 mls/hr Lactobacillus Acidophilus (Bacid -) 1 tab PO BID [facility] Last Admin: 02/08/18 09:18 Dose: 1 tab Methylprednisolone Sodium Succinate (Solu-Medrol -) 40 mg IVPUSH DAILY [facility] Last Admin: 02/08/18 09:19 Dose: 40 mg Metoprolol Succinate (Toprol Xl -) 25 mg PO DAILY [facility] Last Admin: 02/08/18 09:18 Dose: 25 mg Multivitamins/Minerals (Theragran-M) 1 each PO DAILY [facility] Last Admin: 02/08/18 09:18 Dose: 1 each 88 year old gentleman with PMhx of CHF, Hypertension, CKD who presented with worsening LE edema and found to have acute CHF with rising BUN/Cr during the admission. #SHANICE on CKD #CHF #Hypertension #Metabolic acidosis vs. Respiratory acidosis with metabolic compensation Agree with IV Lasix for now Trend volume status and urine output BUN/Cr elevated but given volume overload will need acute diuresis Trend BUN/Cr and electrolytes prognosis is guarded Nicolas Phillips DO
[2018-02-09] MEDS ORDERED: PIPERACILLIN/TAZOBACTAM 2.25 GM VIAL IVPB ONE ×2 (03:44→09:07)
[2018-02-09] MEDS ORDERED: DEXTROSE 5%-WATER - 50 ML IVPB ONE ×2 (03:44→09:07)
[2018-02-09] MEDS: PIPERACILLIN/TAZOB 2.25 GM 2.25 GM in DEXTROSE 5%-WATER - 50 ML IVPB SCH ×4 (03:46→21:26)
[2018-02-09] MEDS: ALBUTEROL SO4 0.083% IH SOL 2.5 MG/3 ML VIAL.NEB. NEB SCH ×3 (05:35→21:00)
--- NOTE | 2018-02-09 08:50 | PN ---
Progress Note (short form) - Note Progress Note: Dr. Rollins to document today. Family wants to take him home on hospice but he may have acute needs for SOB or pain that might be better addressed at [place].
[2018-02-09] MEDS: LACTOBACILLUS ACIDOPHILUS 1 TABLET PO SCH ×3 (09:24→21:27)
[2018-02-09] MEDS: methylPREDNISolone NA SUCC 40 MG/1 ML VIAL IVPUSH SCH (09:24)
[2018-02-09] MEDS: metoPROLOL SUCCINATE 25 MG TAB.SR.24H (FP) PO SCH (09:24)
[2018-02-09] MEDS: APIXABAN 2.5 MG TABLET PO SCH ×3 (09:24→21:27)
[2018-02-09] MEDS: BACITRACIN 15 GM TUBE TOPICAL OINTMENT TP SCH (09:24)
[2018-02-09] MEDS: MULTIVITAMINS THER W-MINERALS COMBO TABLET (FP) PO SCH ×2 (09:24→16:01)
--- NOTE | 2018-02-09 10:59 | PN ---
Progress Note, Physician - Current Medication List Current Medications: Active Medications Albuterol Sulfate (Ventolin 0.083% Nebulizer Soln -) 1 amp NEB TIDR [facility] Last Admin: 02/09/18 05:35 Dose: 1 amp Apixaban (Eliquis -) 2.5 mg PO BID [facility] Last Admin: 02/09/18 09:24 Dose: 2.5 mg Bacitracin (Bacitracin -) 1 applic TP DAILY [facility] Last Admin: 02/09/18 09:24 Dose: 1 applic Piperacillin Sod/Tazobactam (Sod 2.25 gm/ Dextrose) 50 mls @ 100 mls/hr IVPB Q6H-IV [facility]; Protocol Last Admin: 02/09/18 09:23 Dose: 100 mls/hr Lactobacillus Acidophilus (Bacid -) 1 tab PO BID [facility] Last Admin: 02/09/18 09:24 Dose: 1 tab Methylprednisolone Sodium Succinate (Solu-Medrol -) 40 mg IVPUSH DAILY [facility] Last Admin: 02/09/18 09:24 Dose: 40 mg Metoprolol Succinate (Toprol Xl -) 25 mg PO DAILY [facility] Last Admin: 02/09/18 09:24 Dose: 25 mg Multivitamins/Minerals (Theragran-M) 1 each PO DAILY [facility] Last Admin: 02/09/18 09:24 Dose: 1 each - Objective Vital Signs: Vital Signs Temperature 97.7 F 02/09/18 06:00 Pulse Rate 68 02/09/18 06:00 Respiratory Rate 20 02/09/18 06:00 Blood Pressure 123/56 02/09/18 06:00 O2 Sat by Pulse Oximetry (%) 95 02/09/18 06:00 Eyes: Yes: WNL, Conjunctiva Clear, EOM Intact HENT: Yes: WNL, Atraumatic, Normocephalic Neck: Yes: WNL, Supple, Trachea Midline Cardiovascular: Yes: WNL, Regular Rate and Rhythm Respiratory: Yes: WNL, Regular, CTA Bilaterally Gastrointestinal: Yes: WNL, Normal Bowel Sounds Genitourinary: Yes: WNL Musculoskeletal: Yes: WNL Extremities: Yes: WNL Edema: No Integumentary: Yes: WNL Neurological: Yes: WNL, Alert, Oriented ...Motor Strength: WNL Psychiatric: Yes: WNL Labs: CBC, BMP 02/08/18 06:00 02/08/18 06:00 INR, PTT INR 2.23 (0.82-1.09) H 01/26/18 15:32 Problem List - Problems (1) CHF (congestive heart failure) Code(s): I50.9 - HEART FAILURE, UNSPECIFIED Qualifiers: Qualified Code(s): I50.43 - Acute on chronic combined systolic (congestive) and diastolic (congestive) heart failure (2) Cellulitis Code(s): L03.90 - CELLULITIS, UNSPECIFIED Qualifiers: Qualified Code(s): L03.115 - Cellulitis of right lower limb (3) DVT prophylaxis Code(s): [id number] - (4) Acute bronchitis Code(s): J20.9 - ACUTE BRONCHITIS, UNSPECIFIED Qualifiers: Qualified Code(s): J20.6 - Acute bronchitis due to rhinovirus (5) Acute on chronic diastolic (congestive) heart failure Code(s): I50.33 - ACUTE ON CHRONIC DIASTOLIC (CONGESTIVE) HEART FAILURE (6) Arthritis Code(s): M19.90 - UNSPECIFIED OSTEOARTHRITIS, UNSPECIFIED SITE (7) Atrial fibrillation Code(s): I48.91 - UNSPECIFIED ATRIAL FIBRILLATION Qualifiers: Qualified Code(s): I48.2 - Chronic atrial fibrillation (8) Bradycardia Code(s): R00.1 - BRADYCARDIA, UNSPECIFIED (9) C. difficile diarrhea Code(s): A04.7 - ENTEROCOLITIS DUE TO CLOSTRIDIUM DIFFICILE * DO NOT USE * (10) Diarrhea Code(s): R19.7 - DIARRHEA, UNSPECIFIED Qualifiers: Qualified Code(s): R19.7 - Diarrhea, unspecified (11) Diastolic CHF Code(s): I50.30 - UNSPECIFIED DIASTOLIC (CONGESTIVE) HEART FAILURE (12) Elevated INR Code(s): R79.1 - ABNORMAL COAGULATION PROFILE (13) Gout Code(s): M10.9 - GOUT, UNSPECIFIED (14) H/O aortic valve replacement Code(s): Z95.2 - PRESENCE OF PROSTHETIC HEART VALVE (15) Hematuria Code(s): R31.9 - HEMATURIA, UNSPECIFIED (16) History of aortic valve replacement with bioprosthetic valve Code(s): Z95.4 - PRESENCE OF OTHER HEART-VALVE REPLACEMENT (17) Hyperkalemia Code(s): E87.5 - HYPERKALEMIA (18) Hypertension Code(s): I10 - ESSENTIAL (PRIMARY) HYPERTENSION (19) Hypomagnesemia Code(s): E83.42 - HYPOMAGNESEMIA (20) Lactic acid acidosis Code(s): E87.2 - ACIDOSIS (21) Leg swelling Code(s): M79.89 - OTHER SPECIFIED SOFT TISSUE DISORDERS (22) Liver cirrhosis Code(s): K74.60 - UNSPECIFIED CIRRHOSIS OF LIVER (23) Lower extremity ulceration Code(s): L97.909 - NON-PRS CHRONIC ULC UNSP PRT OF UNSP LOW LEG W UNSP SEVERITY (24) Melanoma of upper arm Code(s): C43.60 - MALIGNANT MELANOMA OF UNSP UPPER LIMB, INCLUDING SHOULDER (25) Nausea & vomiting Code(s): R11.2 - NAUSEA WITH VOMITING, UNSPECIFIED (26) Osteoarthritis of both knees Code(s): M17.0 - BILATERAL PRIMARY OSTEOARTHRITIS OF KNEE (27) Pacemaker Code(s): Z95.0 - PRESENCE OF CARDIAC PACEMAKER (28) Phlebitis after infusion Code(s): T80.1XXA - VASCULAR COMP FOL INFUSN, TRANFS AND THERAPUTC INJECT, INIT (29) Rectal bleeding Code(s): K62.5 - HEMORRHAGE OF ANUS AND RECTUM (30) Respiratory acidosis Code(s): E87.2 - ACIDOSIS (31) Sepsis Code(s): A41.9 - SEPSIS, UNSPECIFIED ORGANISM Qualifiers: Qualified Code(s): A41.9 - Sepsis, unspecified organism (32) Shortness of breath Code(s): R06.02 - SHORTNESS OF BREATH (33) Supratherapeutic INR Code(s): R79.1 - ABNORMAL COAGULATION PROFILE (34) Systolic CHF Code(s): I50.20 - UNSPECIFIED SYSTOLIC (CONGESTIVE) HEART FAILURE Assessment/Plan - Problems (1) Cellulitis Code(s): L03.90 - CELLULITIS, UNSPECIFIED Qualifiers: Site of cellulitis: extremity Site of cellulitis of extremity: lower extremity Laterality: right Qualified Code(s): L03.115 - Cellulitis of right lower limb (2) Elevated troponin Code(s): R74.8 - ABNORMAL LEVELS OF OTHER SERUM ENZYMES (3) Acute on chronic diastolic (congestive) heart failure Assessment/Plan: Again significantly congested. As discussed with PMD and vp ancillary, will restart furosemide 40 mg IVP ( repeat dose in evening, if necessary).F/u renal function closely. F/u Is and Os, daily wt, electrolytes, BUN/Cr. Poor prognosis. Code(s): I50.33 - ACUTE ON CHRONIC DIASTOLIC (CONGESTIVE) HEART FAILURE (4) Atrial fibrillation Assessment/Plan: On metoprolol for HR control. On apixaban for anticoagulation. Code(s): I48.91 - UNSPECIFIED ATRIAL FIBRILLATION Qualifiers: Atrial fibrillation type: chronic Qualified Code(s): I48.2 - Chronic atrial fibrillation (5) History of aortic valve replacement with bioprosthetic valve Code(s): Z95.4 - PRESENCE OF OTHER HEART-VALVE REPLACEMENT (6) Hypertension Code(s): I10 - ESSENTIAL (PRIMARY) HYPERTENSION (7) Phlebitis after infusion Code(s): T80.1XXA - VASCULAR COMP FOL INFUSN, TRANFS AND THERAPUTC INJECT, INIT (8) Sepsis Assessment/Plan: Remains on PO antibiotics (Vancomycin) Code(s): A41.9 - SEPSIS, UNSPECIFIED ORGANISM Qualifiers: Sepsis type: sepsis due to unspecified organism Qualified Code(s): A41.9 - Sepsis, unspecified organism
--- NOTE | 2018-02-09 11:01 | PN ---
Progress Note, Physician History of Present Illness: pulmonary alert,less dyspneic,less congested. - Current Medication List Current Medications: Active Medications Albuterol Sulfate (Ventolin 0.083% Nebulizer Soln -) 1 amp NEB TIDR [facility] Last Admin: 02/09/18 05:35 Dose: 1 amp Apixaban (Eliquis -) 2.5 mg PO BID [facility] Last Admin: 02/09/18 09:24 Dose: 2.5 mg Bacitracin (Bacitracin -) 1 applic TP DAILY [facility] Last Admin: 02/09/18 09:24 Dose: 1 applic Piperacillin Sod/Tazobactam (Sod 2.25 gm/ Dextrose) 50 mls @ 100 mls/hr IVPB Q6H-IV [facility]; Protocol Last Admin: 02/09/18 09:23 Dose: 100 mls/hr Lactobacillus Acidophilus (Bacid -) 1 tab PO BID [facility] Last Admin: 02/09/18 09:24 Dose: 1 tab Methylprednisolone Sodium Succinate (Solu-Medrol -) 40 mg IVPUSH DAILY [facility] Last Admin: 02/09/18 09:24 Dose: 40 mg Metoprolol Succinate (Toprol Xl -) 25 mg PO DAILY [facility] Last Admin: 02/09/18 09:24 Dose: 25 mg Multivitamins/Minerals (Theragran-M) 1 each PO DAILY [facility] Last Admin: 02/09/18 09:24 Dose: 1 each - Objective Vital Signs: Vital Signs Temperature 97.7 F 02/09/18 06:00 Pulse Rate 68 02/09/18 06:00 Respiratory Rate 20 02/09/18 06:00 Blood Pressure 123/56 02/09/18 06:00 O2 Sat by Pulse Oximetry (%) 95 02/09/18 06:00 Constitutional: Yes: Calm, Thin Eyes: Yes: WNL HENT: Yes: WNL Neck: Yes: WNL Cardiovascular: Yes: Pulse Irregular, S1, S2 Respiratory: Yes: Rhonchi (less rhonchi obi) Gastrointestinal: Yes: Normal Bowel Sounds, Soft Extremities: Yes: WNL Edema: Yes Labs: CBC, BMP 02/08/18 06:00 02/08/18 06:00 INR, PTT INR 2.23 (0.82-1.09) H 01/26/18 15:32 Problem List - Problems (1) CHF (congestive heart failure) Code(s): I50.9 - HEART FAILURE, UNSPECIFIED Qualifiers: Heart failure type: combined systolic and diastolic Heart failure chronicity: acute on chronic Qualified Code(s): I50.43 - Acute on chronic combined systolic (congestive) and diastolic (congestive) heart failure (2) Elevated troponin Code(s): R74.8 - ABNORMAL LEVELS OF OTHER SERUM ENZYMES (3) Acute on chronic diastolic (congestive) heart failure Code(s): I50.33 - ACUTE ON CHRONIC DIASTOLIC (CONGESTIVE) HEART FAILURE (4) Atrial fibrillation Code(s): I48.91 - UNSPECIFIED ATRIAL FIBRILLATION Qualifiers: Atrial fibrillation type: chronic Qualified Code(s): I48.2 - Chronic atrial fibrillation (5) H/O aortic valve replacement Code(s): Z95.2 - PRESENCE OF PROSTHETIC HEART VALVE (6) Hematuria Code(s): R31.9 - HEMATURIA, UNSPECIFIED (7) History of aortic valve replacement with bioprosthetic valve Code(s): Z95.4 - PRESENCE OF OTHER HEART-VALVE REPLACEMENT (8) Leg swelling Code(s): M79.89 - OTHER SPECIFIED SOFT TISSUE DISORDERS (9) Shortness of breath Code(s): R06.02 - SHORTNESS OF BREATH Assessment/Plan Acute on Chronic Diastolic Heart Failure Cellulitis Mitral Regurgitation h/o AVR CAD s/p CABG Atrial Fibrillation +Troponins likely [place] Ischemia Lactic Acidosis likely from respiratory effort Chronic Hypoxic Respiratory Failure Hematuria h/o C Diff Pulmonary HTN - Inhaled bronchodilators - steroids - monitor urine output, creatinine - daily weights - rate controlled - anticoagulation - monitor hematuria, H/H - antibiotics - AC - prognosis poor - consider comfort care DR CHATMAN
--- NOTE | 2018-02-09 11:48 | PN ---
Progress Note, Physician Chief Complaint: Unable to obtain - Current Medication List Current Medications: Active Medications Albuterol Sulfate (Ventolin 0.083% Nebulizer Soln -) 1 amp NEB [facility]IDR [facility] Last Admin: 02/09/18 05:35 Dose: 1 amp Apixaban (Eliquis -) 2.5 mg PO BID [facility] Last Admin: 02/09/18 09:24 Dose: 2.5 mg Bacitracin (Bacitracin -) 1 applic TP DAILY [facility] Last Admin: 02/09/18 09:24 Dose: 1 applic Piperacillin Sod/Tazobactam (Sod 2.25 gm/ Dextrose) 50 mls @ 100 mls/hr IVPB Q6H-IV [facility]; Protocol Last Admin: 02/09/18 09:23 Dose: 100 mls/hr Lactobacillus Acidophilus (Bacid -) 1 tab PO BID [facility] Last Admin: 02/09/18 09:24 Dose: 1 tab Methylprednisolone Sodium Succinate (Solu-Medrol -) 40 mg IVPUSH DAILY [facility] Last Admin: 02/09/18 09:24 Dose: 40 mg Metoprolol Succinate (Toprol Xl -) 25 mg PO DAILY [facility] Last Admin: 02/09/18 09:24 Dose: 25 mg Multivitamins/Minerals (Theragran-M) 1 each PO DAILY [facility] Last Admin: 02/09/18 09:24 Dose: 1 each - Objective Vital Signs: Vital Signs Temperature 36.7 C 02/09/18 10:00 Pulse Rate 64 02/09/18 10:00 Respiratory Rate 16 02/09/18 10:00 Blood Pressure 118/55 02/09/18 10:00 O2 Sat by Pulse Oximetry (%) 95 02/09/18 09:00 Constitutional: Yes: No Distress, Other (sleeping) Cardiovascular: Yes: Pulse Irregular. No: Tachycardia, Gallop, Murmur, Rub Respiratory: Yes: Regular, On Nasal O2, Rhonchi. No: CTA Bilaterally, Rales, Wheezes Gastrointestinal: Yes: Normal Bowel Sounds, Soft. No: Distention, Tenderness Extremities: Yes: WNL Edema: Yes Edema: LLE: 1+, RLE: 1+ Labs: CBC, BMP 02/08/18 06:00 02/08/18 06:00 INR, PTT INR 2.23 (0.82-1.09) H 01/26/18 15:32 Problem List - Problems (1) Acute respiratory failure with hypoxia Code(s): J96.01 - ACUTE RESPIRATORY FAILURE WITH HYPOXIA (2) Acute on chronic diastolic (congestive) heart failure Code(s): I50.33 - ACUTE ON CHRONIC DIASTOLIC (CONGESTIVE) HEART FAILURE (3) Cellulitis Code(s): L03.90 - CELLULITIS, UNSPECIFIED Qualifiers: Site of cellulitis: extremity Site of cellulitis of extremity: lower extremity Laterality: right Qualified Code(s): L03.115 - Cellulitis of right lower limb (4) Atrial fibrillation Code(s): I48.91 - UNSPECIFIED ATRIAL FIBRILLATION Qualifiers: Atrial fibrillation type: chronic Qualified Code(s): I48.2 - Chronic atrial fibrillation (5) History of aortic valve replacement with bioprosthetic valve Code(s): Z95.4 - PRESENCE OF OTHER HEART-VALVE REPLACEMENT (6) Hypertension Code(s): I10 - ESSENTIAL (PRIMARY) HYPERTENSION (7) Elevated troponin Code(s): R74.8 - ABNORMAL LEVELS OF OTHER SERUM ENZYMES (8) Sepsis Code(s): A41.9 - SEPSIS, UNSPECIFIED ORGANISM Qualifiers: Sepsis type: sepsis due to unspecified organism Qualified Code(s): A41.9 - Sepsis, unspecified organism (9) Clostridium difficile colitis Code(s): A04.72 - ENTEROCOLITIS D/T CLOSTRIDIUM DIFFICILE, NOT SPCF RECUR Assessment/Plan (1) Acute respiratory failure with hypoxia Code(s): J96.01 - ACUTE RESPIRATORY FAILURE WITH HYPOXIA (2) Acute on chronic diastolic (congestive) heart failure (3) Cellulitis Code(s): L03.90 - CELLULITIS, UNSPECIFIED Qualifiers: Site of cellulitis: extremity Site of cellulitis of extremity: lower extremity Laterality: right Qualified Code(s): L03.115 - Cellulitis of right lower limb (4) Atrial fibrillation Code(s): I48.91 - UNSPECIFIED ATRIAL FIBRILLATION Qualifiers: Atrial fibrillation type: chronic Qualified Code(s): I48.2 - Chronic atrial fibrillation (5) History of aortic valve replacement with bioprosthetic valve Code(s): Z95.4 - PRESENCE OF OTHER HEART-VALVE REPLACEMENT (6) Hypertension Code(s): I10 - ESSENTIAL (PRIMARY) HYPERTENSION (7) Elevated troponin Code(s): R74.8 - ABNORMAL LEVELS OF OTHER SERUM ENZYMES (8) Sepsis Code(s): A41.9 - SEPSIS, UNSPECIFIED ORGANISM Qualifiers: Sepsis type: sepsis due to unspecified organism Qualified Code(s): A41.9 - Sepsis, unspecified organism (9) Clostridium difficile colitis Code(s): A04.72 - ENTEROCOLITIS D/T CLOSTRIDIUM DIFFICILE, NOT SPCF RECUR (10) Stage 3 decubitus ulcer Plan -continue current management -planning to discharge home with hospice tomorrow
[2018-02-09] MEDS ORDERED: FUROSEMIDE 40 MG/4 ML INJECTABLE VIAL ONE (13:40)
[2018-02-09] MEDS ORDERED: FUROSEMIDE 40 MG/4 ML INJECTABLE VIAL IVPUSH ONE (14:00)
--- NOTE | 2018-02-09 15:13 | PN ---
Progress Note, Physician History of Present Illness: sitting in the chair family around uncomfortable - Current Medication List Current Medications: Active Medications Albuterol Sulfate (Ventolin 0.083% Nebulizer Soln -) 1 amp NEB TIDR [facility] Last Admin: 02/09/18 05:35 Dose: 1 amp Apixaban (Eliquis -) 2.5 mg PO BID [facility] Last Admin: 02/09/18 09:24 Dose: 2.5 mg Bacitracin (Bacitracin -) 1 applic TP DAILY [facility] Last Admin: 02/09/18 09:24 Dose: 1 applic Piperacillin Sod/Tazobactam (Sod 2.25 gm/ Dextrose) 50 mls @ 100 mls/hr IVPB Q6H-IV [facility]; Protocol Last Admin: 02/09/18 09:23 Dose: 100 mls/hr Lactobacillus Acidophilus (Bacid -) 1 tab PO BID [facility] Last Admin: 02/09/18 09:24 Dose: 1 tab Methylprednisolone Sodium Succinate (Solu-Medrol -) 40 mg IVPUSH DAILY [facility] Last Admin: 02/09/18 09:24 Dose: 40 mg Metoprolol Succinate (Toprol Xl -) 25 mg PO DAILY [facility] Last Admin: 02/09/18 09:24 Dose: 25 mg Multivitamins/Minerals (Theragran-M) 1 each PO DAILY [facility] Last Admin: 02/09/18 09:24 Dose: 1 each - Objective Vital Signs: Vital Signs Temperature 97.9 F 02/09/18 14:00 Pulse Rate 63 02/09/18 14:00 Respiratory Rate 16 02/09/18 10:00 Blood Pressure 93/55 02/09/18 14:00 O2 Sat by Pulse Oximetry (%) 95 02/09/18 09:00 Cardiovascular: Yes: Pulse Irregular, S1 Respiratory: Yes: Poor Air Entry, Rhonchi Gastrointestinal: Yes: Normal Bowel Sounds, Soft Musculoskeletal: Yes: Other Neurological: Yes: Alert Psychiatric: Yes: Alert Labs: CBC, BMP 02/08/18 06:00 02/08/18 06:00 INR, PTT INR 2.23 (0.82-1.09) H 01/26/18 15:32 Assessment/Plan Problem List - Problems (1) Acute respiratory failure with hypoxia Code(s): J96.01 - ACUTE RESPIRATORY FAILURE WITH HYPOXIA (2) Acute on chronic diastolic (congestive) heart failure Code(s): I50.33 - ACUTE ON CHRONIC DIASTOLIC (CONGESTIVE) HEART FAILURE (3) Cellulitis Code(s): L03.90 - CELLULITIS, UNSPECIFIED Qualifiers: Site of cellulitis: extremity Site of cellulitis of extremity: lower extremity Laterality: right Qualified Code(s): L03.115 - Cellulitis of right lower limb (4) Atrial fibrillation Code(s): I48.91 - UNSPECIFIED ATRIAL FIBRILLATION Qualifiers: Atrial fibrillation type: chronic Qualified Code(s): I48.2 - Chronic atrial fibrillation (5) History of aortic valve replacement with bioprosthetic valve Code(s): Z95.4 - PRESENCE OF OTHER HEART-VALVE REPLACEMENT (6) Hypertension Code(s): I10 - ESSENTIAL (PRIMARY) HYPERTENSION (7) Elevated troponin Code(s): R74.8 - ABNORMAL LEVELS OF OTHER SERUM ENZYMES (8) Sepsis Code(s): A41.9 - SEPSIS, UNSPECIFIED ORGANISM Qualifiers: Sepsis type: sepsis due to unspecified organism Qualified Code(s): A41.9 - Sepsis, unspecified organism (9) Clostridium difficile colitis Code(s): A04.72 - ENTEROCOLITIS D/T CLOSTRIDIUM DIFFICILE, NOT SPCF RECUR 10 hematuria 11 uti plan plan is for home hospice no abx when being discharged continue steroids res as per the team
--- NOTE | 2018-02-09 17:48 | PN ---
Progress Note (short form) - Note Progress Note: Renal follow up for SHANICE/CKD Pt seen and examined at the bedside awake and alert uncomfortable + sob Vital Signs Temperature 97.9 F 02/09/18 14:00 Pulse Rate 63 02/09/18 14:00 Respiratory Rate 16 02/09/18 10:00 Blood Pressure 93/55 02/09/18 14:00 O2 Sat by Pulse Oximetry (%) 95 02/09/18 09:00 Intake & Output 02/06/18 02/07/18 02/08/18 02/09/18 23:59 23:59 23:59 23:59 Intake Total 820 490 820 380 Output Total 300 Balance 520 490 820 380 NAD + rales on b/l lower lungs no LE edema CBC, BMP 02/08/18 06:00 02/08/18 06:00 Current Medications Albuterol Sulfate (Ventolin 0.083% Nebulizer Soln -) 1 amp NEB TIDR [facility] Last Admin: 02/09/18 14:00 Dose: 1 amp Apixaban (Eliquis -) 2.5 mg PO BID [facility] Last Admin: 02/09/18 15:59 Dose: Not Given Bacitracin (Bacitracin -) 1 applic TP DAILY [facility] Last Admin: 02/09/18 09:24 Dose: 1 applic Piperacillin Sod/Tazobactam (Sod 2.25 gm/ Dextrose) 50 mls @ 100 mls/hr IVPB Q6H-IV [facility]; Protocol Last Admin: 02/09/18 17:19 Dose: Not Given Lactobacillus Acidophilus (Bacid -) 1 tab PO BID [facility] Last Admin: 02/09/18 15:57 Dose: Not Given Methylprednisolone Sodium Succinate (Solu-Medrol -) 40 mg IVPUSH DAILY [facility] Last Admin: 02/09/18 09:24 Dose: 40 mg Metoprolol Succinate (Toprol Xl -) 25 mg PO DAILY [facility] Last Admin: 02/09/18 09:24 Dose: 25 mg Multivitamins/Minerals (Theragran-M) 1 each PO DAILY [facility] Last Admin: 02/09/18 16:01 Dose: Not Given 88 year old gentleman with PMhx of CHF, Hypertension, CKD who presented with worsening LE edema and found to have acute CHF with rising BUN/Cr during the admission. #SHANICE on CKD #CHF #Hypertension will give additional IV Lasix today as pt continues to have sob for hospice placement may benefit from oral Lasix daily for management of edema/pulmonary congestion Nicolas Phillips DO
[2018-02-10] MEDS: PIPERACILLIN/TAZOB 2.25 GM 2.25 GM in DEXTROSE 5%-WATER - 50 ML IVPB SCH (04:16)
[2018-02-10] MEDS: ALBUTEROL SO4 0.083% IH SOL 2.5 MG/3 ML VIAL.NEB. NEB SCH (06:31)
--- NOTE | 2018-02-10 08:54 | PN ---
Progress Note (short form) - Note Progress Note: Dr. Rollins to document today. Hospice at home with backup to [facility].
[2018-02-10 08:58] VITALS: BP 120/82; PULSE 93; TEMP 98.1
[2018-02-10] MEDS: metoPROLOL SUCCINATE 25 MG TAB.SR.24H (FP) PO SCH (09:27)
[2018-02-10] MEDS: APIXABAN 2.5 MG TABLET PO SCH (09:27)
[2018-02-10] MEDS ORDERED: CEFUROXIME AXETIL 250 MG TABLET PO SCH (10:00)
[2018-02-10] MEDS ORDERED: predniSONE 20 MG TABLET (UD) PO SCH (10:00)
[2018-02-10] MEDS ORDERED: RANITIDINE HCL 150 MG TABLET (FP) PO SCH (10:00)
--- NOTE | 2018-02-10 10:40 | DS ---
Physical Examination Vital Signs: Vital Signs Temperature 36.7 C 02/10/18 08:57 Pulse Rate 93 H 02/10/18 08:57 Respiratory Rate 20 02/10/18 09:00 Blood Pressure 120/82 02/10/18 08:57 O2 Sat by Pulse Oximetry (%) 94 L 02/10/18 09:00 Labs: CBC, BMP 02/08/18 06:00 02/08/18 06:00 Discharge Summary Reason For Visit: CHF,CELLULITIS HX [facility] Current Active Problems CHF (congestive heart failure) (Acute) Cellulitis (Acute) Clostridium difficile colitis (Acute) DVT prophylaxis (Acute) Elevated troponin (Acute) Condition: Poor - Instructions Diet, Activity, Other Instructions: diet and activity per hospice Referrals: Juan Clifford MD [Primary Care Provider] - Disposition: HOME - Home Medications Comprehensive Discharge Medication List: Ambulatory Orders Metoprolol Succinate [Toprol XL -] 25 mg PO DAILY 05/08/16 Furosemide [Lasix -] 40 mg PO DAILY #30 tablet 06/25/16 Albuterol 0.083% Nebulizer [facility] [Ventolin 0.083% Nebulizer Soln -] 1 amp NEB TIDR #30 amp 02/09/18 Bacitracin - [Bacitracin Topical Ointment -] 1 applic TP DAILY #1 tube 02/09/18
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
[2018-02-10] MEDS: LACTOBACILLUS ACIDOPHILUS 1 TABLET PO SCH (12:13)
[2018-02-10] MEDS: MULTIVITAMINS THER W-MINERALS COMBO TABLET (FP) PO SCH (12:13)
== END 2018-02-10 12:49 | disposition home or self-care (01) | DRG 871 ==
LOC: FER 14:32 → JICU 21:35 → J4W 01-27 15:18
PROVIDERS: ADMIT Internal Medicine; ATTEND Internal Medicine
DX: A41.9 Sepsis, unspecified organism (principal); I50.33 Acute on chronic diastolic (congestive) heart failure; L89.153 Pressure ulcer of sacral region, stage 3; J96.01 Acute respiratory failure with hypoxia; J96.21 Acute and chronic respiratory failure with hypoxia; I24.8 Other forms of acute ischemic heart disease; E87.2 Acidosis; A04.72 Enterocolitis due to Clostridium difficile, not specified as recurrent; L03.115 Cellulitis of right lower limb; I11.0 Hypertensive heart disease with heart failure; C43.60 Malignant melanoma of unspecified upper limb, including shoulder; I25.10 Atherosclerotic heart disease of native coronary artery without angina pectoris; I48.2 Chronic atrial fibrillation; Z85.828 Personal history of other malignant neoplasm of skin; F41.9 Anxiety disorder, unspecified; F32.9 Major depressive disorder, single episode, unspecified; Z95.4 Presence of other heart-valve replacement; Z95.0 Presence of cardiac pacemaker; E78.5 Hyperlipidemia, unspecified; I48.91 Unspecified atrial fibrillation; I27.20 Pulmonary hypertension, unspecified; I35.0 Nonrheumatic aortic (valve) stenosis; Z79.01 Long term (current) use of anticoagulants; M17.0 Bilateral primary osteoarthritis of knee; I34.0 Nonrheumatic mitral (valve) insufficiency; E83.42 Hypomagnesemia; R31.0 Gross hematuria; Z74.01 Bed confinement status; Z66 Do not resuscitate; R41.0 Disorientation, unspecified
CPT/HCPCS: 36415; 71045-TC-FY; 74230-TC-FY; 80048; 80053; 81003; 82550; 82962; 83036; 83605; 83735; 83880; 84100; 84443; 84484; 85025; 85027; 85610; 87040; 87086; 87186; 87324; 87449; 92611-GN; 93005; 93010; 93306-TC; 93970-TC; 94640; 97161-GP; 99285-25; J7620